=== PATIENT | female | born 1960 | race Caucasian/White ===

== ENCOUNTER 2022-09-28 22:53 | Emergency (ER) | payer BC, SELFPAY ==
[2022-09-28 23:10] VITALS: BP 104/63; PULSE 108; RESP 18; TEMP 36.8; O2SAT 96; BMI 52.7
--- NOTE | 2022-09-28 23:31 | ED.GENADULT ---
HPI - General Adult General Chief complaint: Nausea/Vomiting Stated complaint: Throwing up, Diarrea, heart palpitations Time Seen by Provider: 09/28/22 23:30 History of Present Illness HPI narrative: Patient arrives ambulatory to ED with concerns for nausea, vomiting, and diarrhea x 1.5 week. She states she she has also developed HANSEN, palpations, shakiness and weakness. Today had sharp pain in the LLQ x3 that lasts only for a few seconds and resolved. Started Ozempic 5 weeks ago. Hx. of cholecystectomy 62-year-old woman presenting to the emergency department with concern of diarrhea; since cholecystectomy but this much worse. No preceding antibiotics. Five episodes of diarrhea in the last 10 hours and 2 episodes of vomiting today. Did have a steroid shot in her hip about a week and a half ago. The GI symptoms preceded that. Persistent nausea. I make note of heart rate and she says that is generally just tachycardic. Is in the midst of workup for this. Has also had elevating white count and to see hematology. Quite concerned about this. Sounds like she is worried she might have cancer. Related Data Home Medications Medication Instructions Recorded Confirmed amlodipine 5 mg tablet 5 mg PO DAILY 09/28/22 09/28/22 chlorthalidone 50 mg tablet 50 mg PO DAILY 09/28/22 09/28/22 gabapentin 300 mg capsule 300 - 900 mg PO Q12H PRN 09/28/22 09/28/22 losartan 50 mg tablet 50 mg PO BID 09/28/22 09/28/22 metformin 1,000 mg tablet 1,000 mg PO BID 09/28/22 09/28/22 potassium chloride 20 mEq 20 meq PO BID 09/28/22 09/28/22 tablet,extended release semaglutide 0.25 mg or 0.5 mg (2 mg subcut 09/28/22 mg/3 mL) subcutaneous pen injector (Ozempic) simvastatin 40 mg tablet 40 mg PO QPM 09/28/22 09/28/22 spironolactone 25 mg tablet 25 mg PO DAILY 09/28/22 09/28/22 spironolactone 50 mg tablet 50 mg PO DAILY 09/28/22 09/28/22 Allergies Allergy/AdvReac Type Severity Reaction Status Date / Time Iodinated Contrast Media Allergy Intermediate rash Verified 09/28/22 23:03 amlodipine AdvReac Uncoded 09/28/22 23:03 Review of Systems Status of ROS: Reports: 6 or more systems reviewed and unremarkable except as noted in History and below PFSH PFSH Social History Smoking Status: Former smoker Do you use any of these nicotine containing products: None Second hand tobacco smoke exposure: No How often do you have a drink containing alcohol: never How often do you have six or more drinks on one occasion: Never AUDIT-C Alcohol total score: 0 Non-prescribed substance use: denies use service: No Exam Narrative: Exam Narrative: Pleasant. Laughs easily. Tired. Appears generally uncomfortable. Head is atraumatic. Sticky mouth. Dry teeth. Slightly tremulous. Lungs are clear. Heart in elevated rate but in regular rhythm. Cranial nerves 2-12 are intact. Abdomen is soft a little tender in a epigastrium but minimally so. Normoactive bowel sounds. Well-perfused peripherally. Knees with postoperative scars. No lower extremity edema. Tattoos on feet. Const: Vital Signs, click to edit/add: Vital Signs - 24 hr 09/28/22 23:10 09/28/22 23:58 09/28/22 23:59 Temperature 98.3 F Pulse Rate 110 H 115 H Pulse Rate [Pulse Oximeter] 108 H Respiratory Rate 18 Blood Pressure 129/72 Blood Pressure [Le ft Upper Arm] 104/63 Pulse Oximetry 96 97 96 Oxygen Delivery Me thod Room Air 09/29/22 00:00 09/29/22 00:02 09/29/22 00:02 Temperature Pulse Rate 112 H 114 H 114 H Pulse Rate [Pulse Oximeter] Respiratory Rate Blood Pressure 115/61 115/61 Blood Pressure [Le ft Upper Arm] Pulse Oximetry 96 97 97 Oxygen Delivery Me thod 09/29/22 00:03 09/29/22 00:15 09/29/22 00:30 Temperature Pulse Rate 112 H 110 H 107 H Pulse Rate [Pulse Oximeter] Respiratory Rate Blood Pressure Blood Pressure [Le ft Upper Arm] Pulse Oximetry 97 97 99 Oxygen Delivery Me thod 09/29/22 00:32 09/29/22 00:45 09/29/22 01:00 Temperature Pulse Rate 110 H 108 H 108 H Pulse Rate [Pulse Oximeter] Respiratory Rate Blood Pressure 138/72 Blood Pressure [Le ft Upper Arm] Pulse Oximetry 98 97 96 Oxygen Delivery Me thod 09/29/22 01:02 09/29/22 01:15 09/29/22 01:30 Temperature Pulse Rate 108 H 96 99 Pulse Rate [Pulse Oximeter] Respiratory Rate Blood Pressure 141/73 H Blood Pressure [Le ft Upper Arm] Pulse Oximetry 95 97 98 Oxygen Delivery Me thod 09/29/22 01:32 09/29/22 01:33 09/29/22 01:45 Temperature Pulse Rate 97 93 97 Pulse Rate [Pulse Oximeter] Respiratory Rate Blood Pressure 148/71 H Blood Pressure [Le ft Upper Arm] Pulse Oximetry 96 97 97 Oxygen Delivery Me thod 09/29/22 02:00 09/29/22 02:02 Temperature Pulse Rate 101 H 100 Pulse Rate [Pulse Oximeter] Respiratory Rate Blood Pressure 153/72 H Blood Pressure [Le ft Upper Arm] Pulse Oximetry 97 96 Oxygen Delivery Me thod Documenting provider has reviewed patient's vital signs: yes Course Vital Signs Vital signs: Initial Vital Signs Temperature 98.3 F 09/28/22 23:10 Temperature Source Temporal Artery Scan 09/28/22 23:10 Pulse Rate 108 H 09/28/22 23:10 Respiratory Rate 18 09/28/22 23:10 Blood Pressure 104/63 09/28/22 23:10 Blood Pressure Mean 76 09/28/22 23:10 Pulse Oximetry 96 09/28/22 23:10 Oxygen Delivery Method Room Air 09/28/22 23:10 Vital Signs Temperature 98.3 F 09/28/22 23:10 Pulse Rate 108 H 09/28/22 23:10 Respiratory Rate 18 09/28/22 23:10 Blood Pressure 104/63 09/28/22 23:10 Pulse Oximetry 96 09/28/22 23:10 Oxygen Delivery Method Room Air 09/28/22 23:10 Temperature 98.3 F 09/28/22 23:10 Pulse Rate 100 09/29/22 02:02 Respiratory Rate 18 09/28/22 23:10 Blood Pressure 153/72 H 09/29/22 02:02 Pulse Oximetry 96 09/29/22 02:02 Oxygen Delivery Method Room Air 09/28/22 23:10 Medical Decision Making MDM Narrative Medical decision making narrative: Initiated with IV fluids. Clearly she is dehydrated. I think carrying a lot of stress and feeling anxious as well. There could be an infectious etiology to these symptoms though I think more likely is medication reaction compounding already underlying chronic diarrheal symptoms. This does not appear to be colitis symptoms per se. With duration of symptoms would be a good idea to check labs. Mildly elevated white count and CRP of unclear etiology. I do not see particular evidence of hematological cancer as has been discussed with her. With fluids and antiemetic is overall quite improved. Seems more calm, relaxed. See patient discharge plan. Lab Data Lab results reviewed: Yes I reviewed the patient's lab results Labs: Lab Results 09/28/22 09/29/22 Range/Units 23:55 00:00 WBC 13.61 H (4.50-11.00) K/uL RBC 4.47 (4.00-5.20) m/uL Hgb 13.6 (12.0-16.0) gm/dL Hct 41.4 (33.0-51.0) % MCV 93 (80-100) fL MCH 30 (26-34) pg MCHC 33 (32-36) gm/dL RDW Coeff of Karlo 13.9 (11.5-15.5) % Plt Count 471 H (140-440) K/uL Neut % (Auto) 66.9 (42.0-72.0) % Lymph % (Auto) 26.5 (20-44) % [place] % (Auto) 5.8 (0.0-11.0) % Eos % (Auto) 0.2 (0.0-7.0) % Baso % (Auto) 0.2 (0.0-3.0) % Neut # (Auto) 9.10 H (1.7-7.0) K/uL Lymph # (Auto) 3.60 H (0.90-2.90) K/uL [place] # (Auto) 0.80 (0.00-0.90) K/UL Eos # (Auto) 0.00 (0.00-0.50) K/uL Baso # (Auto) 0.00 (0.00-0.30) K/uL Sodium 137 (135-149) mmol/L Potassium 3.9 (3.6-5.1) mmol/L Chloride 98 (96-114) mmol/L Carbon Dioxide 24 (20-32) mmol/L BUN 30 (7-30) mg/dL Creatinine 0.8 (0.5-1.5) mg/dL Estimated Creat Clear 42.89 Estimated GFR 82 ml/min Glucose 151 H (60-115) mg/dL Calcium 9.9 (8.4-10.6) mg/dL Total Bilirubin 0.7 (0.1-1.5) mg/dL Direct Bilirubin 0.3 (0.0-0.5) mg/dL AST 20 (12-35) U/L ALT 20 (4-35) U/L Alkaline Phosphatase 77 (40-150) U/L C-Reactive Protein 1.3 H (0.5-1.0) mg/dL Total Protein 7.7 (6.0-8.3) g/dL Albumin 4.6 (3.3-5.0) g/dL Lab Acknowledgement Test Added ECG Data Attestation: I personally reviewed and interpreted this ECG as follows: (Sinus tachycardia at 118 without ischemic changes) Discharge Plan Discharge Clinical Impression: Diarrhea, Vomiting, Dehydration Patient Disposition: Home w/ Parent or Adult Condition: Improved Instructions: Dehydration (ED), Acute Nausea and Vomiting (ED) Additional Instructions: Certainly sounds as though your diarrhea could be multifactorial. Perhaps reviewing again potential treatments for your diarrhea since your cholecystectomy with Gastroenterology or General surgery would be a good idea. Might need a holiday from Ozempic plus or minus a restart to see how much this is playing a role in your symptoms. I would follow up in primary care. At least at this moment I am overall reassured by your complete blood count after what you had described. I would still keep your scheduled followups. Good to see you. Happy you're feeling better. Vladimir from [employer]. Prescriptions: No Action amlodipine 5 mg tablet 5 mg PO DAILY chlorthalidone 50 mg tablet 50 mg PO DAILY gabapentin 300 mg capsule 300 - 900 mg PO Q12H PRN losartan 50 mg tablet 50 mg PO BID spironolactone 25 mg tablet 25 mg PO DAILY simvastatin 40 mg tablet 40 mg PO QPM metformin 1,000 mg tablet 1,000 mg PO BID spironolactone 50 mg tablet 50 mg PO DAILY potassium chloride 20 mEq tablet extended release 20 meq PO BID Ozempic 0.25 mg or 0.5 mg (2 mg/3 mL) pen injector subcut Follow Up/Referrals: Kelly Sommer PA [Primary Care Provider] - Stand Alone Forms: [email or web address] Info Instructions
[2022-09-28 23:58] VITALS: PULSE 110; O2SAT 97
[2022-09-28] MEDS: 0.9 % SODIUM CHLORIDE 1000 ml 1,000 ML IV (23:58)
[2022-09-28] MEDS: ONDANSETRON 2 MG/ML inj 4 MG IVP (23:58)
[2022-09-28 23:59] VITALS: BP 129/72; PULSE 115; O2SAT 96
[2022-09-29] VITALS (16 sets, daily range): BP systolic 115–153; BP diastolic 61–73; PULSE 93–114; O2SAT 95–99
[2022-09-29 00:17] LABS: Albumin* 4.6 g/dL (3.3-5.0); Chloride* 98 mmol/L (96-114); Sodium* 137 mmol/L (135-149)
[2022-09-29 00:18] LABS: Potassium* 3.9 mmol/L (3.6-5.1)
[2022-09-29 00:20] LABS: Alkaline Phosphatase* 77 U/L (40-150); Aspartate Amino Transferase* 20 U/L (12-35); Bilirubin Direct* 0.3 mg/dL (0.0-0.5); Bilirubin Total* 0.7 mg/dL (0.1-1.5); Blood Urea Nitrogen* 30 mg/dL (7-30); Carbon Dioxide* 24 mmol/L (20-32); Creatinine* 0.8 mg/dL (0.5-1.5); Est. Creatinine Clearance* 42.89; Estimated Glomerular Filt Rate 82 ml/min; Glucose* 151 mg/dL (60-115); Total Protein* 7.7 g/dL (6.0-8.3)
[2022-09-29 00:21] LABS: Alanine Aminotransferase* 20 U/L (4-35); Calcium* 9.9 mg/dL (8.4-10.6)
[2022-09-29 00:23] LABS: C Reactive Protein* 1.3 mg/dL (0.5-1.0)
[2022-09-29 00:36] LABS: Basophils Percent Auto 0.2 % (0.0-3.0); Eosinophils Percent Auto 0.2 % (0.0-7.0); Hematocrit 41.4 % (33.0-51.0); Hemoglobin* 13.6 gm/dL (12.0-16.0); Immature Granulocytes Pct Auto 0.4 %; Lymphocytes Percent Auto 26.5 % (20-44); Mean Corpuscular HGB Conc 33 gm/dL (32-36); Mean Corpuscular Hemoglobin 30 pg (26-34); Mean Corpuscular Volume 93 fL (80-100); Monocytes Percent Auto 5.8 % (0.0-11.0); Neutrophils Percent Auto 66.9 % (42.0-72.0); Platelet Count* 471 K/uL (140-440); RDW Coefficient of Variation % 13.9 % (11.5-15.5); Red Blood Count 4.47 m/uL (4.00-5.20); Slide Review Reflex No; White Blood Count* 13.61 K/uL (4.50-11.00)
[2022-09-29] MEDS: 0.9 % SODIUM CHLORIDE 1000 ml 1,000 ML IV (01:07)
== END 2022-09-29 02:28 | disposition home or self-care (01) ==
PROVIDERS: Emergency Provider Family Medicine; PCP Physician Assistant
DX: E86.0 Dehydration (principal); R19.7 Diarrhea, unspecified; R11.10 Vomiting, unspecified; R00.2 Palpitations
CPT/HCPCS: 36415; 80053; 80076; 85025; 86140; 93005; 99283; 99284; J2405; J7030

== ENCOUNTER 2022-11-04 12:55 | Outpatient (CLI) | payer BC, SELFPAY ==
--- NOTE | 2022-11-04 11:20 | W.ANESCHARGE ---
Anesthesia Charges Start Date/Time Anesthesia Start Date: 11/04/22 Anesthesia Start Time: 13:31 Stop Date/Time Anesthesia Stop Date: 11/04/22 Anesthesia Stop Time: 14:01
--- NOTE | 2022-11-04 14:00 | W.ANESCHARGE ---
Anesthesia Charges Start Date/Time Anesthesia Start Date: 11/04/22 Anesthesia Start Time: 13:31 Stop Date/Time Anesthesia Stop Date: 11/04/22 Anesthesia Stop Time: 14:01
== END 2022-11-04 12:56 | disposition home or self-care (01) ==
LOC: OP CLINIC 12:57
PROVIDERS: PCP Family Medicine; Visit Provider Internal Medicine Gastroenterology
DX: Z12.11 Encounter for screening for malignant neoplasm of colon (principal); K63.5 Polyp of colon
CPT/HCPCS: 00811; 00812; 45380; 45385; 88305; J2704

== ENCOUNTER 2023-01-14 10:28 | Emergency (ER) | payer BC, SELFPAY ==
[2023-01-14 10:39] VITALS: BP 128/84; PULSE 99; RESP 18; TEMP 35.7; O2SAT 99; BMI 48.2
--- NOTE | 2023-01-14 11:33 | ED.NAVMDI ---
HPI - Nausea/Vomiting/Diarrhea General Time Seen by Provider: 11:34 Date Seen: 01/14/23 Chief complaint: Nausea/Vomiting Stated complaint: Vomiting Time Seen by Provider: 01/14/23 11:32 Source: patient, RN notes reviewed and old records reviewed Mode of arrival: ambulatory Limitations: no limitations History of Present Illness HPI Narrative: This 62-year-old female is coming in with concern of dehydration for intermittent/episodic nausea vomiting diarrhea that is been present for about 3 months now. She remembers coming into the ER earlier this year with symptoms. At that time it was more diarrhea which has gotten better overall. She has times where she will be symptom free. Right now she is having significant nausea, she states she does not really vomit much because she is not eating much. She is attempting to lose weight so that she can get down to a BMI where they will do a hip replacement. She is not having abdominal pain except when she dry heaves then she will get some sharp pain in the lower abdomen, that is the only time. There is no fevers but sometimes at night she will feel sweaty like she is having a hot flash and has not had hot flashes for years. She states they are in the process of considering leukemia due to an elevated white count. She has not had extensive weight loss. Her gallbladder is out, she has had surgery 3 years ago for endometrial cancer which was done through the [facility] system. She cannot get into her primary care provider until February 11. She remembers getting Zofran but does not have any more at home, ran out of it. This current nausea vomiting, rather dry heaving, has been for a few days now. She notes she had diarrhea much worse in the beginning of these symptoms, will be intermittent, is not having that right now. She did go on BuSpar for underlying anxiety and does feel that that has helped her diarrhea symptoms. She had a couple days of diarrhea last week but her brother also and she attributed to stress. She has had a colonoscopy. She actually is reporting more dry heaves or gagging and not true vomiting. In review of her records, she was here on 09/28/2022 with nausea vomiting and diarrhea. Ozempic had been started 5 weeks prior to that. MD elicited complaint: nausea, vomiting and diarrhea (Not current today.) Related Data Home Medications Medication Instructions Recorded Confirmed amlodipine 5 mg tablet 5 mg PO DAILY 09/28/22 01/14/23 chlorthalidone 50 mg tablet 50 mg PO DAILY 09/28/22 01/14/23 gabapentin 300 mg capsule 300 - 900 mg PO Q12H PRN 09/28/22 01/14/23 losartan 50 mg tablet 50 mg PO BID 09/28/22 01/14/23 metformin 1,000 mg tablet 1,000 mg PO BID 09/28/22 01/14/23 potassium chloride 20 mEq 20 meq PO BID 09/28/22 01/14/23 tablet,extended release semaglutide 0.25 mg or 0.5 mg (2 mg subcut 09/28/22 mg/3 mL) subcutaneous pen injector (Ozempic) simvastatin 40 mg tablet 40 mg PO QPM 09/28/22 01/14/23 spironolactone 25 mg tablet 25 mg PO DAILY 09/28/22 01/14/23 spironolactone 50 mg tablet 50 mg PO DAILY 09/28/22 01/14/23 buspirone 10 mg tablet 20 mg PO BID 01/14/23 01/14/23 venlafaxine 150 mg 150 mg PO QAM 01/14/23 01/14/23 capsule,extended release 24 hr venlafaxine 75 mg capsule,extended 75 mg PO QAM 01/14/23 01/14/23 release 24 hr Previous Rx's Medication Instructions Recorded ondansetron 4 mg disintegrating 4 mg PO Q6H PRN nausea and 01/14/23 tablet vomiting #30 tabs Allergies Allergy/AdvReac Type Severity Reaction Status Date / Time Iodinated Contrast Media Allergy Intermediate rash Verified 09/28/22 23:03 amlodipine AdvReac Uncoded 09/28/22 23:03 Review of Systems Status of ROS: Reports: 6 or more systems reviewed and unremarkable except as noted in History and below [facility] Social History Smoking Status: Former smoker Do you use any of these nicotine containing products: None Second hand tobacco smoke exposure: No How often do you have a drink containing alcohol: never How often do you have six or more drinks on one occasion: Never AUDIT-C Alcohol total score: 0 Non-prescribed substance use: denies use service: No Exam Const: Vital Signs, click to edit/add: Vital Signs - 24 hr 01/14/23 10:39 01/14/23 13:47 Temperature 96.2 F L Pulse Rate [Pulse Oximeter] 99 90 Respiratory Rate 18 16 Blood Pressure [Ri ght Upper Arm] 128/84 121/59 L Pulse Oximetry 99 98 Oxygen Delivery Me thod Room Air Room Air Yue is a 62-year-old female that is alert interactive no apparent distress. She has baseline obese body habitus. She is very pleasant, able to speak in complete sentences. Pupils are equal, sclera clear. Face atraumatic. Oropharynx mildly dry but no exudates or abnormality noted outside of being dry. Neck is supple without masses ir thyromegaly. Lungs are clear with good air entry. CV slightly fast but regular, no murmur, normal S1 and S2, no S3-S4. Abdomen is obese but nontender, nondistended, no palpable masses or organomegaly but body habitus does preclude this examination. Moving all extremities. Documenting provider has reviewed patient's vital signs: yes Course Course Hospital Course: Patient with reported intermittent nausea vomiting/gagging with some intermittent diarrhea on Ozempic. I do wonder if her Ozempic may be problematic and causative in some of her symptoms. We will establish an IV if she does look dry, have her receive some IV fluids and Zofran. We will check baseline chemistries. If this is truly been going on for 3 months and we have normal labs, abdominal exam is nontender, do think that she can probably proceed with further outpatient workup. I do wonder she maybe should be taken off the Ozempic and see if she improves. Reevaluation(s) Time of Reevaluation #1: 14:22 Reevaluation #1: Have reviewed with patient that she certainly seems dehydrated as evidenced by elevated lactate. We will give her a 2 L of fluids. Her nausea is better. We did review her Ozempic use, I highly suspect this as a causative etiology of her symptoms. It may take her in order of weeks to have this out of her system, would not recommend using this further and stay off of it for at least 2-4 weeks and see if her symptoms go away. I do not think she requires a CT, her abdominal exam is completely benign, symptoms have been present since September. We did review that her white blood count is elevated with a predominance of lymphocytes, further outpatient workup for such things like chronic lymphocytic leukemia can be undertaken with her primary. Plan will be to discharge to home after 2 L of fluids with the home prescription of Zofran. Vital Signs Vital signs: Initial Vital Signs Temperature 96.2 F L 01/14/23 10:39 Temperature Source Temporal Artery Scan 01/14/23 10:39 Pulse Rate 99 01/14/23 10:39 Pulse Rhythm Regular 01/14/23 10:39 Respiratory Rate 18 01/14/23 10:39 Blood Pressure 128/84 01/14/23 10:39 Blood Pressure Mean 98 01/14/23 10:39 Blood Pressure Position Sitting 01/14/23 10:39 Pulse Oximetry 99 01/14/23 10:39 Oxygen Delivery Method Room Air 01/14/23 10:39 Vital Signs Temperature 96.2 F L 01/14/23 10:39 Pulse Rate 99 01/14/23 10:39 Respiratory Rate 18 01/14/23 10:39 Blood Pressure 128/84 01/14/23 10:39 Pulse Oximetry 99 01/14/23 10:39 Oxygen Delivery Method Room Air 01/14/23 10:39 Temperature 96.2 F L 01/14/23 10:39 Pulse Rate 90 01/14/23 13:47 Respiratory Rate 16 01/14/23 13:47 Blood Pressure 121/59 L 01/14/23 13:47 Pulse Oximetry 98 01/14/23 13:47 Oxygen Delivery Method Room Air 01/14/23 13:47 MDM - Nausea/Vomiting/Diarrhea Lab Data Labs: Lab Results 01/14/23 01/14/23 Range/Units 12:39 12:39 WBC 15.65 H (4.50-11.00) K/uL RBC 4.59 (4.00-5.20) m/uL Hgb 14.0 (12.0-16.0) gm/dL Hct 43.4 (33.0-51.0) % MCV 95 (80-100) fL MCH 31 (26-34) pg MCHC 32 (32-36) gm/dL RDW Coeff of Karlo 13.6 (11.5-15.5) % Plt Count 523 H (140-440) K/uL Neut % (Auto) 55.7 (42.0-72.0) % Lymph % (Auto) 37.8 (20-44) % [place] % (Auto) 5.4 (0.0-11.0) % Eos % (Auto) 0.4 (0.0-7.0) % Baso % (Auto) 0.4 (0.0-3.0) % Neut # (Auto) 8.70 H (1.7-7.0) K/uL Lymph # (Auto) 5.90 H (0.90-2.90) K/uL [place] # (Auto) 0.80 (0.00-0.90) K/UL Eos # (Auto) 0.10 (0.00-0.50) K/uL Baso # (Auto) 0.10 (0.00-0.30) K/uL Abs Immat Gran (auto) 0.00 (0.00-0.30) K/uL Imm/Tot Granulo (auto) 0.3 % Diff Slide Review Acceptable Review (Acceptable) Sodium 137 (135-149) mmol/L Potassium 4.7 (3.6-5.1) mmol/L Chloride 97 (96-114) mmol/L Carbon Dioxide 26 (20-32) mmol/L Anion Gap 14 (7-15) mEq/L BUN 31 H (7-30) mg/dL Creatinine 0.9 (0.5-1.5) mg/dL Estimated Creat Clear 42.89 Estimated GFR 71 ml/min Glucose 122 H (60-115) mg/dL Lactate 4.3 H* (0.5-1.9) mmol/L Calcium 9.7 (8.4-10.6) mg/dL Total Bilirubin 0.9 (0.1-1.5) mg/dL AST 33 (12-35) U/L ALT 20 (4-35) U/L Alkaline Phosphatase 72 (40-150) U/L C-Reactive Protein Cancelled 1.0 Total Protein 8.6 H (6.0-8.3) g/dL Albumin 4.9 (3.3-5.0) g/dL Lipase 89 (23-300) U/L TSH 2.090 (0.270-4.200) uIU/mL Discharge Plan Discharge Clinical Impression: Drug-induced nausea and vomiting Patient Disposition: Home, Self-Care Condition: Stable Instructions: Acute Nausea and Vomiting (ED) Additional Instructions: Use Zofran per prescription for any recurrent nausea vomiting. Recommend frequent small sips of fluids, advanced her diet back to normal once you are feeling better. I would recommend a trial being off the Ozempic for 2-4 weeks and see if symptoms improve. Ultimately, defer to your primary care provider and do request that you get scheduled for a follow-up within the next week to review your symptoms. If you are worsening in the interim, unable to keep down fluids, do develop fever and abdominal pain with vomiting or diarrhea, please seek re-evaluation. Activity Level: Activity as Tolerated Prescriptions: New ondansetron 4 mg tablet,disintegrating 4 mg PO Q6H PRN (Reason: nausea and vomiting) Qty: 30 0RF No Action buspirone 10 mg tablet 20 mg PO BID venlafaxine 75 mg capsule,extended release 24hr 75 mg PO QAM venlafaxine 150 mg capsule,extended release 24hr 150 mg PO QAM amlodipine 5 mg tablet 5 mg PO DAILY chlorthalidone 50 mg tablet 50 mg PO DAILY gabapentin 300 mg capsule 300 - 900 mg PO Q12H PRN losartan 50 mg tablet 50 mg PO BID spironolactone 25 mg tablet 25 mg PO DAILY simvastatin 40 mg tablet 40 mg PO QPM metformin 1,000 mg tablet 1,000 mg PO BID spironolactone 50 mg tablet 50 mg PO DAILY potassium chloride 20 mEq tablet extended release 20 meq PO BID Ozempic 0.25 mg or 0.5 mg (2 mg/3 mL) pen injector subcut Hold Instructions: Pt stopped 1wk ago, believes it might contribute to symptoms Follow Up/Referrals: Asha Arthur DO [Primary Care Provider] - Stand Alone [facility]: [facility] Info Instructions
[2023-01-14] MEDS: 0.9 % SODIUM CHLORIDE 1000 ml 1,000 ML 500 ML IV (12:40)
[2023-01-14] MEDS: ONDANSETRON 2 MG/ML inj 4 MG IVP (12:40)
[2023-01-14 12:51] LABS: Lactate* 4.3 mmol/L (0.5-1.9)
[2023-01-14 12:53] LABS: Basophils Percent Auto 0.4 % (0.0-3.0); Eosinophils Percent Auto 0.4 % (0.0-7.0); Hematocrit 43.4 % (33.0-51.0); Immature Granulocytes Pct Auto 0.3 %; Lymphocytes Percent Auto 37.8 % (20-44); Mean Corpuscular HGB Conc 32 gm/dL (32-36); Mean Corpuscular Hemoglobin 31 pg (26-34); Mean Corpuscular Volume 95 fL (80-100); Monocytes Percent Auto 5.4 % (0.0-11.0); Neutrophils Percent Auto 55.7 % (42.0-72.0); Platelet Count* 523 K/uL (140-440); RDW Coefficient of Variation % 13.6 % (11.5-15.5); Red Blood Count 4.59 m/uL (4.00-5.20); White Blood Count* 15.65 K/uL (4.50-11.00)
[2023-01-14 12:59] LABS: Slide Review Reflex Yes
[2023-01-14 13:06] LABS: Albumin* 4.9 g/dL (3.3-5.0); Chloride* 97 mmol/L (96-114); Potassium* 4.7 mmol/L (3.6-5.1); Sodium* 137 mmol/L (135-149)
[2023-01-14 13:08] LABS: Bilirubin Total* 0.9 mg/dL (0.1-1.5); Creatinine* 0.9 mg/dL (0.5-1.5); Est. Creatinine Clearance* 42.89; Estimated Glomerular Filt Rate 71 ml/min
[2023-01-14 13:09] LABS: Alanine Aminotransferase* 20 U/L (4-35); Alkaline Phosphatase* 72 U/L (40-150); Anion Gap 14 mEq/L (7-15); Aspartate Amino Transferase* 33 U/L (12-35); Blood Urea Nitrogen* 31 mg/dL (7-30); Carbon Dioxide* 26 mmol/L (20-32); Glucose* 122 mg/dL (60-115); Lipase* 89 U/L (23-300); Total Protein* 8.6 g/dL (6.0-8.3)
[2023-01-14 13:10] LABS: Calcium* 9.7 mg/dL (8.4-10.6)
[2023-01-14 13:18] LABS: Slide Review Acceptable Review (Acceptable)
[2023-01-14 13:47] VITALS: BP 121/59; PULSE 90; RESP 16; O2SAT 98
--- NOTE | 2023-01-14 14:09 | PC.NURSE ---
pt states she is feeling a bit better, no further vomiting. Has had one episode of diarrhea since being in ED.
[2023-01-14] MEDS: 0.9 % SODIUM CHLORIDE 1000 ml 1,000 ML IV (14:21)
== END 2023-01-14 15:15 | disposition home or self-care (01) ==
PROVIDERS: Emergency Provider Family Medicine; PCP Family Medicine
DX: R11.2 Nausea with vomiting, unspecified (principal); T50.905A Adverse effect of unspecified drugs, medicaments and biological substances, initial encounter
CPT/HCPCS: 36415; 80053; 83605; 83690; 84443; 85025; 86140; 96374; 99284; J2405; J7030

== ENCOUNTER 2023-06-23 14:43 | Emergency (ER) | payer MEDICARE, BC, SELFPAY ==
[2023-06-23] VITALS (13 sets, daily range): BP systolic 109–120; BP diastolic 54–67; PULSE 96–116; RESP 24; TEMP 36.6; O2SAT 89–97; BMI 43.9
--- NOTE | 2023-06-23 15:27 | ED.GENADULT ---
HPI - General Adult General Date Seen: 06/23/23 Chief complaint: Shortness of Breath/Dyspnea Stated complaint: Shortness of breath Time Seen by Provider: 06/23/23 15:18 History of Present Illness HPI narrative: 63-year-old female with a complex past history including type 2 diabetes, hypertension, hyperlipidemia, obesity, osteoarthritis, recent left hip replacement (2 weeks ago) done by an orthopedist through [facility]. She had her operations at [facility]. In terms of her hip surgery, I note in her record that She had seen Dr. Gutiérrez for her left hip pain in January. Because of her obesity he recommend referral to a different orthopedist for a specialized hip replacement surgery using a posterior approach. Since her surgery she has been having a fair amount of left hip pain is been taking oxycodone for that. She has been able to ambulate at home with her walker. She has not really noticed any bruising on her hip her leg. No swelling in her legs. No fevers. She has been on a 2 week course of prophylactic antibiotics to prevent any postoperative hip infection. She was in her bedroom yesterday when she was trying to turn in transfer. She got the front wheel of her walker caught between her bed and the bedside table. She was frustrated by that and was vigorously trying to move it. However she lost her balance and she fell. She hit her left side against the bed and then hit her right lateral and posterolateral ribcage against the bedside table. She was able to get off the floor on her own. She had some pain in her left hip but did not think it was broken. She was able to bear weight after the fall. Shortly after the fall she began to notice right lateral chest pain. It got steadily worse throughout the day yesterday and is worse overnight. The chest pain is not controlled by her oxycodone. Sometimes he gets into intense spasms of pain in her right chest. She seems to notice that it gets worse when she twists her head and neck to the wrong direction and when she tries to breathe too deeply. She is not coughing. No fever. No midline back pain. No numbness or tingling down her legs. She is not on any blood thinners. She has no history of DVT or PE. She had a previously scheduled postop appointment with her orthopedist at [facility] today. She and her went to that appointment and were hoping to get an x-ray to look for broken ribs. However her orthopedist said that she should go to the ER to be evaluated for possible blood clot. Therefore they drove from [facility] here to the ER in [place]. She does have a history of an allergy to CT contrast-she broke out in hives. I does not sound like her allergy was anaphylaxis. That reaction occurred years ago. She has had a subsequent CT scans with contrast, as recently as about 2 months ago. She says she does well when she gets premedicated with Benadryl. She recalls 1 time she was also premedicated with some other medication (possibly steroids? ). Related Data Home Medications Medication Instructions Recorded Confirmed amlodipine 5 mg tablet 5 mg PO DAILY 09/28/22 06/23/23 chlorthalidone 50 mg tablet 50 mg PO DAILY 09/28/22 06/23/23 gabapentin 300 mg capsule 300 - 900 mg PO Q12H PRN 09/28/22 06/23/23 losartan 50 mg tablet 50 mg PO BID 09/28/22 06/23/23 metformin 1,000 mg tablet 1,000 mg PO BID 09/28/22 06/23/23 potassium chloride 20 mEq 20 meq PO BID 09/28/22 06/23/23 tablet,extended release simvastatin 40 mg tablet 40 mg PO QPM 09/28/22 06/23/23 spironolactone 25 mg tablet 25 mg PO DAILY 09/28/22 06/23/23 spironolactone 50 mg tablet 50 mg PO DAILY 09/28/22 06/23/23 buspirone 10 mg tablet 20 mg PO BID 01/14/23 06/23/23 venlafaxine 150 mg 150 mg PO QAM 01/14/23 06/23/23 capsule,extended release 24 hr venlafaxine 75 mg capsule,extended 75 mg PO QAM 01/14/23 06/23/23 release 24 hr Previous Rx's Medication Instructions Recorded ondansetron 4 mg disintegrating 4 mg PO Q6H PRN nausea and 01/14/23 tablet vomiting #30 tabs amoxicillin 500 mg capsule 2,000 mg (4 x 500 mg) PO ONCE #4 04/22/23 caps Allergies Allergy/AdvReac Type Severity Reaction Status Date / Time Iodinated Contrast Media Allergy Intermediate rash Verified 01/21/23 11:08 nitrofurantoin Allergy Intermediate swelling Verified 01/21/23 11:08 amlodipine Allergy Mild feet Verified 01/21/23 11:08 swelling gadodiamide Allergy Mild high for Verified 01/21/23 11:08 3 days PFSH [facility] Medical History (Updated 06/23/23 @ 17:11 by Edgar Russo MD) Traumatic hematuria ?R31.9 - Hematuria, unspecified (ICD-10) Postural vertigo Obstructive sleep apnea treated with continuous positive airway pressure (CPAP) ?G47.33 - Obstructive sleep apnea (adult) (pediatric) (ICD-10) Cervical radiculopathy ?M54.12 - Radiculopathy, cervical region (ICD-10) Cataract ?H26.9 - Unspecified cataract (ICD-10) Drug-induced nausea and vomiting ?R11.2 - Nausea with vomiting, unspecified (ICD-10) ?T50.905A - Adverse effect of unspecified drugs, medicaments and biological substances, initial encounter (ICD-10) Surgical History History of tonsillectomy ?Z90.89 - Acquired absence of other organs (ICD-10) History of lumbar discectomy ?Z98.890 - Other specified postprocedural states (ICD-10) S/P right knee arthroscopy (08/20/04) ?Z98.890 - Other specified postprocedural states (ICD-10) S/P right knee arthroscopy (02/05/12) ?Z98.890 - Other specified postprocedural states (ICD-10) S/P left knee arthroscopy (07/23/06) ?Z98.890 - Other specified postprocedural states (ICD-10) History of arthroscopy of left shoulder (03/13/17) ?Z98.890 - Other specified postprocedural states (ICD-10) H/O laminectomy ?Z98.890 - Other specified postprocedural states (ICD-10) Hx of cholecystectomy ?Z90.49 - Acquired absence of other specified parts of digestive tract (ICD-10) 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) ?Z96.651 - Presence of right artificial knee joint (ICD-10) Status post total left knee replacement (05/19/13) ?Z96.652 - Presence of left artificial knee joint (ICD-10) Social History Smoking Status: Former smoker Do you use any of these nicotine containing products: None Second hand tobacco smoke exposure: No How often do you have a drink containing alcohol: never How often do you have six or more drinks on one occasion: Never AUDIT-C Alcohol total score: 0 Non-prescribed substance use: denies use service: No Exam Narrative: Exam Narrative: Constitutional: As I enter the room she is grimacing and groaning due to pain and her right lateral chest/rib cage. After pain medication she is still uncomfortable at but calmer. She is heavy set. She is alert and polite and generally conversant, allowing for pain. HENT: Head: Atraumatic. No depressed skull fracture, Raccoon Eyes, Collins's sign, or hemotympanum. Face normal. TMs normal Nose: Nose normal. Mouth/Throat: Oral mucosa is clear and moist. no trismus. Pharynx normal. Tonsils symmetric. No tonsillar enlargement, erythema, or exudate. Eyes: Conjunctivae normal. EOM normal. Pupils equal, round, and reactive to light. No scleral icterus. Neck: Normal range of motion. Neck supple. No tracheal deviation present. Cardiovascular: Tachycardic, regular rhythm. No gallop. No friction rub. No murmur heard. Symmetric radial and PT and DP artery pulses Pulmonary/Chest: When she breathes deeply she grimaces in pain and guards her right side with her hand. No stridor. No respiratory distress. No wheezes. No rales. No rhonchi . She has symmetric lung sounds and bilateral aeration No tenderness. Abdominal: Soft. Bowel sounds normal. No distension. No mass. Right upper quadrant tenderness just below the rib edge. No rebound. No guarding. Musculoskeletal: RUE: Normal range of motion. No tenderness. No deformity LUE: Normal range of motion. No tenderness. No deformity RLE: Normal range of motion. No peripheral edema, bruising, swelling. No tenderness. No deformity LLE: Range of motion in her left hip is limited by her recent surgery. However there is no evidence for any peripheral edema, bruising, or swelling of the left leg. Normal range of motion. No edema. No tenderness. No deformity She has a dressing in place over her left hip incision that was apparently changed today at the ortho office. I did not remove the dressing for exam but says the orthopedist indicate the wound looked great. Neurological: Alert and oriented to person, place, and time. Normal strength. CN II-VII intact. No sensory deficit. GCS eye subscore is 4. GCS verbal subscore is 5. GCS motor subscore is 6. Normal coordination Skin: Skin is warm and dry. No rash noted. No pallor. Normal capillary refill. Psychiatric: Normal mood. Normal affect. Const: Vital Signs, click to edit/add: Vital Signs - 24 hr 06/23/23 15:14 06/23/23 16:25 06/23/23 16:30 Temperature 97.8 F Pulse Rate 101 H 102 H Pulse Rate [Pulse Oximeter] 116 H Respiratory Rate 24 Blood Pressure Blood Pressure [Ri ght Forearm] 115/67 Pulse Oximetry 97 89 95 Oxygen Delivery Me thod Room Air Oxygen Flow Rate 06/23/23 16:31 06/23/23 16:45 06/23/23 17:00 Temperature Pulse Rate 101 H 100 96 Pulse Rate [Pulse Oximeter] Respiratory Rate Blood Pressure 120/61 Blood Pressure [Ri ght Forearm] Pulse Oximetry 89 92 97 Oxygen Delivery Me thod Nasal Cannula Oxygen Flow Rate 2 06/23/23 17:01 06/23/23 17:02 06/23/23 17:15 Temperature Pulse Rate 99 102 H 100 Pulse Rate [Pulse Oximeter] Respiratory Rate Blood Pressure 109/54 L Blood Pressure [Ri ght Forearm] Pulse Oximetry 96 97 96 Oxygen Delivery Me thod Nasal Cannula Nasal Cannula Nasal Cannula Oxygen Flow Rate 2 2 2 06/23/23 17:30 06/23/23 17:32 06/23/23 17:33 Temperature Pulse Rate 102 H 99 99 Pulse Rate [Pulse Oximeter] Respiratory Rate Blood Pressure 111/62 Blood Pressure [Ri ght Forearm] Pulse Oximetry 97 97 97 Oxygen Delivery Me thod Nasal Cannula Nasal Cannula Nasal Cannula Oxygen Flow Rate 2 2 2 06/23/23 17:45 Temperature Pulse Rate 102 H Pulse Rate [Pulse Oximeter] Respiratory Rate Blood Pressure Blood Pressure [Ri ght Forearm] Pulse Oximetry 97 Oxygen Delivery Me thod Nasal Cannula Oxygen Flow Rate 2 Course Vital Signs Vital signs: Initial Vital Signs Temperature 97.8 F 06/23/23 15:14 Temperature Source Temporal Artery Scan 06/23/23 15:14 Pulse Rate 116 H 06/23/23 15:14 Pulse Rhythm Regular 06/23/23 15:14 Pulse Strength 3+ Normal 06/23/23 15:14 Respiratory Rate 24 06/23/23 15:14 Blood Pressure 115/67 06/23/23 15:14 Blood Pressure Mean 83 06/23/23 15:14 Blood Pressure Position Sitting 06/23/23 15:14 Pulse Oximetry 97 06/23/23 15:14 Oxygen Delivery Method Room Air 06/23/23 15:14 Vital Signs Temperature 97.8 F 06/23/23 15:14 Pulse Rate 116 H 06/23/23 15:14 Respiratory Rate 24 06/23/23 15:14 Blood Pressure 115/67 06/23/23 15:14 Pulse Oximetry 97 06/23/23 15:14 Oxygen Delivery Method Room Air 06/23/23 15:14 Temperature 97.8 F 06/23/23 15:14 Pulse Rate 102 H 06/23/23 17:45 Respiratory Rate 24 06/23/23 15:14 Blood Pressure 111/62 06/23/23 17:32 Pulse Oximetry 97 06/23/23 17:45 Oxygen Delivery Method Nasal Cannula 06/23/23 17:45 Oxygen Flow Rate 2 06/23/23 17:45 Medications Administered Medications: Generic Name Dose Route Start Last Admin Trade Name Freq PRN Reason Stop Dose Admin Hydromorphone HCl 0.5 mg 06/23/23 15:35 06/23/23 17:44 Hydromorphone 0.5 Mg/0.5 Ml Inj IVP 0.5 mg Q1H PRN Administration Pain Discontinued Medications Generic Name Dose Route Start Last Admin Trade Name Freq PRN Reason Stop Dose Admin Diphenhydramine HCl 50 mg 06/23/23 15:52 06/23/23 16:35 Diphenhydramine 50 Mg/Ml Inj IVP 06/23/23 15:53 50 mg ONCE ONE Administration Hydrocortisone Sodium Succinate 200 mg 06/23/23 15:52 06/23/23 16:59 Hydrocortisone Sod Succinate 50 Mg/Ml Inj IVP 06/23/23 15:53 200 mg ONCE ONE Administration Sodium Chloride 1,000 mls @ 1,000 mls/hr 06/23/23 16:30 06/23/23 17:39 0.9 % Sodium Chloride 1000 Ml IV 06/23/23 17:29 Infused .Q1H MARK Infusion Ketorolac Tromethamine 15 mg 06/23/23 15:35 06/23/23 16:09 Ketorolac 15 Mg/Ml Inj IVP 06/23/23 15:36 15 mg ONCE ONE Administration Ondansetron HCl 4 mg 06/23/23 15:35 06/23/23 16:09 Ondansetron 2 Mg/Ml Inj IVP 06/23/23 15:36 4 mg ONCE ONE Administration Medical Decision Making MDM Narrative Medical decision making narrative: Very pleasant 63-year-old female who is 13 days status post left hip replacement done at [facility] by [facility]. She is referred to the ER today by [facility] to evaluate for chest pain. She did have a mechanical trip and fall and hit her right lateral ribcage against a bedside table yesterday. Differential for her chest pain would include rib fractures as well as hemothorax/pneumothorax. On my exam she has symmetric lung sounds. Portable chest x-ray is negative by my read. A it has not been interpreted by Radiology yet, because radiology is currently down and nonfunctional. And with a perspective of trauma, Differential would still include occult rib fractures, occult pneumothorax, small hemothorax as well as possible injury to her liver . I think that CT imaging is indicated to further assess. Additionally with her recent left hip surgery, concern is for possible PE. I feel like that is less likely given the history of trauma yesterday. She has no sign of DVT in her left or right lower extremity. At this point I do not think D-dimer testing would be beneficial since she is highly likely to have an abnormal D-dimer in the setting of recent surgery. CT imaging would also be indicated to rule out PE. She does have a history of hives to CT contrast. I have premedicated her with Benadryl 50 mg and hydrocortisone 200 mg intravenously as per our premedication protocol. She did develop borderline hypoxia after Dilaudid and Benadryl. Heart rate was improved from about 112 down to about 102. Suspect that this likely reflects sedation from meds rather than be compensating illness. Placed on nasal cannula. Unfortunately, due to Internet out age today we have no Radiology capability. We are not able get a radiologist interpretation any imaging studies, including CT, ultrasound, or plain films. I do not think the patient is safe to discharge home without proper workup and CT. Therefore transfer to a facility that has radiology and radiologist capability is indicated. I discussed this patient with Dr. Fay from the emergency department at [facility] (where she had her hip surgery 2 weeks ago) and he has accepted the patient as an ED to ED transfer. She will be transferred to [facility] by EMS. She will get imaging and complete her emergency department workup at [facility]. I discussed the radiology out edge with the patient and her . They understand the incredibly unusual and very unfortunate reality. They agree with the plan to transfer so she can get proper workup today.. [place] [address], unclear etiology. Patient denies any recent cough or fever. A blood pressure stable. Heart rate improved from 115-99 after 1 L of IV fluid. Afebrile. Hemoglobin is 10.2 which is down from a previous baseline of 14. Unclear if this reflects bleeding from potential injuries from her fall yesterday or if it reflects possible postop bleeding after her hip surgery. No evidence for any significant hematoma affecting the left leg or hip. Platelet count 732. She is not anticoagulated. She does have a slightly elevated BUN. Creatinine 1.2 is up from baseline of 0.9. Suspect prerenal. IV saline bolus administered. Lactic acid elevated at 3.4. I ordered a repeat lactic acid after heart rate normal his. Unfortunately this was not completed with patient was transferred by EMS to [facility]. With right upper quadrant pain, consider possible intra-abdominal sources of pain. She is status post cholecystectomy. Lipase normal. LFTs are normal. EKG shows sinus tachycardia without any definitive ischemia. Initial troponin is undetectable. Clinical presentation not suggestive of ACS. Lab Data Labs: Lab Results 06/23/23 Range/Units 15:38 WBC 20.57 H (4.50-11.00) K/uL RBC 3.33 L (4.00-5.20) m/uL Hgb 10.2 L (12.0-16.0) gm/dL Hct 31.5 L (33.0-51.0) % MCV 95 (80-100) fL MCH 31 (26-34) pg MCHC 32 (32-36) gm/dL RDW Coeff of Karlo 14.0 (11.5-15.5) % Plt Count 732 H (140-440) K/uL Neut % (Auto) 73.1 H (42.0-72.0) % Lymph % (Auto) 21.1 (20-44) % Harnett % (Auto) 4.7 (0.0-11.0) % Eos % (Auto) 0.6 (0.0-7.0) % Baso % (Auto) 0.2 (0.0-3.0) % Neut # (Auto) 15.00 H (1.7-7.0) K/uL Lymph # (Auto) 4.30 H (0.90-2.90) K/uL Harnett # (Auto) 1.00 H (0.00-0.90) K/UL Eos # (Auto) 0.10 (0.00-0.50) K/uL Baso # (Auto) 0.00 (0.00-0.30) K/uL Abs Immat Gran (auto) 0.10 (0.00-0.30) K/uL Imm/Tot Granulo (auto) 0.3 % Sodium 133 L (135-149) mmol/L Potassium 4.6 (3.6-5.1) mmol/L Chloride 98 (96-114) mmol/L Carbon Dioxide 22 (20-32) mmol/L Anion Gap 13 (7-15) mEq/L BUN 39 H (7-30) mg/dL Creatinine 1.2 (0.5-1.5) mg/dL Estimated Creat Clear 36.97 Estimated GFR 50 ml/min Glucose 135 H (60-115) mg/dL Lactate 3.4 H (0.5-1.9) mmol/L Calcium 10.7 H (8.4-10.6) mg/dL Total Bilirubin 0.4 (0.1-1.5) mg/dL AST 21 (12-35) U/L ALT 16 (4-35) U/L Alkaline Phosphatase 141 (40-150) U/L Troponin I < 0.01 L (0.01-0.04) ng/mL Total Protein 7.0 (6.0-8.3) g/dL Albumin 4.0 (3.3-5.0) g/dL Lipase 85 (23-300) U/L Imaging Data Chest x-ray: Attestation: I have reviewed the pertinent imaging results. My impression: No visible rib fracture. No visible pneumothorax. No hemothorax. No obvious infiltrate. Normal cardiac silhouette. No CHF. Per my read. ECG Data Attestation: I personally reviewed and interpreted this ECG as follows: Discharge Plan Discharge Clinical Impression: Anemia, Leukocytosis, Chest pain Prescriptions: No Action buspirone 10 mg tablet 20 mg PO BID venlafaxine 75 mg capsule,extended release 24hr 75 mg PO QAM venlafaxine 150 mg capsule,extended release 24hr 150 mg PO QAM ondansetron 4 mg tablet,disintegrating 4 mg PO Q6H PRN (Reason: nausea and vomiting) Qty: 30 0RF amlodipine 5 mg tablet 5 mg PO DAILY chlorthalidone 50 mg tablet 50 mg PO DAILY gabapentin 300 mg capsule 300 - 900 mg PO Q12H PRN losartan 50 mg tablet 50 mg PO BID spironolactone 25 mg tablet 25 mg PO DAILY simvastatin 40 mg tablet 40 mg PO QPM metformin 1,000 mg tablet 1,000 mg PO BID spironolactone 50 mg tablet 50 mg PO DAILY potassium chloride 20 mEq tablet extended release 20 meq PO BID amoxicillin 500 mg capsule 2,000 mg PO ONCE Qty: 4 3RF Rx Instructions: Take all 4 capsules, 1 hour prior to dental appointment Follow Up/Referrals: Asha Arthur DO [Primary Care Provider] -
[2023-06-23 16:08] LABS: Lactate* 3.4 mmol/L (0.5-1.9)
[2023-06-23] MEDS: KETOROLAC 15 MG/ML inj IVP (16:09)
[2023-06-23] MEDS: ONDANSETRON 2 MG/ML inj 4 MG IVP (16:09)
[2023-06-23 16:14] LABS: Basophils Percent Auto 0.2 % (0.0-3.0); Eosinophils Percent Auto 0.6 % (0.0-7.0); Hematocrit 31.5 % (33.0-51.0); Hemoglobin* 10.2 gm/dL (12.0-16.0); Immature Granulocytes Pct Auto 0.3 %; Lymphocytes Percent Auto 21.1 % (20-44); Mean Corpuscular HGB Conc 32 gm/dL (32-36); Mean Corpuscular Hemoglobin 31 pg (26-34); Mean Corpuscular Volume 95 fL (80-100); Monocytes Percent Auto 4.7 % (0.0-11.0); Neutrophils Percent Auto 73.1 % (42.0-72.0); Platelet Count* 732 K/uL (140-440); Red Blood Count 3.33 m/uL (4.00-5.20); White Blood Count* 20.57 K/uL (4.50-11.00)
[2023-06-23 16:20] LABS: Slide Review Reflex No
[2023-06-23 16:28] LABS: Chloride* 98 mmol/L (96-114)
[2023-06-23 16:29] LABS: Potassium* 4.6 mmol/L (3.6-5.1); Sodium* 133 mmol/L (135-149)
[2023-06-23] MEDS: 0.9 % SODIUM CHLORIDE 1000 ml 1,000 ML IV (16:30)
[2023-06-23 16:32] LABS: Alanine Aminotransferase* 16 U/L (4-35); Alkaline Phosphatase* 141 U/L (40-150); Anion Gap 13 mEq/L (7-15); Aspartate Amino Transferase* 21 U/L (12-35); Bilirubin Total* 0.4 mg/dL (0.1-1.5); Blood Urea Nitrogen* 39 mg/dL (7-30); Carbon Dioxide* 22 mmol/L (20-32); Creatinine* 1.2 mg/dL (0.5-1.5); Est. Creatinine Clearance* 36.97; Estimated Glomerular Filt Rate 50 ml/min; Glucose* 135 mg/dL (60-115); Lipase* 85 U/L (23-300)
[2023-06-23 16:33] LABS: Calcium* 10.7 mg/dL (8.4-10.6)
[2023-06-23] MEDS: diphenhydrAMINE 50 MG/ML inj IVP (16:35)
[2023-06-23] MEDS: HYDROmorphone 0.5 mg/0.5 ml inj IVP ×2 (16:35→17:44)
[2023-06-23 16:44] LABS: Troponin I* < 0.01 ng/mL (0.01-0.04)
[2023-06-23] MEDS: HYDROCORTISONE SOD SUCCINATE 50 MG/ML inj 200 MG IVP (16:59)
--- NOTE | 2023-06-23 17:03 | XR_ITS ---
INDICATION: FALL, RIGHT RIB PAIN. TECHNIQUE: ONE VIEW CHEST. COMPARISON: NONE. FINDINGS: CHRONIC CHANGES TO BOTH SHOULDERS. LUNGS ARE CLEAR. INTACT VISUALIZED RIBCAGE. NORMAL MEDIASTINUM. IMPRESSION: NO ACUTE FINDINGS.
--- NOTE | 2023-06-23 18:00 | ED.NURSE ---
report and transfer packet given to EMS
--- NOTE | 2023-06-23 18:11 | ED.NURSE ---
nurses to nurses report given [facility] at [facility] ER
== END 2023-06-23 18:15 | disposition other institution (70) ==
PROVIDERS: Emergency Provider Emergency Medicine; PCP Family Medicine
DX: R07.9 Chest pain, unspecified (principal); D72.829 Elevated white blood cell count, unspecified; D64.9 Anemia, unspecified
CPT/HCPCS: 36415; 71045; 80053; 83605; 83690; 84484; 85025; 93005; 96361; 96374; 96375; 99284; 99285; J1170; J1200; J1720; J1885; J2405; J7030

== ENCOUNTER 2023-06-23 17:55 | Outpatient (CLI) | payer MEDICARE, BC, SELFPAY ==
--- OUTSIDE RECORDS SUMMARY | 2023-06-25 10:12 | XMS_ITS | Clinical Summary ---
Author Name Unknown Organization [facility] Address [address] [place] [address] Care Team Providers Care Professor Of Industrial Technology Name Role Phone Kelly Sommer Primary Care Provider [phone] Helen Mancini MD Unavailable My [place] APRN CAN INSPECTOR Unavailable + Allergies Active Allergy Reactions Criticality Noted Date Comments Amlodipine Other (See Comments) 06/08/2009 Edema on doses above 5mg Edema on doses above 5mg Contrast Dye Hives 01/25/2020 Nitrofurantoin Dizziness,Muscle Giorgio n (Myalgia),Nausea and Vomiting,Other (See Comments) Medium 07/13/2011 myalgias Medications Medication Sig Dispensed Refills Start Date End Date Status amLODIPine (NORVASC) 5 MG tablet Take 5 mg by mouth daily 0 05/26/2018 Active chlorthalidone (HYGROTON) 50 MG tablet Take 50 mg by mouth daily 0 05/26/2018 Active cholecalciferol 25 MCG (1000 UT) TABS Take 1,000 Units by mouth daily 0 10/27/2014 Active losartan (COZAAR) 50 MG tablet Take 50 mg by mouth 2 times daily 0 05/26/2018 Active meclizine (ANTIVERT) 25 MG tablet Take 25 mg by mouth 3 times daily as needed 0 05/26/2018 Active metFORMIN (GLUCOPHAGE) 1000 MG tablet Take 1,000 mg by mouth 2 times daily (with meals) 0 05/26/2018 Active spironolactone (ALDACTONE) 50 MG tablet Take 50 mg by mouth every evening 0 05/26/2018 Active simvastatin (ZOCOR) 40 MG tablet Take 40 mg by mouth every morning 0 05/26/2018 Active potassium chloride ER (K-TAB) 20 MEQ CR tablet Take 20 mEq by mouth 2 times daily 0 05/26/2018 Active venlafaxine (EFFEXOR-XR) 75 MG 24 hr capsule Take 225 mg by mouth daily 0 05/26/2018 Active busPIRone (BUSPAR) 5 MG tablet Take 10 mg by mouth 2 times daily 0 01/14/2023 Active OZEMPIC, 0.25 OR 0.5 MG/DOSE, 2 MG/3ML pen Inject 0.25 mg Subcutaneous every 7 days 0 Active aspirin 81 MG EC tabletIndication s:Status post total replacement of left hip Take 1 tablet (81 mg) by mouth 2 times daily 60 tablet 0 06/10/2023 Active senna-docusate (SENOKOT-S/PERIC OLACE) 8.6-50 MG tabletIndication s:Status post total replacement of left hip Take 1-2 tablets by mouth 2 times daily as needed for constipation Take while on oral narcotics to prevent or treat constipation. 30 tablet 0 06/10/2023 Active acetaminophen (TYLENOL) 325 MG tabletIndication s:Status post total replacement of left hip Take 2 tablets (650 mg) by mouth every 4 hours as needed for other (mild pain) 100 tablet 0 06/10/2023 Active gabapentin (NEURONTIN) 300 MG capsuleIndicatio ns:Status post total replacement of left hip Take one capsules by mouth at bedtime 30 capsule 0 06/10/2023 Active oxyCODONE (ROXICODONE) 5 MG tabletIndication s:Status post total replacement of left hip Take 1 tablet (5 mg) by mouth every 4 hours as needed for moderate to severe pain (MDD 4 tabs) 26 tablet 0 06/10/2023 Active hydrOXYzine HCl (ATARAX) 10 MG tabletIndication s:Status post total replacement of left hip Take 1 tablet (10 mg) by mouth every 6 hours as needed for itching or anxiety (with pain, moderate pain; sleep aid) 30 tablet 0 06/10/2023 Active celecoxib (CELEBREX) 100 MG capsuleIndicatio ns:Status post total replacement of left hip Take 1 capsule (100 mg) by mouth daily for 7 days Do not take within 6 hours of ibuprofen (MOTRIN, ADVIL) or ketorolac (TORADOL) if prescribed. 7 capsule 0 06/10/2023 Active Multiple Vitamin (MULTI-VITAMINS) TABS Take 1 tablet by mouth 0 05/14/2010 4 Discontinued (Med Rec(No AVS / No eCancel)) psyllium (METAMUCIL/KONSY L) 0.52 g capsule Take 2 capsules by mouth 0 04/08/2014 4 Discontinued (Med Rec(No AVS / No eCancel)) venlafaxine (EFFEXOR-XR) 150 MG 24 hr capsule Take 150 mg by mouth daily 0 05/26/2018 4 Discontinued (Med Rec(No AVS / No eCancel)) traMADol (ULTRAM) 50 MG tablet Take 50 mg by mouth every 6 hours as needed 0 03/21/2021 4 Discontinued (Stop at Discharge) gabapentin (NEURONTIN) 300 MG capsule Take 300 mg by mouth daily as needed 0 09/28/2022 4 Discontinued (Stop at Discharge) doxycycline hyclate (VIBRAMYCIN) 100 MG capsuleIndicatio ns:Status post total replacement of left hip Take 1 capsule (100 mg) by mouth 2 times daily for 14 days 28 capsule 0 06/10/2023 4 Active Problems Problem Noted Date Diagnosed Date S/P total hip arthroplasty 06/10/2023 Endometrial cancer 12/22/2019 Cancer Staging:Clinical stage from 01/19/2020:FIGO Stage IA(T1a(m), N0, M0) - Signed by Helen Mancini MD on 01/19/2020 Overview: Added automatically from request for surgery [id number] Hypertension Diabetes mellitus Encounters Date Type Department Care Team Description 06/23/2023 7:04 PM FAN INSTALLER - 06/23/2023 8:41 PM [facility] Emergency Room [address] [place] [phone] Uday Fay, DO Chest wall pain Discharge Disposition: Home or Self Care 06/23/2023 Travel 06/10/2023 9:12 AM FAN INSTALLER Anesthesia Event [facility] [address] [place] [phone] Cipriano Jeronimo MD Kent, Jay E, MD 06/10/2023 8:40 AM FAN INSTALLER - 06/10/2023 11:20 AM FAN INSTALLER Surgery [facility] [address] [place] [phone] Jenaro Cosby MD LEFT POSTERIOR TOTAL HIP ARTHROPLASTY 06/10/2023 6:36 AM FAN INSTALLER - 06/11/2023 12:43 PM FAN INSTALLER Hospital Encounter [address] [phone] Jenaro Cosby MD Status post total replacement of left hip (Primary Dx) Discharge Disposition: Home or Self Care 06/10/2023 Travel from Last 3 Months Immunizations Name Administration Dates Next Due Flu, Unspecified 01/24/2019, 8,05/06/2016,2012,01/29/2012 TDAP (Adacel,Boostrix) 08/07/2010 Td,adult,historic,unspecified 07/16/2006 Zoster recombinant adjuvante d (SHINGRIX) 12/18/2018,10/08/2018 Family History Medical History Relation Comments Pancreatic Cancer Maternal Half-Brother Ovarian Cancer Mother Breast Cancer Paternal Aunt Breast Cancer Paternal Grandmother Relation Status Comments Maternal Half-Brother Mother Paternal Aunt Paternal Grandmother Social History Tobacco Use Types Packs/Day Years Used Date Smoking Tobacco: Never Smokeless Tobacco: Never Tobacco Cessation:Counseling Given: Not Answered Alcohol Use Standard Drinks/Week Comments Not Currently 0 (1 standard drink = 0.6 oz pur e alcohol) Humiliation, Afraid, Rape, and Kick questionnair e Answer Date Recorded Within the last year, have y ou been afraid of your partner or ex-partner? No 02/07/2022 Within the last year, have y ou been humiliated or emotionally abused in other ways by your partner or ex-partner? No Within the last year, have y ou been kicked, hit, slapped, or otherwise physically hurt by your partner or ex-partner? No 02/07/2022 Within the last year, have y ou been raped or forced to have any kind of sexual activity by your partner or ex-partner? No 02/07/2022 Adolescent Education Answer Date Record ed Getting School Help Needed Not on file 02/23 Sex and Gender Information Value Date Recorded Sex Assigned at Female 12/21/2019 11:36 AM CDT Gender Identity Female 12/21/2019 11:36 AM CDT Sexual Orientation Straight 12/21/2019 11 :36 AM CDT Last Filed Vital Signs Vital Sign Reading Time Taken Comments Blood Pressure 112/53 06/23/2023 7:10 PM FAN INSTALLER Pulse 101 06/23/2023 8:15 PM FAN INSTALLER Temperature 37.2 ??C (98.9 ??F) 06/23/2023 7:10 PM CS T Respiratory Rate 20 06/23/2023 7:10 PM FAN INSTALLER Oxygen Saturation 94% 06/23/2023 8:15 PM FAN INSTALLER Inhaled Oxygen Concentration - - Weight 115.7 kg (255 lb) 06/23/2023 7:10 PM FAN INSTALLER Height 157.5 cm (5' 2) 06/10/2023 6:58 AM FAN INSTALLER Body Mass Index 46.64 06/10/2023 6:58 AM FAN INSTALLER Plan of Treatment Health Maintenance Due Date Last Done Comments ADVANCE CARE PLANNING 1958 ANNUAL REVIEW OF HM ORDERS 1958 CT COLONOGRAPHY 1958 DEXA 1958 DIABETIC FOOT EXAM 1958 FIT 1958 FLEX SIG 1958 LIPID 1958 MICROALBUMIN 1958 sDNA (Cologuard) 1958 COLONOSCOPY 1968 COLORECTAL CANCER SCREENING 1968 HIV SCREENING 1973 HEPATITIS C SCREENING 1976 RSV VACCINE ( & 60+) (1 - 1-dose 60+ series) 2018 A1C 09/13/2019 06/15/2019 FALL RISK ASSESSMENT 2023 PHQ-2 (once per calendar year) 2023 MEDICARE ANNUAL WELLNESS VISIT 08/09/2023 08/08/2022, 07/26/2021, 06/23/2020, Additional history exists EYE EXAM 03/07/2024 03/07/2023 BMP 06/11/2024 06/11/2023, 09/0 12/2019, 01/04/2020, Additional history exists MAMMO SCREENING 08/08/2024 08/08/2022, 07/10, 07/26/2021, Additional history exists DTAP/TDAP/TD IMMUNIZATION (3 - Td or Tdap) 06/23/2030 06/23/2020, 08/07/2010, 07/17/2006, Additional history exists PAP Discontinued 07/23/2018, 07/10, 06/24/2018, Additional history exists ZOSTER IMMUNIZATION Completed 12/18/2018, 9 Pneumococcal Vaccine: 65+ Years Completed 08/08/2022 INFLUENZA VACCINE Completed 01/28/2023, , 03/21/2020, Additional history exists COVID-19 Vaccine Completed 04/22/2023, , 05/15/2021, Additional history exists HPV IMMUNIZATION Aged Out No longer e ligible based on patient's age to complete this topic IPV IMMUNIZATION Aged Out No longer e ligible based on patient's age to complete this topic MENINGITIS IMMUNIZATION Aged Out No l onger eligible based on patient's age to complete this topic RSV MONOCLONAL ANTIBODY Aged Out No l onger eligible based on patient's age to complete this topic Goals Goal Patient Goal Type Associated Problems Recent Progress Patient-Stated? Author MYC ECC SURG ENROLL Care Plan MyC ECC SURG ENROLL No Venus [place] Care pathway for general surgery Care Plan Care pathway for general surgery No Neda Markham MYC ECC SURG DAY 10 MED Care Plan Care pathway for general surgery No Neda Markham Medical Devices Implanted Type Area Animal Shelter Clerk Device Identifier Shelf Expiration Date Model / Serial / Lot Allograft Duragen Plus 1 X 1 [id number] Implanted:Qt y: 1 on 06/14/2019 Bone/Tissue Synthetic N/A: Spine Lumbar [employer] 01/09/2022 [id number] / / [id number] Imp Head Femoral Depuy Ceramic 36mm +1.5mm [id number] - [id number] Implanted:Qt y: 1 on 06/10/2023 by Jenaro Cosby MD at [facility] Total Joint Component/In sert Left: Hip [facility]- [id number] 02/09/2028 [id number] / / [id number] Procedures Procedure Name Priority Date/Time Associated Diagnosis Comments CT CHEST PULMONARY EMBOLISM W CONTRAST STAT 06/23/2023 7:57 PM FAN INSTALLER HEMOGLOBIN Routine 06/11/2023 10:17 AM FAN INSTALLER GLUCOSE BY METER Routine 06/11/2023 6:32 AM FAN INSTALLER CBC WITH PLATELETS Routine 06/11/2023 6: 09 AM FAN INSTALLER BASIC METABOLIC PANEL Routine 06/11/2023 6:09 AM FAN INSTALLER XR PELVIS AND HIP PORTABLE LEFT 1 VIEW STAT 06/10/2023 11:49 AM FAN INSTALLER GLUCOSE BY METER Routine 06/10/2023 11:4 5 AM FAN INSTALLER XR HIP PORT LEFT 1 VIEW Routine 06/10/2023 10:32 AM FAN INSTALLER ANE AIRWAY ETT PERFORMABLE Routine 06/10/2023 9:21 AM FAN INSTALLER ARTHROPLASTY, HIP, TOTAL 06/10/2023 9:12 AM FAN INSTALLER Osteoarthritis of hip Hip pain, left Case Notes WW DEPUY HIP SET 2 + KINCISE ISAAK.Cordell S. [phone] Navid W. [phone] ABO/RH TYPE AND SCREEN STAT 06/10/2023 7:27 AM FAN INSTALLER TYPE AND SCREEN, ADULT STAT 06/10/2023 7:27 AM FAN INSTALLER GLUCOSE BY METER Routine 06/10/2023 7:22 AM FAN INSTALLER from Last 3 Months Results * CT Chest Pulmonary Embolism w Contrast (06/23/2023 7:57 PM FAN INSTALLER) Anatomical Region Laterality Modality Chest, SUBRAD CT BODY, UMP CT CHEST Computed Tomography 06/23/2023 7:57 PM FAN INSTALLER Impressions 06/23/2023 8:11 PM FAN INSTALLER IMPRESSION: 1. ??No acute pulmonary embolism. 2. ??Hepatic steatosis. Narrative 06/23/2023 8:11 PM FAN INSTALLER EXAM: CT CHEST PULMONARY EMBOLISM W CONTRAST LOCATION: [facility] DATE: 06/23/2023 INDICATION: chest pain COMPARISON: None. TECHNIQUE: CT chest pulmonary angiogram during arterial phase injection of IV contrast. Multiplanar reformats and MIP reconstructions were performed. Dose reduction techniques were used. CONTRAST: 75ml Isovue 370 FINDINGS: ANGIOGRAM CHEST: Pulmonary arteries are normal caliber and negative for pulmonary emboli. Normal caliber thoracic aorta without evidence of dissection. Mild calcified atherosclerotic plaque. No CT evidence of right heart strain. LUNGS AND PLEURA: Patent central airways. Scattered areas of atelectasis and/or scarring. No focal consolidation or pleural effusion. Mosaic attenuation. Tiny fat-containing left Bochdalek hernia. A 0.7 cm left upper lobe nodule (series 7, image 140) is stable compared to CT abdomen/pelvis 12/08/2014 compatible with benign etiology. MEDIASTINUM/AXILLAE: Heart size is normal. No thoracic lymphadenopathy. CORONARY ARTERY CALCIFICATION: Mild. UPPER ABDOMEN: Hepatic steatosis. Prior cholecystectomy. MUSCULOSKELETAL: Thoracic spondylosis. No destructive osseous lesion. Procedure Note Adam Broussard MD - 06/23/2023 EXAM: CT CHEST PULMONARY EMBOLISM W CONTRAST LOCATION: [facility] DATE: 06/23/2023 INDICATION: chest pain COMPARISON: None. TECHNIQUE: CT chest pulmonary angiogram during arterial phase injection ofIV contrast. Multiplanar reformats and MIP reconstructions were performed.Dose reduction techniques were used. CONTRAST: 75ml Isovue 370 FINDINGS: ANGIOGRAM CHEST: Pulmonary arteries are normal caliber and negative forpulmonary emboli. Normal caliber thoracic aorta without evidence ofdissection. Mild calcified atherosclerotic plaque. No CT evidence of rightheart strain. LUNGS AND PLEURA: Patent central airways. Scattered areas of atelectasisand/or scarring. No focal consolidation or pleural effusion. Mosaicattenuation. Tiny fat-containing left Bochdalek hernia. A 0.7 cm leftupper lobe nodule (series 7, image 140) is stable compared to CT abdomen/pelvis 12/08/2014 compatible with benignetiology. MEDIASTINUM/AXILLAE: Heart size is normal. No thoracic lymphadenopathy. CORONARY ARTERY CALCIFICATION: Mild. UPPER ABDOMEN: Hepatic steatosis. Prior cholecystectomy. MUSCULOSKELETAL: Thoracic spondylosis. No destructive osseous lesion. IMPRESSION: 1. No acute pulmonary embolism. 2. Hepatic steatosis. Uday Fay DO IMG CT ORDERABLE S * (ABNORMAL) Hemoglobin (06/11/2023 10:17 AM FAN INSTALLER) Hemoglobin 9.9(L) 11.7 - 15.7 g/dL 06/11/2023 10:25 AM FAN INSTALLER [facility] Blood STRUCTURE OF RIGHT UPPER LIMB / Unknown Venipuncture / Unknown 06/11/2023 10:17 AM FAN INSTALLER 06/11/2023 10:19 AM FAN INSTALLER Carolyn Gardner PA-C LAB - BLOOD OR DERABLES Performing Organization Address [facility]/ZIP Co de Phone Number [facility] [address] [place], [place] [address] [phone] * (ABNORMAL) Glucose by meter (06/11/2023 6:32 AM FAN INSTALLER) Only the most recent of3 resultswithin the time period is included. GLUCOSE BY METER POCT 100(H) 70 - 99 mg/dL 06/11/2023 6:38 AM FAN INSTALLER [facility] POCT RESULTS Blood, Capillary BLOOD SPECIMEN / Unknown 06/11/2023 6:32 AM FAN INSTALLER 06/11/2023 6:38 AM FAN INSTALLER Jenaro Cosby MD LAB - BEAKER POCT Performing Organization Address [facility]/ZIP Co de Phone Number [facility] POCT RESULTS [address] [place] [address] * (ABNORMAL) Basic metabolic panel (06/11/2023 6:09 AM [facility]) Sodium 136 135 - 145 mmol/L 06/11/2023 7:08 AM [facility] Comment:Reference intervals for this test were updated on 02/04/2023 to more accurately reflect our healthy population. There may be differences in the flagging of prior results with similar values performed with this method. Interpretation of those prior results can be made in the context of the updated reference intervals. Potassium 4.7 3.4 - 5.3 mmol/L 06/11/2023 7:08 AM [facility] Chloride 101 98 - 107 mmol/L 06/11/2023 7:08 AM [facility] Carbon Dioxide (CO2) 29 22 - 29 mmol/L 06/11/2023 7:08 AM [facility] Anion Gap 6(L) 7 - 15 mmol/L 06/11/2023 7:08 AM [facility] Urea Nitrogen 24.8(H) 8.0 - 23.0 mg/dL 06/11/2023 7:08 AM [facility] Creatinine 0.81 0.51 - 0.95 mg/dL 06/11/2023 7:08 AM [facility] GFR Estimate 80 >60 mL/min/1. 73m2 06/11/2023 7:08 AM [facility] Calcium 9.1 8.8 - 10.2 mg/dL 06/11/2023 7:08 AM [facility] Glucose 110(H) 70 - 99 mg/dL 06/11/2023 7:08 AM [facility] Blood STRUCTURE OF RIGHT UPPER LIMB / Unknown Venipuncture / Unknown 06/11/2023 6:09 AM FAN INSTALLER 06/11/2023 6:40 AM [facility] Radha Quintana MD LAB - BLOOD ORDERABL ES [facility] [address] [place] [address], [place] [phone] * (ABNORMAL) CBC with platelets (06/11/2023 6:09 AM [facility]) WBC Count 13.2(H) 4.0 - 11.0 10e3/uL 06/11/2023 6:48 AM [facility] RBC Count 3.10(L) 3.80 - 5.20 10e6/uL 06/11/2023 6:48 AM [facility] Hemoglobin 9.4(L) 11.7 - 15.7 g/dL 06/11/2023 6:48 AM [facility] Hematocrit 29.1(L) 35.0 - 47.0 % 06/11/2023 6:48 AM [facility] MCV 94 78 - 100 fL 06/11/2023 6:48 AM [facility] MCH 30.3 26.5 - 33.0 pg 06/11/2023 6:48 AM [facility] MCHC 32.3 31.5 - 36.5 g/dL 06/11/2023 6:48 AM [facility] RDW 14.0 10.0 - 15.0 % 06/11/2023 6:48 AM [facility] Platelet Count 368 150 - 450 10e3/uL 06/11/2023 6:48 AM [facility] Blood STRUCTURE OF RIGHT UPPER LIMB / Unknown Venipuncture / Unknown 06/11/2023 6:09 AM FAN INSTALLER 06/11/2023 6:40 AM FAN INSTALLER Radha Quintana MD LAB - BLOOD ORDERABL ES [facility] [address] [place] [address], [place] [phone] * XR Pelvis w Hip Port Left 1 View (06/10/2023 11:49 AM FAN INSTALLER) Anatomical Region Laterality Modality Abdomen/Pelvis Left Computed Radiogr aphy 06/10/2023 11:4 9 AM FAN INSTALLER Impressions 06/10/2023 12:07 PM FAN INSTALLER IMPRESSION: Postoperative changes related to recent placement of a left total hip arthroplasty. The components are in expected position without acute displaced periprosthetic fracture. Expected recent postop soft tissue and intra-articular gas about the left hip with soft tissue swelling. No displaced pelvic fracture. Degenerative change lower lumbar spine. Narrative 06/10/2023 12:07 PM FAN INSTALLER EXAM: XR PELVIS AND HIP PORTABLE LEFT 1 VIEW LOCATION: [facility] DATE: 06/10/2023 INDICATION: Status post hip surgery. COMPARISON: None. Procedure Note Marlo Villela MD - 06/10/2023 EXAM: XR PELVIS AND HIP PORTABLE LEFT 1 VIEW LOCATION: [facility] DATE: 06/10/2023 INDICATION: Status post hip surgery. COMPARISON: None. IMPRESSION: Postoperative changes related to recent placement of a lefttotal hip arthroplasty. The components are in expected position withoutacute displaced periprosthetic fracture. Expected recent postop softtissue and intra-articular gas about the left hip with soft tissue swelling. No displaced pelvic fracture.Degenerative change lower lumbar spine. Rosario Whaley PA-C IMG DIAGNOSTIC IMAGI NG ORDERABLES * XR Hip Port Left 1 View (06/10/2023 10:32 AM FAN INSTALLER) Anatomical Region Laterality Modality Hip, Left Hip Left Computed Radiogr aphy 06/10/2023 10:3 2 AM FAN INSTALLER Impressions 06/10/2023 1:27 PM FAN INSTALLER IMPRESSION: The intraprocedural spot film demonstrates placement of a left total hip arthroplasty. Please reference the surgical report for further details. Narrative 06/10/2023 1:27 PM FAN INSTALLER EXAM: XR HIP PORT LEFT 1 VIEW LOCATION: [facility] DATE: 06/10/2023 INDICATION: left total hip arthroplasty COMPARISON: None Procedure Note Jameel Cardoso MD - 06/10/2023 EXAM: XR HIP PORT LEFT 1 VIEW LOCATION: [facility] DATE: 06/10/2023 INDICATION: left total hip arthroplasty COMPARISON: None IMPRESSION: The intraprocedural spot film demonstrates placement of a lefttotal hip arthroplasty. Please reference the surgical report for furtherdetails. Jenaro Cosby MD IMG DIAGNOSTIC IMAGI NG ORDERABLES * ANE AIRWAY ETT PERFORMABLE (06/10/2023 9:21 AM FAN INSTALLER) Narrative Madison Nesbitt APRN METAL BONDING WORKER - 06/10/2023 9:21 AM FAN INSTALLER Madison Nesbitt APRN METAL BONDING WORKER ? 06/10/2023 ??9:47 AM Airway ? Patient location during procedure: OR ? Procedure Start/Stop Times: 06/10/2023 9:21 AM Staff - ? METAL BONDING WORKER: Madison Nesbitt APRN METAL BONDING WORKER ? Performed By: METAL BONDING WORKER Consent for Airway ? Urgency: elective Indications and Patient Condition ? Indications for airway management: farzaneh-procedural ? Induction type:intravenous ? Mask difficulty assessment: 1 - vent by mask Final Airway Details ? Final airway type: endotracheal airway ? Successful airway: ETT - single and Oral Endotracheal Airway Details ? ETT size (mm): 7.0 ? Cuffed: yes ? Successful intubation technique: direct laryngoscopy ? DL Blade Type: La 2 ? Grade View of Cords: 1 ? Adjucts: stylet ? Position: Right ? Measured from: gums/teeth ? Secured at (cm): 20 ? Bite block used: None Post intubation assessment ? Placement verified by: capnometry, equal breath sounds and chest rise ? Number of attempts at approach: 1 ? Number of other approaches attempted: 0 ? Secured with: silk tape ? Ease of procedure: easy ? Dentition: Intact and Unchanged Medication(s) Administered Medication Administration Time: 06/10/2023 9:21 AM Cipriano Jeronimo MD [place] ANESTHESIA * Adult Type and Screen (06/10/2023 7:27 AM [facility]) ABO/RH(D) O POS 06/10/2023 6:40 AM [facility] Antibody Screen Negative Negative 06/10/2023 6:40 AM [facility] SPECIMEN EXPIRATION DATE [id number] 06/10/2023 6:40 AM [facility] Blood BLOOD SPECIMEN / Unknown Venipuncture / Unknown 06/10/2023 7:27 AM FAN INSTALLER 06/10/2023 7:37 AM FAN INSTALLER Rosario Whaley PA-C LAB - BLOOD BANK ROBERT T ORDER [facility] [address] [place] [address], [place] from Last 3 Months Additional Health Concerns Problem Noted Date Diagnosed Date MyC ECC SURG ENROLL 05/23/2023 Care pathway for general surgery 05/28/2023 Advance Directives For more information, please contact: [phone] Latest Code Status on File Code Status Date Activated Date Inactivated Comments Full Code 06/10/2023 1:05 PM 06/11/2023 2:44 PM All b asic and advanced life-sustaining interventions are performed as appropriate Question Answer Comments Code status determined by: Unable to discuss and no AD/POLST on file; continue PREVIOUSLY ORDERED code status Care Teams Professor Of Industrial Technology Relationship Specialty Start Date End Date Kelly Sommer PCP - General Physician Childcare Provider 08/17/18 Helen Mancini MD [address] [facility] [address] [place] [address] Gynecologic Oncology 08/21/18 My [place] APRN CAN INSPECTOR [id number] [address] Assigned Cancer Care Provider 06/24/21
--- OUTSIDE RECORDS SUMMARY | 2023-06-25 10:12 | XMS_ITS | Clinical Summary ---
Author Name Unknown Organization [facility] Address [place], [place] [address] Care Team Providers Care Under Sheriff Name Role Phone JersonSirkt Rob DO Primary Care Provider [phone] Kellie Benavides MD Unavailable [phone] [facility] Allergies Active Allergy Reactions Criticality Noted Date Comments Amlodipine Other - Describe In Comment Field 06/08/2009 Edema on doses above 5mg Iodinated Contrast Media Hives 07/16/2006 CT DONE [facility] PREMEDICATED AND GIVEN VISIPAQUE FOR 2014 CT Nitrofurantoin Dizziness,Vomiting Medium 07/13/2011 myalgias Medications Medication Sig Dispensed Refills Start Date End Date Status cholecalciferol (VITAMIN D) 1,000 unit tablet Take 1 tablet by mouth once daily. 0 10/27/2014 Active blood-glucose meterIndications:Ty pe 2 diabetes mellitus without complication (HC) Dispense meter, test strips, lancets covered by pt ins. E11.9 NIDDM type II - Test 1 time/day 1 Device 0 02/07/2016 Active meclizine (ANTIVERT) 25 mg tabletIndications:T innitus of both ears Take 1 tablet by mouth 3 times daily. 40 tablet 2 06/23/2020 Active venlafaxine (EFFEXOR XR) 75 mg cp24 Extended-Release capsuleIndications: Adjustment disorder with mixed anxiety and depressed mood TAKE ONE CAPSULE BY MOUTH IN THE MORNING ALONG WITH 150 MG CAPSULE FOR A TOTAL DOSE OF 225 MG 90 Capsule 3 08/08/2022 Active venlafaxine (EFFEXOR XR) 150 mg Extended-Release capsuleIndications: Adjustment disorder with mixed anxiety and depressed mood TAKE ONE CAPSULE BY MOUTH IN THE MORNING ALONG WITH 75 MG CAPSULE FOR A TOTAL DOSE OF 225 MG 90 Capsule 3 08/08/2022 Active simvastatin (ZOCOR) 40 mg tabletIndications:M ixed hyperlipidemia Take 1 Tablet (40 mg) by mouth at bedtime. 90 Tablet 3 08/08/2022 Active potassium chloride (K-DUR) 20 mEq Extended-Release tabletIndications:H TN (hypertension), benign Take 1 Tablet (20 mEq) by mouth two times daily with meals. 180 Tablet 3 08/08/2022 Active losartan (COZAAR) 50 mg tabletIndications:H TN (hypertension), benign Take 1 Tablet (50 mg) by mouth two times daily. 180 Tablet 3 08/08/2022 Active amLODIPine (NORVASC) 5 mg tabletIndications:H TN (hypertension), benign Take 1 Tablet (5 mg) by mouth once daily. 90 Tablet 3 08/08/2022 Active chlorthalidone (HYGROTON) 50 mg tabletIndications:H TN (hypertension), benign Take 1 Tablet (50 mg) by mouth once daily. 90 Tablet 3 08/08/2022 Active gabapentin (NEURONTIN) 300 mg capsuleIndications: Right leg pain Take 1 Capsule (300 mg) by mouth at bedtime. 90 Capsule 0 08/08/2022 Active spironolactone (ALDACTONE) 50 mg tabletIndications:H TN (hypertension), benign Take 1 Tablet (50 mg) by mouth once daily. Dose increase 08/08/22 90 Tablet 3 08/08/2022 Active blood sugar diagnostic (Accu-Chek Sharonda Plus test strp) stripIndications:Ty pe 2 diabetes mellitus without complication, without long-term current use of insulin (HC) Dispense item covered by pt ins. E11.9 NIDDM type II - Test 1 time/day 100 Each 3 09/12/2022 Active busPIRone (BUSPAR) 10 mg tabletIndications:G eneralized anxiety disorder Take 1 Tablet (10 mg) by mouth three times daily. 180 Tablet 1 12/06/2022 Active Additional Information Patient taking differently:10 mg OralBID, Takes 2 daily, 1 in the am and 1 in the pm, Reported on 05/02/2023 CPAPIndications:DAISY (obstructive sleep apnea) CPAP machine for home use at pressure 13 cmw; nasal mask x1/3month with nasal pillows x 2/mo Heat humidifier x 1/5 year, Humidifier chamber x 1/6mo, Heated tubing x 1/3mo, Headgear x 1/6mo, Chin strap x 1/6 months, Filters: Disposable x 2pk/1mo & Reusable x 1pk/6mo Length of need#99 Use- daily 1 Each 11 12/23/2022 Active metFORMIN (GLUCOPHAGE) 1,000 mg tabletIndications:T ype 2 diabetes mellitus without complication, without long-term current use of insulin (HC) TAKE ONE TABLET BY MOUTH TWICE A DAY WITH MEALS 180 Tablet 0 04/01/2023 Active acetaminophen (TYLENOL ARTHRITIS PAIN ORAL) Take 2 Tablets by mouth every 6 hours if needed. 0 Active predniSONE (DELTASONE) 50 mg tab tabletIndications:L eukocytosis, unspecified type Take 50 mg tablet at 13, 7, and 1 hour prior to contrast administration 3 Tablet 0 04/23/2023 Active ondansetron (ZOFRAN ODT) 4 mg disintegrating tablet DISSOLVE ONE TABLET IN MOUTH EVERY SIX HOURS NEEDED FOR NAUSEA AND VOMITING* 0 01/14/2023 Active triamcinolone (ARISTOCORT; KENALOG) 0.1 % creamIndications:Co ntact dermatitis, unspecified contact dermatitis type, unspecified trigger Apply topically to affected area(s) two times daily. 80 g 0 05/21/2023 Active Active Problems Problem Noted Date Diagnosed Date Obesity, morbid 03/07/2023 Colon polyp 11/05/2022 Overview: Colonoscopy 10/2022 2-TA, repeat in 5 years Depression, recurrent 10/15/2022 Osteoporosis screening 08/03/2020 Overview: Bone density July 2020 normal. Repeat 3-5 years. Endometrial cancer 06/23/2020 Overview: Stage 1A, Grade 1 Laparoscopic hysterectomy, cervix removed, [facility] Dr. Helen Key, gynecologic oncology [place] DAISY 09/17/2006 AHI-32 12/04/2018 Sensorineural hearing loss, bilateral 06/10/2016 Tinnitus 06/10/2016 Vitamin D deficiency 04/26/2015 HTN (hypertension), benign 04/26/2015 Recurrent UTI (urinary tract infection) 04/26/20 15 Leukocytosis 04/26/2015 Type 2 diabetes mellitus without complication Mixed hyperlipidemia 04/26/2015 S/P TKR (total knee replacement) 05/24/2013 Allergic rhinitis, cause unspecified 07/16/2006 Adjustment disorder with mixed anxiety and depre ssed mood 07/16/2006 Obesity, unspecified 07/16/2006 Osteoarthrosis, unspecified whether generalized or localized, lower leg 07/16/2006 Dysthymia Resolved Problems Problem Noted Date Diagnosed Date Resolved Date Anticoagulation monitoring, special range 05/27/2013 12/17/2018 [facility] current use of anticoagulant 05/24/2013 12/17/2018 [facility] (current) use of anticoagulants 07/20/2012 01/22/2013 Screen for colon cancer 04/29/201203/12 Overview: Colonoscopy 04/2012 normal repeat in 10 years Nonspecific abnormal results of other specified function study 09/24/2006 12/17/2018 Depressive disorder, not elsewhere classified 07/17/19 07 10/21/2008 Impaired glucose tolerance 0 12/29/2008 Encounters Date Type Department Care Team Description 06/06/2023 11:30 AM POLISHING MACHINE OPERATOR Orders Only [facility] [address] [place] [place] [id number] [place], [place] Lab 06/05/2023 Travel 05/29/2023 Orders Only [facility] [address] [facility] [address] Sir Arthuri Liane, DO 1 scan: (1-Ord) NFLD-EKG-05/21/23 05/21/2023 3:50 PM POLISHING MACHINE OPERATOR Preop Visit [facility] [address] [facility] [address] Dimitriosqra Asha Liane, DO Preoperative Exam (L total hip replacement - [facility], [facility] - Dr. Cosby - fax# [phone]) 05/21/2023 Travel 05/02/2023 4:10 PM POLISHING MACHINE OPERATOR Phone Office Visit [facility] [address] [place] [address] Sylvester Arthur DO Covid-19 Positive Result (Today, symptoms started last night-sore throat, cough); Medication List Update (Not on ozempic-has not used for over a month/Prednisone-has not taken since Friday.) 05/02/2023 Travel 05/02/2023 Telephone [facility] [address] [facility] [address] Asha Arthur, DO Covid-19 Positive Result 05/01/2023 3:15 PM POLISHING MACHINE OPERATOR Phone Office Visit [facility] [address] [facility] [place] [phone] Kellie Benavides MD 04/30/2023 1:19 PM POLISHING MACHINE OPERATOR - 04/30/2023 11:59 PM POLISHING MACHINE OPERATOR Hospital Encounter [facility] [address] [place] [address] Kellie Benavides MD Leukocytosis, unspecified type 04/30/2023 Travel 04/23/2023 1:58 PM POLISHING MACHINE OPERATOR - 04/23/2023 11:59 PM POLISHING MACHINE OPERATOR Hospital Encounter [facility] [address] [place] [address] Kellie Benavides MD Leukocytosis, unspecified type 04/23/[address] [facility] [address] [facility] [place] [address] Kellie Benavides MD Procedure 04/23/2023 Travel 04/21/[address] [facility] [address] [facility] [place] [address] Minerva Anderson, AKASH Appointment 04/17/2023 3:15 PM POLISHING MACHINE OPERATOR Office Visit [facility] [address] [facility] [place] [phone] Kellie Benavides MD Follow Up (Leukocytosis, unspecified type) 04/17/2023 Travel 04/15/[address] [facility] [address] [place] [phone] Kellie Benavides MD <No scans attached> 04/10/[address] [facility] [address] [place] [address] Minerva Anderson, AKASH Appointment 04/08/2023 10:06 AM POLISHING MACHINE OPERATOR Anesthesia Event [facility] [address] [place] [address] Jamal Vela CRNA Davis, Leigh Ann, CRNA 04/08/2023 9:40 AM POLISHING MACHINE OPERATOR - 04/08/2023 10:20 AM POLISHING MACHINE OPERATOR Surgery [facility] [address] [place] [address] Zaida Lozada MD BIOPSY BONE MARROW 04/08/2023 8:51 AM POLISHING MACHINE OPERATOR - 04/08/2023 11:35 AM POLISHING MACHINE OPERATOR Hospital Encounter [facility] [address] [facility] [place] [address] Zaida Lozada MD Leukocytosis, unspecified type [D72.829] Discharge Disposition: Home Self Care 04/08/[address] [facility] [address] [facility] [place] [address] Minerva Anderson NP Appointment 04/08/2023 Travel 04/07/[address] [facility] [address] [place] [address] Kellie Benavides MD Appointment 03/31/2023 Refill [facility] [address] [place] [address] Sir Arthuri Liane, DO Refill Request (Metformin) 03/31/2023 Telephone [facility] [address] [place] [address] Asha Arthur Liane, DO Appointment Request (Requesting a different time for pre op exam) 03/28/[address] [phone] Minerva Anderson NP Appointment 03/26/2023 2:45 PM POLISHING MACHINE OPERATOR Phone Office Visit [facility] [address] [place] [address] Kellie Benavides MD Follow Up (Leukocytosis, unspecified type) 03/26/2023 Travel from Last 3 Months Immunizations Name Administration Dates Next Due COVID-19 vaccine ([employer]-J&J) PF, MDV Influenza RIV4 (Age 18+ Year s) PRESERV FREE 01/28/2023,01/31/2022 Influenza Virus, Unspecified 01/24/2019, 05/23/2017,05/06/2016,03/24,01/29/2012 Influenza, IIV3 (Age >=3 years) 03/24/2013,01/28,04/10/2006 Influenza, IIV4 01/22/2018,05/23/2017,05/06/2016 Influenza, IIV4 (=>6mos) MDV 03/02/2020,02/03/20 19,01/21/2018 Influenza, IIV4 (Age 6-35 Mos) 01/10/2019 Influenza,CCIIV4 PRESERV FREE 01/24/2019 Pneumococcal Conj 20-valent (Prevnar 20) 08/08/2022 RSV, Recombinant ADJ Reconst ituted (Arexvy 120MCG/0.5mL) 01/28/2023 TD, UNSPECIFIED 07/16/2006 Td (Age >=7 Years) 07/16/2006,11/11/1996 Td, Preservative Free (age >= 7 Years) 7 Tdap 06/23/2020,08/07/2010 Zoster (Shingrix-RZV, recombinant) 12/18/2018, Family History Medical History Relation Name Comments Allergies Brother 1 Heart Disease Brother 1 mi age 47 Cancer-pancreatic Brother 2 Stomach cancer Brother 2 Hypertension Father Cancer Mother ovarion 35 yrs Cancer-breast Paternal Aunt 1 65 Cancer-breast Paternal Aunt 2 67 at dx Cancer-breast Paternal Grandmother 70 yrs Allergies Sister Asthma Sister Anesthesia Problem No Family History Blood Disease No Family History Relation Name Status Comments Brother 1 Brother 2 Father Mother Paternal Aunt 1 Paternal Aunt 2 Paternal Grandmother Sister Social History Tobacco Use Types Packs/Day Years Used Date Smoking Tobacco: Former Cigarettes Smokeless Tobacco: Never Tobacco Cessation:Counseling Given: Yes Alcohol Use Standard Drinks/Week Comments Not Currently 0 (1 standard drink = 0.6 oz pur e alcohol) rarely PHQ-2 Answer Date Recorded PHQ-2 TOTAL SCORE 1 12/05/2022 Social Connections Answer Date Recorded Frequency of Communication with Friends and Fami ly 0 08/05/2022 Financial Resource Strain Answer Date R ecorded Difficulty of Paying Living Expenses 3 08/05/2022 Difficulty of Paying Living Expenses Not on file 08/05/2022 Food Insecurity Answer Date Recorded Worried About Running Out of Food in the Last Ye ar 1 08/05/2022 Transportation Needs Answer Date Record ed Lack of Transportation (Medical) 1 08/05/2022 Housing Stability Answer Date Recorded Unable to Pay for Housing in the Last Year 1 08/05/2022 Sex and Gender Information Value Date Recorded Sex Assigned at Not on file Gender Identity Not on file Sexual Orientation Not on file Obstetrics History Last Filed Vital Signs Vital Sign Reading Time Taken Comments Blood Pressure 127/68 05/21/2023 3:34 PM POLISHING MACHINE OPERATOR Pulse 99 05/21/2023 3:34 PM POLISHING MACHINE OPERATOR Temperature 36.6 ??C (97.8 ??F) 04/17/2023 3:06 PM CS T Respiratory Rate 16 04/17/2023 3:06 PM POLISHING MACHINE OPERATOR Oxygen Saturation 95% 05/21/2023 3:34 PM POLISHING MACHINE OPERATOR Inhaled Oxygen Concentration - - Weight 110.4 kg (243 lb 4.8 oz) 05/21/2023 3:34 PM POLISHING MACHINE OPERATOR Height 156.2 cm (5' 1.5) 05/21/2023 3:34 PM POLISHING MACHINE OPERATOR Body Mass Index 45.23 05/21/2023 3:34 PM POLISHING MACHINE OPERATOR Plan of Treatment Upcoming Encounters Date Type Department Care Team (Late st Contact Info) Description 07/10/2023 3:30 PM POLISHING MACHINE OPERATOR Telemedicine [facility] [address] [place] [address] Donald Keith MD [address] [facility] [address] 08/13/2023 11:40 AM CDT Ancillary Procedure [facility] [address] [place] [address] 08/13/2023 12:55 PM CDT Office Visit [facility] [address] [facility] [address] Asha Arthur Liane, DO [address] [facility] [address] 08/13/2023 1:45 PM CDT Office Visit [facility] [address] [facility] [address] Asha Arthur Liane, DO [address] [place] [address] 10/17/2023 11:00 AM CDT Orders Only [facility] [address] [place] [address] [place] 10/31/2023 11:15 AM CDT Office Visit [facility] [address] [place] [address] Minerva Anderson, FISHER EEL SPEAR [address] [place] [address] Health Maintenance Due Date Last Done Comments DEXA/DXA scan for age 65+ 2023 07/31/2020 Medicare Wellness for age 65+ 2023 COVID-19 vaccine series (2022- season) 2023 04/22/2023, 01/31/2022, 05/15/2021, Additional history exists Mammogram for age 45-75 08/09/2023 08/09/19 23, 07/26/2021, 06/23/2020, Additional history exists Depression screening for age 12+ 12/06/2023 12/05/2022, 10/15/2022, 10/15/2022, Additional history exists BMI (ht and wt on same day) for age 18+ 05/21/2024 05/21/2023, 03/07/2023, 12/23/2022, Additional history exists Lipids for age 45-75 08/09/2027 08/08/2022, 07/26/2021, 06/23/2020, Additional history exists Tetanus booster 06/23/2030 06/23/2020, 07/11, 07/17/2006, Additional history exists Colonoscopy through age 75 11/04/203211/04, 11/04/2022, 11/04/2022, Additional history exists Hepatitis C screening for ag e 18-79 Completed 05/06/2016 Zoster (shingles) series for age 50+ Completed 12/18/2018, 10/08/2018 Tdap Completed 06/23/2020, 08/07/2010 HIV for age 15-65 Completed 08/08/2022 Pneumococcal series for age 65+ Completed 3 Influenza for age 65+ Completed 01/28/2023 , 01/31/2022, 03/02/2020, Additional history exists Procedures Procedure Name Priority Date/Time Associated Diagnosis Comments HEMOGLOBIN A1C Routine 06/06/2023 11:38 AM POLISHING MACHINE OPERATOR Type 2 diabetes mellitus without complication, without long-term current use of insulin (HC) CALCIUM IONIZED OUTPT DRAW ONLY Routine 06/06/2023 11:38 AM POLISHING MACHINE OPERATOR Hypercalcemia BASIC METABOLIC PANEL Routine 06/06/2023 11:38 AM POLISHING MACHINE OPERATOR Hypercalcemia EKG 12 LEAD Routine 05/29/2023 1:31 PM POLISHING MACHINE OPERATOR Pre-op evaluation WA READING EKG - NO CHARGE, COMP ONLY Routine 05/29/2023 1:30 PM POLISHING MACHINE OPERATOR Pre-op evaluation CWS PATH REVIEW HEMATOLOGY Routine 05/21/2023 4:21 PM POLISHING MACHINE OPERATOR Pre-op evaluation RED CELL MORPHOLOGY Routine 05/21/2023 4 :21 PM POLISHING MACHINE OPERATOR Pre-op evaluation PLATELET ESTIMATE Routine 05/21/2023 4:2 1 PM POLISHING MACHINE OPERATOR Pre-op evaluation MANUAL DIFFERENTIAL Routine 05/21/2023 4 :21 PM POLISHING MACHINE OPERATOR Pre-op evaluation CBC WITH AUTO DIFFERENTIAL Routine 05/21/2023 4:21 PM POLISHING MACHINE OPERATOR Pre-op evaluation CBC WITH AUTO DIFFERENTIAL Routine 05/21/2023 4:21 PM POLISHING MACHINE OPERATOR Pre-op evaluation BASIC METABOLIC PANEL Routine 05/21/2023 4:21 PM POLISHING MACHINE OPERATOR Pre-op evaluation CREATININE,ISTAT Routine 04/30/2023 1:44 PM POLISHING MACHINE OPERATOR CT CHEST ABDOMEN PELVIS W Routine 04/30/2023 1:31 PM POLISHING MACHINE OPERATOR Leukocytosis, unspecified type CHROM TECH 2 Timed 04/08/2023 10:25 AM POLISHING MACHINE OPERATOR Leukocytosis, unspecified type [D72.829] CHROM TECH 1 Timed 04/08/2023 10:25 AM POLISHING MACHINE OPERATOR Leukocytosis, unspecified type [D72.829] PHA Timed 04/08/2023 10:25 AM POLISHING MACHINE OPERATOR Leukocytosis, unspecified type [D72.829] OB Timed 04/08/2023 10:25 AM POLISHING MACHINE OPERATOR Leukocytosis, unspecified type [D72.829] BM WETLAB Timed 04/08/2023 10:25 AM POLISHING MACHINE OPERATOR Leukocytosis, unspecified type [D72.829] BM/LB CHROM Timed 04/08/2023 10:25 AM POLISHING MACHINE OPERATOR Leukocytosis, unspecified type [D72.829] CYTOGENETICS BONE MARROW Timed 04/08/2023 10:25 AM POLISHING MACHINE OPERATOR Leukocytosis, unspecified type [D72.829] BIOPSY BONE MARROW 04/08/2023 10 :01 AM POLISHING MACHINE OPERATOR Leukocytosis, unspecified type Case Notes Lab/pathology confirmed 03/28 BONE MARROW DIFFERENTIAL Timed 04/08/2023 9:30 AM POLISHING MACHINE OPERATOR Leukocytosis, unspecified type [D72.829] BONE MARROW STUDY Today 04/08/2023 9:2 4 AM POLISHING MACHINE OPERATOR Leukocytosis, unspecified type [D72.829] CWS PATH REVIEW HEMATOLOGY Timed 04/08/2023 9:24 AM POLISHING MACHINE OPERATOR Leukocytosis, unspecified type [D72.829] RED CELL MORPHOLOGY Timed 04/08/2023 9 :24 AM POLISHING MACHINE OPERATOR Leukocytosis, unspecified type [D72.829] PLATELET ESTIMATE Timed 04/08/2023 9:2 4 AM POLISHING MACHINE OPERATOR Leukocytosis, unspecified type [D72.829] MANUAL DIFFERENTIAL Timed 04/08/2023 9 :24 AM POLISHING MACHINE OPERATOR Leukocytosis, unspecified type [D72.829] CBC WITH AUTO DIFFERENTIAL Today 04/08/2023 9:24 AM POLISHING MACHINE OPERATOR Leukocytosis, unspecified type [D72.829] CBC WITH AUTO DIFFERENTIAL Today 04/08/2023 9:24 AM POLISHING MACHINE OPERATOR Leukocytosis, unspecified type [D72.829] RETICULOCYTES Today 04/08/2023 9:24 AM POLISHING MACHINE OPERATOR Leukocytosis, unspecified type [D72.829] from Last 3 Months Results * CALCIUM IONIZED OUTPT DRAW ONLY (06/06/2023 11:38 AM POLISHING MACHINE OPERATOR) [facility] CALCIUM, IONIZED 1.31 1.14 - 1.36 mmol/L 06/06/2023 10:07 PM POLISHING MACHINE OPERATOR [facility] Blood BLOOD SPECIMEN / Unknown Venipuncture / Unknown 06/06/2023 11:38 AM POLISHING MACHINE OPERATOR 06/06/2023 11:42 AM POLISHING MACHINE OPERATOR Asha Arthur DO CHEMISTRY [facility] [address] [place] [address], * HEMOGLOBIN A1C MONITORING (POCT) (06/06/2023 11:38 AM POLISHING MACHINE OPERATOR) [facility] HEMOGLOBIN A1C MONITORING (POCT) 5.7 <=6.4 % 06/06/2023 11:51 AM [facility] Blood BLOOD SPECIMEN / Unknown Venipuncture / Unknown 06/06/2023 11:38 AM POLISHING MACHINE OPERATOR 06/06/2023 11:42 AM POLISHING MACHINE OPERATOR Narrative [facility] - 06/06/2023 11:51 AM POLISHING MACHINE OPERATOR ? (<=6.9%) ? Indicates good control ? (7.0% to 7.9%) ? Indicates fair control ? (>=8.0%) ? Indicates poor control ?? NOTE: ??These thresholds are guidelines and ?individual targets may vary. Falsely low levels may be seen with: Recent Transfusion, Recent Significant Blood Loss, Hemolytic Diseases, or Falsely elevated levels may be seen with: Untreated Anemias, Splenectomy ? Asha Arthur DO CHEMISTRY [facility] [address] [place] [address], [place] [phone] * (ABNORMAL) BASIC METABOLIC PANEL (06/06/2023 11:38 AM POLISHING MACHINE OPERATOR) Only the most recent of2 resultswithin the time period is included. [facility] SODIUM 139 136 - 145 mmol/L 06/06/2023 10:08 PM [facility] POTASSIUM 4.4 3.5 - 5.1 mmol/L 06/06/2023 10:08 PM [facility] CHLORIDE 100 98 - 107 mmol/L 06/06/2023 10:08 PM [facility] CO2,TOTAL 19(L) 22 - 29 mmol/L 06/06/2023 10:08 PM [facility] ANION GAP 20(H) 5 - 18 06/06/2023 10:08 PM [facility] GLUCOSE 130(H) 70 - 99 mg/dL 06/06/2023 10:08 PM [facility] CALCIUM 10.5(H) 8.8 - 10.2 mg/dL 06/06/2023 10:08 PM [facility] BUN 31(H) 8 - 23 mg/dL 06/06/2023 10:08 PM [facility] CREATININE 0.96(H) 0.50 - 0.90 mg/dL 06/06/2023 10:08 PM [facility] BUN/CREAT RATIO 32(H) 10 - 20 10:08 PM [facility] eGFR 66(L) >90 mL/min/1.7 3m2 06/06/2023 10:08 PM [facility] Comment:As of 2021, eG FR is calculated by the CKD-EPI creatinine equation without race adjustment. ??eGFR can be influenced by muscle mass, exercise, and diet. ??The reported eGFR is an estimation only and is only applicable if the renal function is stable. Blood BLOOD SPECIMEN / Unknown Venipuncture / Unknown 06/06/2023 11:38 AM POLISHING MACHINE OPERATOR 06/06/2023 11:42 AM POLISHING MACHINE OPERATOR Asha Liane Shaqra DO CHEMISTRY [facility] [address] [place] [address], * EKG 12 LEAD (05/29/2023 1:31 PM POLISHING MACHINE OPERATOR) Asha Liane Shaqra DO EKG ORD * WA READING EKG - NO CHARGE, COMP ONLY (05/29/2023 1:30 PM POLISHING MACHINE OPERATOR) Asha Liane Shaqra DO PB - PROVIDER READIN GS * CWS PATH REVIEW HEMATOLOGY (05/21/2023 4:21 PM POLISHING MACHINE OPERATOR) Only the most recent of2 resultswithin the time period is included. PATH COMMENT Reviewed 05/23/2023 9:17 AM POLISHING MACHINE OPERATOR [facility] Comment:Reviewed by STEFFANIE on Blood BLOOD SPECIMEN / Unknown Venipuncture / Unknown 05/21/2023 4:21 PM POLISHING MACHINE OPERATOR 05/21/2023 4:22 PM POLISHING MACHINE OPERATOR Asha Plunkettjosera [facility] [address] [place] [id number], * (ABNORMAL) CBC WITH AUTO DIFFERENTIAL (05/21/2023 4:21 PM POLISHING MACHINE OPERATOR) Only the most recent of2 resultswithin the time period is included. WHITE BLOOD COUNT 13.0(H) 4.5 - 11.0 thou/cu mm 05/21/2023 4:45 PM [facility] RED BLOOD COUNT 4.14 4.00 - 5.20 mil/cu mm 05/21/2023 4:45 PM [facility] HEMOGLOBIN 12.8 12.0 - 16.0 g/dL 05/21/2023 4:45 PM POLISHING MACHINE OPERATOR [facility] HEMATOCRIT 38.9 33.0 - 51.0 % 05/21/2023 4:45 PM [facility] MCV 94 80 - 100 fL 05/21/2023 4:45 PM [facility] MCH 30.9 26.0 - 34.0 pg 05/21/2023 4:45 PM [facility] MCHC 32.9 32.0 - 36.0 g/dL 05/21/2023 4:45 PM [facility] RDW 14.3 11.5 - 15.5 % 05/21/2023 4:45 PM [facility] PLATELET COUNT 504(H) 140 - 440 thou/cu mm 05/21/2023 4:45 PM [facility] MPV 9.3 6.5 - 11.0 fL 05/21/2023 4:45 PM [facility] Blood BLOOD SPECIMEN / Unknown Venipuncture / Unknown 05/21/2023 4:21 PM POLISHING MACHINE OPERATOR 05/21/2023 4:22 PM POLISHING MACHINE OPERATOR Asha Liane Arthur HEMATOLOGY Performing Organization Address City/[facility] Co de Phone Number [facility] [address] [place] [address], [place] [phone] * RED CELL MORPHOLOGY (05/21/2023 4:21 PM POLISHING MACHINE OPERATOR) Only the most recent of2 resultswithin the time period is included. Pathologist [facility] RBC COMMENT RBC morphology appears normal RBC morphology appears normal, RBC morphology within normal limits for newborns. 05/21/2023 4:45 PM POLISHING MACHINE OPERATOR [facility] Blood BLOOD SPECIMEN / Unknown Venipuncture / Unknown 05/21/2023 4:21 PM POLISHING MACHINE OPERATOR 05/21/2023 4:22 PM POLISHING MACHINE OPERATOR [facility] Performing Organization Address [facility] de Phone Number [facility] [address] [place] [address], [place] [phone] * (ABNORMAL) PLATELET ESTIMATE (05/21/2023 4:21 PM POLISHING MACHINE OPERATOR) Only the most recent of2 resultswithin the time period is included. Pathologist [facility] PLATELET ESTIMATE Increased (A) Adequate, No estimate 05/21/2023 4:45 PM POLISHING MACHINE OPERATOR [facility] Blood BLOOD SPECIMEN / Unknown Venipuncture / Unknown 05/21/2023 4:21 PM POLISHING MACHINE OPERATOR 05/21/2023 4:22 PM POLISHING MACHINE OPERATOR [facility] HEMATOLOGY Performing Organization Address City/[facility] Co de Phone Number [facility] [address] [place] [address], [place] [phone] * (ABNORMAL) MANUAL DIFFERENTIAL (05/21/2023 4:21 PM POLISHING MACHINE OPERATOR) Only the most recent of2 resultswithin the time period is included. [facility] % NEUTROPHILS 48.0 % 05/21/2023 4:45 PM POLISHING MACHINE OPERATOR [facility] % LYMPHOCYTES 46.0 % 05/21/2023 4:45 PM POLISHING MACHINE OPERATOR [facility] % MONOCYTES 4.0 % 05/21/2023 4:45 PM POLISHING MACHINE OPERATOR [facility] % EOSINOPHILS 2.0 % 05/21/2023 4:45 PM POLISHING MACHINE OPERATOR [facility] % BASOPHILS 0.0 % 05/21/2023 4:45 PM POLISHING MACHINE OPERATOR [facility] NEUTROPHILS ABSOLUTE 6.2 1.7 - 7.0 thou/cu mm 05/21/2023 4:45 PM POLISHING MACHINE OPERATOR [facility] LYMPHOCYTES ABSOLUTE 6.0(H) 0.9 - 2.9 thou/cu mm 05/21/2023 4:45 PM POLISHING MACHINE OPERATOR [facility] MONOCYTES ABSOLUTE 0.5 <0.9 thou/cu mm 05/21/2023 4:45 PM POLISHING MACHINE OPERATOR [facility] EOSINOPHILS ABSOLUTE 0.3 <0.5 thou/cu mm 05/21/2023 4:45 PM POLISHING MACHINE OPERATOR [facility] BASOPHILS ABSOLUTE 0.0 <0.3 thou/cu mm 05/21/2023 4:45 PM [facility] Blood BLOOD SPECIMEN / Unknown Venipuncture / Unknown 05/21/2023 4:21 PM POLISHING MACHINE OPERATOR 05/21/2023 4:22 PM POLISHING MACHINE OPERATOR Asha Arthur DO HEMATOLOGY [facility] [address] [place] [address], * (ABNORMAL) CREATININE,ISTAT (04/30/2023 1:44 PM POLISHING MACHINE OPERATOR) CREATININE, POCT 0.90 0.57 - 1.11 mg/dL 04/30/2023 1:46 PM [facility] Comment:Caution: Patients ta farrukh Hydroxyurea have falsely increased iStat Creatinine results. Verify creatinine results ordering a Creatinine (63835.2) eGFR 71(L) >90 mL/min/1.7 3m2 04/30/2023 1:46 PM POLISHING MACHINE OPERATOR [facility] Comment:As of 2021, eG FR is calculated by the CKD-EPI creatinine equation without race adjustment. eGFR can be influenced by muscle mass, exercise, and diet. The reported eGFR is an estimation only and is only applicable if the renal function is stable. Blood BLOOD SPECIMEN / Unknown 04/30/2023 1:44 PM POLISHING MACHINE OPERATOR 04/30/2023 1:46 PM POLISHING MACHINE OPERATOR Kellie Benavides MD CHEMISTRY [facility] [address] [place] [address] * CT CHEST ABDOMEN PELVIS W (04/30/2023 1:31 PM POLISHING MACHINE OPERATOR) Anatomical Region Laterality Modality Abdomen, Pelvis, AORTA, LIVER, SPLEEN, CHEST Computed Tomography 05/01/2023 7:27 AM POLISHING MACHINE OPERATOR Impressions 05/01/2023 7:27 AM POLISHING MACHINE OPERATOR 1. Small benign pulmonary nodule in the lingula unchanged. No significant chest pathology. 2. Cholecystectomy. Total hysterectomy. 3. Multiple right kidney cysts. 4. 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 5. Metallic density in the fundus of the stomach of indeterminate significance. No other abnormality of the GI tract. Please note that all CT scans at this facility use dose modulation, iterative reconstruction, and/or weight-based dosing when appropriate to reduce radiation dose to as low as reasonably achievable. Dictated by Janessa Hernandez MD @ 05/01/2023 7:27:54 AM (Electronically Signed) Narrative 05/01/2023 7:27 AM POLISHING MACHINE OPERATOR For Patients: ??As a result of the 21st Century Cures Act, medical imaging exams and procedure reports are released immediately into your electronic medical record. ??You may view this report before your referring provider. ??If you have questions, please contact your health care provider. INDICATION: Leukocytosis TECHNIQUE: CT chest, abdomen and pelvis acquired with IV contrast. COMPARISON: CT abdomen pelvis 12/08/2014 FINDINGS: Chest: Cardiovascular structures: Heart size is normal. Thoracic aorta and main pulmonary artery are normal in caliber. ?? Mediastinum and ann: No mass or adenopathy. Thyroid normal. Lungs: Benign 7 mm nodule in the lingula unchanged from the previous abdominal CT. Minor scarring at the lung bases. The lung rai are otherwise clear. Pleura and pericardium: No effusions. Chest wall and axilla: Unremarkable. Bones: Old healed anterior left 7th through 10th rib fractures. Degenerative spine. No lytic or osteoblastic lesions. Abdomen and Pelvis: Liver: Normal size. No lesions. Spleen: Normal size. No lesions. Pancreas: No pancreatic mass or pancreatitis. Gallbladder and bile ducts: Cholecystectomy. No dilation of the bile ducts. Kidneys: Several cysts right kidney. Left kidney normal. No stones or hydronephrosis. Adrenal glands: Unremarkable. GI tract: Metallic density present in the gastric fundus. Colon, small bowel and appendix are normal. No wall thickening, adjacent inflammation or obstructive pattern. Vascular structures: Unremarkable. Lymph nodes: No lymphadenopathy. Miscellaneous: Unremarkable. No free air or significant free fluid. No abdominal wall hernia. Pelvic Organs: Bladder normal. Total hysterectomy. Bones: Degenerative spine. Bilateral hip osteoarthritis severe on the left. Procedure Note Luis Hernandez MD - 05/01/2023 For Patients: As a result of the Cures Act, medical imagingexams and procedure reports are released immediately into your electronicmedical record. You may view this report before your referring provider.If you have questions, please contact your health care provider. INDICATION: Leukocytosis TECHNIQUE: CT chest, abdomen and pelvis acquired with IV contrast. COMPARISON: CT abdomen pelvis 12/08/2014 FINDINGS: Chest: Cardiovascular structures: Heart size is normal. Thoracic aorta and mainpulmonary artery are normal in caliber. Mediastinum and ann: No mass or adenopathy. Thyroid normal. Lungs: Benign 7 mm nodule in the lingula unchanged from the previousabdominal CT. Minor scarring at the lung bases. The lung rai areotherwise clear. Pleura and pericardium: No effusions. Chest wall and axilla: Unremarkable. Bones: Old healed anterior left 7th through 10th rib fractures.Degenerative spine. No lytic or osteoblastic lesions. Abdomen and Pelvis: Liver: Normal size. No lesions. Spleen: Normal size. No lesions. Pancreas: No pancreatic mass or pancreatitis. Gallbladder and bile ducts: Cholecystectomy. No dilation of the bileducts. Kidneys: Several cysts right kidney. Left kidney normal. No stones orhydronephrosis. Adrenal glands: Unremarkable. GI tract: Metallic density present in the gastric fundus. Colon, smallbowel and appendix are normal. No wall thickening, adjacent inflammationor obstructive pattern. Vascular structures: Unremarkable. Lymph nodes: No lymphadenopathy. Miscellaneous: Unremarkable. No free air or significant free fluid. Noabdominal wall hernia. Pelvic Organs: Bladder normal. Total hysterectomy. Bones: Degenerative spine. Bilateral hip osteoarthritis severe on theleft. IMPRESSION: 1. Small benign pulmonary nodule in the lingula unchanged. No significantchest pathology. 2. Cholecystectomy. Total hysterectomy. 3. Multiple right kidney cysts. 4. Degenerative lumbar spine and bilateral hip osteoarthritis severe onthe left. 5. Metallic density in the fundus of the stomach of indeterminatesignificance. No other abnormality of the GI tract. Please note that all CT scans at this facility use dose modulation,iterative reconstruction, and/or weight-based dosing when appropriate toreduce radiation dose to as low as reasonably achievable. Dictated by Janessa Hernadnez MD @ 05/01/2023 7:27:54 AM (Electronically Signed) Kellie Benavides MD CT * BM/LB CHROM (04/08/2023 10:25 AM POLISHING MACHINE OPERATOR) Bone Marrow BONE MARROW SPECIMEN / Unknown Non-Blood / Unknown 04/08/2023 10:25 AM POLISHING MACHINE OPERATOR 04/09/2023 12:10 PM POLISHING MACHINE OPERATOR Kellie Benavides MD LABORATORY Performing Organization Address City/[facility] Co de Phone Number [facility] [address] [place] [address], [place] * BM WETLAB (04/08/2023 10:25 AM POLISHING MACHINE OPERATOR) Bone Marrow BONE MARROW SPECIMEN / Unknown Non-Blood / Unknown 04/08/2023 10:25 AM POLISHING MACHINE OPERATOR 04/09/2023 12:10 PM POLISHING MACHINE OPERATOR Kellie Benavides MD LABORATORY [facility] [address] [place] [address], [place] * PHA (04/08/2023 10:25 AM POLISHING MACHINE OPERATOR) Bone Marrow BONE MARROW SPECIMEN / Unknown Non-Blood / Unknown 04/08/2023 10:25 AM POLISHING MACHINE OPERATOR 04/09/2023 12:10 PM POLISHING MACHINE OPERATOR Kellie Benavides MD LABORATORY Performing Organization Address City/[facility]/ZIP Co de Phone Number [facility] [address] [place] [phone], [place] * OB (04/08/2023 10:25 AM POLISHING MACHINE OPERATOR) Bone Marrow BONE MARROW SPECIMEN / Unknown Non-Blood / Unknown 04/08/2023 10:25 AM POLISHING MACHINE OPERATOR 04/09/2023 12:10 PM POLISHING MACHINE OPERATOR Kellie Benavides MD LABORATORY Performing Organization Address City/[facility] Co de Phone Number [facility] [address] [place] [id number], [place] * CHROM TECH 2 (04/08/2023 10:25 AM POLISHING MACHINE OPERATOR) Bone Marrow BONE MARROW SPECIMEN / Unknown Non-Blood / Unknown 04/08/2023 10:25 AM POLISHING MACHINE OPERATOR 04/09/2023 12:10 PM POLISHING MACHINE OPERATOR Kellie Benavides MD LABORATORY Performing Organization Address City/[facility] Co de Phone Number [facility] [address] [place] [id number], [place] * CHROM TECH 1 (04/08/2023 10:25 AM POLISHING MACHINE OPERATOR) Bone Marrow BONE MARROW SPECIMEN / Unknown Non-Blood / Unknown 04/08/2023 10:25 AM POLISHING MACHINE OPERATOR 04/09/2023 12:10 PM POLISHING MACHINE OPERATOR Kellie Benavides MD LABORATORY Performing Organization Address City/[facility] Co de Phone Number [facility] [address] [place] [id number], [place] * CYTOGENETIC BONE MARROW STUDIES (04/08/2023 10:25 AM POLISHING MACHINE OPERATOR) RFR Leukocytosis, Thrombocytosis 04/24/2023 5:31 PM POLISHING MACHINE OPERATOR [facility] TEST & RESULT SUMMARY Chromosome Analysis: Negative for a clonal chromosome abnormality. 04/24/2023 5:31 PM POLISHING MACHINE OPERATOR [facility] _ 04/24/2023 5:31 PM [facility] ISCN [id number],XX[20] 04/24/2023 5:31 PM [facility] INTERPRETATION Chromosome analysis revealed a normal female karyotype with no abnormal clonal population of metaphases detected. Clinicopathologic correlation of these results is recommended. 04/24/2023 5:31 PM [facility] LAB TEST DETAILS Fully Analyzed Metaphases: ??20 Partially Analyzed Metaphases: ??0 Full Karyotypes: ??2 04/24/2023 5:31 PM [facility] SOURCE Bone Marrow ([facility]) [id number] 04/24/2023 5:31 PM [facility] METHODS Cultures used in the chromosome analysis included a non-stimulated culture and a culture stimulated with T-lymphocyte mitogen phytohemagglutinin (PHA). Chromosome analysis is performed on consecutive analyzable G-banded metaphases. 04/24/2023 5:31 PM [facility] DISCLAIMER This test was developed and its performance characteristics determined by the [facility]. It has not been cleared or approved by the U.S. Food and Drug Administration. The FDA does not require these tests to go through premarket FDA review. These tests are used for clinical purposes. They should not be regarded as investigational or for research. This laboratory is certified under the Clinical Laboratory Improvement Amendments (CLIA) as qualified to perform high complexity clinical laboratory testing. 04/24/2023 5:31 PM POLISHING MACHINE OPERATOR [facility] Bone Marrow BONE MARROW SPECIMEN / Unknown Non-Blood / Unknown 04/08/2023 10:25 AM POLISHING MACHINE OPERATOR 04/09/2023 12:10 PM POLISHING MACHINE OPERATOR Kellie Benavides MD [facility]ORY [facility] [address] [place] [address], * BONE MARROW DIFFERENTIAL (04/08/2023 9:30 AM POLISHING MACHINE OPERATOR) Bone Marrow BONE MARROW SPECIMEN / Unknown Non-Blood / Unknown 04/08/2023 9:30 AM POLISHING MACHINE OPERATOR 04/08/2023 8:56 AM POLISHING MACHINE OPERATOR Kellie Benavides MD LABORATORY [facility] [address] [place] [address], * BONE MARROW STUDY (04/08/2023 9:24 AM POLISHING MACHINE OPERATOR) Case Report Bone Marrow Patholog y Report ?Case: [id number] ? Authorizing Provider: ??Kellie Benavides MD ?Collected: ? 04/08/2023 1025 ? Ordering Location: ? [facility] ? Received: ?04/08/2023 1131 ? [place] ? Pathologist: ? Uday Merrill, ? MD ? Specimens: ?? A) - Bone Marrow, left ? B) - Bone Marrow Aspirate (Heparinized), left ? C) - Bone Marrow Core Biopsy, left ? D) - Peripheral Blood ? 3 10:28 [facility] Final Diagnosis BONE MARROW AND PERIPHERAL BLOOD: 1. ??No morphologic features of involvement by myeloproliferative neoplasm 2. ??Small CD3+/CD4+/CD7- monotypic helper T-cell clone identified in bone marrow and peripheral blood; See comment 3. ??Normocellular bone marrow for age (40-50% cellular) with trilineage hematopoiesis 4. ??Peripheral blood: ?- Mild absolute monocytosis ?- Mild lymphocytosis with: ?i. Approximate absolute monotypic T lymphocytes = 500/cumm ?- Mild thrombocytosis 5. ??Ancillary studies: ?a. ??Cytogenetics: ?- Chromosome studies are pending; appended results to follow ?b. ??Molecular: ?- Previous molecular studies negative for JAK2 V617F, CALR, and MPL mutations 10:28 AM [facility] Comment There are no morphologic features of involvement by a myeloproliferative neoplasm. The bone marrow is normocellular for age (40-50%) with normal hematopoiesis including normal-appearing scattered megakaryocytes. Clinical correlation is recommended in this regard. Similar to that previously identified in the peripheral blood, both the bone marrow and peripheral blood demonstrate a small CD3+/CD4+/CD7- monotypic helper T-cell clone. Currently, the peripheral blood approximate absolute monotypic T lymphocytes are 500/cumm (previously 1300/cumm). There is no definitive evidence of a T-cell lymphoproliferative disorder. However, correlation with clinical and radiographic findings to exclude lymphadenopathy or splenomegaly is recommended. If no evidence of extramedullary disease can be demonstrated, the flow cytometry findings are likely to represent a rare CD4+ T-cell clone of uncertain significance (TCUS). Continued interval monitoring of the blood for assessment of clone size should be considered, if clinically warranted. If the patient develops cytopenias, a repeat bone marrow should be considered. Results are discussed with Dr. Kellie Benavides on 04/15/[address] Merrill. 10:28 AM [facility] Clinical Information The patient is a 62-year-old female with longstanding leukocytosis and thrombocytosis. Her most recent peripheral blood morphology showed involvement by a helper-type (CD4+) T-cell clone (approximate absolute monotypic T lymphocytes = 1300/cumm) ([id number], 03/05/2023). Previous molecular testing for JAK2 V617F and CALR ([id number], 10/15/2022) and MPL ([id number], 01/21/2023) were negative. Prior negative flow cytometry for monotypic B-cell population ([id number], 10/15/2022). A bone marrow biopsy performed for further evaluation of leukocytosis, T-cell clone, and thrombocytosis. 3 10:28 AM [facility] PROCEDURE A LEFT lateral bone marrow biopsy and unilateral aspiration procedure is performed at [facility] on 04/08/23. Zaida Lozada MD performed the procedure using an 8 gauge manual needle. The ordering physician is Dr. Kellie Benavides. The specimen is inked green. EKW 04/09/2023 ? 3 10:28 AM [facility]- [facility]TRAL LABORATORY CBC and Differential HEMATOLOGY PARAMETERS Tested at: ??[facility] Peripheral Blood: ? RESULTS ??EXPECTED VALUES WBC: ? 12.7 ? 4.5-75s6494/cumm ?ELEVATED RBC: ? 4.0 ?4.00-5.20 mil/cumm ??DECREASED HGB: ? 12.2 ? 12-16 gm/dl ? HCT: ? 37.5 ? 33-51% ? MCV: ? 94.0 ? 80-100 fl ? NORMOCYTIC MCH: ? 30.5 ? 26-34 pg ? MCHC: ?32.5 ? 32-36 gm/dl ? NORMOCHROMIC RDW: ? 14.2 ? 11.5-15.5% ? PLT: ? 476 ?140-686e9414/uL ? ELEVATED MPV: ? 9.9 ?6.5-11 fl ? Retic: ?? 1.7 ?0.5-1.5% ?ELEVATED Differential ?Tested at: ??[facility] ?Absolute (%) ?Expected (%) ?(x10*9/L) ? (x10*9/L) Neutrophils: ?6.1 (48) ?1.7-7.0 (42-72%) ? Lymphocytes: ?5.2 (40.9) ?0.9-2.9 (20-44%) ??ELEVATED Monocytes: ?1.3 (10.2) ? <0.9 (0-11%) ? ELEVATED Eosinophils: ?0.1 (.8) ? <0.5 (0-2%) ? Basophils: ?0.0 (0) ?<0.3 (<3.0%) ? Imm Grans: ?0.0 (0) ?<0.3 (0-3%) ? (Metas, Myelos,Pros) 3 10:28 AM [facility] Bone Marrow Differential Blasts: ?0.4 ? 0.2-1.5% ? Neutrophils & precursors: ??64.6 ?58.0-65.0% ? Eosinophils & precursors: ??1.4 ? 0.2-5.3% ? Basophils & precursors: ?0.0 ? 0.0-1.0% ? Erythroid precursors: ?10.8 ?18.0-24.0% ?DECREASED Lymphocytes: ? 19.6 ? 3.0-24.0% ? Monocytes: ? 3.0 ? 0.7-2.8% ?ELEVATED Plasma cells: ?0.2 ? 0.1-1.5% ? M:E Ratio: ? 65 : 11 3 10:28 AM [facility] Microscopic Description SPECIMENS EXAMINED: Peripheral blood Aspirate direct and concentrate smears: ??Adequate Particle crush smears Touch imprints Clot section Bone core trephine sample (decalcified): ??Adequate, but fragmented biopsy, 0.5 cm Bone core and clot section color: ??Green PERIPHERAL BLOOD: The peripheral smear features support the diagnosis. BONE MARROW ASPIRATE: Hematopoiesis: Morphologically normal trilineage hematopoiesis. No overt dysplasia. No increase in blasts. Some hemodilution present. Lymphocytes: ?? Normal, not increased Plasma cells: ??Normal BONE MARROW CORE AND CLOT SECTION: Hematopoiesis: Normocellular marrow with normal trilineage hematopoiesis Lymphocytes: ?? Normal Plasma cells: ??Normal IRON STAINS (performed on clot sections, particle crush smears, concentrate smears, and F-PV slides): Storage iron: Increased Sideroblastic iron: Adequate Ringed sideroblasts: Absent Support for the interpretation of this case may have included the use of immunohistochemistry and/or in situ hybridization tests that were performed by [facility] and whose performance characteristics were evaluated by pathologists from [facility]. These tests have not been cleared or approved by the U.S. Food and Drug Administration. The FDA has determined that such clearance or approval is not necessary. These tests are used for clinical purposes and should not be regarded as investigational or for research. This laboratory is certified under the Clinical Laboratory Improvement Amendments of 1988 (CLIA) as qualified to perform high complexity clinical laboratory testing. 3 10:28 AM [facility] Flow Cytometry Summary T Cell Leukemia/Lymphoma & B Cell Screen panels on Bone Marrow Aspirate and T Cell Leukemia/Lymphoma panel on Peripheral Blood: Interpretation: Bone marrow: 1. Minute CD3+/CD4+/CD7- monotypic helper T-cell population identified (~2%). 2. No monotypic B cells identified. Peripheral blood: 1. Small CD3+/CD4+/CD7-monotypi c helper T-cell population identified (~4.8%) ?? a. Approximate absolute monotypic T lymphocytes = 500/cumm Clinical indication for flow cytometry: To evaluate for light chain restriction among B cells, and abnormal immunophenotype among T cells (bone marrow) and assess for abnormal immunophenotype among T cells in peripheral blood. T Cell Leukemia/Lymphoma panel on Bone Marrow Aspirate A monotypic T cell cohort is detected that comprises approximately 2.0% of total viable nucleated events as defined by light scatter criteria. Summary of T cell phenotype Brightly positive markers: CD45/CD3/CD2/CD4/CD5/T CR ALPHA BETA Moderately positive markers: CD57* Dimly positive markers: CD56 Trace positive markers: HLA-DR Negative markers: CD19/TCR [place]/TRBC1/CD8/CD7/CD 57*/CD16/CD10 *bimodal Quality Assessment Viability (7-AAD): 83% Monotypic T cell events: 235 Nucleated cells analyzed: [id number] Limit of detection (LOD): 0.4% B Cell Screen panel on Bone Marrow Aspirate Percent of Lymphs B cells: 7.2% T cells: 82.6% CD19+/[place]: 4.2% CD19+/Lambda: 2.9% [place]:Lambda ratio: 1.4 B lymphocytes in this analysis demonstrate normal qualitative expression of the following antigens: CD3, CD5, CD10, CD19, CD20, CD45, and [place] and Lambda surface light chains. Quality Assessment Polytypic B cell events: 168 Nucleated cells analyzed: [id number] Limit of detection (LOD): 0.2% T Cell Leukemia/Lymphoma panel on Peripheral Blood A monotypic T cell cohort is detected that comprises approximately 4.8% of total viable nucleated events as defined by light scatter criteria. Summary of T cell phenotype Brightly positive markers: CD45/CD3/CD2/CD4/CD5/T CR ALPHA BETA/CD57* Moderately positive markers: Dimly positive markers: HLA-DR/CD56 Trace positive markers: Negative markers: CD19/TCR [place]AM[place]/TRBC1/CD8/CD7/CD 57*/CD16/CD10 *bimodal Approximate absolute monotypic T lymphocytes = 500/cumm Quality Assessment Monotypic T cell events: 462 Nucleated cells analyzed: 9714 Limit of detection (LOD): 0.5% These results and cytograms have been verified by Dr. Merrill. This test was developed and its performance characteristics [facility] by [facility]. It has not been cleared or approved by the [place] Food and Drug Administration. This test is used for clinical purposes and should not be regarded as investigational or for research. Immunostains may have been used on this case in conjunction with flow cytometry in order to address ambiguous or inconclusive findings and/or to provide prognostic information. In the event immunostains were performed, results of both modalities were coordinated with H&E findings during diagnostic evaluation. Analytic Flow Tech: Char Macias, 04/09/2023 2:57 PM Verifying Flow Tech: Minesh Rasheed, 04/09/2023 3:25 PM 10:28 AM [facility] Cytogenetics Summary Cytogenetic testing has been ordered and will be reported separately. 10:28 AM [facility] Other Testing Immunostains were performed on the bone core biopsy. ?? CD34 (blast marker) (manual morphometry): ??Not increased, <5% CD61 (megakaryocyte marker): ??Highlights scattered megakaryocytes with normal morphology CD3 (T cell marker): ??Appropriate in number; highlights rare small mixed B and T cell lymphoid aggregates CD20 (B cell marker) (by manual morphometry): ??Not increased, <5%; highlights rare small mixed B and T cell lymphoid aggregates CD4: ??Highlights majority of T cells CD7: ??Highlights subset of T cells CD8: ??Highlights minority of T cells 3 10:28 AM [facility] Additional Information Interpreted at [facility], Central Laboratory - [address], [place] [address] 3 10:28 AM [facility] Bone Marrow BONE MARROW SPECIMEN / Unknown Non-Blood / Unknown 04/08/2023 10:25 AM POLISHING MACHINE OPERATOR 04/08/2023 11:31 AM POLISHING MACHINE OPERATOR Comment:This procedure was o riginally ordered at [facility]. Bone marrow specimen (specimen) (Bone Marrow Aspirate (Heparinized)) Non-Blood / Unknown 04/08/2023 10:25 AM POLISHING MACHINE OPERATOR 04/08/2023 8:43 PM POLISHING MACHINE OPERATOR Bone marrow specimen (specimen) (Bone Marrow Core Biopsy) 04/08/2023 10:25 AM POLISHING MACHINE OPERATOR 04/08/2023 8:43 PM POLISHING MACHINE OPERATOR Bone marrow specimen (specimen) (Peripheral Blood) 04/08/2023 9:24 AM POLISHING MACHINE OPERATOR 04/08/2023 8:43 PM POLISHING MACHINE OPERATOR Kellie Benavides MD LABORATORY [facility] SENDOUT INTERNAL ZIP [id number] [place] [address] LAB[address] [address], * (ABNORMAL) RETICULOCYTES (04/08/2023 9:24 AM POLISHING MACHINE OPERATOR) RETIC% 1.7(H) 0.5 - 1.5 % 04/08/2023 9:43 PM POLISHING MACHINE OPERATOR [facility] RETIC (ABSOLUTE) 0.07 0.03 - 0.08 mil/cu mm 04/08/2023 9:43 PM POLISHING MACHINE OPERATOR [facility] Blood BLOOD SPECIMEN / Unknown Venipuncture / Unknown 04/08/2023 9:24 AM POLISHING MACHINE OPERATOR 04/08/2023 9:31 AM POLISHING MACHINE OPERATOR Narrative [facility] - 04/08/2023 9:43 PM POLISHING MACHINE OPERATOR This procedure was originally ordered at [facility]. Kellie Benavides MD HEMATOLOGY [facility] [address] [address], from Last 3 Months Advance Directives Latest Code Status on File Code Status Date Activated Date Inactivated Comments Full Code 04/08/2023 8:59 AM 04/08/2023 2:24 PM Question Answer Comments Code Status Discussion: Unable to Assess Preferences, Provider to review later Code Status History Code Status Date Activated Date Inactivated Comments Full Code 06/03/2014 6:07 AM 06/03/2014 10:30 AM Care Teams Under Sheriff Relationship Specialty Start Date End Date Asha Arthur DO [address] [place] [address] PCP - General Family Practice 10/15/22 Kellie Benavides MD [address] [facility] [address] [place] [address] Medical Oncologist Hematology and Oncology 11/06/22 Thalia Ross, DOMENICO [address] [facility] [place] [address] Nurse Navigator - Oncology Registered Nurse 04/16/23
--- OUTSIDE RECORDS SUMMARY | 2023-06-25 10:13 | XMS_ITS ---
Author Name Unknown Organization [place] Address [address] [place] [id number] Care Team Providers Care Reel Repairer Name Role Phone Kelly Sommer Primary Care Provider [phone] Helen Mancini MD Unavailable My [place] APRN LADLE PULLER Unavailable + Active Problems Problem Noted Date Diagnosed Date S/P total hip arthroplasty 06/10/2023 Endometrial cancer 12/22/2019 Cancer Staging:Clinical stage from 01/19/2020:FIGO Stage IA(T1a(m), N0, M0) - Signed by Helen Mancini MD on 01/19/2020 Overview: Added automatically from request for surgery [id number] Hypertension Diabetes mellitus Current Oncology Plans No current plan information found. Past Plans No past plan information found. Radiation Treatments * No radiation treatments are documented for this patient in [facility]. Treatments may have been administered in another system. Treatment Summaries Endometrial cancer (H)* Cancer Treatment Plan and Summary - Gynecology [facility] General Information Patient Name Yue Cardoso Patient 1960 Patient phone [phone] (home) [phone] (work) Email [email or web address] Care [email or web address] Primary Care Provider Kelly Sommer Gynecologic Oncologist Helen Key MD Cancer Diagnosis Information Diagnosis Endometrial cancer (H) Diagnosis Date 12/21/2019 Staging Information Cancer Staging Endometrial cancer (H) Staging form: Corpus Uteri - Carcinoma, AJCC 7th Edition - Clinical stage from 01/19/2020: FIGO Stage IA (T1a(m), N0, M0) - Signed by Helen Mancini MD on 01/19/2020 Familial Cancer Risk Assessment Genetic Counseling MMR was intact/normal Treatment Summary Surgery Bilateral salpingo oophorectomy and Laparoscopic hysterectomy: robotic assisted Surgery Date: 01/19/2020 Robotic total laparoscopic hysterectomy, bilateral salpingo-oophorectomy, lysis of adhesions, bilateral pelvic sentinel lymph node dissection, cystoscopy Microscopic foci of grade 1 endometrial carcinoma Pathology Adenocarcinoma Radiation No Systemic No Treatment Ongoing No *The above summary reflects your cancer treatment as documented in our chart at the time you received this summary. If you had additional treatment at another care center we would advise you to obtain this information from that care center. Follow-up Care Plan Persistent symptoms or side effects at completion of treatment These symptoms may include, but not limited to: fatigue, numbness/tingling, psychosocial, menopause symptoms, pain, memory/concentrationissues. Additional provider notes, if applicable Your follow up care plan is designed to inform you and your primary care provider the recommended and suggested follow up, cancer screening and routine health maintenance that is needed to maintain optimal health. Possible late and/or termite control representative effects that someone with this type of cancer and treatment may experience: bone effects heart effects memory and concentration pain nervous system changes If you would like to discuss specific late and/or termite control representative effects related to your treatment, please use the following website to make an appointment in the Cancer Survivor Program: [email or web address] OR call These symptoms should be brought to the attention of your provider: 1. Anything that represents a brand new symptom; 2. Anything that represents a persistent symptom; 3. Anything that you are worried about that might be related to your cancer coming back. 4. Abdominal/back pain or bloating 5. Vaginal bleeding 6. Unexplained weight gain or loss 7. Changes in bowel or bladder habits Coordinating Provider When/How Often Primary Care Provider Please continue to see your primary care provider for all general health carerecommended for a patient your age, including cancer screening tests. Any symptoms should be brought to the attention of your provider. Gynecologic Oncologist: Every 36months for 2 years, then annually. Or as directed. Other See eye doctor and dentist routinely Cancer Surveillance or Other Recommended Related Tests Test What/When/How Often Pelvic and rectal exam With provider visit Cancer survivors may experience issues with the areas listed below. If you have any concerns in these or other areas, please speak with your providers or nurses to find out how you can get help with them. Anxiety or depression Emotional and mental health Fatigue Financial advice or assistance Insurance Memory or concentration loss Parenting Physical functioning School or work Sexual functioning Stopping smoking Weight changes Other A number of lifestyle/behaviors can affect your ongoing health, including the risk for the cancer coming back or developing another cancer. Discuss these recommendations with your provider or nurse: Alcohol use Diet Physical activity Sun screen use Tobacco use/cessation Weight management (loss/gain) Resources you may be interested in: [employer] www.cancer.org [employer] www.asco.org/practice-guidelines/resources-patients National Cancer [place] www.cancer.gov [employer] www.livestrong.org [facility] www.mhealth.org/care/overarching-care/umrbxu-hbmz-tndyl/support-services www.cancer.net [employer] [place] [employer] Research www.aicr.org This Survivorship Care Plan is a cancer treatment summary and follow up plan and is provided to youto keep with your health care records and to share with your primary care provider or any of your other providers.
--- OUTSIDE RECORDS SUMMARY | 2023-06-25 10:13 | XMS_ITS | Encounter Summary ---
Author Name Unknown Organization [place] Address [address] [place] [address]. [place] [address] Care Team Providers Care Entry Level Accountant Name Role Phone Kelly Sommer Primary Care Provider [phone] Helen Mancini MD Unavailable [phone] My [place] APRN PROCESS IMPROVEMENT ENGINEER Unavailable + Reason for Visit * Auth/Cert (Routine) Specialty Diagnoses / Procedures Referred By Renzo martines Referred To Contact Surgery Diagnoses Osteoarthritis of hip Hip pain, left Osteoarthritis of hip [M16.9] Hip pain, left [M25.552] Procedures OR TOTAL HIP ARTHROPLASTY LEFT POSTERIOR TOTAL HIP ARTHROPLASTY [facility] Services [address] [place] [address] Referral ID Status Reason Start Date Expiration Date Visits Re quested Visits Authorized [id number] 1 1 Encounter Details Date Type Department Care Team (Late st Contact Info) Description 06/10/2023 8:40 AM ASPHALT SMOOTHER - 06/10/2023 11:20 AM ASPHALT SMOOTHER Surgery [facility] [address] [place] [address] Jenaro Cosby MD [facility] [address] [facility] [address] [facility] [address] [place] [address] LEFT POSTERIOR TOTAL HIP ARTHROPLASTY Surgery Details Date/Time Status Location OR Service Patient Class Case Class Case Type Trauma Case? 06/10/23 8:40 AM Posted [employer] [facility] OR [facility] OR Orthopedics Same Day Surgery Elective Panel 1 Procedure LRB Anes Op Region Wound Class Comments LEFT POSTERIOR TOTAL HIP ARTHROPLASTY Left General Hi p I-Clean Surgeon Surgeon Role Service Panel Jenaro Cosby MD Primary Orthopedics 1 Rosario Whaley PA-C Assisting 1 Case Notes WW DEPUY HIP SET 2 + KINCISE LOANER.Cordell Bush [phone] Navid Patel [phone] documented in this encounter Social History Tobacco Use Types Packs/Day Years [...] Orientation Straight 12/21/2019 11 :36 AM CDT documented as of this encounter Last Filed Vital Signs Vital Sign Reading Time Taken Comments Blood Pressure 137/63 06/10/2023 11:20 AM ASPHALT SMOOTHER Pulse 108 06/10/2023 11:20 AM ASPHALT SMOOTHER Temperature 36.6 ??C (97.8 ??F) 06/10/2023 11:[address] Respiratory Rate 12 06/10/2023 11:20 AM ASPHALT SMOOTHER Oxygen Saturation 98% 06/10/2023 11:20 AM ASPHALT SMOOTHER Inhaled Oxygen Concentration - - Weight 110.2 kg (243 lb) 06/10/2023 6:58 AM ASPHALT SMOOTHER Height 157.5 cm (5' 2) 06/10/2023 6:58 AM ASPHALT SMOOTHER Body Mass Index 44.45 06/10/2023 6:58 AM ASPHALT SMOOTHER documented in this encounter Discharge Summaries * Carolyn Gardner PA-C - 06/11/2023 10:33 AM CST ORTHOPEDIC DISCHARGE SUMMARY Yue Cardoso, 1960, Admission Date: 06/10/2023 Admission Diagnoses: Osteoarthritis of hip [M16.9] Hip pain, left [M25.552] S/P total hip arthroplasty [Z96.649] Discharge Date: 06/11/23 Post-operative Day: 1 Day Post-Op Reason for Admission: The patient was admitted for the following: Procedure(s): LEFT POSTERIOR TOTAL HIP ARTHROPLASTY BRIEF HOSPITAL COURSE Yue Cardoso is a pleasant 63 year old female who underwent the aforementioned procedure withDr. Cosby on 06/10. There were no intraoperative complications and the patient was transferred tothe recovery room and later the orthopedic unit in stable condition. Once the patient reached the orthopedic floor our orthopedic pain protocol was implemented along with the following: Anticoagulation Medications: ASA Therapy: PT and OT Activity: WBAT Bracing: None Consultations during Admission: Hospitalist service for medical management COMPLICATIONS/SIGNIFICANT FINDINGS NONE DISCHARGE INFORMATION Condition at discharge: Good Discharge destination: Home Patient was seen by myself on the date of discharge. FOLLOW UP CARE Follow up with orthopedics in 2 weeks or sooner should the need arise. Ortho will continue to manage pain control, post op anticoagulation and incision care. Follow up with your PCP for management of chronic medical problems and to evaluate for post op medical complications including constipation, nausea/vomiting, DVT/PE, anemia, changes in blood pressure, fevers/chills, urinary retention and atelectasis/pneumonia. Subjective Patient is doing well on POD #1. Pain is well controlled with oral medications. Ambulating. Tolerating oral intake. Physical Exam BP 116/69 (BP Location: Right arm, Patient Position: Semi-Schmidt's, Cuff Size: Adult Regular) Pulse 97 Temp 97.8 ??F (36.6 ??C) (Oral) Resp 17 Ht 1.575 m (5' 2) Wt 110.2 kg (243 lb) [id number]% BMI 44.45 kg/m?? The patient is A&Ox3. Appears comfortable, sitting up at bedside. Calves are soft and non-tender bilaterally Brisk capillary refill in the toes. Palpable left dorsalis pedis pulse. Foot warm & well-perfused. Sensation is intact to light touch & equal bilaterally in the femoral, DP, SP & tibial nerve distributions. ROM: Flexes at left hip. Appropriately flexes & extends all toes bilaterally. Motor: +5/5 dorsiflexion, plantar flexion & EHL bilaterally. Fires quad. Leg lengths equal. left hip dressing C/D/I without strikethrough, no surrounding erythema. 5/5 TA/GSC/EHL. Pertinent Results at Discharge Hemoglobin Date/Time Value Ref Range Status 06/11/2023 10:17 AM 9.9 (L) 11.7 - 15.7 g/dL Final 06/11/2023 06:09 AM 9.4 (L) 11.7 - 15.7 g/dL Final 01/18/2020 06:19 PM 13.3 11.7 - 15.7 g/dL Final 01/04/2020 08:50 AM 13.4 11.7 - 15.7 g/dL Final Platelet Count Date/Time Value Ref Range Status 06/11/2023 06:09 AM 368 150 - 450 10e3/uL Final 01/18/2020 06:19 PM 542 (H) 150 - 450 10e9/L Final 01/04/2020 08:50 AM 458 (H) 150 - 450 10e9/L Final Problem List Principal Problem: S/P total hip arthroplasty Carolyn Gardner PA-C/Dr. Cosby [facility] [phone] Date: 06/11/2023 Time: 10:33 AM ALT SMOOTHER documented in this encounter Medications at Time of Discharge Medication Sig Dispensed Refills Start Date End Date acetaminophen (TYLENOL) 325 MG tabletIndications:Sta tus post total replacement of left hip Take 2 tablets (650 mg) by mouth every 4 hours as needed for other (mild pain) 100 tablet 0 06/10/2023 amLODIPine (NORVASC) 5 MG tablet Take 5 mg by mouth daily 0 05/26/2018 aspirin 81 MG EC tabletIndications:Sta tus post total replacement of left hip Take 1 tablet (81 mg) by mouth 2 times daily 60 tablet 0 06/10/2023 busPIRone (BUSPAR) 5 MG tablet Take 10 mg by mouth 2 times daily 0 01/14/2023 celecoxib (CELEBREX) 100 MG capsuleIndications:St atus post total replacement of left hip Take 1 capsule (100 mg) by mouth daily for 7 days Do not take within 6 hours of ibuprofen (MOTRIN, ADVIL) or ketorolac (TORADOL) if prescribed. 7 capsule 0 06/10/2023 chlorthalidone (HYGROTON) 50 MG tablet Take 50 mg by mouth daily 0 05/26/2018 cholecalciferol 25 MCG (1000 UT) TABS Take 1,000 Units by mouth daily 0 10/27/2014 gabapentin (NEURONTIN) 300 MG capsuleIndications:St atus post total replacement of left hip Take one capsules by mouth at bedtime 30 capsule 0 06/10/2023 hydrOXYzine HCl (ATARAX) 10 MG tabletIndications:Sta tus post total replacement of left hip Take 1 tablet (10 mg) by mouth every 6 hours as needed for itching or anxiety (with pain, moderate pain; sleep aid) 30 tablet 0 06/10/2023 losartan (COZAAR) 50 MG tablet Take 50 mg by mouth 2 times daily 0 05/26/2018 meclizine (ANTIVERT) 25 MG tablet Take 25 mg by mouth 3 times daily as needed 0 05/26/2018 metFORMIN (GLUCOPHAGE) 1000 MG tablet Take 1,000 mg by mouth 2 times daily (with meals) 0 05/26/2018 oxyCODONE (ROXICODONE) 5 MG tabletIndications:Sta tus post total replacement of left hip Take 1 tablet (5 mg) by mouth every 4 hours as needed for moderate to severe pain (MDD 4 tabs) 26 tablet 0 06/10/2023 OZEMPIC, 0.25 OR 0.5 MG/DOSE, 2 MG/3ML pen Inject 0.25 mg Subcutaneous every 7 days 0 potassium chloride ER (K-TAB) 20 MEQ CR tablet Take 20 mEq by mouth 2 times daily 0 05/26/2018 senna-docusate (SENOKOT-S/PERICOLACE ) 8.6-50 MG tabletIndications:Sta tus post total replacement of left hip Take 1-2 tablets by mouth 2 times daily as needed for constipation Take while on oral narcotics to prevent or treat constipation. 30 tablet 0 06/10/2023 simvastatin (ZOCOR) 40 MG tablet Take 40 mg by mouth every morning 0 05/26/2018 spironolactone (ALDACTONE) 50 MG tablet Take 50 mg by mouth every evening 0 05/26/2018 venlafaxine (EFFEXOR-XR) 75 MG 24 hr capsule Take 225 mg by mouth daily 0 05/26/2018 doxycycline hyclate (VIBRAMYCIN) 100 MG capsuleIndications:St atus post total replacement of left hip Take 1 capsule (100 mg) by mouth 2 times daily for 14 days 28 capsule 0 06/10/2023 06/24/2023 documented as of this encounter Progress Notes * Radha West MD - 06/11/2023 12:43 PM CST [facility] MEDICINE PROGRESS NOTE Securely message me with Irina (more info) Code Status: Full Code Procedure(s): LEFT POSTERIOR TOTAL HIP ARTHROPLASTY 1 Day Post-Op Identification/Summary: Yue Cardoso is a 63 year old female with past medical history of hypertension, obesity, type2 diabetes mellitus, [id number]-[id number], endometrial cancer s/p hysterectomy, adjustment disorder, depression, dysthymia, depression, obstructive sleep apnea. Underwent Left Total Hip Arthroplasty on 06/10/2023. 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 as calculated from the following: Height as of this encounter: 1.575 m (5' 2). Weight as of this encounter: 110.2 kg (243 lb). Interval History/Subjective: She feels great. Feels ready to leave. Last 24H PRN: oxyCODONE (ROXICODONE) tablet 5 mg, 5 mg at 06/11/23 1150 OR oxyCODONE (ROXICODONE) tablet 10 mg, 10 mg at 06/10/23 1408 Physical Exam/Objective: Temp: [97.6 ??F (36.4 ??C)-98 ??F (36.7 ??C)] 97.8 ??F (36.6 ??C) Pulse: [91-105] 97 Resp: [15-18] 17 BP: (101-140)/(56-69) 116/69 SpO2: [93 %-97 %] 94 % Wt Readings from Last 4 Encounters: 06/10/23 110.2 kg (243 lb) 02/07/22 135.2 kg (298 lb) 08/09/21 128.7 kg (283 lb 11.2 oz) 01/25/21 139.2 kg (306 lb 12.8 oz) Body mass index is 44.45 kg/m??. General Appearance: Alert and wake, not in distress Neurology: oriented x 3 Psych: cooperative and calm, normal affect Medications: Personally Reviewed. Medications lactated ringers 100 mL/hr at 06/11/23 0215 acetaminophen 975 mg Oral Q8H amLODIPine 5 mg Oral Daily aspirin 81 mg Oral BID busPIRone 10 mg Oral BID celecoxib 100 mg Oral BID chlorthalidone 50 mg Oral Daily gabapentin 300 mg Oral At Bedtime losartan 50 mg Oral BID metFORMIN 1,000 mg Oral BID w/meals polyethylene glycol 17 g Oral Daily senna-docusate 1 tablet Oral BID simvastatin 40 mg Oral QAM sodium chloride (PF) 3 mL Intracatheter Q8H spironolactone 50 mg Oral QPM venlafaxine 225 mg Oral Daily Data reviewed today: I personally reviewed all new medications, labs, imaging/diagnostics reports over the past 24 hours. Pertinent findings include: Imaging: No results found for this or any previous visit (from the past 24 hour(s)). Labs: XR Pelvis w Hip Port Left 1 View Final Result IMPRESSION: Postoperative changes related to recent placement of a left total hip arthroplasty. Thecomponents are in expected position without acute displaced periprosthetic fracture. Expected recent postop soft tissue and intra-articular gas about the left hip with soft tissue swelling. No displaced pelvic fracture. Degenerative change lower lumbar spine. XR Hip Port Left 1 View Final Result IMPRESSION: The intraprocedural spot film demonstrates placement of a left total hip arthroplasty. Please reference the surgical report for further details. Recent Results (from the past 24 hour(s)) Basic metabolic panel Collection Time: 06/11/23 6:09 AM Result Value Ref Range Sodium 136 135 - 145 mmol/L Potassium 4.7 3.4 - 5.3 mmol/L Chloride 101 98 - 107 mmol/L Carbon Dioxide (CO2) 29 22 - 29 mmol/L Anion Gap 6 (L) 7 - 15 mmol/L Urea Nitrogen 24.8 (H) 8.0 - 23.0 mg/dL Creatinine 0.81 0.51 - 0.95 mg/dL GFR Estimate 80 >60 mL/min/1.73m2 Calcium 9.1 8.8 - 10.2 mg/dL Glucose 110 (H) 70 - 99 mg/dL CBC with platelets Collection Time: 06/11/23 6:09 AM Result Value Ref Range WBC Count 13.2 (H) 4.0 - 11.0 10e3/uL RBC Count 3.10 (L) 3.80 - 5.20 10e6/uL Hemoglobin 9.4 (L) 11.7 - 15.7 g/dL Hematocrit 29.1 (L) 35.0 - 47.0 % MCV 94 78 - 100 fL MCH 30.3 26.5 - 33.0 pg MCHC 32.3 31.5 - 36.5 g/dL RDW 14.0 10.0 - 15.0 % Platelet Count 368 150 - 450 10e3/uL Glucose by meter Collection Time: 06/11/23 6:32 AM Result Value Ref Range GLUCOSE BY METER POCT 100 (H) 70 - 99 mg/dL Hemoglobin Collection Time: 06/11/23 10:17 AM Result Value Ref Range Hemoglobin 9.9 (L) 11.7 - 15.7 g/dL Pending Labs: Unresulted Labs Ordered in the Past 30 Days of this Admission No orders found for last 31 day(s). RADHA WEST MD [facility] Phone: #[phone] Securely message me with [employer] (more info) ALT SMOOTHER * Carolyn Gardner PA-C - 06/11/2023 8:42 AM CST Orthopedic Progress Note Assessment: 1 Day Post-Op S/P Procedure(s): LEFT POSTERIOR TOTAL HIP ARTHROPLASTY @ Plan: - Continue PT/OT. - Weightbearing status: WBAT - Anticoagulation: ASA in addition to SCDs, bo stockings and early ambulation. - Discharge planning: Discharge to home today pending therapy and HGB recheck Subjective: Pain: Well controlled on oral meds Nausea, Vomiting: No Chest pain: No Lightheadedness, Dizziness: No Neuro: Patient denies new onset numbness or paresthesias Patient doing well on POD #1. Ambulating, tolerating oral intake, voiding & pain is controlled with oral medications. Hgb 9.4 (12.8 pre-op). Objective: BP 116/69 (BP Location: Right arm, Patient Position: Semi-Schmidt's, Cuff Size: Adult Regular) Pulse 97 Temp 97.8 ??F (36.6 ??C) (Oral) Resp 17 Ht 1.575 m (5' 2) Wt 110.2 kg (243 lb) [id number]% BMI 44.45 kg/m?? The patient is A&Ox3. Appears comfortable, sitting up at bedside. Calves are soft and non-tender bilaterally Brisk capillary refill in the toes. Palpable left dorsalis pedis pulse. Foot warm & well-perfused. Sensation is intact to light touch & equal bilaterally in the femoral, DP, SP & tibial nerve distributions. ROM: Flexes at left hip. Appropriately flexes & extends all toes bilaterally. Motor: +5/5 dorsiflexion, plantar flexion & EHL bilaterally. Fires quad. Leg lengths equal. left hip dressing C/D/I without strikethrough, no surrounding erythema. 09/13 TA/GSC/EHL. Pertinent Labs Lab Results: personally reviewed. No results found for: INR, PROTIME Lab Results Component Value Date WBC 13.2 (H) 06/11/2023 HGB 9.4 (L) 06/11/2023 HCT 29.1 (L) 06/11/2023 MCV 94 06/11/2023 PLT 368 06/11/2023 Lab Results Component Value Date NA 136 06/11/2023 CO2 29 06/11/2023 Report completed by: Carolyn Gardner PA-C/Dr. Harjeet [facility] Date: 06/11/2023 Time: 8:43 AM ALT SMOOTHER * Belle Hebert OT - 06/11/2023 8:25 AM CST Occupational Therapy Discharge Summary Reason for therapy discharge: Discharged to home. Progress towards therapy goal(s). See goals on Care Plan in [facility] electronic health record for goal details. Goals met Therapy recommendation(s): No further therapy is recommended. Belle Marlow OT - 06/11/2023 8:24 AM CST 06/11/23 0743 Appointment Info Signing Clinician's Name / Credentials (OT) PHILLY Self/Blayne, CLT Rehab Comments (OT) OT eval Quick Adds Quick Adds Certification Living Environment People in Home spouse Current Living Arrangements ([facility]) Self-Care Usual Activity Tolerance good Current Activity Tolerance moderate Equipment Currently Used at Home raised toilet seat;grab bar, tub/shower;shower chair (sink near toilet;walk-in shower with rails) Fall history within last six months yes Activity/Exercise/Self-Care Comment Pt IND w/ ADLs and IADLs at baseline General Information Onset of Illness/Injury or Date of Surgery 06/10/23 Patient/Family Therapy Goal Statement (OT) To go home Additional Occupational Profile Info/Pertinent History of Current Problem s/p EMERY Existing Precautions/Restrictions no hip IR;no hip ADD past midline;90 degree hip flexion;weight bearing;no active hip ABD Left Lower Extremity (Weight-bearing Status) weight-bearing as tolerated (WBAT) Cognitive Status Examination Orientation Status orientation to person, place and time Affect/Mental Status (Cognitive) WFL Visual Perception Visual Impairment/Limitations WFL Sensory Sensory Quick Adds sensation intact Pain Assessment Patient Currently in Pain No Posture Posture not impaired Range of Motion Comprehensive General Range of Motion no range of motion deficits identified Strength Comprehensive (MMT) General Manual Muscle Testing (MMT) Assessment no strength deficits identified Muscle Tone Assessment Muscle Tone Quick Adds No deficits were identified Coordination Upper Extremity Coordination No deficits were identified Bed Mobility Bed Mobility supine-sit;sit-supine Comment (Bed Mobility) SBA-CGA Transfers Transfers bed-chair transfer;sit-stand transfer;toilet transfer;shower transfer Transfer Comments SBA-CGA Transfer Skill: Bed to Chair/Chair to Bed Transfer Comments CGA Sit-Stand Transfer Sit/Stand Transfer Comments CGA Shower Transfer Shower Transfer Comments CGA per clinical judgement Toilet Transfer Toilet Transfer Comments CGA Balance Balance Comments decreased Activities of Daily Living BADL Assessment/Intervention lower body dressing;toileting;bathing Bathing Assessment/Intervention [place] Level (Bathing) lower body;minimum assist (75% patient effort) Lower Body Dressing Assessment/Training [place] Level (Lower Body Dressing) lower body dressing skills;maximum assist (25% patient effort) Toileting [place] Level (Toileting) adjust/manage clothing;supervision Clinical Impression Criteria for Skilled Therapeutic Interventions Met (OT) Yes, treatment indicated OT Diagnosis decreased ADLs Influenced by the following impairments EMERY OT Problem List-Impairments impacting ADL activity tolerance impaired;mobility;pain;post-surgical precautions;flexibility;balance Assessment of Occupational Performance 3-5 Performance Deficits Identified Performance Deficits LE dressing/bathing, bed mobility, all transfers, toileting Planned Therapy Interventions (OT) ADL retraining;bed mobility training;transfer training Clinical Decision Making Complexity (OT) detailed assessment/moderate complexity Risk & Benefits of therapy have been explained evaluation/treatment results reviewed;patient Clinical Impression Comments some anxiety OT Total Evaluation Time OT Eval, Moderate Complexity Minutes (62451) 10 Therapy Certification Medical Diagnosis EMERY Start of Care Date 06/11/23 Certification date from 06/11/23 Certification date to 07/11/23 OT Goals Therapy Frequency (OT) One time eval and treatment OT Predicted Duration/Target Date for Goal Attainment 06/11/23 OT Goals Lower Body Dressing;Bed Mobility;Toilet Transfer/Toileting OT: Lower Body Dressing Modified independent;within precautions;Goal Met;Completed OT: Bed Mobility Modified independent;supine to/from sitting;rolling;Goal Met;Completed;within precautions OT: Toilet Transfer/Toileting Modified independent;toilet transfer;cleaning and garment management;Goal Met;within precautions;using adaptive equipment;Completed Interventions Interventions Quick Adds Self-Care/Home Management Self-Care/Home Management Self-Care/Home Mgmt/ADL, Compensatory, Meal Prep Minutes (63508) 25 Symptoms Noted During/After Treatment (Meal Preparation/Planning Training) none Treatment Detail/Skilled Intervention Pt edu on hip px - demonstrated ability to complete ADLs w/inpx. Pt edu on compensatory strategies for LE dressing using fnp and sock aid - completed Mod I w/ AE. STS w/ SBA and FWW. Pt amb. 15 ft to BR w/ FWW Mod I. Edu on toilet/walkin shower transfer w/grab bars - completed each Mod I. Pt instructed on bed mobility techniques - completed Mod I. Pt edu on sleeping position and car transfers - pt verbalized understanding. OT Discharge Planning OT Plan OT d/c OT Discharge Recommendation (DC Rec) other (see comments) (defer to ortho) OT Rationale for DC Rec spouse can assist PRN and pt has good activity tolerance OT Brief overview of current status mod I for BADL OT Equipment Needed at Discharge lift device (leg automation qa analyst) Total Session Time Timed Code Treatment Minutes 25 Total Session Time (sum of timed and untimed services) 35 [facility] OUTPATIENT OCCUPATIONAL THERAPY EVALUATION PLAN OF TREATMENT FOR OUTPATIENT REHABILITATION (COMPLETE FOR INITIAL CLAIMS ONLY) Patient's Last Name, First Name, M.I. Date of : 1960 Yue Cardoso Provider's Name [facility] Onset Date: 06/10/23 Start of Care Date: 06/11/23 Type: ___PT _X_OT ___SLP Medical Diagnosis: EMERY OT Diagnosis: decreased ADLs Visits from SOC: 1 See note for plan of treatment, functional goals and certification details I CERTIFY THE NEED FOR THESE SERVICES FURNISHED UNDER THIS PLAN OF TREATMENT AND WHILE UNDER MY CARE (Physician co-signature of this document indicates review and certification of the therapy plan). ALT SMOOTHER Associated attestation - Jenaro Cosby MD - 06/17/2023 7:45 AM ASPHALT SMOOTHER Physician Attestation I agree with the information in this note. Jenaro Cosby MD * Amara Hinds RN - 06/10/2023 10:14 PM CST Patient vital signs are at baseline: Yes Patient able to ambulate as they were prior to admission or with assist devices provided by therapies during their stay: Yes Patient MUST void prior to discharge: Yes voided Patient able to tolerate oral intake: Yes Pain has adequate pain control using Oral analgesics: Yes Does patient have an identified tennis coach: Yes Has goal D/C date and time been discussed with patient: Yes Early therapies, potential early discharge ALT SMOOTHER * Shanita Banda PT - 06/10/2023 5:26 PM CST 06/10/23 4760 Appointment Info Signing Clinician's Name / Credentials (PT) Shanita Banda PT, DPT Quick Adds Quick Adds Certification Living Environment People in Home spouse Current Living Arrangements other (see comments) ([facility]) Home Accessibility stairs to enter home;stairs within home Number of Stairs, Main Entrance 2 Stair Railings, Main Entrance railing on left side (ascending) Number of Stairs, Within Home, Primary none Self-Care Equipment Currently Used at Home cane, straight (hurrycane) Fall history within last six months yes Number of times patient has fallen within last six months 2 Activity/Exercise/Self-Care Comment pt reports using hurrycane all the time for mobility. pt reports independent with functional mobility General Information Onset of Illness/Injury or Date of Surgery 06/10/23 Referring Physician Rosario Whaley, PAFabienneC Patient/Family Therapy Goals Statement (PT) Return to Home Pertinent History of Current Problem (include personal factors and/or comorbidities that impact thePOC) s/p EMERY Existing Precautions/Restrictions no hip ADD past midline;no active hip ABD;no hip IR;fall;weight bearing;90 degree hip flexion Weight-Bearing Status - LLE weight-bearing as tolerated Range of Motion (ROM) ROM Comment limited d/t EMERY Strength (Manual Muscle Testing) Strength Comments limited d/t EMERY Bed Mobility Bed Mobility supine-sit Supine-Sit [place] (Bed Mobility) supervision;verbal cues;minimum assist (75% patient effort) Transfers Transfers sit-stand transfer Maintains Weight-bearing Status (Transfers) able to maintain Sit-Stand Transfer Sit-Stand [place] (Transfers) supervision;verbal cues;minimum assist (75% patient effort) Assistive Device (Sit-Stand Transfers) walker, front-wheeled Gait/Stairs (Locomotion) [place] Level (Gait) supervision;verbal cues;contact guard Assistive Device (Gait) walker, front-wheeled Distance in Feet (Gait) 5 Pattern (Gait) step-through;swing-through Deviations/Abnormal Patterns (Gait) gait speed decreased;audie decreased Maintains Weight-bearing Status (Gait) able to maintain Clinical Impression Criteria for Skilled Therapeutic Intervention Yes, treatment indicated PT Diagnosis (PT) Impaired Functional Mobility Influenced by the following impairments weakness, decreased ROM, impaired balance, pain Functional limitations due to impairments gait, transfers, stairs Clinical Presentation (PT Evaluation Complexity) stable Clinical Presentation Rationale pt presents as medically diagnosed Clinical Decision Making (Complexity) low complexity Planned Therapy Interventions (PT) gait training;home exercise program;transfer training;balance training;bed mobility training;ROM (range of motion);stair training;strengthening Risk & Benefits of therapy have been explained evaluation/treatment results reviewed;patient PT Total Evaluation Time PT Eval, Low Complexity Minutes (94489) 10 Therapy Certification Start of care date 06/10/23 Certification date from 06/10/23 Certification date to 07/10/23 Medical Diagnosis s/p EMERY Physical Therapy Goals PT Frequency Daily PT Predicted Duration/Target Date for Goal Attainment 06/13/23 PT Goals Transfers;Gait;Stairs;PT Goal 1 PT: Transfers Supervision/stand-by assist;Sit to/from stand;Assistive device PT: Gait Supervision/stand-by assist;Assistive device;150 feet;Within precautions PT: Stairs Supervision/stand-by assist;2 stairs;Rail on left PT: Goal 1 pt will be mod I with HEP Interventions Interventions Quick Adds Gait Training;Therapeutic Procedure;Therapeutic Activity Therapeutic Procedure/Exercise Ther. Procedure: strength, endurance, ROM, flexibillity Minutes (27793) 12 Symptoms Noted During/After Treatment fatigue;increased pain Treatment Detail/Skilled Intervention Started HEP, limited d/t pain & faitgue: 8-10 reps, cueing for safety/technique/specific muscle activation, SBA Therapeutic Activity Therapeutic Activities: dynamic activities to improve functional performance Minutes (08828) 5 Treatment Detail/Skilled Intervention sit to/from stand: cueing for safety/hand placement on stablesurface, CGA; Education given about precautions/WB status Gait Training Gait Training Minutes (35187) 13 Symptoms Noted During/After Treatment (Gait Training) fatigue Treatment Detail/Skilled Intervention cueing for safety/FWW management/posture; one standing rest break - intermittent Min A toward end with increased fatigue Distance in Feet 110 [place] Level (Gait Training) (CGA to Dawna) Physical Assistance Level (Gait Training) supervision;verbal cues Weight Bearing (Gait Training) weight-bearing as tolerated Assistive Device (Gait Training) rolling walker Pattern Analysis (Gait Training) swing-through gait Gait Analysis Deviations decreased audie;decreased step length Impairments (Gait Analysis/Training) balance impaired;strength decreased;ROM decreased;pain PT Discharge Planning PT Plan gait as deepti, stairs, HEP PT Discharge Recommendation (DC Rec) other (see comments) (defer to ortho) PT Brief overview of current status CGA to Min A gait 110' with FWW & CGA sit to/from stand PT Equipment Needed at Discharge walker, rolling Total Session Time Timed Code Treatment Minutes 30 Total Session Time (sum of timed and untimed services) 40 M [facility] OUTPATIENT PHYSICAL THERAPY EVALUATION PLAN OF TREATMENT FOR OUTPATIENT REHABILITATION (COMPLETE FOR INITIAL CLAIMS ONLY) Patient's Last Name, First Name, M.I. Date of : 1960 Yue Cardoso Provider's Name [facility] Onset Date: 06/10/23 Start of Care Date: 06/10/23 Type: _X_PT ___OT ___SLP Medical Diagnosis: s/p EMERY PT Diagnosis: Impaired Functional Mobility Visits from SOC: 1 See note for plan of treatment, functional goals and certification details I CERTIFY THE NEED FOR THESE SERVICES FURNISHED UNDER THIS PLAN OF TREATMENT AND WHILE UNDER MY CARE (Physician co-signature of this document indicates review and certification of the therapy plan). ALT SMOOTHER Associated attestation - Rosario Whaley PA-C - 06/23/2023 10:33 PM ASPHALT SMOOTHER Physician Attestation I have reviewed and discussed with the advanced practice provider their history, physical and plan for Yue Cardoso. I did not participate in a shared visit; this is an advanced practice provider only visit. Rosario Whaley PA-C Date of Service (when I saw the patient): I did not personally see this patient today. * Lexi Bello RT - 06/10/2023 2:24 PM CST Setup pt home cpap with humidity for noc and prn use. RT George ALT SMOOTHER documented in this encounter H&P Notes * Jenaro Cosby MD - 06/10/2023 9:05 AM CST I have reviewed the surgical (or preoperative) H&P that is linked to this encounter, and examined the patient. There are no significant changes Clinical Conditions Present on Arrival: Clinically Significant Risk Factors Present on Admission # Severe Obesity: Estimated body mass index is 44.45 kg/m?? as calculated from the following: Height as of this encounter: 1.575 m (5' 2). Weight as of this encounter: 110.2 kg (243 lb). ALT SMOOTHER Source Note - Asha Arthur DO - 05/21/2023 3:50 PM ASPHALT SMOOTHER Images from the original note were not included. [facility] Preoperative Consultation Yue Cardoso : 1960 Gender: female Date of Encounter: 05/21/2023 Nursing Notes: Elie Iyer 05/21/2023 3:37 PM Sign at exiting of workspace Chief Complaint Patient presents with ??? Preoperative Exam L total hip replacement - [facility] - Dr. Cosby - fax# [phone] BP 127/68 (Cuff Site: Left Arm, Position: Sitting, Cuff Size: Adult Large) Pulse 99 Ht 1.562 m (5' 1.5) Wt 110.4 kg (243 lb 4.8 oz) LMP 05/02/2019 SpO2 95% BMI 45.23 kg/m?? Yue Cardoso is a 63 y.o. female (1960) who presents for preop evaluation undergoing L hip replacement for treatment of . Date of Surgery: unknown Surgical Specialty: Orthopedic/Spine Jenaro Cosby MD - [facility] F[facility] number: [phone] Surgery type: inpatient Primary Physician: Asha Arthur LPN ......... 05/21/2023 3:37 PM History of Present Illness Yue is a 63-year-old female who is here today for preoperative evaluation at the request of Dr. Cosby. Yue has a past medical history of hypertension, obesity, type 2 diabetes mellitus, vzf-xihaxkr-fzedfudug, endometrial cancer s/p hysterectomy, adjustment disorder, depression, dysthymia, depression, obstructive sleep apnea. She has had a 1-1/2-year history of progressively worsening left hip pain, secondary to osteoarthritis. Now scheduled for left hip replacement. 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 She is continuing to have ongoing management with CT scan and follow-up in 6 months. She states her account assistant provided a letter of support for her to proceed with her surgery. Patient states she did not have COVID-19 infection last month, but rather that her had COVID and she was helping to coordinate getting Paxlovid in case she tested positive for COVID. She states she tested 3 times and never had COVID-19 infection. Took her Ozempic yesterday. Notes that she has an itchy rash to the back of her neck Review of Systems General: Denies general constitutional problems Eyes: Denies problems Ears/Nose/Throat: Denies problems Cardiovascular: Denies problems Respiratory: Denies problems Gastrointestinal: Denies problems Musculoskeletal: see HPI Skin: Denies problems Neurologic: Denies problems Psychiatric: Denies problems Endocrine: Denies problems Heme/Lymphatic: Denies problems Allergic/Immunologic: Denies problems Patient Active Problem List Diagnosis Code ??? Allergic rhinitis, cause unspecified J30.9 ??? Adjustment disorder with mixed anxiety and depressed mood F43.23 ??? Obesity, unspecified E66.9 ??? Osteoarthrosis, unspecified whether generalized or localized, lower leg [id number] ??? Dysthymia F34.1 ??? S/P TKR (total knee replacement) Z96.659 ??? Vitamin D deficiency E55.9 ??? HTN (hypertension), benign I10 ??? Recurrent UTI (urinary tract infection) N39.0 ??? Leukocytosis D72.829 ??? Type 2 diabetes mellitus without complication (HC) E11.9 ??? Mixed hyperlipidemia E78.2 ??? Sensorineural hearing loss, bilateral H90.3 ??? Tinnitus H93.19 ??? DAISY 09/17/2006 AHI-32 G47.33 ??? Endometrial cancer (HC) C54.1 ??? Osteoporosis screening Z13.820 ??? Depression, recurrent (HC) F33.9 ??? Colon polyp K63.5 ??? Obesity, morbid (HC) E66.01 Current Outpatient Medications Medication Sig ??? acetaminophen (TYLENOL ARTHRITIS PAIN ORAL) Take 2 Tablets by mouth every 6 hours if needed. ??? amLODIPine (NORVASC) 5 mg tablet Take 1 Tablet (5 mg) by mouth once daily. ??? blood sugar diagnostic (Accu-Chek Sharonda Plus test strp) strip Dispense item covered by pt ins. E11.9 NIDDM type II - Test 1 time/day ??? blood-glucose meter Dispense meter, test strips, lancets covered by pt ins. E11.9 NIDDM type II- Test 1 time/day ??? busPIRone (BUSPAR) 10 mg tablet Take 1 Tablet (10 mg) by mouth three times daily. (Patient taking differently: Take 10 mg by mouth two times daily. Takes 2 daily, 1 in the am and 1 in the pm) ??? chlorthalidone (HYGROTON) 50 mg tablet Take 1 Tablet (50 mg) by mouth once daily. ??? cholecalciferol (VITAMIN D) 1,000 unit tablet Take 1 tablet by mouth once daily. ??? CPAP CPAP machine for home use at pressure 13 cmw; nasal mask x1/3month with nasal pillows x 2/mo Heat humidifier x 1/5 year, Humidifier chamber x 1/6mo, Heated tubing x 1/3mo, Headgear x 1/6mo, Chin strap x 1/6 months, Filters: Disposable x 2pk/1mo & Reusable x 1pk/6mo Length of need#99 Use- daily ??? gabapentin (NEURONTIN) 300 mg capsule Take 1 Capsule (300 mg) by mouth at bedtime. ??? losartan (COZAAR) 50 mg tablet Take 1 Tablet (50 mg) by mouth two times daily. ??? meclizine (ANTIVERT) 25 mg tablet Take 1 tablet by mouth 3 times daily. ??? metFORMIN (GLUCOPHAGE) 1,000 mg tablet TAKE ONE TABLET BY MOUTH TWICE A DAY WITH MEALS ??? ondansetron (ZOFRAN ODT) 4 mg disintegrating tablet DISSOLVE ONE TABLET IN MOUTH EVERY SIX HOURS NEEDED FOR NAUSEA AND VOMITING* ??? potassium chloride (K-DUR) 20 mEq Extended-Release tablet Take 1 Tablet (20 mEq) by mouth two times daily with meals. ??? predniSONE (DELTASONE) 50 mg tab tablet Take 50 mg tablet at 13, 7, and 1 hour prior to contrast administration ??? semaglutide (Ozempic) 2 mg/3 mL pen Inject 0.75 mL (0.5 mg) subcutaneous once weekly. ??? simvastatin (ZOCOR) 40 mg tablet Take 1 Tablet (40 mg) by mouth at bedtime. ??? spironolactone (ALDACTONE) 50 mg tablet Take 1 Tablet (50 mg) by mouth once daily. Dose increase 08/08/22 ??? venlafaxine (EFFEXOR XR) 150 mg Extended-Release capsule TAKE ONE CAPSULE BY MOUTH IN THE MORNING ALONG WITH 75 MG CAPSULE FOR A TOTAL DOSE OF 225 MG ??? venlafaxine (EFFEXOR XR) 75 mg cp24 Extended-Release capsule TAKE ONE CAPSULE BY MOUTH IN THE MORNING ALONG WITH 150 MG CAPSULE FOR A TOTAL DOSE OF 225 MG No current facility-administered medications for this visit. Allergies Allergen Reactions ??? Nitrofurantoin Dizziness and Vomiting myalgias ??? Amlodipine Other - Describe In Comment Field Edema on doses above 5mg ??? Iv Contrast Dye [Iodinated Contrast Media] Hives CT DONE HOSP PT PREMEDICATED AND GIVEN VISIPAQUE FOR 2014 CT Past Surgical History: . Laterality Date ??? BILATERAL SALPINGOOPHORECTOMY 01/12/2020 Dr. Key ??? BIOPSY BONE MARROW N/A 04/08/2023 ??? CATARACT REMOVAL Bilateral 03/2016 Dr. Damon ??? COLONOSCOPY SCREENING 04/29/2012 Colonoscopy 04/2012 normal repeat in 10 years ??? COLONOSCOPY SCREENING 10/2022 Colonoscopy 10/2022 2-TA, repeat in 5 years ??? DILATION AND CURETTAGE 03/21, 08/20 D & C nonobstetrical ??? KNEE ARTHROSCOPY ??? KNEE REPLACEMENT Right 07/2012 ??? KNEE REPLACEMENT Left 05/2013 ??? LAP CHOLECYSTECTOMY 07/22/2013 ??? LAPAROSCOPIC TOTAL HYSTERECTOMY 01/12/2020 endometrial cancer, Dr. Key ??? lasix eye ??? LUMBAR LAMINECTOMY x2 ??? medial meniscal tear bilateral ??? ROTATOR CUFF REPAIR Left ??? TONSILLECTOMY ??? VITRECTOMY Right 06/03/2014 Dr. Steen Social History Tobacco Use ??? Smoking status: Former Types: Cigarettes ??? Smokeless tobacco: Never Vaping Use ??? Vaping Use: Never used Substance Use Topics ??? Alcohol use: Not Currently Comment: rarely ??? Drug use: No Family History Problem Relation Age of Onset ??? Cancer Mother ovarion 35 yrs ??? Cancer-breast Paternal Grandmother 70 yrs ??? Asthma Sister ??? Allergies Sister ??? Allergies Brother ??? Heart Disease Brother mi age 47 ??? Hypertension Father ??? Cancer-breast Paternal Aunt 65 ??? Cancer-breast Paternal Aunt 67 at dx ??? Stomach cancer Brother 52 ??? Cancer-pancreatic Brother 52 ??? Anesthesia Problem No Family History ??? Blood Disease No Family History PAST DIFFICULTY WITH ANESTHESIA: None Physical Exam BP 127/68 (Cuff Site: Left Arm, Position: Sitting, Cuff Size: Adult Large) Pulse 99 Ht 1.562 m (5' 1.5) Wt 110.4 kg (243 lb 4.8 oz) LMP 05/02/2019 SpO2 95% BMI 45.23 kg/m?? Body mass index is 45.23 kg/m??. General Appearance: Pleasant, alert, appropriate appearance for age. No acute distress Head Exam: Normal. Normocephalic, atraumatic. Eye Exam: Normal external eye, conjunctiva, lids, cornea. UBALDO. Ear Exam: Normal TM's bilaterally. Normal auditory canals and external ears. Non-tender. Nose Exam: Normal external nose, mucous membranes, and septum. OroPharynx Exam: Dental hygiene adequate. Normal buccal mucosa. Normal pharynx. Mallampati 1 Neck Exam: 0.5 cm mobile, non-tender cervical lymphadenopathy on the left posterior chain, scaling rash with excoriation to back of neck Chest/Respiratory Exam: Normal chest wall and respirations. Clear to auscultation. Cardiovascular Exam: Regular rate and rhythm. S1, S2, no murmur, click, gallop, or rubs. Gastrointestinal Exam: Soft, nontender, no abnormal masses or organomegaly. Musculoskeletal Exam: Limited ROM of left hip Skin: excoriated scaling rash to left occipital region Neurologic Exam: Normal. Psychiatric Exam: Alert and oriented, appropriate affect. Assessment / Plan The Pre-Op Tool Recommendations Intermediate Risk Procedure Risk of CV Complication (RCRI) 0.5% Current Cardiac Status Poor exertional capacity ( < 4 mets ) Cardiac History No history of coronary artery disease Labs HGB within last 30 days Potassium within last 30 days EKG Baseline EKG within the last 12 months CXR Not indicated Stress Testing Not indicated * Testing recommendations are intended to assist, but not direct, clinical decisions. Type & Screen should be obtained by Anesthesia only if the risk of transfusion is > 5% for the procedure Do not take once weekly non-insulin injectable diabetes/weight loss medication for 7 days prior to the procedure. Hold Losartan (Cozaar) the evening before and/or morning of the procedure. Hold Chlorthalidone, Spironolactone (Aldactone) on the morning of procedure. Take your potassium pill as usual the morning of the procedure Take your other medications as usual prior to the procedure Hold vitamins and/or supplements for 1 week prior to the procedure Hold fish oil for 2 weeks prior to the procedure Okay to take Acetaminophen (Tylenol) up until the procedure Hold / avoid NSAIDs (e.g. ibuprofen, naproxen) prior to procedure: 2 days for ibuprofen (Advil) and4 days for naproxen (Aleve). * Medication recommendations are not intended to be exhaustive; they are limited to common medications that are potentially dangerous if incorrectly managed Labs * Data supports elimination of ???routine??? laboratory testing in favor of focused, ???indicated??? testing based on medical co-morbidities. A 2009 study randomized 1061 patients undergoing ambulatory, non-cataract surgery to routine or to indicated testing. Perioperative adverse events were similar (Anesthesia & Analgesia 2009;108:467-75; Anesthesiol. Clin. 2016 Mar;34(1):43-58). Stress Testing RAAS Antagonist * Hypotension during anesthesia is associated with continuing renin-angiotensin system (RAAS) antagonist. While it is unclear if holding RAAS antagonists reduces postoperative complications, in most circumstances our experts recommend holding RAAS antagonist 24 hours prior to surgery. (Postgrad MedJ 2011;87:472- 81; Anest 2017;126:16-27; BMC Anesthesiol 2018;18:26.) Session ID: [id number] Endnotes and bibliography available upon request: [email or web address] Labs: pending ECG: yes ICD-10-CM 1. Pre-op evaluation Z01.818 OR READING EKG - NO CHARGE, COMP ONLY EKG 12 LEAD OR ECG ROUTINE ECG W/LEAST 12 LDS W/I&R BASIC METABOLIC PANEL CBC AND DIFFERENTIAL 2. Chronic left hip pain M25.552 G89.29 3. Contact dermatitis, unspecified contact dermatitis type, unspecified trigger L25.9 triamcinolone(ARISTOCORT; KENALOG) 0.1 % cream 4. Depression, recurrent (HC) F33.9 5. Endometrial cancer (HC) C54.1 6. Obesity, morbid (HC) E66.01 7. Type 2 diabetes mellitus without complication, without long-term current use of insulin (HC) E11.9 Patient is cleared, pending tests ordered today, for planned procedure. Recommend hold of Ozempic for 7 days before surgery Most recent hemoglobin A1c was 5.6% indicating very good control of diabetes CBC and BMP today. Patient has evidence of contact dermatitis to the back of her neck and Kenalog cream twice daily for 14 days for treatment. She has an enlarged lymph node just inferior to the rash, likely reactive from this. However, given her known workup for T cell abnormalities of unknown etiology I will let her account assistant know about this as well. She will be seen in July for physical and we will continue to monitor this or sooner if needed. Electronically Signed by: Asha Arthur DO .................... 05/21/2023 4:26 PM 05/21/2023 ALT SMOOTHER documented in this encounter Consult Notes * Thalia Cartagena RN - 06/11/2023 10:46 AM CSTAssociated Order(s): CARE MANAGEMENT / SOCIAL WORK IP CONSULT Care Management Discharge Note Discharge Date: 06/11/2023 Discharge Disposition: Home Discharge Services: Discharge DME: Discharge Transportation: Private pay costs discussed: Not applicable Does the patient's insurance plan have a 3 day qualifying hospital stay waiver? Yes Which insurance plan 3 day waiver is available? Alternative insurance waiver Will the waiver be used for post-acute placement? No PAS Confirmation Code: Patient/family educated on Medicare website which has current facility and service quality ratings: Education Provided on the Discharge Plan: Persons Notified of Discharge Plans: patient Patient/Family in Agreement with the Plan: Handoff Referral Completed: Yes Additional Information: Chart reviewed. Home today with family support Thalia Cartagena RN ALT SMOOTHER * Radha West MD - 06/10/2023 1:11 PM CSTAssociated Order(s): HOSPITALIST IP CONSULT [facility] MEDICINE CONSULT NOTE Physician requesting consult: Jenaro Cosby MD Reason for consult: Postoperative medical management of medical co-morbidities as below Identification/Summary: Yue Cardoso is a 63 year old female with past medical history of hypertension, obesity, type2 diabetes mellitus, egt-emzvwbg-vqvnayfjy, endometrial cancer s/p hysterectomy, adjustment disorder, depression, dysthymia, depression, obstructive sleep apnea. Underwent Left Total Hip Arthroplasty on 06/10/2023. Assessment and Plan: L hip osteoarthritis -Left Total Hip Arthroplasty on 06/10/2023 200cc blood loss -CBC in the am Hypertension - continue amlodipine, losartan and chlorthalidone tomorrow Obesity type 2 diabetes mellitus, kua-rtmccfv-dpsrtaphg - correction dose prn Depression -continue venlafaxine, buspirone obstructive sleep apnea -home CPAP CKD stage 2-3a BMP in the am endometrial cancer s/p hysterectomy Anticoagulation. Deferred to surgery Code status:Full Code [facility] service was asked to evaluate patient for postoperative medical management as follows below. Please resume the home medications as reconciled and further noted with ordered hold parameters. Thankjuliau for this consult; we will continue to follow this patient until discharge. Procedure(s): LEFT POSTERIOR TOTAL HIP ARTHROPLASTY Day of Surgery Estimated Blood Loss: 200 mL Hospital Problem List No problem-specific Assessment & Plan notes found for this encounter. Principal Problem: S/P total hip arthroplasty -Reviewed the patient's preoperative H and P and updated missing elements. -Home medication reconciliation has been reviewed. Medications have been ordered as noted from the home list and changes are documented above Clinically Significant Risk Factors Present on Admission # Hypertension: Noted on problem list # Severe Obesity: Estimated body mass index is 44.45 kg/m?? as calculated from the following: Height as of this encounter: 1.575 m (5' 2). Weight as of this encounter: 110.2 kg (243 lb). HISTORY Yue Cardoso is a 63 year old female with past medical history of hypertension, obesity, type2 diabetes mellitus, uav-kzilmoh-bxvbeidvi, endometrial cancer s/p hysterectomy, adjustment disorder, depression, dysthymia, depression, obstructive sleep apnea. Underwent Left Total Hip Arthroplasty on 06/10/2023. She has some mild discomfort after surgery and pain. Denies cough, fever or chills, nausea. She haschronic frequent stool at home. Past Medical History Past Medical History: No date: Anxiety No date: Arthritis No date: Depression No date: Diabetes mellitus (H) No date: Diabetes mellitus (H) No date: Hearing loss No date: History of anesthesia complications No date: Hyperlipidemia No date: Hyperlipidemia No date: Hypertension No date: Hypertension No date: Obesity No date: Obesity, morbid, BMI 50 or higher (H) No date: Obstructive sleep apnea No date: Osteoarthritis No date: PONV (postoperative nausea and vomiting) No date: PONV (postoperative nausea and vomiting) No date: Rhinitis No date: Sleep apnea Comment: CPAP No date: Vertigo Patient Active Problem List Diagnosis Date Noted S/P total hip arthroplasty 06/10/2023 Priority: Medium Hypertension Priority: Medium Diabetes mellitus (H) Priority: Medium Endometrial cancer (H) 12/22/2019 Priority: Medium Added automatically from request for surgery [id number] Surgical History Past Surgical History: Procedure Laterality Date ARTHROSCOPY KNEE ARTHROSCOPY KNEE WITH MENISCAL REPAIR Bilateral BACK SURGERY 1997 [place] CATARACT EXTRACTION Right 2016 CHOLECYSTECTOMY CYSTOSCOPY N/A 01/12/2020 Procedure: CYSTOSCOPY; Surgeon: Helen Mancini MD; Location: OR [facility] HYSTERECTOMY TOTAL, BILATERAL SALPINGO-OOPHORECTOMY, NODE DISSECTION, COMBINED N/A 01/12/2020 Procedure: Robotic removal of uterus, cervix, both ovaries and fallopian tubes, sentinel lymph nodedissection, lysis of adhesions; Surgeon: Helen Mancini MD; Location: OR DILATION AND CURETTAGE DILATION AND CURETTAGE 2009, 2010 JOINT REPLACEMENT Right 2013 JOINT REPLACEMENT Left 2013 KNEE SURGERY Bilateral LAMINECT/DISCECTOMY, LUMBAR LAPAROSCOPIC CHOLECYSTECTOMY LASIK LASIK SHOULDER ARTHROSCOPY W/ ROTATOR CUFF REPAIR Left 2016 TONSILLECTOMY TONSILLECTOMY VITRECTOMY ANTERIOR Right 2014 [facility] W/O FACETEC FORAMOT/[facility] 05/13 VRT SEG, LUMBAR Bilateral 06/14/2019 Procedure: BILATERAL LUMBAR 3-4 LAMINECTOMY; Surgeon: Higinio Smith MD; Location: [facility] OR; Service: Spine Family History Family History Problem Relation Age of Onset Ovarian Cancer Mother Breast Cancer Paternal Grandmother Pancreatic Cancer Maternal Half-Brother 52 Breast Cancer Paternal Aunt Social History Social History Tobacco Use Smoking status: Never Smokeless tobacco: Never Substance Use Topics Alcohol use: Not Currently Drug use: Never Allergies Allergies Allergen Reactions Nitrofurantoin Dizziness, Muscle Pain (Myalgia), Nausea and Vomiting and Other (See Comments) myalgias Amlodipine Other (See Comments) Edema on doses above 5mg Edema on doses above 5mg Contrast Dye Hives Prior to Admission Medications Prior to Admission Medications Prescriptions Last Dose Informant Patient Reported? Taking? OZEMPIC, 0.25 OR 0.5 MG/DOSE, 2 MG/3ML pen 05/25/2023 Yes Yes Sig: Inject 0.25 mg Subcutaneous every 7 days amLODIPine (NORVASC) 5 MG tablet 06/10/2023 at AM Yes Yes Sig: Take 5 mg by mouth daily busPIRone (BUSPAR) 5 MG tablet 06/10/2023 at AM Yes Yes Sig: Take 10 mg by mouth 2 times daily chlorthalidone (HYGROTON) 50 MG tablet 06/09/2023 at AM Yes Yes Sig: Take 50 mg by mouth daily cholecalciferol 25 MCG (1000 UT) TABS 06/03/2023 Yes Yes Sig: Take 1,000 Units by mouth daily gabapentin (NEURONTIN) 300 MG capsule 06/07/2023 Yes No Sig: Take 300 mg by mouth daily as needed losartan (COZAAR) 50 MG tablet 06/09/2023 at AM Yes Yes Sig: Take 50 mg by mouth 2 times daily meclizine (ANTIVERT) 25 MG tablet Unknown Yes Yes Sig: Take 25 mg by mouth 3 times daily as needed metFORMIN (GLUCOPHAGE) 1000 MG tablet 06/10/2023 at AM Yes Yes Sig: Take 1,000 mg by mouth 2 times daily (with meals) potassium chloride ER (K-TAB) 20 MEQ CR tablet 06/10/2023 at AM Yes Yes Sig: Take 20 mEq by mouth 2 times daily simvastatin (ZOCOR) 40 MG tablet 06/10/2023 at AM Yes Yes Sig: Take 40 mg by mouth every morning spironolactone (ALDACTONE) 50 MG tablet 06/09/2023 at PM Yes Yes Sig: Take 50 mg by mouth every evening traMADol (ULTRAM) 50 MG tablet not recent Yes No Sig: Take 50 mg by mouth every 6 hours as needed venlafaxine (EFFEXOR-XR) 75 MG 24 hr capsule 06/10/2023 at AM Yes Yes Sig: Take 225 mg by mouth daily Facility-Administered Medications: None Review of Systems A 12 point comprehensive review of systems was negative except as noted above in HPI. OBJECTIVE Physical Exam Temp: [97.5 ??F (36.4 ??C)-98.1 ??F (36.7 ??C)] 97.5 ??F (36.4 ??C) Pulse: [104-119] 105 Resp: [9-22] 16 BP: (93-156)/(52-77) 110/56 SpO2: [91 %-100 %] 91 % Body mass index is 44.45 kg/m??. General Appearance: Alert and wake, not in distress Respiratory: clear lungs, no crackles or wheezing Cardiovascular: rhythmic, normal S1 and S2, no murmur GI: soft, non-tender, normal bowel sound Neurology: oriented x 3 Psych: cooperative and calm, normal affect Patient's preoperative evaluation and labs on 05/21/2023 reviewed. Thank you for this consultation. Appreciate the opportunity to participate in the care of Yue Cardoso, please feel free to contact us for any questions or concerns. RADHA WEST MD [facility] Phone: #[phone] ALT SMOOTHER documented in this encounter Miscellaneous Notes * Plan of Care - Chung Piedra, DOMENICO - 06/11/2023 12:42 PM CST Discharge AVS reviewed with patient and . Questions answered and teachings acknowledged. Belongings and ice packs sent with via transport. Orthopedic Stoplight Tool acknowledged (Yes) ALT SMOOTHER * Plan of Care - Lety Russo RN - 06/11/2023 4:28 AM CST Problem: Adult Inpatient Plan of Care Goal: Plan of Care Review Description: The Plan of Care Review/Shift note should be completed every shift. The Outcome Evaluation is a brief statement about your assessment that the patient is improving, declining, or no change. This information will be displayed automatically on your shift note. Outcome: Progressing Problem: Adult Inpatient Plan of Care Goal: Optimal Comfort and Wellbeing Outcome: Progressing Intervention: Monitor Pain and Promote Comfort Recent Flowsheet Documentation Taken 06/11/2023 0259 by Lety Russo RN Pain Management Interventions: cold applied care clustered emotional support pain management plan reviewed with patient/caregiver pillow support provided repositioned rest Taken 06/11/2023 0130 by Lety Russo RN Pain Management Interventions: medication (see MAR) cold applied care clustered emotional support pain management plan reviewed with patient/caregiver pillow support provided repositioned rest Problem: Adult Inpatient Plan of Care Goal: Readiness for Transition of Care Outcome: Progressing Problem: Hip Arthroplasty Goal: Effective Urinary Elimination Outcome: Progressing Goal Outcome Evaluation: A&OX4 and VSS on RA. CMS intact w/ q4hr neuro checks in place. Pt has walked, voided, and passed gas. Pt has L PIV SL. Pt is an assist of 1 w/ walker and GB and is WBAT on Left leg. Pt has the dressing and GARRISON wrap in place and is CDI. Pt has OT at 0730 and PT at 0845. Possible early discharge pending therapies. ALT SMOOTHER * Plan of Care - Jackelyn Tirado RN - 06/10/2023 8:01 PM CST Problem: Hip Arthroplasty Goal: Effective Bowel Elimination Outcome: Not Progressing Goal Outcome Evaluation: Pt pain controlled by po pain meds, ice, rest, ambulation. 7/10 to 2/10 pain. Pt ambulated >75 feet, tolerating food, sat in the chair, voided. First q4 hour 2100. was at bedside today. Pt has cpap and it was set to home settings for patient. IV running LR at 100ml/hr. ALT SMOOTHER * Provider Notification - Melanie Lombardo RN - 06/10/2023 12:10 PM ASPHALT SMOOTHER Notified Dr. Jeronimo of tachycardia. MDA at bedside assessing, okay to move out of phase 1. ALT SMOOTHER * Op Note - Jenaro Cosby MD - 06/10/2023 9:45 AM CST DATE OF SERVICE: 06/10/2023 PREOPERATIVE DIAGNOSIS: 1. Left Hip Osteoarthritis 2. Morbid Obesity BMI 45 POSTOPERATIVE DIAGNOSIS: 1. Left Hip Osteoarthritis 2. Morbid Obesity BMI 45 PROCEDURE: Left Total Hip Arthroplasty 22 modifier will be applied to this case based on increased patient set up time (50% longer), increased surgical case operative time (50% longer), increased surgical case complexity, and the need forincreased postoperative cares based on morbid obesity BMI 45. More specifically given the size/weight of the patient it took more OR personnel and more time to set patient up, pad all extremities, and secure the patient. Given the size of the operative limb it took longer to expose the surgical area, it took more complex releases and mobilization of the tissue layers and retractor placement to perform the surgery. This in turn led to increased operative time both from the exposure part of the procedure, the procedure itself, as well as the increased time and complexity to close the tissue layers and skin. SURGEON: Jenaro Cosby MD TAVERN CAR ATTENDANT: Kristal Whaley PA-C; SINDI assist was essential and required for all portions of the case, including patient positioning, soft tissue retraction, patient safety, assistance with closure of thewound, and postoperative care ANESTHESIA: General EBL: 200cc COMPLICATIONS: None IMPLANTS: see below INDICATION FOR PROCEDURE: Yue Cardoso is a pleasant 63 year old female with long standing Hip degenerative joint disease. It failed to respond to conservative management. The above procedure was recommended. For full details please see my clinic notes. The risks including, but not limited to, bleeding, infection, nerve injury, dvt, implant failure, implant wear, fracture, limb length inequality, anesthetic complications, heart attack, stroke, and even were discussed. Pt verbalized understanding. Informed consent was obtained DESCRIPTION OF PROCEDURE: The patient was seen and evaluated in the preop area. Discussion of the surgery and any further questions were answered with the patient and family using easily understandable non-medical terms. The correct site was identified with the patient, and I placed my initials at the surgical site. Pre-procedure verification was completed. Relevant information / documentation available, they were reviewed and properly matched to the patient. I verified the consent was accurateand complete. I verified that the proper surgical equipment and supplies were available. The patient was taken to the operating room and placed in position according to the procedure in considerationwith all extremities well padded. The patient was given successful general anesthesia. The patient was then placed in the lateral decubitus position with the operative hip up on a standard operating room table with all extremities well padded. All bony prominences were well padded and an axillary roll placed. Pelvis was secured with [employer] [place] Hip Positioner. The operative Hip was then prepped and draped in sterile fashion. The leg was covered with an Ioban type drape. The patient received preoperative prophylactic antibiotics based on the patient???s procedure, BMI, and allergy profile. A Time Out was conducted just prior to starting procedure to verify the eight required elements: 1-patient identity, 2-consent accurate and complete, 3- position, 4-correct side/site marked (if applicable), 5-procedure, 6-relevant images / results properly labeled and displayed (if applicable), 7-antibiotics / irrigation fluids (if applicable), 8-safety precautions. A standard mini posterior approach incision was made about the proximal femur. Skin and subcutaneous tissues were incised with a scalpel. Hemostasis was achieved with electrocautery. The tensor fascia was split longitudinally with electrocautery. Any bursa tissue was excised. The gluteus flo muscle was split bluntly for approximately 3 cm. A deep east/west retractor was placed. The hip was internally rotated. The Piriformis was identified and taken down and tagged, protecting the sciatic nerve. The short external rotators and posterior hip capsule were taken down off the posterior femur. They were tagged with #1 ethibond suture for later repair. The hip was then dislocated without diffic ulty. The femoral neck was transected along a line determined on preoperative templating and the acetabulum was exposed circumferentially. Careful anterior, posterior and superior retractors were placed about the acetabulum. Thr Acetabulum was sequentially reamed until excellent circumferential contact was achieved at 53 mm of reaming. A 53 mm trial provided excellent rigid fit. Any cysts were curetted free of soft tissue and were filled with bone graft harvested from the resected femoral head or last reamings. Graft compacted with reamer run in reverse. A 54 mm shell was impacted into position and excellent fit achieved. It was placed at approximately 45 deg of abduction and 20 deg of anteversion. Provisional screws were placed if deemed necessary. A trial poly was placed into the acetabular shell. Attention was then turned to the proximal femur. A canal finding broach was placed into the femur. We then began our broaching. We broached up to a size 3 broach. This broach had excellent proximal femur stability. The appropriate neck was chosen based on our pre operative templating and soft tissue tensioning. Trial reductions were performed with different head/neck lengths. With the +1.5mm head, clinically the leg lengths were equal, I was able to flex the hip to 90 deg and internally rotate to 45 deg without and instability. The hip could be externally rotated and extended and abducted without impingement, subluxation or dislocation. An intraoperative xray was obtained to confirm excellent placement of the components. The trial components were removed. A hole eliminator was placed in the acetabulum, permanent liner locked into position after irrigating and drying the acetabular shell. The stem was impacted on the femur with firm and rigid fit achieved. The head was then impacted onthe cleansed and dried [place] taper and hip re-reduced and range of motion confirmed. Excellent stability was achieved. The hip was thoroughly irrigated with antibiotic saline, and inspection showed excellent hemostasis had been established. The posterior capsule was repaired to the posterior aspectof the greater trochanter through drill holes through bone with #1 Ethibond suture into the gluteusminimus proximally. The tensor fascia and gluteus flo were reapproximated using #1 Vicryl and 0Stratafix suture. The subcutaneous layer was closed with 2-0 Vicryl suture. The skin was closed with 3-0 monocryl suture and dermabond. A sterile dressing and abductor pillow was placed onto the leg.The patient was brought to the post op recovery area in stable condition. The sponge and needle counts were correct at the end of the case. POST OP PLAN: Pain Control: IV Narcotics, transition to oral narcotics as bowel function returns Infection Prophylaxis: IV Antibiotics as per allergy profile and BMI x 24 hrs, then discharge on Doxycycline 100mg PO BID x 2 weeks DVT Prophylaxis: ECASA 81mg PO BID x 1 month, mechanical devices PT/OT: Eval and treat. WBAT with Walker. POSTERIOR APPROACH PREACUTIONS Medical Management: Consult Primary Medical Service Incision/Dressing Care: Keep on, clean. Reniforce prn. OK to shower. Disposition: Manager Process Consult Implant Name Type Inv. Item Serial No. Laborer Shaft Sinking Lot No. LRB No. Used Action IMP SHELL ACET DEPUY PINNACLE GRIPTION 54MM [id number] - [id number] Total Joint Component/Insert IMPSHELL ACET DEPUY PINNACLE GRIPTION 54MM [id number] [employer] [facility]- [id number] Left 1 Implanted IMP STEM FEM DEPUY ACTIS COLLAR HI-OFFSET SZ 3MM - [id number] Total Joint Component/Insert IMP STEM FEM DEPUY ACTIS COLLAR HI-OFFSET SZ 3MM &[employer] [facility]- [id number] Left 1 Implanted IMP LINER HIP DEPUY PINNACLE ALTRX [id number] [id number] - [id number] Total Joint Component/Insert IMP LINER HIP DEPUY PINNACLE ALTRX [id number] [id number] [employer] [facility]- [id number] Left 1 Implanted IMP HEAD FEMORAL DEPUY CERAMIC 36MM +5MM [id number] - [id number] Total Joint Component/Insert IMP HEAD FEMORAL DEPUY CERAMIC 36MM +5MM [id number] [employer] [facility]- [id number] Left 1 Wasted IMP HEAD FEMORAL DEPUY CERAMIC 36MM +1.5MM [id number] - [id number] Total Joint Component/Insert IMP HEAD FEMORAL DEPUY CERAMIC 36MM +1.5MM [id number] [employer] [facility]- [id number] Left 1 Implanted @C(1)@ Jenaro Cosby MD @C(2)@ Kelly Sommer ALT SMOOTHER * Pharmacy-Admission Medication History - Marlen Ascencio [facility] - 06/10/2023 8:22 AM CST Pharmacist Admission Medication History Admission medication history is complete. The information provided in this note is only as accurateas the sources available at the time of the update. Information Source(s): Patient and CareEverywhere/SureScripts via in-person Pertinent Information: Allergies reviewed with patient and updates made in EHR: no Medication History Completed By: Marlen Ascencio RPH 06/10/2023 8:22 AM MANAGER CARD Med List Medication Sig Last Dose amLODIPine (NORVASC) 5 MG tablet Take 5 mg by mouth daily 06/10/2023 at AM busPIRone (BUSPAR) 5 MG tablet Take 10 mg by mouth 2 times daily 06/10/2023 at AM chlorthalidone (HYGROTON) 50 MG tablet Take 50 mg by mouth daily 06/09/2023 at AM cholecalciferol 25 MCG (1000 UT) TABS Take 1,000 Units by mouth daily 06/03/2023 gabapentin (NEURONTIN) 300 MG capsule Take 300 mg by mouth daily as needed 06/07/2023 losartan (COZAAR) 50 MG tablet Take 50 mg by mouth 2 times daily 06/09/2023 at AM meclizine (ANTIVERT) 25 MG tablet Take 25 mg by mouth 3 times daily as needed Unknown metFORMIN (GLUCOPHAGE) 1000 MG tablet Take 1,000 mg by mouth 2 times daily (with meals) 06/10/2023 at AM OZEMPIC, 0.25 OR 0.5 MG/DOSE, 2 MG/3ML pen Inject 0.25 mg Subcutaneous every 7 days 05/25/2023 potassium chloride ER (K-TAB) 20 MEQ CR tablet Take 20 mEq by mouth 2 times daily 06/10/2023 at AM simvastatin (ZOCOR) 40 MG tablet Take 40 mg by mouth every morning 06/10/2023 at AM spironolactone (ALDACTONE) 50 MG tablet Take 50 mg by mouth every evening 06/09/2023 at PM traMADol (ULTRAM) 50 MG tablet Take 50 mg by mouth every 6 hours as needed not recent venlafaxine (EFFEXOR-XR) 75 MG 24 hr capsule Take 225 mg by mouth daily 06/10/2023 at AM ALT SMOOTHER * Treatment Plan - Brennen Ascencio APRN PROCESS IMPROVEMENT ENGINEER - 06/05/2023 4:55 PM ASPHALT SMOOTHER Orthopedic Surgery Pre-Op Plan: Yue Cardoso pre-op review. This is NOT an H&P Surgeon: Dr. Cosby Hospital: [facility] Name of Surgery: Left Posterior Total Hip Arthroplasty Date of Surgery: 06/10/23 H&P: Completed on 05/21/[address] Asha Bolden at [facility]. History of ASA, NSAIDS, vitamin and/or herbal supplements, GLP-1 Agonist medication taken within 10days?: Yes- semaglutide (Ozempic)-last dose taken on 05/25/2023, then held. Multivitamin-patient instructed to hold this for 7 days before surgery. History of blood thinners?: No Plan: 1) Discharge Plan: Home morning of POD 1 with assist of Spouse. Please see Discharge Planning section near bottom of this note for further details. 2) PONV: Reports history of nausea/vomiting with anesthesia in the past. I recommend patient discusses this with preop nursing and anesthesia on day of surgery. Would likely benefit from antiemetics or other measures to prevent or minimize nausea/vomiting. 3) Contact Dermatitis: Per PCP, has area of contact dermatitis on the back of her neck. Cleared forsurgery but was prescribed topical Kenalog cream to apply to the area for the next 14 days. 4) Chronic Leukocytosis and Thrombocytosis: WBC 13.0 and platelet count 504,000 on 05/21/2023. Reviewed recent Hematology visit note with Dr. Benavides, [facility], from 05/01/23: Patient has history of chronically elevated WBC (leukocytosis) and elevated platelet counts. Patient underwent extensive workup with Hematology over the past few months including peripheral blood smear analysis, bone marrow biopsy and CT of chest/abdomen/pelvis. 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 No need for further workup or intervention. She will remain on surveillance. Plan for repeat CBC and peripheral morphology in 6 months. She is cleared to proceed withher hip surgery from a Hematology perspective. Dr. Cosby was notified of information above and is also ok proceeding. 5) Hyperlipidemia: On simvastatin. 6) Hypertension: Appears well-controlled on amlodipine, chlorthalidone, losartan, and spironolactone. Patient instructed to hold chlorthalidone, losartan, and spironolactone on the morning of surgerybut to continue taking amlodipine. 7) Obstructive Sleep Apnea: on CPAP. Reminded to bring CPAP machine to the hospital and use it whenever sleeping or napping. 8) Morbid Obesity: BMI 45.25, Wt: 243 lbs at preop exam on 05/21/2023. Goal BMI is <45 for elective total joint surgeries. Dr. Cosby notified of high BMI and is okay proceeding. 9) Type 2 Diabetes Mellitus: Very good control. Most recent hemoglobin A1c 5.6 on 03/07/2023. Bloodglucose 105 on 05/21/2023. On metformin and semaglutide (Ozempic). Patient was instructed to hold Ozempic for at least 7 days before surgery (last dose taken on 05/25/2023, then held). I recommend blood glucose checks at least three times a day and at bedtime during hospital stay. Goal BG < 180 todecrease risk for infection and wound healing complications. Nursing to please notify Hospitalist if BG > 180. 10) Depression and Anxiety: On buspirone and venlafaxine. Patient appears medically optimized for upcoming surgery. I would recommend Hospitalist Consult to assist with medical management. Please call me below with any questions on this patient. Review of Systems Notable for: PONV, contact dermatitis, chronic leukocytosis and thrombocytosis-cleared by hematology for surgery after workup 04/2023, hyperlipidemia, hypertension, obstructive sleep apnea-on CPAP, morbid obesity, type 2 diabetes mellitus-very good recent control, depression, anxiety. Past Medical History: Past Medical History: Diagnosis Date Anxiety Arthritis Depression Diabetes mellitus (H) Diabetes mellitus (H) Hearing loss History of anesthesia complications Hyperlipidemia Hyperlipidemia Hypertension Hypertension Obesity Obesity, morbid, BMI 50 or higher (H) Obstructive sleep apnea Osteoarthritis PONV (postoperative nausea and vomiting) PONV (postoperative nausea and vomiting) Rhinitis Sleep apnea CPAP Vertigo Past Surgical History: Procedure Laterality Date ARTHROSCOPY KNEE ARTHROSCOPY KNEE WITH MENISCAL REPAIR Bilateral BACK SURGERY 1997 [place] CATARACT EXTRACTION Right 2015 CHOLECYSTECTOMY CYSTOSCOPY N/A 01/12/2020 Procedure: CYSTOSCOPY; Surgeon: Helen Mancini MD; Location: [facility] HYSTERECTOMY TOTAL, BILATERAL SALPINGO-OOPHORECTOMY, NODE DISSECTION, COMBINED N/A 01/12/2020 Procedure: Robotic removal of uterus, cervix, both ovaries and fallopian tubes, sentinel lymph nodedissection, lysis of adhesions; Surgeon: Helen Mancini MD; Location: [facility] DILATION AND CURETTAGE DILATION AND CURETTAGE 2009, 2010 JOINT REPLACEMENT Right 2013 JOINT REPLACEMENT Left 2014 KNEE SURGERY Bilateral LAMINECT/DISCECTOMY, LUMBAR LAPAROSCOPIC CHOLECYSTECTOMY LASIK LASIK SHOULDER ARTHROSCOPY W/ ROTATOR CUFF REPAIR Left 2017 TONSILLECTOMY TONSILLECTOMY VITRECTOMY ANTERIOR Right 2015 [facility]UE[facility] W/O FACETEC FORAMOT/[facility] 05/13 VRT SEG, LUMBAR Bilateral 06/14/2019 Procedure: BILATERAL LUMBAR 3-4 LAMINECTOMY; Surgeon: Higinio Smith MD; Location: [facility]; Service: Spine Current Medications: Patient's Medications New Prescriptions No medications on file Previous Medications AMLODIPINE (NORVASC) 5 MG TABLET Take 5 mg by mouth daily BUSPIRONE (BUSPAR) 5 MG TABLET Take 10 mg by mouth 2 times daily CHLORTHALIDONE (HYGROTON) 50 MG TABLET Take 50 mg by mouth daily CHOLECALCIFEROL 25 MCG (1000 UT) TABS Take 1,000 Units by mouth GABAPENTIN (NEURONTIN) 300 MG CAPSULE Take 300 mg by mouth as needed LOSARTAN (COZAAR) 50 MG TABLET Take 50 mg by mouth 2 times daily MECLIZINE (ANTIVERT) 25 MG TABLET Take 25 mg by mouth daily as needed METFORMIN (GLUCOPHAGE) 1000 MG TABLET Take 1,000 mg by mouth 2 times daily (with meals) MULTIPLE VITAMIN (MULTI-VITAMINS) TABS Take 1 tablet by mouth OZEMPIC, 0.25 OR 0.5 MG/DOSE, 2 MG/3ML PEN Inject 0.25 mg Subcutaneous every 7 days POTASSIUM CHLORIDE ER (K-TAB) 20 MEQ CR TABLET Take 20 mEq by mouth 2 times daily PSYLLIUM (METAMUCIL/KONSYL) 0.52 G CAPSULE Take 2 capsules by mouth SIMVASTATIN (ZOCOR) 40 MG TABLET Take 40 mg by mouth at bedtime SPIRONOLACTONE (ALDACTONE) 25 MG TABLET Take 25 mg by mouth daily TRAMADOL (ULTRAM) 50 MG TABLET Take 50 mg by mouth every 6 hours as needed VENLAFAXINE (EFFEXOR-XR) 150 MG 24 HR CAPSULE Take 150 mg by mouth daily VENLAFAXINE (EFFEXOR-XR) 75 MG 24 HR CAPSULE Take 75 mg by mouth daily Modified Medications No medications on file Discontinued Medications No medications on file ALLERGIES: Allergies Allergen Reactions Nitrofurantoin Dizziness, Muscle Pain (Myalgia), Nausea and Vomiting and Other (See Comments) myalgias Amlodipine Other (See Comments) Edema on doses above 5mg Edema on doses above 5mg Contrast Dye Hives Social History Social History Tobacco Use Smoking status: Never Smokeless tobacco: Never Substance Use Topics Alcohol use: Not Currently Drug use: Never Any Abnormal Recent Diagnostics? Yes WBC 13.0, platelet count 504,000 on 05/21/2023: Patient has chronic leukocytosis and thrombocytosis.Had extensive recent workup with hematology and given okay by them to proceed with surgery. Hemoglobin A1c 5.6 on 03/07/2023: Shows very good recent control of type 2 diabetes on metformin and semaglutide (Ozempic). Blood glucose 105 on 05/21/2023: Will monitor BG's closely during hospital stay. Goal BG <180. Discharge Planning: Patient expects to be discharged to: Home morning of POD 1 with assist of Spouse Barriers to discharge: None stated Assistance Needed?: TBD Discharge arrangements made: Yes Discharge Plan: Home morning of POD 1 with assist of Spouse Living Arrangements: with Spouse Type of residence: Private Residence Once in the house are you able to live on one level? Yes What does your bathroom have? Grab bars, shower chair. Has quad cane and rolling walker at home Home Care Services? No Support Systems: Family Pt/Rep Engagement Interventions: Discussed discharge plans Caregiver at Home: Yes, confirmed that will help out at home after surgery Patient confirmed they have help/assistance in place at home upon discharge? Yes Brennen Ascencio APRN, [facility] Practice Nurse Navigator- Orthopedics [facility] ALT SMOOTHER * Provider Notification - Brennen Ascencio APRN PROCESS IMPROVEMENT ENGINEER - 06/05/2023 10:21 AM CST I am evaluating this patient for upcoming Left Posterior Total Hip Arthroplasty with Dr. Cosby at [facility] on 06/10/23: - Reviewed preop H&P, labs and recent Hematology visit notes. Patient was cleared for surgery by both PCP and Hematology. Had high BMI of 45.23, Wt: 243 lbs and elevated WBC of 13.0 at preop examon 05/21/23. Goal BMI is < 45 for elective total joint arthroplasty surgery. Patient has history of chronically elevated WBC (leukocytosis) and elevated platelet counts. Patient underwent extensiveworkup with Hematology over the past few months including peripheral blood smear analysis, bone marrow biopsy and CT of chest/abdomen/pelvis. Per most recent Hematology visit note with Dr. 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 No need for further workup or intervention. She will remain on surveillance. Planfor repeat CBC and peripheral morphology in 6 months. She is cleared to proceed with her hip surgery from a Hematology perspective. Dr. Cosby notified of information above and is ok proceeding. Full Treatment Plan note to follow. Call me below if any questions. Brennen Ascencio APRN, GURJIT Advanced Practice Nurse Navigator- [facility] Office Direct ALT SMOOTHER documented in this encounter Plan of Treatment Not on file documented as of this encounter Goals Goal Patient Goal Type Associated Problems Recent Progress Patient-Stated? Author MYC ECC SURG ENROLL Care Plan MyC ECC SURG ENROLL No Venus Neville documented as of this encounter Procedures Procedure Name Priority Date/Time Associated Diagnosis Comments HEMOGLOBIN Routine 06/11/2023 10:17 AM ASPHALT SMOOTHER GLUCOSE BY METER Routine 06/11/2023 6:32 AM ASPHALT SMOOTHER BASIC METABOLIC PANEL Routine 06/11/2023 6:09 AM ASPHALT SMOOTHER CBC WITH PLATELETS Routine 06/11/2023 6: 09 AM ASPHALT SMOOTHER XR PELVIS AND HIP PORTABLE LEFT 1 VIEW STAT 06/10/2023 11:49 AM ASPHALT SMOOTHER GLUCOSE BY METER Routine 06/10/2023 11:4 5 AM ASPHALT SMOOTHER XR HIP PORT LEFT 1 VIEW Routine 06/10/2023 10:32 AM ASPHALT SMOOTHER ARTHROPLASTY, HIP, TOTAL 06/10/2023 9:12 AM ASPHALT SMOOTHER Osteoarthritis of hip Hip pain, left Case Notes WW DEPUY HIP SET 2 + LIAN MULLIGAN.Cordell Leon. [phone] Navid Patel [phone] TYPE AND SCREEN, ADULT STAT 06/10/2023 7:27 AM ASPHALT SMOOTHER ABO/RH TYPE AND SCREEN STAT 06/10/2023 7:27 AM ASPHALT SMOOTHER GLUCOSE BY METER Routine 06/10/2023 7:22 AM ASPHALT SMOOTHER documented in this encounter Results * (ABNORMAL) Hemoglobin (06/11/2023 10:17 AM ASPHALT SMOOTHER) [facility] Hemoglobin 9.9(L) 11.7 - 15.7 g/dL 06/11/2023 10:25 AM ASPHALT SMOOTHER [facility] Blood STRUCTURE OF RIGHT UPPER LIMB / Unknown Venipuncture / Unknown 06/11/2023 10:17 AM ASPHALT SMOOTHER 06/11/2023 10:19 AM ASPHALT SMOOTHER Carolyn Gardner PA-C LAB - BLOOD OR DERABLES Performing Organization Address City/[facility]/ZIP Co de Phone Number [facility] [address] [facility] [place], [place] [id number] [place] [address] * (ABNORMAL) Glucose by meter (06/11/2023 6:32 AM ASPHALT SMOOTHER) [facility] GLUCOSE BY METER POCT 100(H) 70 - 99 mg/dL 06/11/2023 6:[address] [facility] POCT RESULTS Blood, Capillary BLOOD SPECIMEN / Unknown 06/11/2023 6:32 AM ASPHALT SMOOTHER 06/11/2023 6:38 AM ASPHALT SMOOTHER Jenaro Cosby MD LAB - BEAKER POCT [facility] POCT RESULTS [address] [facility] [place] [address] * (ABNORMAL) CBC with platelets (06/11/2023 6:09 AM ASPHALT SMOOTHER) WBC Count 13.2(H) 4.0 - 11.0 10e3/uL 06/11/2023 6:48 AM [facility] RBC Count 3.10(L) 3.80 - 5.20 10e6/uL 06/11/2023 6:48 AM [facility] Hemoglobin 9.4(L) 11.7 - 15.7 g/dL 06/11/2023 6:48 AM [facility] Hematocrit 29.1(L) 35.0 - 47.0 % 06/11/2023 6:48 AM [facility] MCV 94 78 - 100 fL 06/11/2023 6:48 AM [facility] MCH 30.3 26.5 - 33.0 pg 06/11/2023 6:48 AM [facility] MCHC 32.3 31.5 - 36.5 g/dL 06/11/2023 6:48 AM [facility] RDW 14.0 10.0 - 15.0 % 06/11/2023 6:48 AM [facility] Platelet Count 368 150 - 450 10e3/uL 06/11/2023 6:48 AM [facility] Blood STRUCTURE OF RIGHT UPPER LIMB / Unknown Venipuncture / Unknown 06/11/2023 6:09 AM ASPHALT SMOOTHER 06/11/2023 6:40 AM [facility] Radha West MD LAB - BLOOD ORDERABL ES [facility] [address] [facility] [place], [place] [id number] [place] [address] * (ABNORMAL) Basic metabolic panel (06/11/2023 6:09 AM ASPHALT SMOOTHER) Pathologist [facility] Sodium 136 135 - 145 mmol/L 06/11/2023 7:08 AM [facility] Comment:Reference intervals for this test were updated on 02/04/2023 to more accurately reflect our healthy population. There may be differences in the flagging of prior results with similar values performed with this method. Interpretation of those prior results can be made in the context of the updated reference intervals. Potassium 4.7 3.4 - 5.3 mmol/L 06/11/2023 7:08 AM [facility] Chloride 101 98 - 107 mmol/L 06/11/2023 7:08 AM [facility] Carbon Dioxide (CO2) 29 22 - 29 mmol/L 06/11/2023 7:08 AM [facility] Anion Gap 6(L) 7 - 15 mmol/L 06/11/2023 7:08 AM [facility] Urea Nitrogen 24.8(H) 8.0 - 23.0 mg/dL 06/11/2023 7:08 AM [facility] Creatinine 0.81 0.51 - 0.95 mg/dL 06/11/2023 7:08 AM [facility] GFR Estimate 80 >60 mL/min/1. 73m2 06/11/2023 7:08 AM [facility] Calcium 9.1 8.8 - 10.2 mg/dL 06/11/2023 7:08 AM [facility] Glucose 110(H) 70 - 99 mg/dL 06/11/2023 7:08 AM [facility] Blood STRUCTURE OF RIGHT UPPER LIMB / Unknown Venipuncture / Unknown 06/11/2023 6:09 AM ASPHALT SMOOTHER 06/11/2023 6:40 AM ASPHALT SMOOTHER Radha West MD LAB - BLOOD ORDERABL ES [facility] [address] [facility] [id number] [phone] * XR Pelvis w Hip Port Left 1 View (06/10/2023 11:49 AM ASPHALT SMOOTHER) Anatomical Region Laterality Modality Abdomen/Pelvis Left Computed Radiogr aphy 06/10/2023 11:4 9 AM ASPHALT SMOOTHER Impressions 06/10/2023 12:07 PM ASPHALT SMOOTHER IMPRESSION: Postoperative changes related to recent placement of a left total hip arthroplasty. The components are in expected position without acute displaced periprosthetic fracture. Expected recent postop soft tissue and intra-articular gas about the left hip with soft tissue swelling. No displaced pelvic fracture. Degenerative change lower lumbar spine. Narrative 06/10/2023 12:07 PM ASPHALT SMOOTHER EXAM: XR PELVIS AND HIP PORTABLE LEFT 1 VIEW LOCATION: [facility] DATE: 06/10/2023 INDICATION: Status post hip surgery. COMPARISON: None. Procedure Note Marlo Villela MD - 06/10/2023 EXAM: XR PELVIS AND HIP PORTABLE LEFT 1 VIEW LOCATION: [facility] DATE: 06/10/2023 INDICATION: Status post hip surgery. COMPARISON: None. IMPRESSION: Postoperative changes related to recent placement of a lefttotal hip arthroplasty. The components are in expected position withoutacute displaced periprosthetic fracture. Expected recent postop softtissue and intra-articular gas about the left hip with soft tissue swelling. No displaced pelvic fracture.Degenerative change lower lumbar spine. Rosario Whaley PA-C IMG DIAGNOSTIC IMAGI NG ORDERABLES * (ABNORMAL) Glucose by meter (06/10/2023 11:45 AM ASPHALT SMOOTHER) [facility] GLUCOSE BY METER POCT 152(H) 70 - 99 mg/dL 06/10/2023 11:[address] [facility] POCT RESULTS Blood, Capillary BLOOD SPECIMEN / Unknown 06/10/2023 11:45 AM ASPHALT SMOOTHER 06/10/2023 11:53 AM ASPHALT SMOOTHER Jenaro Cosby MD [facility] POCT [facility] POCT RESULTS [address] [employer] [address] * XR Hip Port Left 1 View (06/10/2023 10:32 AM ASPHALT SMOOTHER) Anatomical Region Laterality Modality Hip, Left Hip Left Computed Radiogr aphy 06/10/2023 10:3 2 AM ASPHALT SMOOTHER Impressions 06/10/2023 1:27 PM ASPHALT SMOOTHER IMPRESSION: The intraprocedural spot film demonstrates placement of a left total hip arthroplasty. Please reference the surgical report for further details. Narrative 06/10/2023 1:27 PM ASPHALT SMOOTHER EXAM: XR HIP PORT LEFT 1 VIEW LOCATION: [facility] DATE: 06/10/2023 INDICATION: left total hip arthroplasty COMPARISON: None Procedure Note Jameel Cardoso MD - 06/10/2023 EXAM: XR HIP PORT LEFT 1 VIEW LOCATION: [facility] DATE: 06/10/2023 INDICATION: left total hip arthroplasty COMPARISON: None IMPRESSION: The intraprocedural spot film demonstrates placement of a lefttotal hip arthroplasty. Please reference the surgical report for furtherdetails. Jenaro Cosby MD IMG DIAGNOSTIC IMAGI NG ORDERABLES * Adult Type and Screen (06/10/2023 7:27 AM ASPHALT SMOOTHER) ABO/RH(D) O POS 06/10/2023 6:40 AM [facility] Antibody Screen Negative Negative 06/10/2023 6:40 AM ASPHALT SMOOTHER [facility] SPECIMEN EXPIRATION DATE [id number] 06/10/2023 6:40 AM ASPHALT SMOOTHER [facility] Blood BLOOD SPECIMEN / Unknown Venipuncture / Unknown 06/10/2023 7:27 AM ASPHALT SMOOTHER 06/10/2023 7:37 AM ASPHALT SMOOTHER Rosario Whaley PA-C LAB - BLOOD BANK ROBERT T ORDER Performing Organization Address [facility]/ZIP Co de Phone Number [facility] [address] [place] [address], [facility] * Glucose by meter (06/10/2023 7:22 AM ASPHALT SMOOTHER) GLUCOSE BY METER POCT 97 70 - 99 mg/dL 06/10/2023 7:[address] [facility] POCT RESULTS Blood, venous BLOOD SPECIMEN / Unknown 06/10/2023 7:22 AM ASPHALT SMOOTHER 06/10/2023 7:31 AM ASPHALT SMOOTHER Jenaro Cosby MD LAB - BEAKER POCT Performing Organization Address City/[facility]/ZIP Co de Phone Number [facility] POCT RESULTS [address] [place] [address] documented in this encounter Visit Diagnoses Diagnosis Status post total replacement of left hip Osteoarthritis of hip Osteoarthrosis, unspecified whether generalized or localized, pelvic region and thigh Hip pain, left Pain in joint, pelvic region and thigh documented in this encounter Admitting Diagnoses Diagnosis S/P total hip arthroplasty Hip joint replacement by other means documented in this encounter Administered Medications Inactive Administered Medications - up to 3 most recent administrations Medication Order MAR Action Action Date Dose Rate Site acetaminophen (TYLENOL) tablet 975 mg 975 mg, Oral, EVERY 8 HOURS, First dose on Fri06/10/23 at 1400, For 3 days, Administer for multimodal surgical pain management. Maximum acetaminophen dose from all sources = 75 mg/kg/day not to exceed 4 grams/day. $Given 06/11/2023 5:04 AM ASPHALT SMOOTHER 975 mg $Given 06/10/2023 9:17 PM ASPHALT SMOOTHER 975 mg $Given 06/10/2023 2:08 PM ASPHALT SMOOTHER 975 mg aspirin EC tablet 81 mg 81 mg, Oral, 2 TIMES DAILY, First dose on Fri06/10/23 at 2100, Indications: VTE Prophylaxis, DO NOT CRUSH. $Given 06/11/2023 8:33 AM ASPHALT SMOOTHER 81 mg $Given 06/10/2023 9:17 PM ASPHALT SMOOTHER 81 mg busPIRone (BUSPAR) tablet 10 mg 10 mg, Oral, 2 TIMES DAILY, First dose on Fri06/10/23 at 2100 $Given 06/11/2023 8:29 AM ASPHALT SMOOTHER 10 mg $Given 06/10/2023 9:17 PM ASPHALT SMOOTHER 10 mg ceFAZolin (ANCEF) 1g in 1000 mL NS irrigation bottle PRN, Starting on Fri06/10/23 at 1042, Intra-procedure $Given 06/10/2023 10:42 AM ASPHALT SMOOTHER 1 g Operative Site/Surgical Site ceFAZolin (ANCEF) 2 g in 100 mL D5W intermittent infusion Routine, 2 g, Intravenous, EVERY 8 HOURS, First dose on Fri06/10/23 at 1800, For 2 doses, First post-op dose due 8 hours after intra-op dose, see eMAR. , Indications: Perioperative Pharmacoprophylaxis $New Bag 06/11/2023 2:15 AM ASPHALT SMOOTHER 2 g 200 mL/hr $New Bag 06/10/2023 6:14 PM ASPHALT SMOOTHER 2 g 200 mL/hr celecoxib (celeBREX) capsule 100 mg 100 mg, Oral, 2 TIMES DAILY, First dose on Fri06/10/23 at 2100, For 4 doses, IF celecoxib (CELEBREX) was given pre-operatively, start celecoxib (CELEBREX) 12 hours after given $Given 06/11/2023 8:38 AM ASPHALT SMOOTHER 100 mg $Given 06/10/2023 9:17 PM ASPHALT SMOOTHER 100 mg celecoxib (celeBREX) capsule 200 mg 200 mg, Oral, ONCE, On Fri06/10/23 at 0700, For 1 dose, Pre-procedure $Given 06/10/2023 7:07 AM ASPHALT SMOOTHER 200 mg fentaNYL (PF) (SUBLIMAZE) injection 25 mcg 25 mcg, Intravenous, EVERY 5 MIN PRN, moderate pain, Give fentaNYL (SUBLIMAZE) first if HYDROmorphone (DILAUDID) also ordered., Starting on Fri06/10/23 at 1129, Administer fentaNYL (SUBLIMAZE) for acute pain control. Move to HYDROmorphone (DILAUDID): -IF patient has received up to 200 mcg of fentaNYL (SUBLIMAZE) OR - IF patient has received 2 doses of fentaNYL (SUBLIMAZE) AND continues to have pain score greater than or equal to six (6) or is unable to participate in post op recovery due to pain. Wait 5 minutes AFTER last fentaNYL (SUBLIMAZE) dose before administering HYDROmorphone (DILADUDID). Postop Anesthesia Phase I only. Notify Provider to assess for uncontrolled pain or analgesic side effects. DO NOT revert back to fentanyl (SUBLIMAZE) after moving to HYDROmorphone (DILAUDID)., PACU $Given 06/10/2023 12:16 PM ASPHALT SMOOTHER 25 mcg $Given 06/10/2023 11:56 AM ASPHALT SMOOTHER 25 mcg $Given 06/10/2023 11:44 AM ASPHALT SMOOTHER 25 mcg gabapentin (NEURONTIN) capsule 300 mg 300 mg, Oral, AT BEDTIME, First dose on Fri06/10/23 at 2100, For post-operative pain $Given 06/10/2023 9:17 PM ASPHALT SMOOTHER 300 mg HYDROmorphone (DILAUDID) injection 0.2 mg 0.2 mg, Intravenous, EVERY 2 HOURS PRN, moderate pain, Starting on Fri06/10/23 at 1305, IF patient unable to take oral pain medication or pain not controlled with oral analgesics. Hold IV PRN opioid dose for analgesic side effects. Notify provider to assess for uncontrolled pain or analgesic side effects. HYDROmorphone (DILAUDID) injection 0.4 mg 0.4 mg, Intravenous, EVERY 2 HOURS PRN, severe pain, Starting on Fri06/10/23 at 1305, IF patient unable to take oral pain medication or pain not controlled with oral analgesics. Hold IV PRN opioid dose for analgesic side effects. Notify provider to assess for uncontrolled pain or analgesic side effects. hydrOXYzine HCl (ATARAX) tablet 10 mg 10 mg, Oral, EVERY 6 HOURS PRN, other, anxiety, itching, adjuvant pain; sleep aid, Starting on Fri06/10/23 at 1305 $Given 06/11/2023 2:14 AM ASPHALT SMOOTHER 10 mg lactated ringers infusion at 100 mL/hr, Intravenous, CONTINUOUS, Pre-procedure, Starting on Fri06/10/23 at 0700, Until Fri06/10/23 at 1119 $New Bag 06/10/2023 10:14 AM ASPHALT SMOOTHER Restarted 06/10/2023 9:12 AM ASPHALT SMOOTHER $New Bag 06/10/2023 7:23 AM ASPHALT SMOOTHER 100 mL/hr lactated ringers infusion at 100 mL/hr, Intravenous, CONTINUOUS, Continue until IV catheter is weaned, PACU, Starting on Fri06/10/23 at 1130, Until Fri06/10/23 at 1256 Rate/Dose Verify 06/10/2023 11:20 AM ASPHALT SMOOTHER 100 mL/hr lactated ringers infusion at 100 mL/hr, Intravenous, CONTINUOUS, IF overnight stay, continue IV fluids until 0400 POD #1, then may saline lock if tolerating oral fluids. IF Day of Surgery Discharge, continue IV Fluids until one hour before discharge., Starting on Fri06/10/23 at 1330, Until Fri06/11/23 at 1444 $New Bag 06/11/2023 2:15 AM ASPHALT SMOOTHER 100 mL/hr Rate/Dose Verify 06/10/2023 4:41 PM ASPHALT SMOOTHER 100 mL/ hr $New Bag 06/10/2023 2:15 PM ASPHALT SMOOTHER 100 mL/hr metFORMIN (GLUCOPHAGE) tablet 1,000 mg 1,000 mg, Oral, 2 TIMES DAILY WITH MEALS, First dose on Fri06/11/23 at 0800, If the patient receives intravenous, iodinated contrast and patient GFR is greater than 60 mL/min/1.7m2, continue metformin. Contact provider for 'hold' or 'no hold' instructions if no GFR or if GFR is less than 60 mL/min/1.7m2. $Given 06/11/2023 8:32 AM ASPHALT SMOOTHER 1,000 mg naloxone (NARCAN) injection 0.2 mg 0.2 mg, Intravenous, EVERY 2 MIN PRN, opioid reversal, Starting on Fri06/10/23 at 1308, Administer intravenous route when available and notify provider when administered. For unintended sedation or respiratory depression if all of the below criteria are met: ~ respiratory rate LESS than or EQUAL to 8. ~SaO2 less than 92% and or/end-tidal CO2 is greater than 50. ~ the patient is receiving an opioid, has unintended sedations assessed as RASS (-3), and is currently not on mechanical ventilation. RASS scale moderate (-3) is movement or eye opening to voice but no eye contact. Patient Monitoring Once the patient has demonstrated a response to the naloxone, continue to monitor respiratory rate, depth, oxygen saturation and end-tidal CO2 (if available) every 15 minutes x 2, then every 30 minutes x 2, then every 1 hour x 1 after each naloxone dose. Consider transfer to ICU if patient respiratory parameters have not improved after 4 naloxone doses. naloxone (NARCAN) injection 0.2 mg 0.2 mg, Intramuscular, EVERY 2 MIN PRN, opioid reversal, Starting on Fri06/10/23 at 1308, Administer intramuscular if an intravenous route is not available and notify provider when administered. For unintended sedation or respiratory depression if all of the below criteria are met: ~ respiratory rate LESS than or EQUAL to 8. ~SaO2 less than 92% and or/end-tidal CO2 is greater than 50. ~ the patient is receiving an opioid, has unintended sedations assessed as RASS (-3), and is currently not on mechanical ventilation. RASS scale moderate (-3) is movement or eye opening to voice but no eye contact. Patient Monitoring Once the patient has demonstrated a response to the naloxone, continue to monitor respiratory rate, depth, oxygen saturation and end-tidal CO2 (if available) every 15 minutes x 2, then every 30 minutes x 2, then every 1 hour x 1 after each naloxone dose. Consider transfer to ICU if patient respiratory parameters have not improved after 4 naloxone doses. naloxone (NARCAN) injection 0.4 mg 0.4 mg, Intravenous, EVERY 2 MIN PRN, opioid reversal, Starting on Fri06/10/23 at 1308, Administer intravenous route when available and notify provider when administered. For unintended sedation or respiratory depression if all of the below criteria are met: ~ respiratory rate LESS than or EQUAL to 8. ~ SaO2 less than 92% and or/end-tidal CO2 is greater than 50. ~ the patient is receiving an opioid, has unintended sedation assessed as RASS (-4) or (-5) and patient is currently not on mechanical ventilation. RASS scale (-4) is deep sedation with no response to voice but movement or eye opening to physical stimulation. RASS scale (-5) is unarousable. Patient Monitoring Once the patient has demonstrated a response to the naloxone, continue to monitor respiratory rate, depth, oxygen saturation and end-tidal CO2 (if available) every 15 minutes x 2, then every 30 minutes x 2, then every 1 hour x 1 after each naloxone dose. Consider transfer to ICU if patient respiratory parameters have not improved after 4 naloxone doses. naloxone (NARCAN) injection 0.4 mg 0.4 mg, Intramuscular, EVERY 2 MIN PRN, opioid reversal, Starting on Fri06/10/23 at 1308, Administer intramuscular if an intravenous route is not available and notify provider when administered. For unintended sedation or respiratory depression if all of the below criteria are met: ~ respiratory rate LESS than or EQUAL to 8. ~ SaO2 less than 92% and or/end-tidal CO2 is greater than 50. ~ the patient is receiving an opioid, has unintended sedation assessed as RASS (-4) or (-5) and patient is currently not on mechanical ventilation. RASS scale (-4) is deep sedation with no response to voice but movement or eye opening to physical stimulation. RASS scale (-5) is unarousable. Patient Monitoring Once the patient has demonstrated a response to the naloxone, continue to monitor respiratory rate, depth, oxygen saturation and end-tidal CO2 (if available) every 15 minutes x 2, then every 30 minutes x 2, then every 1 hour x 1 after each naloxone dose. Consider transfer to ICU if patient respiratory parameters have not improved after 4 naloxone doses. ondansetron (ZOFRAN ODT) ODT tab 4 mg 4 mg, Oral, EVERY 6 HOURS PRN, nausea, vomiting, Starting on Fri06/10/23 at 1305, This is Step 1 of nausea and vomiting management. If nausea not resolved in 15 minutes, go to Step 2 prochlorperazine (COMPAZINE). Do not push through foil backing. Peel back foil and gently remove. Place on tongue immediately. Administration with liquid unnecessary With dry hands, peel back foil backing and gently remove tablet. Do not push oral disintegrating tablet through foil backing. Administer immediately on tongue and oral disintegrating tablet dissolves in seconds, then swallow with saliva. Liquid not required. ondansetron (ZOFRAN) injection 4 mg 4 mg, Intravenous, EVERY 6 HOURS PRN, nausea, vomiting, Administer over 2-5 Minutes, Starting on Fri06/10/23 at 1305, This is Step 1 of nausea and vomiting management. If nausea not resolved in 15 minutes, go to Step 2 prochlorperazine (COMPAZINE). Irritant. oxyCODONE (ROXICODONE) tablet 10 mg 10 mg, Oral, EVERY 4 HOURS PRN, severe pain, Starting on Fri06/10/23 at 1305, Hold oral PRN dose for analgesic side effects. Notify provider to assess for uncontrolled pain or analgesic side effects. Hold while on IV EDITOR IN CHIEF or with regular IV opioid dosing. $Given 06/10/2023 2:08 PM ASPHALT SMOOTHER 10 mg oxyCODONE (ROXICODONE) tablet 5 mg 5 mg, Oral, EVERY 4 HOURS PRN, moderate pain, Starting on Fri06/10/23 at 1305, Hold oral PRN dose for analgesic side effects. Notify provider to assess for uncontrolled pain or analgesic side effects. Hold while on IV EDITOR IN CHIEF or with regular IV opioid dosing. $Given 06/11/2023 11:50 AM ASPHALT SMOOTHER 5 mg $Given 06/11/2023 6:50 AM ASPHALT SMOOTHER 5 mg $Given 06/11/2023 2:14 AM ASPHALT SMOOTHER 5 mg prochlorperazine (COMPAZINE) injection 5 mg 5 mg, Intravenous, EVERY 6 HOURS PRN, nausea, vomiting, Administer over 1-2 Minutes, Starting on Fri06/10/23 at 1305, This is Step 2 of nausea and vomiting management. If nausea not resolved in 15-30 minutes, Notify provider. prochlorperazine (COMPAZINE) tablet 5 mg 5 mg, Oral, EVERY 6 HOURS PRN, nausea, vomiting, Starting on Fri06/10/23 at 1305, This is Step 2 of nausea and vomiting management. If nausea not resolved in 15-30 minutes, Notify provider. ROPivacaine (NAROPIN) 5 MG/ML 300 mg, ketorolac (TORADOL) 15 mg, EPINEPHrine (ADRENALIN) 0.6 mg in sodium chloride 0.9 % 100 mL (ORTHO SONA CUSTOM DOSE) INTRA-ARTICULAR, CITY COMPTROLLER TO O.R., Starting on Fri06/10/23 at 0700, For 1 dose, NOT FOR IV INJECTION. Used by provider at the end of surgery. Reason for custom entry: renal labs, Pre-procedure $Given 06/10/2023 10:42 AM ASPHALT SMOOTHER Operative Site/Surgi marely Site simvastatin (ZOCOR) tablet 40 mg 40 mg, Oral, EVERY MORNING, First dose on Fri06/11/23 at 0730 $Given 06/11/2023 6:32 AM ASPHALT SMOOTHER 40 mg sodium chloride (PF) 0.9% PF flush 3 mL 3 mL, Intracatheter, EVERY 8 HOURS, First dose on Fri06/10/23 at 1330, to lock peripheral IV dormant line $Given 06/11/2023 5:03 AM [facility] 3 mLs sodium chloride 0.9% irrigation (bag) PRN, Starting on Fri06/10/23 at 1042, Intra-procedure $Given 06/10/2023 10:42 AM [facility] 1,000 mLs Operative Site/Surgi marely Site tranexamic acid (LYSTEDA) tablet 1,950 mg 1,950 mg, Oral, ONCE, On Fri06/10/23 at 0700, For 1 dose, Administer with a sip of water in PRE OP area 90 minutes PRIOR to leaving Pre-op area., Pre-procedure $Given 06/10/2023 7:07 AM [facility] 1,950 mg venlafaxine (EFFEXOR XR) 24 hr capsule 225 mg 225 mg, Oral, DAILY, First dose on Fri06/11/23 at 0900, DO NOT CRUSH. $Given 06/11/2023 8:37 AM [facility] 225 mg documented in this encounter Active and Recently Administered Medications Times are shown in [facility]. Scheduled Medication Order 06/09/2023 06/10/2023 06/11/2023 acetaminophen (TYLENOL) tablet 975 mg 975 mg, Oral, EVERY 8 HOURS, First dose on Fri06/10/23 at 1400, For 3 days, Administer for multimodal surgical pain management. Maximum acetaminophen dose from all sources = 75 mg/kg/day not to exceed 4 grams/day. 1408 ($Given - Provider: Jackelyn Tirado RN)2117 ($Given - Provider: Pancho Ordoñez RN) 0504 ($Given - Provider: Lety Russo, DOMENICO)1400 (Canceled Entry - Provider: Orders Generic Provider - Comment: Automatically canceled at discontinue of medication order) amLODIPine (NORVASC) tablet 5 mg 5 mg, Oral, DAILY, First dose on Fri06/11/23 at 0900 1148 (Not Given - Provider: Minerva Lewis RN - Reason: Contraindicated) aspirin EC tablet 81 mg 81 mg, Oral, 2 TIMES DAILY, First dose on Fri06/10/23 at 2100, Indications: VTE Prophylaxis, DO NOT CRUSH. 2117 ($Given - Provider: Pancho Ordoñez RN) 0833 ($Given - Provider: Minerva Lewis RN) busPIRone (BUSPAR) tablet 10 mg 10 mg, Oral, 2 TIMES DAILY, First dose on Fri06/10/23 at 2100 2117 ($Given - Provider: Pancho Ordoñez RN) 0829 ($Given - Provider: Minerva Lewis RN) ceFAZolin (ANCEF) 2 g in 100 mL D5W intermittent infusion (COMPLETED) Routine, 2 g, Intravenous, EVERY 8 HOURS, First dose on Fri06/10/23 at 1800, For 2 doses, First post-op dose due 8 hours after intra-op dose, see eMAR. , Indications: Perioperative Pharmacoprophylaxis 1814 ($New Bag - Provider: Jackelyn Tirado RN) 0215 ($New Bag - Provider: Lety Russo RN) ceFAZolin Sodium (ANCEF) injection 2 g (COMPLETED) Routine, 2 g, Intravenous, PRE-OP/PRE-PROCEDURE, Starting on Fri06/10/23 at 0639, For 1 dose, Give first dose within 1 hour PRIOR to incision. If patient weight is greater than or equal to 120 kg increase dose to 3 g., Indications: Perioperative Pharmacoprophylaxis, Pre-procedure 922 ($Given - Provider: Madison Nesbitt APRN CLINICAL PROGRAMMER) celecoxib (celeBREX) capsule 100 mg 100 mg, Oral, 2 TIMES DAILY, First dose on Fri06/10/23 at 2100, For 4 doses, IF celecoxib (CELEBREX) was given pre-operatively, start celecoxib (CELEBREX) 12 hours after given 2116 ($Given - Provider: Pancho Ordoñez RN) 0838 ($Given - Provider: Minerva Lewis RN) celecoxib (celeBREX) capsule 200 mg (COMPLETED) 200 mg, Oral, ONCE, On Fri06/10/23 at 0700, For 1 dose, Pre-procedure 706 ($Given - Provider: Lilliam Barbour RN) chlorthalidone (HYGROTON) tablet 50 mg 50 mg, Oral, DAILY, First dose on Fri06/11/23 at 0900 1148 (Not Given - Provider: Minerva Lewis RN - Reason: Contraindicated) gabapentin (NEURONTIN) capsule 300 mg 300 mg, Oral, AT BEDTIME, First dose on Fri06/10/23 at 2100, For post-operative pain 2116 ($Given - Provider: Pancho Ordoñez RN) losartan (COZAAR) tablet 50 mg 50 mg, Oral, 2 TIMES DAILY, First dose on Fri06/11/23 at 0900 1149 (Not Given - Provider: Minerva Lewis RN - Reason: Contraindicated) metFORMIN (GLUCOPHAGE) tablet 1,000 mg 1,000 mg, Oral, 2 TIMES DAILY WITH MEALS, First dose on Fri06/11/23 at 0800, If the patient receives intravenous, iodinated contrast and patient GFR is greater than 60 mL/min/1.7m2, continue metformin. Contact provider for 'hold' or 'no hold' instructions if no GFR or if GFR is less than 60 mL/min/1.7m2. 0832 ($Given - Provider: Minerva Lewis RN) polyethylene glycol (MIRALAX) Packet 17 g 17 g, Oral, DAILY, First dose on Fri06/11/23 at 0900, To prevent constipation. Mixed prescribed dose in 8 ounces of water, juice or soda. Administer daily starting at 0900 on POD 1. Hold for loose stools. 1 Packet = 17 grams. Mix each gram with at least 1/2 ounce (15 mL) of water - 8 ounces for 17 g dose, 4 ounces for 8.5 g dose, 2 ounces for 4 g dose. Follow with the same volume of water. Hold for loose stools unless being administered as part of a bowel prep regimen or bowel clean out. 828 (Not Given - Provider: Minerva Lewis RN - Reason: Patient/family refused - Comment: loose stools) ROPivacaine (NAROPIN) 5 MG/ML 300 mg, ketorolac (TORADOL) 15 mg, EPINEPHrine (ADRENALIN) 0.6 mg in sodium chloride 0.9 % 100 mL (ORTHO SONA CUSTOM DOSE) (COMPLETED) INTRA-ARTICULAR, CITY COMPTROLLER TO O.R., Starting on Fri06/10/23 at 0700, For 1 dose, NOT FOR IV INJECTION. Used by provider at the end of surgery. Reason for custom entry: renal labs, Pre-procedure 0700 (Due)1042 ($Given - Provider: Jenaro Cosby MD) senna-docusate (SENOKOT-S/PERICOLACE) 8.6-50 MG per tablet 1 tablet 1 tablet, Oral, 2 TIMES DAILY, First dose on Fri06/10/23 at 2100, To prevent constipation. Hold for loose stools Hold for loose stools. 2116 (Not Given - Provider: Pancho Ordoñez RN - Reason: Patient/family refused) 828 (Not Given - Provider: Minerva Lewis RN - Reason: Patient/family refused - Comment: loose stools) simvastatin (ZOCOR) tablet 40 mg 40 mg, Oral, EVERY MORNING, First dose on Fri06/11/23 at 0730 0632 ($Given - Provider: Lety Russo RN) sodium chloride (PF) 0.9% PF flush 3 mL 3 mL, Intracatheter, EVERY 8 HOURS, First dose on Fri06/10/23 at 1330, to lock peripheral IV dormant line 1414 (Not Given - Provider: Jackelyn Tirado RN - Reason: IV Infusing)2118 (Not Given - Provider: Pancho Ordoñez RN - Reason: IV Infusing) 0503 ($Given - Provider: Lety Russo RN)1330 (Canceled Entry - Provider: Ciera Generic Provider - Comment: Automatically canceled at discontinue of medication order) spironolactone (ALDACTONE) tablet 50 mg 50 mg, Oral, EVERY EVENING, First dose on Fri06/11/23 at 1800 tranexamic acid (LYSTEDA) tablet 1,950 mg (COMPLETED) 1,950 mg, Oral, ONCE, On Fri06/10/23 at 0700, For 1 dose, Administer with a sip of water in PRE OP area 90 minutes PRIOR to leaving Pre-op area., Pre-procedure 0707 ($Given - Provider: Lilliam Barbour RN) venlafaxine (EFFEXOR XR) 24 hr capsule 225 mg 225 mg, Oral, DAILY, First dose on Fri06/11/23 at 0900, DO NOT CRUSH. 0837 ($Given - Provider: Minerva Lewis RN) Continuous Medication Order 06/09/2023 06/10/2023 06/11/2023 lactated ringers infusion (CANCELED) at 100 mL/hr, Intravenous, CONTINUOUS, Pre-procedure, Starting on Fri06/10/23 at 0700, Until Fri06/10/23 at 1119 0723 ($New Bag - Provider: Lilliam Barbour RN)0911 (Paused - Provider: Madison Nesbitt APRN CLINICAL PROGRAMMER - Comment: Switch to gravity)0912 (Restarted - Provider: Madison Nesbitt APRN CRNA)1014 ($New Bag - Provider: Madison Nesbitt APRN CRNA) lactated ringers infusion (CANCELED) at 100 mL/hr, Intravenous, CONTINUOUS, Continue until IV catheter is weaned, PACU, Starting on Fri06/10/23 at 1130, Until Fri06/10/23 at 1256 1120 (Rate/Dose Verify - Provider: Melanie Lombardo RN) lactated ringers infusion at 100 mL/hr, Intravenous, CONTINUOUS, IF overnight stay, continue IV fluids until 0400 POD #1, then may saline lock if tolerating oral fluids. IF Day of Surgery Discharge, continue IV Fluids until one hour before discharge., Starting on Fri06/10/23 at 1330, Until Fri06/11/23 at 1444 1415 ($New Bag - Provider: Jackelyn Tirado, RN)1641 (Rate/Dose Verify - Provider: Jackelyn Tirado RN) 0215 ($New Bag - Provider: Lety Russo RN) PRN Medication Order 06/09/2023 06/10/2023 06/11/2023 acetaminophen (TYLENOL) tablet 650 mg 650 mg, Oral, EVERY 4 HOURS PRN, other, For optimal non-opioid multimodal pain management to improve pain control., Starting on Fri06/13/23 at 0000, May give first dose 4 hours after last scheduled dose of acetaminophen (TYLENOL). Maximum acetaminophen dose from all sources = 75 mg/kg/day not to exceed 4 grams/day. benzocaine-menthol (CEPACOL) 15-3.6 MG lozenge 1 lozenge 1 lozenge, Buccal, EVERY 1 HOUR PRN, sore throat, sore throat without fever, Starting on Fri06/10/23 at 1305 bisacodyl (DULCOLAX) suppository 10 mg 10 mg, Rectal, DAILY PRN, constipation, Use if Magnesium hydroxide (MILK of MAGNESIA) not effective after 24 hours. May discontinue if patient having bowel movement., Starting on Fri06/10/23 at 1305, Hold for loose stools. calcium carbonate (TUMS) chewable tablet 500 mg 500 mg, Oral, 4 TIMES DAILY PRN, heartburn, Starting on Fri06/10/23 at 1305 ceFAZolin (ANCEF) 1g in 1000 mL NS irrigation bottle (CANCELED) PRN, Starting on Fri06/10/23 at 1042, Intra-procedure 1042 ($Given - Provider: Jenaro Cosby MD - Comment: 1 gram topical - not irrigation) fentaNYL (PF) (SUBLIMAZE) injection 25 mcg (CANCELED) 25 mcg, Intravenous, EVERY 5 MIN PRN, moderate pain, Give fentaNYL (SUBLIMAZE) first if HYDROmorphone (DILAUDID) also ordered., Starting on Fri06/10/23 at 1129, Administer fentaNYL (SUBLIMAZE) for acute pain control. Move to HYDROmorphone (DILAUDID): -IF patient has received up to 200 mcg of fentaNYL (SUBLIMAZE) OR - IF patient has received 2 doses of fentaNYL (SUBLIMAZE) AND continues to have pain score greater than or equal to six (6) or is unable to participate in post op recovery due to pain. Wait 5 minutes AFTER last fentaNYL (SUBLIMAZE) dose before administering HYDROmorphone (DILADUDID). Postop Anesthesia Phase I only. Notify Provider to assess for uncontrolled pain or analgesic side effects. DO NOT revert back to fentanyl (SUBLIMAZE) after moving to HYDROmorphone (DILAUDID)., PACU 1131 ($Given - Provider: Melanie Lombardo RN)1136 ($Given - Provider: Melanie Lombardo RN)1144 ($Given - Provider: Melanie Lombardo RN)1156 ($Given - Provider: Melanie Lombardo RN)1216 ($Given - Provider: Melanie Lombardo RN) HYDROmorphone (DILAUDID) injection 0.2 mg(Linked Group 1) 0.2 mg, Intravenous, EVERY 2 HOURS PRN, moderate pain, Starting on Fri06/10/23 at 1305, IF patient unable to take oral pain medication or pain not controlled with oral analgesics. Hold IV PRN opioid dose for analgesic side effects. Notify provider to assess for uncontrolled pain or analgesic side effects. HYDROmorphone (DILAUDID) injection 0.4 mg(Linked Group 1) 0.4 mg, Intravenous, EVERY 2 HOURS PRN, severe pain, Starting on Fri06/10/23 at 1305, IF patient unable to take oral pain medication or pain not controlled with oral analgesics. Hold IV PRN opioid dose for analgesic side effects. Notify provider to assess for uncontrolled pain or analgesic side effects. hydrOXYzine HCl (ATARAX) tablet 10 mg (CANCELED) 10 mg, Oral, EVERY 6 HOURS PRN, other, anxiety, itching, adjuvant pain; sleep aid, Starting on Fri06/10/23 at 1305 0214 ($Given - Provider: Lety Russo RN) lidocaine (LMX4) cream Topical, EVERY 1 HOUR PRN, pain, with VAD insertion, Starting on Fri06/10/23 at 1305, Apply at least 30 minutes prior to VAD insertion in divided doses as needed for size of site for insertion. MAX Dose: 2.5 g (?? of 5 g tube) Do NOT give if patient has a history of allergy to any local anesthetic or any vinod product. Do NOT use both lidocaine intradermal/subcutaneous injection and the lidocaine cream on the same site. lidocaine 1 % 0.1-1 mL 0.1-1 mL, Other, EVERY 1 HOUR PRN, mild pain with VAD insertion, Starting on Fri06/10/23 at 1305, MAX dose 1 mL subcutaneous OR intradermal along the side of the vein in divided doses as needed for VAD insertion. Do NOT give if patient has a history of allergy to any local anesthetic or any vinod product. Do NOT use both lidocaine intradermal/subcutaneous injection and the lidocaine cream on the same site. magnesium hydroxide (MILK OF MAGNESIA) suspension 30 mL 30 mL, Oral, DAILY PRN, constipation, Use if preventive measures (senna-docusate, docusate, and polyethylene glycol) are not effective., Starting on Fri06/10/23 at 1305, Shake well. Hold for loose stools. naloxone (NARCAN) injection 0.2 mg(Linked Group 2) 0.2 mg, Intravenous, EVERY 2 MIN PRN, opioid reversal, Starting on Fri06/10/23 at 1308, Administer intravenous route when available and notify provider when administered. For unintended sedation or respiratory depression if all of the below criteria are met: ~ respiratory rate LESS than or EQUAL to 8. ~SaO2 less than 92% and or/end-tidal CO2 is greater than 50. ~ the patient is receiving an opioid, has unintended sedations assessed as RASS (-3), and is currently not on mechanical ventilation. RASS scale moderate (-3) is movement or eye opening to voice but no eye contact. Patient Monitoring Once the patient has demonstrated a response to the naloxone, continue to monitor respiratory rate, depth, oxygen saturation and end-tidal CO2 (if available) every 15 minutes x 2, then every 30 minutes x 2, then every 1 hour x 1 after each naloxone dose. Consider transfer to ICU if patient respiratory parameters have not improved after 4 naloxone doses. naloxone (NARCAN) injection 0.2 mg(Linked Group 2) 0.2 mg, Intramuscular, EVERY 2 MIN PRN, opioid reversal, Starting on Fri06/10/23 at 1308, Administer intramuscular if an intravenous route is not available and notify provider when administered. For unintended sedation or respiratory depression if all of the below criteria are met: ~ respiratory rate LESS than or EQUAL to 8. ~SaO2 less than 92% and or/end-tidal CO2 is greater than 50. ~ the patient is receiving an opioid, has unintended sedations assessed as RASS (-3), and is currently not on mechanical ventilation. RASS scale moderate (-3) is movement or eye opening to voice but no eye contact. Patient Monitoring Once the patient has demonstrated a response to the naloxone, continue to monitor respiratory rate, depth, oxygen saturation and end-tidal CO2 (if available) every 15 minutes x 2, then every 30 minutes x 2, then every 1 hour x 1 after each naloxone dose. Consider transfer to ICU if patient respiratory parameters have not improved after 4 naloxone doses. naloxone (NARCAN) injection 0.4 mg(Linked Group 2) 0.4 mg, Intravenous, EVERY 2 MIN PRN, opioid reversal, Starting on Fri06/10/23 at 1308, Administer intravenous route when available and notify provider when administered. For unintended sedation or respiratory depression if all of the below criteria are met: ~ respiratory rate LESS than or EQUAL to 8. ~ SaO2 less than 92% and or/end-tidal CO2 is greater than 50. ~ the patient is receiving an opioid, has unintended sedation assessed as RASS (-4) or (-5) and patient is currently not on mechanical ventilation. RASS scale (-4) is deep sedation with no response to voice but movement or eye opening to physical stimulation. RASS scale (-5) is unarousable. Patient Monitoring Once the patient has demonstrated a response to the naloxone, continue to monitor respiratory rate, depth, oxygen saturation and end-tidal CO2 (if available) every 15 minutes x 2, then every 30 minutes x 2, then every 1 hour x 1 after each naloxone dose. Consider transfer to ICU if patient respiratory parameters have not improved after 4 naloxone doses. naloxone (NARCAN) injection 0.4 mg(Linked Group 2) 0.4 mg, Intramuscular, EVERY 2 MIN PRN, opioid reversal, Starting on Fri06/10/23 at 1308, Administer intramuscular if an intravenous route is not available and notify provider when administered. For unintended sedation or respiratory depression if all of the below criteria are met: ~ respiratory rate LESS than or EQUAL to 8. ~ SaO2 less than 92% and or/end-tidal CO2 is greater than 50. ~ the patient is receiving an opioid, has unintended sedation assessed as RASS (-4) or (-5) and patient is currently not on mechanical ventilation. RASS scale (-4) is deep sedation with no response to voice but movement or eye opening to physical stimulation. RASS scale (-5) is unarousable. Patient Monitoring Once the patient has demonstrated a response to the naloxone, continue to monitor respiratory rate, depth, oxygen saturation and end-tidal CO2 (if available) every 15 minutes x 2, then every 30 minutes x 2, then every 1 hour x 1 after each naloxone dose. Consider transfer to ICU if patient respiratory parameters have not improved after 4 naloxone doses. ondansetron (ZOFRAN ODT) ODT tab 4 mg(Linked Group 3) 4 mg, Oral, EVERY 6 HOURS PRN, nausea, vomiting, Starting on Fri06/10/23 at 1305, This is Step 1 of nausea and vomiting management. If nausea not resolved in 15 minutes, go to Step 2 prochlorperazine (COMPAZINE). Do not push through foil backing. Peel back foil and gently remove. Place on tongue immediately. Administration with liquid unnecessary With dry hands, peel back foil backing and gently remove tablet. Do not push oral disintegrating tablet through foil backing. Administer immediately on tongue and oral disintegrating tablet dissolves in seconds, then swallow with saliva. Liquid not required. ondansetron (ZOFRAN) injection 4 mg(Linked Group 3) 4 mg, Intravenous, EVERY 6 HOURS PRN, nausea, vomiting, Administer over 2-5 Minutes, Starting on Fri06/10/23 at 1305, This is Step 1 of nausea and vomiting management. If nausea not resolved in 15 minutes, go to Step 2 prochlorperazine (COMPAZINE). Irritant. oxyCODONE (ROXICODONE) tablet 10 mg(Linked Group 4) 10 mg, Oral, EVERY 4 HOURS PRN, severe pain, Starting on Fri06/10/23 at 1305, Hold oral PRN dose for analgesic side effects. Notify provider to assess for uncontrolled pain or analgesic side effects. Hold while on IV EDITOR IN CHIEF or with regular IV opioid dosing. 1408 ($Given - Provider: Jackelyn Tirado RN)1841 (See Alternative - Provider: Jackelyn Tirado RN) 0214 (See Alternative - Provider: Lety Russo RN)0650 (See Alternative - Provider: Lety Russo, DOMENICO)1150 (See Alternative - Provider: Minerva Lewis RN) oxyCODONE (ROXICODONE) tablet 5 mg(Linked Group 4) 5 mg, Oral, EVERY 4 HOURS PRN, moderate pain, Starting on Fri06/10/23 at 1305, Hold oral PRN dose for analgesic side effects. Notify provider to assess for uncontrolled pain or analgesic side effects. Hold while on IV EDITOR IN CHIEF or with regular IV opioid dosing. 1408 (See Alternative - Provider: Jackelyn Tirado RN)1841 ($Given - Provider: Jackelyn Tirado RN) 0214 ($Given - Provider: Lety Russo RN)0650 ($Given - Provider: Lety Russo RN)1150 ($Given - Provider: Minerva Lewis RN) prochlorperazine (COMPAZINE) injection 5 mg(Linked Group 5) 5 mg, Intravenous, EVERY 6 HOURS PRN, nausea, vomiting, Administer over 1-2 Minutes, Starting on Fri06/10/23 at 1305, This is Step 2 of nausea and vomiting management. If nausea not resolved in 15-30 minutes, Notify provider. prochlorperazine (COMPAZINE) tablet 5 mg(Linked Group 5) 5 mg, Oral, EVERY 6 HOURS PRN, nausea, vomiting, Starting on Fri06/10/23 at 1305, This is Step 2 of nausea and vomiting management. If nausea not resolved in 15-30 minutes, Notify provider. sodium chloride (PF) 0.9% PF flush 3 mL 3 mL, Intracatheter, EVERY 1 MIN PRN, line flush, other, to ensure patency or to lock dormant line, Starting on Fri06/10/23 at 1305 sodium chloride 0.9% irrigation (bag) (CANCELED) PRN, Starting on Fri06/10/23 at 1042, Intra-procedure 1042 ($Given - Provider: Jenaro Cosby MD) Linked Groups Order Group 1: HYDROmorphone (DILAUDID) injection 0.2 mgJump to med 0.2 mg, Intravenous, EVERY 2 HOURS PRN, moderate pain, Starting on Fri06/10/23 at 1305, IF patient unable to take oral pain medication or pain not controlled with oral analgesics. Hold IV PRN opioid dose for analgesic side effects. Notify provider to assess for uncontrolled pain or analgesic side effects. Or HYDROmorphone (DILAUDID) injection 0.4 mgJump to med 0.4 mg, Intravenous, EVERY 2 HOURS PRN, severe pain, Starting on Fri06/10/23 at 1305, IF patient unable to take oral pain medication or pain not controlled with oral analgesics. Hold IV PRN opioid dose for analgesic side effects. Notify provider to assess for uncontrolled pain or analgesic side effects. Group 2: naloxone (NARCAN) injection 0.2 mgJump to med 0.2 mg, Intravenous, EVERY 2 MIN PRN, opioid reversal, Starting on Fri06/10/23 at 1308, Administer intravenous route when available and notify provider when administered. For unintended sedation or respiratory depression if all of the below criteria are met: ~ respiratory rate LESS than or EQUAL to 8. ~SaO2 less than 92% and or/end-tidal CO2 is greater than 50. ~ the patient is receiving an opioid, has unintended sedations assessed as RASS (-3), and is currently not on mechanical ventilation. RASS scale moderate (-3) is movement or eye opening to voice but no eye contact. Patient Monitoring Once the patient has demonstrated a response to the naloxone, continue to monitor respiratory rate, depth, oxygen saturation and end-tidal CO2 (if available) every 15 minutes x 2, then every 30 minutes x 2, then every 1 hour x 1 after each naloxone dose. Consider transfer to ICU if patient respiratory parameters have not improved after 4 naloxone doses. Or naloxone (NARCAN) injection 0.4 mgJump to med 0.4 mg, Intravenous, EVERY 2 MIN PRN, opioid reversal, Starting on Fri06/10/23 at 1308, Administer intravenous route when available and notify provider when administered. For unintended sedation or respiratory depression if all of the below criteria are met: ~ respiratory rate LESS than or EQUAL to 8. ~ SaO2 less than 92% and or/end-tidal CO2 is greater than 50. ~ the patient is receiving an opioid, has unintended sedation assessed as RASS (-4) or (-5) and patient is currently not on mechanical ventilation. RASS scale (-4) is deep sedation with no response to voice but movement or eye opening to physical stimulation. RASS scale (-5) is unarousable. Patient Monitoring Once the patient has demonstrated a response to the naloxone, continue to monitor respiratory rate, depth, oxygen saturation and end-tidal CO2 (if available) every 15 minutes x 2, then every 30 minutes x 2, then every 1 hour x 1 after each naloxone dose. Consider transfer to ICU if patient respiratory parameters have not improved after 4 naloxone doses. Or naloxone (NARCAN) injection 0.2 mgJump to med 0.2 mg, Intramuscular, EVERY 2 MIN PRN, opioid reversal, Starting on Fri06/10/23 at 1308, Administer intramuscular if an intravenous route is not available and notify provider when administered. For unintended sedation or respiratory depression if all of the below criteria are met: ~ respiratory rate LESS than or EQUAL to 8. ~SaO2 less than 92% and or/end-tidal CO2 is greater than 50. ~ the patient is receiving an opioid, has unintended sedations assessed as RASS (-3), and is currently not on mechanical ventilation. RASS scale moderate (-3) is movement or eye opening to voice but no eye contact. Patient Monitoring Once the patient has demonstrated a response to the naloxone, continue to monitor respiratory rate, depth, oxygen saturation and end-tidal CO2 (if available) every 15 minutes x 2, then every 30 minutes x 2, then every 1 hour x 1 after each naloxone dose. Consider transfer to ICU if patient respiratory parameters have not improved after 4 naloxone doses. Or naloxone (NARCAN) injection 0.4 mgJump to med 0.4 mg, Intramuscular, EVERY 2 MIN PRN, opioid reversal, Starting on Fri06/10/23 at 1308, Administer intramuscular if an intravenous route is not available and notify provider when administered. For unintended sedation or respiratory depression if all of the below criteria are met: ~ respiratory rate LESS than or EQUAL to 8. ~ SaO2 less than 92% and or/end-tidal CO2 is greater than 50. ~ the patient is receiving an opioid, has unintended sedation assessed as RASS (-4) or (-5) and patient is currently not on mechanical ventilation. RASS scale (-4) is deep sedation with no response to voice but movement or eye opening to physical stimulation. RASS scale (-5) is unarousable. Patient Monitoring Once the patient has demonstrated a response to the naloxone, continue to monitor respiratory rate, depth, oxygen saturation and end-tidal CO2 (if available) every 15 minutes x 2, then every 30 minutes x 2, then every 1 hour x 1 after each naloxone dose. Consider transfer to ICU if patient respiratory parameters have not improved after 4 naloxone doses. Group 3: ondansetron (ZOFRAN ODT) ODT tab 4 mgJump to med 4 mg, Oral, EVERY 6 HOURS PRN, nausea, vomiting, Starting on Fri06/10/23 at 1305, This is Step 1 of nausea and vomiting management. If nausea not resolved in 15 minutes, go to Step 2 prochlorperazine (COMPAZINE). Do not push through foil backing. Peel back foil and gently remove. Place on tongue immediately. Administration with liquid unnecessary With dry hands, peel back foil backing and gently remove tablet. Do not push oral disintegrating tablet through foil backing. Administer immediately on tongue and oral disintegrating tablet dissolves in seconds, then swallow with saliva. Liquid not required. Or ondansetron (ZOFRAN) injection 4 mgJump to med 4 mg, Intravenous, EVERY 6 HOURS PRN, nausea, vomiting, Administer over 2-5 Minutes, Starting on Fri06/10/23 at 1305, This is Step 1 of nausea and vomiting management. If nausea not resolved in 15 minutes, go to Step 2 prochlorperazine (COMPAZINE). Irritant. Group 4: oxyCODONE (ROXICODONE) tablet 5 mgJump to med 5 mg, Oral, EVERY 4 HOURS PRN, moderate pain, Starting on Fri06/10/23 at 1305, Hold oral PRN dose for analgesic side effects. Notify provider to assess for uncontrolled pain or analgesic side effects. Hold while on IV EDITOR IN CHIEF or with regular IV opioid dosing. Or oxyCODONE (ROXICODONE) tablet 10 mgJump to med 10 mg, Oral, EVERY 4 HOURS PRN, severe pain, Starting on Fri06/10/23 at 1305, Hold oral PRN dose for analgesic side effects. Notify provider to assess for uncontrolled pain or analgesic side effects. Hold while on IV EDITOR IN CHIEF or with regular IV opioid dosing. Group 5: prochlorperazine (COMPAZINE) injection 5 mgJump to med 5 mg, Intravenous, EVERY 6 HOURS PRN, nausea, vomiting, Administer over 1-2 Minutes, Starting on 06/10/23 at 1305, This is Step 2 of nausea and vomiting management. If nausea not resolved in 15-30 minutes, Notify provider. Or prochlorperazine (COMPAZINE) tablet 5 mgJump to med 5 mg, Oral, EVERY 6 HOURS PRN, nausea, vomiting, Starting on 06/10/23 at 1305, This is Step 2 of nausea and vomiting management. If nausea not resolved in 15- 30 minutes, Notify provider. documented in this encounter Additional Health Concerns Problem Noted Date Diagnosed Date MyC ECC SURG ENROLL 05/23/2023 documented as of this encounter Care Teams Entry Level Accountant Relationship Specialty Start Date End Date Kelly Sommer PCP - General Physician Commercial Service Technician 08/17/18 Helen Mancini MD [address] [place] [address] [address] [place] [address] Gynecologic Oncology 08/21/18 My Carlisle APRN CNP [address] [facility] [address] [place] [address] Assigned Cancer Care Provider 06/24/21 documented as of this encounter
--- OUTSIDE RECORDS SUMMARY | 2023-06-25 10:13 | XMS_ITS | Referral Summary ---
Author Name Unknown Organization [place] Address [address] [place] [address] Care Team Providers Care Manager Resource Name Role Phone SommerKelly juárez Karmen Primary Care Provider [phone] Helen Mancini MD Unavailable My Carlisle APRN FIRE CODE INSPECTOR Unavailable + Encounters Date Type Department Care Team Description 06/23/2023 Travel 06/23/2023 7:04 PM QUALITY AUDIT REPRESENTATIVE - 06/23/2023 8:41 PM QUALITY AUDIT REPRESENTATIVE Emergency [facility] Emergency Room [address] [place] [phone] Uday Fay DO Chest wall pain Discharge Disposition: Home or Self Care 06/10/2023 6:36 AM QUALITY AUDIT REPRESENTATIVE - 06/11/2023 12:43 PM QUALITY AUDIT REPRESENTATIVE Hospital Encounter [facility] [address] [place] [address] Jenaro Cosby MD Status post total replacement of left hip (Primary Dx) Discharge Disposition: Home or Self Care 06/10/2023 Travel 06/10/2023 8:40 AM QUALITY AUDIT REPRESENTATIVE - 06/10/2023 11:20 AM QUALITY AUDIT REPRESENTATIVE Surgery [facility] [address] [place] [phone] Jenaro Cosby MD LEFT POSTERIOR TOTAL HIP ARTHROPLASTY 06/10/2023 9:12 AM QUALITY AUDIT REPRESENTATIVE Anesthesia Event [facility] [address] [place] [address] Cipriano Jeronimo MD Kent, Jay E, MD from Last 3 Months Allergies Active Allergy Reactions Criticality Noted Date [...] Overview: Added automatically from request for surgery [id number] Hypertension Diabetes mellitus Immunizations Name Administration Dates Next Due Flu, Unspecified 01/24/2019, 8,05/06/2016,2012,01/29/2012 TDAP (Adacel,Boostrix) 08/07/2010 Td,adult,historic,unspecified 07/16/2006 Zoster recombinant adjuvante d (SHINGRIX) 12/18/2018,10/08/2018 Social History Tobacco Use Types Packs/Day Years [...] Comments Blood Pressure 112/53 06/23/2023 7:10 PM QUALITY AUDIT REPRESENTATIVE Pulse 101 06/23/2023 8:15 PM QUALITY AUDIT REPRESENTATIVE Temperature 37.2 ??C (98.9 ??F) 06/23/2023 7:10 PM CS T Respiratory Rate 20 06/23/2023 7:10 PM QUALITY AUDIT REPRESENTATIVE Oxygen Saturation 94% 06/23/2023 8:15 PM QUALITY AUDIT REPRESENTATIVE Inhaled Oxygen Concentration - - Weight 115.7 kg (255 lb) 06/23/2023 7:10 PM QUALITY AUDIT REPRESENTATIVE Height 157.5 cm (5' 2) 06/10/2023 6:58 AM QUALITY AUDIT REPRESENTATIVE Body Mass Index 46.64 06/10/2023 6:58 AM QUALITY AUDIT REPRESENTATIVE Plan of Treatment Not on file Goals Goal Patient Goal Type Associated Problems Recent Progress Patient-Stated? Author MYC ECC SURG ENROLL Care Plan MyC ECC SURG ENROLL No Venus [place] Care pathway for general surgery Care Plan Care pathway for general surgery No Neda Markham MYC ECC SURG DAY 10 MED Care Plan Care pathway for general surgery No Neda Markham Medical Devices Implanted Type Area Entry Level Buyer Device Identifier Shelf Expiration Date Model / Serial / Lot Allograft Duragen Plus 1 X 1 [id number] Implanted:Qt y: 1 on 06/14/2019 Bone/Tissue Synthetic N/A: Spine Lumbar [employer] 01/09/2022 [id number] / / [id number] Imp Head Femoral Depuy Ceramic 36mm +1.5mm [id number] - [id number] Implanted:Qt y: 1 on 06/10/2023 by Jenaro Cosby MD at [facility] Total Joint Component/In sert Left: Hip [employer]- [id number] 02/09/2028 [id number] / / [id number] Procedures Procedure Name Priority Date/Time Associated Diagnosis Comments CT CHEST PULMONARY EMBOLISM W CONTRAST STAT 06/23/2023 7:57 PM QUALITY AUDIT REPRESENTATIVE HEMOGLOBIN Routine 06/11/2023 10:17 AM QUALITY AUDIT REPRESENTATIVE GLUCOSE BY METER Routine 06/11/2023 6:32 AM QUALITY AUDIT REPRESENTATIVE CBC WITH PLATELETS Routine 06/11/2023 6: 09 AM QUALITY AUDIT REPRESENTATIVE BASIC METABOLIC PANEL Routine 06/11/2023 6:09 AM QUALITY AUDIT REPRESENTATIVE XR PELVIS AND HIP PORTABLE LEFT 1 VIEW STAT 06/10/2023 11:49 AM QUALITY AUDIT REPRESENTATIVE GLUCOSE BY METER Routine 06/10/2023 11:4 5 AM QUALITY AUDIT REPRESENTATIVE XR HIP PORT LEFT 1 VIEW Routine 06/10/2023 10:32 AM QUALITY AUDIT REPRESENTATIVE ANE AIRWAY ETT PERFORMABLE Routine 06/10/2023 9:21 AM QUALITY AUDIT REPRESENTATIVE ARTHROPLASTY, HIP, TOTAL 06/10/2023 9:12 AM QUALITY AUDIT REPRESENTATIVE Osteoarthritis of hip Hip pain, left Case Notes WW DEPUY HIP SET 2 + KINCISE LOCORDELIA.Cordell S. [phone] Navid Patel [phone] ABO/RH TYPE AND SCREEN STAT 06/10/2023 7:27 AM QUALITY AUDIT REPRESENTATIVE TYPE AND SCREEN, ADULT STAT 06/10/2023 7:27 AM QUALITY AUDIT REPRESENTATIVE GLUCOSE BY METER Routine 06/10/2023 7:22 AM QUALITY AUDIT REPRESENTATIVE from Last 3 Months Results * CT Chest Pulmonary Embolism w Contrast (06/23/2023 7:57 PM QUALITY AUDIT REPRESENTATIVE) Anatomical Region Laterality Modality Chest, SUBRAD CT BODY, UMP CT CHEST Computed Tomography 06/23/2023 7:57 PM QUALITY AUDIT REPRESENTATIVE Impressions 06/23/2023 8:11 PM QUALITY AUDIT REPRESENTATIVE IMPRESSION: 1. ??No acute pulmonary embolism. 2. ??Hepatic steatosis. Narrative 06/23/2023 8:11 PM QUALITY AUDIT REPRESENTATIVE EXAM: CT CHEST PULMONARY EMBOLISM W CONTRAST LOCATION: [facility] DATE: 06/23/2023 INDICATION: chest pain COMPARISON: None. [...] CT CHEST PULMONARY EMBOLISM W CONTRAST LOCATION: [facility] DATE: 06/23/2023 INDICATION: chest pain COMPARISON: None. [...] S * (ABNORMAL) Hemoglobin (06/11/2023 10:17 AM QUALITY AUDIT REPRESENTATIVE) Hemoglobin 9.9(L) 11.7 - 15.7 g/dL 06/11/2023 10:25 AM [facility] Blood STRUCTURE OF RIGHT UPPER LIMB / Unknown Venipuncture / Unknown 06/11/2023 10:17 AM QUALITY AUDIT REPRESENTATIVE 06/11/2023 10:19 AM QUALITY AUDIT REPRESENTATIVE Carolyn Gardner PA-C LAB - BLOOD OR DERABLES Performing Organization Address City/[facility]/ZIP Co de Phone Number [facility] [address] [facility] [place], [place] [id number] [place] [address] * (ABNORMAL) Glucose by meter (06/11/2023 6:32 AM [facility]) Only the most recent of3 resultswithin the time period is included. [facility] GLUCOSE BY METER POCT 100(H) 70 - 99 mg/dL 06/11/2023 6:38 AM [facility] POCT RESULTS Blood, Capillary BLOOD SPECIMEN / Unknown 06/11/2023 6:32 AM QUALITY AUDIT REPRESENTATIVE 06/11/2023 6:38 AM [facility] Jenaro Cosby MD LAB - BEAKER POCT Performing Organization Address City/[facility]/ZIP Co de Phone Number [facility] POCT RESULTS [address] [place] [address] * (ABNORMAL) Basic metabolic panel (06/11/2023 6:09 AM QUALITY AUDIT REPRESENTATIVE) Sodium 136 135 - 145 mmol/L 06/11/2023 7:08 AM [facility] Comment:Reference intervals for this test were updated on 02/04/2023 to more accurately reflect our healthy population. There may be differences in the flagging of prior results with similar values performed with this method. Interpretation of those prior results can be made in the context of the updated reference intervals. Potassium 4.7 3.4 - 5.3 mmol/L 06/11/2023 7:08 AM [facility] Chloride 101 98 - 107 mmol/L 06/11/2023 7:08 AM [facility] Carbon Dioxide (CO2) 29 22 - 29 mmol/L 06/11/2023 7:08 AM [facility] Anion Gap 6(L) 7 - 15 mmol/L 06/11/2023 7:08 AM [facility] Urea Nitrogen 24.8(H) 8.0 - 23.0 mg/dL 06/11/2023 7:08 AM [facility] Creatinine 0.81 0.51 - 0.95 mg/dL 06/11/2023 7:08 AM [facility] GFR Estimate 80 >60 mL/min/1. 73m2 06/11/2023 7:08 AM [facility] Calcium 9.1 8.8 - 10.2 mg/dL 06/11/2023 7:08 AM [facility] Glucose 110(H) 70 - 99 mg/dL 06/11/2023 7:08 AM [facility] Blood STRUCTURE OF RIGHT UPPER LIMB / Unknown Venipuncture / Unknown 06/11/2023 6:09 AM QUALITY AUDIT REPRESENTATIVE 06/11/2023 6:40 AM [facility] Radha Quintana MD LAB - BLOOD ORDERABL ES [facility] [address] [facility] [place], [place] [address] [phone] * (ABNORMAL) CBC with platelets (06/11/2023 6:09 AM [facility]) WBC Count 13.2(H) 4.0 - 11.0 10e3/uL 06/11/2023 6:48 AM [facility] RBC Count 3.10(L) 3.80 - 5.20 10e6/uL 06/11/2023 6:48 AM [facility] Hemoglobin 9.4(L) 11.7 - 15.7 g/dL 06/11/2023 6:48 AM [facility] Hematocrit 29.1(L) 35.0 - 47.0 % 06/11/2023 6:48 AM [facility] MCV 94 78 - 100 fL 06/11/2023 6:48 AM [facility] MCH 30.3 26.5 - 33.0 pg 06/11/2023 6:48 AM [facility] MCHC 32.3 31.5 - 36.5 g/dL 06/11/2023 6:48 AM [facility] RDW 14.0 10.0 - 15.0 % 06/11/2023 6:48 AM [facility] Platelet Count 368 150 - 450 10e3/uL 06/11/2023 6:48 AM [facility] Blood STRUCTURE OF RIGHT UPPER LIMB / Unknown Venipuncture / Unknown 06/11/2023 6:09 AM QUALITY AUDIT REPRESENTATIVE 06/11/2023 6:40 AM QUALITY AUDIT REPRESENTATIVE Radha Quintana MD LAB - BLOOD ORDERABL ES [facility] [address] [facility] [address] [phone] * XR Pelvis w Hip Port Left 1 View (06/10/2023 11:49 AM QUALITY AUDIT REPRESENTATIVE) Anatomical Region Laterality Modality Abdomen/Pelvis Left Computed Radiogr aphy 06/10/2023 11:4 9 AM QUALITY AUDIT REPRESENTATIVE Impressions 06/10/2023 12:07 PM QUALITY AUDIT REPRESENTATIVE IMPRESSION: Postoperative changes related to recent placement of a left total hip arthroplasty. The components are in expected position without acute displaced periprosthetic fracture. Expected recent postop soft tissue and intra-articular gas about the left hip with soft tissue swelling. No displaced pelvic fracture. Degenerative change lower lumbar spine. Narrative 06/10/2023 12:07 PM QUALITY AUDIT REPRESENTATIVE EXAM: XR PELVIS AND HIP PORTABLE LEFT 1 VIEW LOCATION: [facility] DATE: 06/10/2023 INDICATION: Status post hip surgery. COMPARISON: None. Procedure Note Marlo Villela MD - 06/10/2023 EXAM: XR PELVIS AND HIP PORTABLE LEFT 1 VIEW LOCATION: [facility] DATE: 06/10/2023 INDICATION: Status post hip [...] Port Left 1 View (06/10/2023 10:32 AM QUALITY AUDIT REPRESENTATIVE) Anatomical Region Laterality Modality Hip, Left Hip Left Computed Radiogr aphy 06/10/2023 10:3 2 AM QUALITY AUDIT REPRESENTATIVE Impressions 06/10/2023 1:27 PM QUALITY AUDIT REPRESENTATIVE IMPRESSION: The intraprocedural spot film demonstrates placement of a left total hip arthroplasty. Please reference the surgical report for further details. Narrative 06/10/2023 1:27 PM QUALITY AUDIT REPRESENTATIVE EXAM: XR HIP PORT LEFT 1 VIEW LOCATION: [facility] DATE: 06/10/2023 INDICATION: left total hip arthroplasty COMPARISON: None Procedure Note Jameel Cardoso MD - 06/10/2023 EXAM: XR HIP PORT LEFT 1 VIEW LOCATION: [facility] DATE: 06/10/2023 INDICATION: left total hip arthroplasty COMPARISON: None IMPRESSION: The intraprocedural spot film demonstrates placement of a lefttotal hip arthroplasty. Please reference the surgical report for furtherdetails. Jenaro Cosby MD IMG DIAGNOSTIC IMAGI NG ORDERABLES * ANE AIRWAY ETT PERFORMABLE (06/10/2023 9:21 AM QUALITY AUDIT REPRESENTATIVE) Narrative Madison Nesbitt APRN CRNA - 06/10/2023 9:21 AM QUALITY AUDIT REPRESENTATIVE Madison Nesbitt APRN WHITING MACHINE OPERATOR ? 06/10/2023 ??9:47 AM Airway ? Patient location during procedure: OR ? Procedure Start/Stop Times: 06/10/2023 9:21 AM Staff - ? WHITING MACHINE OPERATOR: Madison Nesbitt APRN WHITING MACHINE OPERATOR ? Performed By: WHITING MACHINE OPERATOR Consent for Airway ? Urgency: elective Indications [...] Time: 06/10/2023 9:21 AM Cipriano Jeronimo MD [place] ANESTHESIA * Adult Type and Screen (06/10/2023 7:27 AM QUALITY AUDIT REPRESENTATIVE) ABO/RH(D) O POS 06/10/2023 6:40 AM [facility] Antibody Screen Negative Negative 06/10/2023 6:40 AM [facility] SPECIMEN EXPIRATION DATE [id number] 06/10/2023 6:40 AM [facility] Blood BLOOD SPECIMEN / Unknown Venipuncture / Unknown 06/10/2023 7:27 AM QUALITY AUDIT REPRESENTATIVE 06/10/2023 7:37 AM [facility] Rosario Whaley PA-C LAB - BLOOD BANK ROBERT T ORDER [facility] [address] [place] [address], [facility] from Last 3 Months Additional Health Concerns Problem Noted Date Diagnosed Date MyC ECC SURG ENROLL 05/23/2023 Care pathway for general surgery 05/28/2023 Advance Directives For more information, please contact: [phone] Latest Code Status on File Code Status Date Activated Date Inactivated Comments Full Code 06/10/2023 1:05 PM 06/11/2023 2:44 PM All b asic and advanced life-sustaining interventions are performed as appropriate Question Answer Comments Code status determined by: Unable to discuss and no AD/POLST on file; continue PREVIOUSLY ORDERED code status Care Teams Manager Resource Relationship Specialty Start Date End Date Kelly Sommer PCP - General Physician Sea Foam Kiss Maker 08/17/18 Helen Mancini MD [address] [facility] [address] [place] [address] Gynecologic Oncology 08/21/18 My Carlisle APRN FIRE CODE INSPECTOR [address] [facility] [address] [place] [address] Assigned Cancer Care Provider 06/24/21
--- OUTSIDE RECORDS SUMMARY | 2023-06-25 10:13 | XMS_ITS | Encounter Summary ---
Author Name Unknown Organization [place] Address [address] [place] [address] Care Team Providers Care Flanger Name Role Phone Kelly Sommer Primary Care Provider [phone] Helen Mancini MD Unavailable [phone] My Carlisle APRN RECONCILING CLERK Unavailable + Encounter Details Date Type Department Care Team (Latest Contact Info) Description 06/10/2023 Travel Social History Tobacco Use Types Packs/Day Years Used Date Smoking Tobacco: Never Smokeless Tobacco: Never Alcohol Use Standard Drinks/Week Comments Not Currently [...] AM CDT documented as of this encounter Plan of Treatment Not on [...] pathway for general surgery No Neda Markham documented as of this encounter Visit Diagnoses Not on filedocumented in this encounter Additional Health Concerns Problem Noted Date Diagnosed Date MyC ECC SURG ENROLL 05/23/2023 Care pathway for general surgery 05/28/2023 documented as of this encounter Care Teams Flanger Relationship Specialty Start Date End Date Kelly Sommer PCP - General Physician Ground Transportation Operator 08/17/18 Helen Mancini MD [address] [facility] [address] [place] [address] Gynecologic Oncology 08/21/18 My Carlisle APRN RECONCILING CLERK [address] [facility] [address] [place] [address] Assigned Cancer Care Provider 06/24/21 documented as of this encounter
--- OUTSIDE RECORDS SUMMARY | 2023-06-25 10:13 | XMS_ITS | Encounter Summary ---
Author Name Unknown Organization [place] Address [facility] [address] Care Team Providers Care Epic Trainer Name Role Phone Kelly Sommer Primary Care Provider [phone] Helen Mancini MD Unavailable [phone] My [place] APRN BRICK BURNER Unavailable + Reason for Visit * Auth/Cert (Routine) Specialty Diagnoses / Procedures Referred By Renzo martines Referred To Contact Surgery Diagnoses Osteoarthritis of hip Hip pain, left Osteoarthritis of hip [M16.9] Hip pain, left [M25.552] Procedures [place] TOTAL HIP ARTHROPLASTY LEFT POSTERIOR TOTAL HIP ARTHROPLASTY [facility] Periop Services [address] [place] [address] Referral ID Status Reason Start Date Expiration Date Visits Re quested Visits Authorized [id number] 1 1 Encounter Details Date Type Department Care Team (Late st Contact Info) Description 06/10/2023 9:12 AM NURSE WOUND CARE Anesthesia Event [facility] Services [address] [place] [address] Cipriano Jeronimo MD [facility] [address] [place], [place] [address] Kong Granados MD Anesthesia Record Procedure Summary Procedure Name Responsible Anesthesiologist Anesthesia Start Time Anesthesia Stop Time LEFT POSTERIOR TOTAL HIP ARTHROPLASTY (Left: Hip) Cipriano Jeronimo MD 06/10/23 0912 06/10/23 1124 Events Date Time Event Comment 06/10/2023 0738 0750 TUBE BUILDER Ready for Procedure 0912 An Start 0913 An Start Data 0913 AN REASSESS I attest that I have identified and re-evaluated the patient immediately before the induction of anesthesia and I am satisfied that the anesthetic plan is suitable for the patient's condition and procedure. The first vital signs recorded are pre- induction. Madison Nesbitt APRN TUBE BUILDER 0917 An Induction 0921 An Intubation 0921 Anesthesia Ready for Procedu re 0921 Present 0929 Present 1034 Present Remotely checke d in with supervisor sandblaster via telephone to decrease or traffic to decrease infection risk. 1116 AN Extubation All extubation criteria met prior to removal. 1118 an stop data 1124 An Stop Electronically signed by Joselin Nash APRN CRNA on June 10, 2023 11:24 AM Meds Name Total midazolam 1 mg/mL 2 mg fentaNYL 50 mcg/mL 100 mcg HYDROmorphone 1 mg/ml 2 mg lidocaine 1% 5 mL propofol 10 mg/mL 150 mg propofol drip mcg/kg/min 490.39 mg ketamine injection 10 mg/mL 50 mg rocuronium 10 mg/mL 100 mg dexamethasone (DECADRON) 4 mg/mL 4 mg ondansetron 2 mg/mL 4 mg sugammadex (BRIDION) 200mg/2mL 200 mg ceFAZolin Sodium (ANCEF) injection 2 g 2 g dexmedeTOMIDine (PRECEDEX) 4 mcg/mL bolu s 20 mcg lactated ringers infusion 1,000 mL * Agents Name NO HELIOX O2 N2O Air Exp Sevoflurane Exp Isoflurane Exp Desflurane Exp N2O O2 Delivery Device Ins Sevoflurane Ins Isoflurane Ins Desflurane O2 Auxiliary * Blood No blood administrations on file. Lines, Drains, and Airways Type Details Placement Removal Incision/Surgical Site 06/10/23; 1050; L eft; Hip; clean dry intact - dermabond, mepilex, abduction pillow 06/10/23 1050 by Janie Pineda, RN Peripheral IV 06/10/23; 0723; 20 G ; B Chew; Left, Posterior; Hand; Alcohol; 1 06/10/23 0723 by Lilliam Barbour RN 06/11/23 1156 by Minerva Lewis RN ETT Placement Date: 06/10/23; Placement Time: 920 (created via procedure documentation); Mask Ventilation: 1; Induction Type: Intravenous; Ease of Intubation: Easy; Technique: Direct laryngoscopy; Tube Size: 7 mm; DL Blade Size: La 2; Grade View: 1; Adjucts: Stylet; Placement Person: TUBE BUILDER; Attempts: 1 06/10/23 0921 by Cipriano Jeronimo MD 06/10/23 1116 by Madison Nesbitt APRN CRNA documented in this encounter Social History Tobacco [...] AM CDT documented as of this encounter OR Notes * Anesthesia Postprocedure Evaluation - Cipriano Jeronimo MD - 06/10/2023 1:15 PM CST Patient: Yue Cardoso Procedure: Procedure(s): LEFT POSTERIOR TOTAL HIP ARTHROPLASTY Anesthesia Type: General Note: Disposition: Outpatient Postop Pain Control: Uneventful Sign Out: Well controlled pain PONV: No Neuro/Psych: Uneventful Sign Out: Acceptable/Baseline neuro status Airway/Respiratory: Uneventful Sign Out: Acceptable/Baseline resp. status CV/Hemodynamics: Uneventful Sign Out: Acceptable CV status; No obvious hypovolemia; No obvious fluid overload Other NRE: NONE DID A NON-ROUTINE EVENT OCCUR? No Last vitals: Vitals Value Taken Time BP 105/55 06/10/23 1240 Temp 36.4 ??C (97.5 ??F) 06/10/23 1230 Pulse 110 06/10/23 1243 Resp 18 06/10/23 1242 SpO2 99 % 06/10/23 1243 Vitals shown include unfiled device data. Electronically Signed By: Cipriano Jeronimo MD June 10, 2023 1:15 PM E WOUND CARE * Anesthesia Procedure Notes - Madison Nesbitt APRN CRNA - 06/10/2023 9:47 AM NURSE WOUND CARE Associated Order(s): Airway Airway Patient location during procedure: OR Procedure Start/Stop Times: 06/10/2023 9:21 AM Staff - TUBE BUILDER: Madison Nesbitt APRN CRNA Performed By: TUBE BUILDER Consent for Airway Urgency: elective Indications and Patient Condition Indications for airway management: farzaneh-procedural Induction type:intravenous Mask difficulty assessment: 1 - vent by mask Final Airway Details Final airway type: endotracheal airway Successful airway: ETT - single and Oral Endotracheal Airway Details ETT size (mm): 7.0 Cuffed: yes Successful intubation technique: direct laryngoscopy DL Blade Type: La 2 Grade View of Cords: 1 Adjucts: stylet Position: Right Measured from: gums/teeth Secured at (cm): 20 Bite block used: None Post intubation assessment Placement verified by: capnometry, equal breath sounds and chest rise Number of attempts at approach: 1 Number of other approaches attempted: 0 Secured with: silk tape Ease of procedure: easy Dentition: Intact and Unchanged Medication(s) Administered Medication Administration Time: 06/10/2023 9:21 AM E WOUND CARE * Anesthesia Preprocedure Evaluation - Cipriano Jeronimo MD - 06/10/2023 6:58 AM CST Anesthesia Pre-Procedure Evaluation Patient: Yue Cardoso : 1960 Procedure : Procedure(s): LEFT POSTERIOR TOTAL HIP ARTHROPLASTY Past Medical History: Diagnosis Date Anxiety Arthritis [...] lymph nodedissection, lysis of adhesions; Surgeon: Helen Mancnii MD; Location: [facility] [...] 3-4 LAMINECTOMY; Surgeon: Higinio Smith MD; Location: [facility] OR; Service: Spine Allergies Allergen Reactions Nitrofurantoin Dizziness, Muscle Pain (Myalgia), Nausea and Vomiting and Other (See Comments) myalgias Amlodipine Other (See Comments) Edema on doses above 5mg Edema on doses above 5mg Contrast Dye Hives Social History Tobacco Use Smoking status: Never Smokeless tobacco: Never Substance Use Topics Alcohol use: Not Currently Wt Readings from Last 1 Encounters: 06/05/23 110.4 kg (243 lb 6.2 oz) Anesthesia Evaluation ROS/MED HX ENT/Pulmonary: - neg pulmonary ROS (+) sleep apnea, Neurologic: Comment: Hx of multiple back surgeries, spnial stenosis, residual weakness in R leg. - neg neurologic ROS Cardiovascular: - neg cardiovascular ROS (+) hypertension- - - - - METS/Exercise Tolerance: >4 METS Hematologic: - neg hematologic ROS Musculoskeletal: - neg musculoskeletal ROS GI/Hepatic: - neg GI/hepatic ROS Renal/Genitourinary: - neg Renal ROS Endo: - neg endo ROS (+) type II DM (ozempic held since 05/25/23), Obesity, Psychiatric/Substance Use: - neg psychiatric ROS Infectious Disease: - neg infectious disease ROS Malignancy: - neg malignancy ROS Other: - neg other ROS Physical Exam Airway airway exam normal Mallampati: I TM distance: > 3 FB Neck ROM: full Mouth opening: > 3 cm Respiratory Devices and Support Dental (+) Minor Abnormalities - some fillings, tiny chips Cardiovascular cardiovascular exam normal Pulmonary pulmonary exam normal OUTSIDE LABS: CBC: Lab Results Component Value Date WBC 15.1 (H) 01/18/2020 WBC 14.7 (H) 01/04/2020 HGB 13.3 01/18/2020 HGB 13.4 01/04/2020 HCT 41.1 01/18/2020 HCT 43.2 01/04/2020 PLT 542 (H) 01/18/2020 PLT 458 (H) 01/04/2020 BMP: Lab Results Component Value Date NA 137 01/18/2020 NA 135 01/04/2020 POTASSIUM 3.7 01/18/2020 POTASSIUM 3.2 (L) 01/12/2020 CHLORIDE 100 01/18/2020 CHLORIDE 99 01/04/2020 CO2 32 01/18/2020 CO2 30 01/04/2020 BUN 15 01/18/2020 BUN 19 01/04/2020 CR 0.69 01/18/2020 CR 0.72 01/04/2020 GLC 115 (H) 01/18/2020 GLC 128 (H) 01/04/2020 COAGS: No results found for: PTT, INR, FIBR POC: Lab Results Component Value Date BGM 142 (H) 01/12/2020 HEPATIC: Lab Results Component Value Date ALBUMIN 3.4 01/18/2020 PROTTOTAL 8.1 01/18/2020 ALT 30 01/18/2020 AST 17 01/18/2020 ALKPHOS 144 01/18/2020 BILITOTAL 0.4 01/18/2020 OTHER: Lab Results Component Value Date A1C 6.8 (H) 06/15/2019 MARLI 9.7 01/18/2020 Anesthesia Plan ASA Status: 3 NPO Status: NPO Appropriate Anesthesia Type: General. - Airway: ETT Consents Anesthesia Plan(s) and associated risks, benefits, and realistic alternatives discussed. Questions answered and patient/customer care representative(s) expressed understanding. - Discussed: - Discussed with: Patient Postoperative Care Pain management: IV analgesics. PONV prophylaxis: Ondansetron (or other 5HT-3), Dexamethasone or Solumedrol, Background Propofol Infusion Comments: Other Comments: Patient history and physical exam reviewed. NPO status appropriate. Focused physical and history performed, pre-op evaluation updated. RBA discussed re: anesthesia and patients questions answered. Cipriano Jeronimo MD I have reviewed the pertinent notes and labs in the chart from the past 30 days and (re)examined the patient. Any updates or changes from those notes are reflected in this note. # Severe Obesity: Estimated body mass index is 45.25 kg/m?? as calculated from the following: Height as of this encounter: 1.562 m (5' 1.5). Weight as of this encounter: 110.4 kg (243 lb 6.2 oz). E WOUND CARE documented in this encounter Miscellaneous Notes * Anesthesia Care Transfer Note - Joseiln Nash APRN TUBE BUILDER - 06/10/2023 11:23 AM CST [facility] Procedure: Procedure(s): LEFT POSTERIOR TOTAL HIP ARTHROPLASTY Diagnosis: Osteoarthritis of hip [M16.9] Hip pain, left [M25.552] Diagnosis Additional Information: No value filed. Anesthesia Type: General Note: Oropharynx: oropharynx clear of all foreign objects and spontaneously breathing Level of Consciousness: awake Oxygen Supplementation: blow-by O2 Level of Supplemental Oxygen (L/min / FiO2): 8 Independent Airway: airway patency satisfactory and stable Dentition: dentition unchanged Vital Signs Stable: post-procedure vital signs reviewed and stable Report to RN Given: handoff report given Patient transferred to: PACU Handoff Report: Identifed the Patient, Identified the Reponsible Provider, Reviewed the pertinent medical history, Discussed the surgical course, Reviewed Intra-OP anesthesia mangement and issues during anesthesia, Set expectations for post-procedure period and Allowed opportunity for questions andacknowledgement of understanding Vitals: Vitals Value Taken Time BP 137/63 06/10/23 1121 Temp 36.6 ??C (97.8 ??F) 06/10/23 1120 Pulse 107 06/10/23 1122 Resp 7 06/10/23 1122 SpO2 98 % 06/10/23 1122 Vitals shown include unfiled device data. Electronically Signed By: Joselin Nash APRN CRNA June 10, 2023 11:23 AM E WOUND CARE documented in this encounter Plan of Treatment [...] Neda Markham documented as of this encounter Procedures Procedure Name Priority Date/Time Associated Diagnosis Comments ANE AIRWAY ETT PERFORMABLE Routine 06/10/2023 9:21 AM NURSE WOUND CARE documented in this encounter Results * ANE AIRWAY ETT PERFORMABLE (06/10/2023 9:21 AM NURSE WOUND CARE) Narrative Madison Nesbitt APRN CRNA - 06/10/2023 9:21 AM NURSE WOUND CARE Madison Nesbitt APRN CRNA ? 06/10/2023 ??9:47 AM Airway ? Patient location during procedure: OR ? Procedure Start/Stop Times: 06/10/2023 9:21 AM Staff - ? TUBE BUILDER: Madison Nesbitt APRN CRNA ? Performed By: TUBE BUILDER Consent for Airway ? Urgency: elective Indications [...] Time: 06/10/2023 9:21 AM Cipriano Jeronimo MD [place] [facility]EST[facility] documented in this encounter Visit Diagnoses Not on filedocumented in this encounter Administered Medications Inactive Administered Medications - up to 3 most recent administrations Medication Order MAR Action Action Date Dose Rate Site ceFAZolin Sodium (ANCEF) injection 2 g Routine, 2 g, Intravenous, PRE-OP/PRE-PROCEDURE, Starting on Fri06/10/23 at 0639, For 1 dose, Give first dose within 1 hour PRIOR to incision. If patient weight is greater than or equal to 120 kg increase dose to 3 g., Indications: Perioperative Pharmacoprophylaxis, Pre-procedure $Given 06/10/2023 9:23 AM NURSE WOUND CARE 2 g dexAMETHasone (DECADRON) injection Intravenous, PRN, Administer over 1 Minutes, Starting on Fri06/10/23 at 0934, Anesthesia Intra-op $Given 06/10/2023 9:34 AM NURSE WOUND CARE 4 mg dexmedeTOMIDine (PRECEDEX) 4 mcg/mL bolus Intravenous, CONTINUOUS PRN, Starting on Fri06/10/23 at 0938, Anesthesia Intra-op $Bolus 06/10/2023 9:58 AM NURSE WOUND CARE 12 mcg $New Bag 06/10/2023 9:38 AM NURSE WOUND CARE 8 mcg fentaNYL (PF) (SUBLIMAZE) injection Intravenous, PRN, Administer over 3-5 Minutes, Starting on Fri06/10/23 at 0919, Anesthesia Intra-op $Given 06/10/2023 9:19 AM NURSE WOUND CARE 100 mcg HYDROmorphone (DILAUDID) injection Intravenous, PRN, Starting on Fri06/10/23 at 0943, Anesthesia Intra-op $Given 06/10/2023 10:52 AM NURSE WOUND CARE 0.5 mg $Given 06/10/2023 10:47 AM NURSE WOUND CARE 0.5 mg $Given 06/10/2023 10:14 AM NURSE WOUND CARE 0.5 mg ketamine (KETALAR) injection Intravenous, PRN, Administer over 2-5 Minutes, Starting on Fri06/10/23 at 0938, Anesthesia Intra-op $Given 06/10/2023 9:38 AM NURSE WOUND CARE 50 mg lactated ringers infusion at 100 mL/hr, Intravenous, CONTINUOUS, Pre-procedure, Starting on Fri06/10/23 at 0700, Until Fri06/10/23 at 1119 $New Bag 06/10/2023 10:14 AM NURSE WOUND CARE Restarted 06/10/2023 9:12 AM NURSE WOUND CARE $New Bag 06/10/2023 7:23 AM NURSE WOUND CARE 100 mL/hr lidocaine 1 % injection Intravenous, PRN, Starting on Fri06/10/23 at 0919, Anesthesia Intra-op $Given 06/10/2023 9:19 AM NURSE WOUND CARE 5 mLs midazolam (VERSED) injection Intravenous, Administer over 2 Minutes, PRN, Starting on Fri06/10/23 at 0910, Anesthesia Intra-op $Given 06/10/2023 9:10 AM NURSE WOUND CARE 2 mg ondansetron (ZOFRAN) injection Intravenous, PRN, Administer over 2-5 Minutes, Starting on Fri06/10/23 at 1041, Anesthesia Intra-op $Given 06/10/2023 10:41 AM NURSE WOUND CARE 4 mg propofol (DIPRIVAN) infusion Intravenous, CONTINUOUS PRN, Starting on Fri06/10/23 at 0923, Anesthesia Intra-op $New Bag 06/10/2023 9:23 AM NURSE WOUND CARE 50 mcg/kg/min 33.06 mL/hr propofol (DIPRIVAN) injection 10 mg/mL vial Intravenous, PRN, Starting on Fri06/10/23 at 0919, Anesthesia Intra-op $Given 06/10/2023 9:19 AM NURSE WOUND CARE 150 mg rocuronium injection Intravenous, PRN, Starting on 1/30/24 at 0919, Anesthesia Intra-op $Given 06/10/2023 10:14 AM NURSE WOUND CARE 30 mg $Given 06/10/2023 9:19 AM NURSE WOUND CARE 70 mg sugammadex (BRIDION) injection Intravenous, PRN, Starting on Fri06/10/23 at 1045, Anesthesia Intra-op $Given 06/10/2023 10:45 AM NURSE WOUND CARE 200 mg documented in this encounter Additional Health Concerns Problem Noted Date Diagnosed Date MyC ECC SURG ENROLL 05/23/2023 Care pathway for general surgery 05/28/2023 documented as of this encounter Care Teams Epic Trainer Relationship Specialty Start Date End Date Kelly Sommer PCP - General Physician Petrologist 08/17/18 Helen Mancini MD [address] [facility] [address] [place] [address] Gynecologic Oncology 08/21/18 My [place] APRN BRICK BURNER [address] [facility] [address] [place] [address] Assigned Cancer Care Provider 06/24/21 documented as of this encounter
--- OUTSIDE RECORDS SUMMARY | 2023-06-25 10:13 | XMS_ITS | Encounter Summary ---
Author Name Unknown Organization [place] Address [address] [place] [address] Care Team Providers Care Rehabilitation Therapy Technician Name Role Phone Kelly Sommer Primary Care Provider [phone] Helen Mancini MD Unavailable My [place] APRN MEDICAL INSURANCE CODING SPECIALIST Unavailable + Encounter Details Date Type Department Care Team (Latest Contact Info) Description 06/23/2023 Travel Social History Tobacco Use Types Packs/Day [...] documented as of this encounter Care Teams Rehabilitation Therapy Technician Relationship Specialty Start Date End Date Kelly Sommer PCP - General Physician Cooker Cleaner 08/17/18 Helen Mancini MD [address] [facility] [address] [place] [address] Gynecologic Oncology 08/21/18 My [place] APRN MEDICAL INSURANCE CODING SPECIALIST [address] [facility] [address] [place] [address] Assigned Cancer Care Provider 06/24/21 documented as of this encounter
--- OUTSIDE RECORDS SUMMARY | 2023-06-25 10:13 | XMS_ITS | Encounter Summary ---
Author Name Unknown Organization [place] Address [address] [place] [address]. [place] [address] Care Team Providers Care Lasting Machine Operator Hand Method Name Role Phone Kelly Sommer Primary Care Provider [phone] Helen Mancini MD Unavailable My [place] APRN ECHOCARDIOGRAPHY RADIOLOGY TECHNOLOGIST Unavailable + Reason for Visit * Auth/Cert (Routine) Specialty Diagnoses / Procedures Referred By Renzo martines Referred To Contact Surgery Diagnoses Osteoarthritis of hip Hip pain, left Osteoarthritis of hip [M16.9] Hip pain, left [M25.552] Procedures [place] TOTAL HIP ARTHROPLASTY LEFT POSTERIOR TOTAL HIP ARTHROPLASTY [facility] Periop Services [address] [place] [address] Referral ID Status Reason Start Date Expiration Date Visits Re quested Visits Authorized [id number] 1 1 Encounter Details Date Type Department Care Team (Latest Contact Info) Description 06/10/2023 6:36 AM GROCERY STOCKER - 06/11/2023 12:43 PM GROCERY STOCKER Hospital Encounter [facility] 3 [facility] [address] [place] [address] Jenaro Cosby MD [facility] [address] [facility] [address] [facility] [address] [place] [address] Status post total replacement of left hip (Primary Dx) Discharge Disposition: Home or Self Care Social History Tobacco Use Types Packs/Day Years [...] Sign Reading Time Taken Comments Blood Pressure 116/69 06/11/2023 5:08 AM GROCERY STOCKER Pulse 97 06/11/2023 5:08 AM GROCERY STOCKER Temperature 36.6 ??C (97.8 ??F) 06/11/2023 5:08 AM CS T Respiratory Rate 17 06/11/2023 5:08 AM GROCERY STOCKER Oxygen Saturation 94% 06/11/2023 5:08 AM GROCERY STOCKER Inhaled Oxygen Concentration - - Weight 110.2 kg (243 lb) 06/10/2023 6:58 AM GROCERY STOCKER Height 157.5 cm (5' 2) 06/10/2023 6:58 AM GROCERY STOCKER Body Mass Index 44.45 06/10/2023 6:58 AM GROCERY STOCKER documented in this encounter Discharge Summaries * [...] (5' 2) Wt 110.2 kg (243 lb) [id number]% BMI 44.45 kg/m?? The patient is A&Ox3. [...] total hip arthroplasty Carolyn Gardner PA-C/Dr. Cosby [facility] [phone] Date: 06/11/2023 Time: 10:33 AM ERY STOCKER documented in this encounter Medications at Time [...] West MD - 06/11/2023 12:43 PM CST [facility] MEDICINE PROGRESS NOTE Securely message me with Irina (more info) Code Status: Full Code Procedure(s): LEFT POSTERIOR TOTAL HIP ARTHROPLASTY 1 Day Post-Op Identification/Summary: Yue Cardoso is a 63 year old female with past medical history of hypertension, obesity, type2 diabetes mellitus, hml-fqsyhdl-fkemvtwdp, endometrial cancer s/p hysterectomy, adjustment disorder, depression, [...] to normotension Obesity type 2 diabetes mellitus, uur-zcboirp-eiijcrmgi - correction dose prn Depression -continue venlafaxine, [...] for last 31 day(s). RADHA WEST MD [facility] Phone: #[phone] Securely message me with [employer] (more info) ERY STOCKER * Carolyn Gardner PA-Isael - 06/11/2023 8:42 AM CST Orthopedic Progress [...] (5' 2) Wt 110.2 kg (243 lb) XdQ475% BMI 44.45 kg/m?? The patient is A&Ox3. [...] strikethrough, no surrounding erythema. 5/5 TA/GSC/EHL. Pertinent Labs Lab Results: personally reviewed. No results found for: INR, PROTIME Lab Results Component Value Date WBC 13.2 (H) 06/11/2023 HGB 9.4 (L) 06/11/2023 HCT 29.1 (L) 06/11/2023 MCV 94 06/11/2023 PLT 368 06/11/2023 Lab Results Component Value Date NA 136 06/11/2023 CO2 29 06/11/2023 Report completed by: Carolyn Gardner PA-C/Dr. [facility] Date: 06/11/2023 Time: 8:43 AM ERY STOCKER * Belle Hebert OT - 06/11/2023 8:25 AM CST Occupational Therapy Discharge Summary Reason for therapy discharge: Discharged to home. Progress towards therapy goal(s). See goals on Care Plan in [facility] electronic health record for goal details. Goals met Therapy recommendation(s): No further therapy is recommended. ERY STOCKER * Belle Hebert OT - 06/11/2023 8:24 AM CST 06/11/23 0743 Appointment Info Signing Clinician's Name / Credentials (OT) PHILLY Self/Blayne, CLT Rehab Comments (OT) OT eval Quick Adds Quick Adds Certification Living Environment People in Home spouse Current Living Arrangements ([facility]) Self-Care Usual Activity Tolerance good Current Activity [...] BADL Assessment/Intervention lower body dressing;toileting;bathing Bathing Assessment/Intervention Gentry Level (Bathing) lower body;minimum assist (75% patient effort) Lower Body Dressing Assessment/Training Gentry Level (Lower Body Dressing) lower body dressing skills;maximum assist (25% patient effort) Toileting Gentry Level (Toileting) adjust/manage clothing;supervision Clinical Impression Criteria [...] Evaluation Time OT Eval, Moderate Complexity Minutes (27086) 10 Therapy Certification Medical Diagnosis EMERY Start [...] Management Self-Care/Home Mgmt/ADL, Compensatory, Meal Prep Minutes (22299) 25 Symptoms Noted During/After Treatment (Meal Preparation/Planning Training) none Treatment Detail/Skilled Intervention Pt edu on hip px - demonstrated ability to complete ADLs w/inpx. Pt edu on compensatory strategies for LE dressing using bulb assembler and sock aid - completed Mod I [...] Equipment Needed at Discharge lift device (leg cleat maker) Total Session Time Timed Code Treatment Minutes 25 Total Session Time (sum of timed and untimed services) 35 [facility] OUTPATIENT OCCUPATIONAL THERAPY EVALUATION PLAN OF TREATMENT FOR OUTPATIENT REHABILITATION (COMPLETE FOR INITIAL CLAIMS ONLY) Patient's Last Name, First Name, M.I. Date of : 1960 Yue Cardoso Provider's Name [facility] Onset Date: 06/10/23 Start of Care [...] review and certification of the therapy plan). ERY STOCKER Associated attestation - Jenaro Cosby MD - 06/17/2023 7:45 AM GROCERY STOCKER Physician Attestation I agree with the information [...] analgesics: Yes Does patient have an identified horse riding coach or instructor: Yes Has goal D/C date and time been discussed with patient: Yes Early therapies, potential early discharge ERY STOCKER * Shanita Banda, PT - 06/10/2023 5:26 PM CST 06/10/23 1540 Appointment Info Signing Clinician's Name / Credentials (PT) Shanita Banda PT, DPT Quick Adds Quick Adds Certification Living Environment People in Home spouse Current Living Arrangements other (see comments) ([facility]) Home Accessibility stairs to enter home;stairs [...] of Surgery 06/10/23 Referring Physician Rosario Whaley, PAArmin Patient/Family Therapy Goals Statement (PT) Return to [...] EMERY Bed Mobility Bed Mobility supine-sit Supine-Sit Gentry (Bed Mobility) supervision;verbal cues;minimum assist (75% patient effort) Transfers Transfers sit-stand transfer Maintains Weight-bearing Status (Transfers) able to maintain Sit-Stand Transfer Sit-Stand Gentry (Transfers) supervision;verbal cues;minimum assist (75% patient effort) Assistive Device (Sit-Stand Transfers) walker, front-wheeled Gait/Stairs (Locomotion) Gentry Level (Gait) supervision;verbal cues;contact guard Assistive Device [...] Evaluation Time PT Eval, Low Complexity Minutes (50873) 10 Therapy Certification Start of care date [...] Ther. Procedure: strength, endurance, ROM, flexibillity Minutes (34483) 12 Symptoms Noted During/After Treatment fatigue;increased pain Treatment Detail/Skilled Intervention Started HEP, limited d/t pain & faitgue: 8-10 reps, cueing for safety/technique/specific muscle activation, SBA Therapeutic Activity Therapeutic Activities: dynamic activities to improve functional performance Minutes (93824) 5 Treatment Detail/Skilled Intervention sit to/from stand: cueing for safety/hand placement on stablesurface, CGA; Education given about precautions/WB status Gait Training Gait Training Minutes (76774) 13 Symptoms Noted During/After Treatment (Gait Training) fatigue Treatment Detail/Skilled Intervention cueing for safety/FWW management/posture; one standing rest break - intermittent Min A toward end with increased fatigue Distance in Feet 110 Gentry Level (Gait Training) (CGA to Dawna) Physical [...] (sum of timed and untimed services) 40 [facility] OUTPATIENT PHYSICAL THERAPY EVALUATION PLAN OF TREATMENT FOR OUTPATIENT REHABILITATION (COMPLETE FOR INITIAL CLAIMS ONLY) Patient's Last Name, First Name, M.I. Date of : 1960 Yue Cardoso Provider's Name [facility] Onset Date: 06/10/23 Start of Care [...] review and certification of the therapy plan). ERY STOCKER Associated attestation - Rosario Whaley PA-C - 06/23/2023 10:33 PM GROCERY STOCKER Physician Attestation I have reviewed and discussed with the advanced practice provider their history, physical and plan for Yue Cardoso. I did not participate in a shared visit; this is an advanced practice provider only visit. Rosario Whaley PA-C Date of Service (when I saw the patient): I did not personally see this patient today. * Lexi Bello, RT - 06/10/2023 2:24 PM CST Setup pt home cpap with humidity for noc and prn use. RT George ERY STOCKER documented in this encounter H&P Notes * [...] of this encounter: 110.2 kg (243 lb). ERY STOCKER Source Note - Asha Arthur DO - 05/21/2023 3:50 PM GROCERY STOCKER Images from the original note were not included. [facility] Preoperative Consultation Yue Cardsoo : 1960 Gender: female Date of Encounter: 05/21/2023 Nursing Notes: Elie Iyer 05/21/2023 3:37 PM Sign at exiting of workspace Chief Complaint Patient presents with ??? Preoperative Exam L [facility] hip [facility] - Dr. Cosby - fax# [phone] BP 127/68 (Cuff Site: Left Arm, Position: [...] - [facility] Hospital[facility]Surgical Facility: [facility] Fax number: [phone] Surgery type: inpatient Primary Physician: Asha Arthur LPN ......... 05/21/2023 3:37 PM History of Present Illness Yue is a 63-year-old female who is here today for preoperative evaluation at the request of Dr. Cosby. Yue has a past medical history of hypertension, obesity, type 2 diabetes mellitus, oup-fcpyygt-darzsuveu, endometrial cancer s/p hysterectomy, adjustment disorder, depression, [...] follow-up in 6 months. She states her oil well cable tool operator provided a letter of support for her [...] unspecified whether generalized or localized, lower leg [id number] ??? Dysthymia F34.1 ??? S/P TKR (total [...] Dye [Iodinated Contrast Media] Hives CT DONE [facility] PT PREMEDICATED AND [...] (Anesthesia & Analgesia 2009;108:467-75; Anesthesiol. Clin. 2016 Jul;34(1):43-58). Stress Testing RAAS Antagonist * Hypotension during anesthesia is associated with continuing renin-angiotensin system (RAAS) antagonist. While it is unclear if holding RAAS antagonists reduces postoperative complications, in most circumstances our experts recommend holding RAAS antagonist 24 hours prior to surgery. (Postgrad MedJ 2011;87:472- 81; Anest 2017;126:16-27; BMC Anesthesiol 2018;18:26.) Session ID: [id number] Endnotes and bibliography available upon request: [email or web address]: pending ECG: yes ICD-10-CM 1. Pre-op evaluation Z01.818 [place] READING EKG - NO CHARGE, COMP ONLY EKG 12 LEAD [place] ECG ROUTINE ECG W/LEAST 12 LDS W/I&R [...] of unknown etiology I will let her oil well cable tool operator know about this as well. She will be seen in July for physical and we will continue to monitor this or sooner if needed. Electronically Signed by: Asha Arthur DO .................... 05/21/2023 4:26 PM 05/21/2023 ERY STOCKER documented in this encounter Consult Notes * [...] today with family support Thalia Cartagena RN ERY STOCKER * Radha West MD - 06/10/2023 1:11 PM CSTAssociated Order(s): HOSPITALIST IP CONSULT [facility] MEDICINE CONSULT NOTE Physician requesting consult: Jenaro Cosby MD Reason for consult: Postoperative medical management of medical co-morbidities as below Identification/Summary: Yue Cardoso is a 63 year old female with past medical history of hypertension, obesity, type2 diabetes mellitus, mzv-tkizsyv-futfwuirv, endometrial cancer s/p hysterectomy, adjustment disorder, depression, dysthymia, depression, obstructive sleep apnea. Underwent Left Total Hip Arthroplasty on 06/10/2023. 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 Deferred to surgery Code status:Full Code [facility] [place] was asked to evaluate patient for postoperative medical management as follows below. Please resume the home medications as reconciled and further noted with ordered hold parameters. Ovidio for this consult; we will continue to [...] history of hypertension, obesity, type2 diabetes mellitus, fko-cmjggul-bdqztmtap, endometrial cancer s/p hysterectomy, adjustment disorder, depression, [...] Medium Added automatically from request for surgery [id number] Surgical History Past Surgical History: Procedure Laterality [...] 3-4 LAMINECTOMY; Surgeon: Higinio Smith MD; Location: [facility] OR; Service: Spine Family History Family History [...] any questions or concerns. RADHA WEST MD [facility] Phone: #[phone] ERY STOCKER documented in this encounter Miscellaneous Notes * Plan of Care - Chung Piedra RN - 06/11/2023 12:42 PM CST Discharge AVS reviewed with patient and . Questions answered and teachings acknowledged. Belongings and ice packs sent with via transport. Orthopedic Stoplight Tool acknowledged (Yes) ERY STOCKER * Plan of Care - Lety Russo [...] at 0845. Possible early discharge pending therapies. ERY STOCKER * Plan of Care - Jackelyn Tirado [...] for patient. IV running LR at 100ml/hr. ERY STOCKER * Provider Notification - Melanie Lombardo RN - 06/10/2023 12:10 PM GROCERY STOCKER Notified Dr. Jeronimo of tachycardia. MDA at bedside assessing, okay to move out of phase 1. ERY STOCKER * Op Note - Jenaro Cosby MD [...] layers and skin. SURGEON: Jenaro Cosby MD INSTRUCTOR DECORATING: Kristal Whaley PA-C; SINDI assist was essential [...] roll placed. Pelvis was secured with DeMayo Wittenberg Hip Positioner. The operative Hip was then [...] clean. Reniforce prn. OK to shower. Disposition: Chief Compressor Station Engineer Consult Implant Name Type Inv. Item Serial No. High Voltage Electrician Lot No. LRB No. Used Action IMP SHELL ACET DEPUY PINNACLE GRIPTION 54MM [id number] - [id number] Total Joint Component/Insert IMPSHELL ACET DEPUY PINNACLE GRIPTION 54MM [id number] [employer] [facility]- [id number] Left 1 Implanted IMP STEM FEM DEPUY ACTIS COLLAR HI-OFFSET SZ 3MM - [id number] Total Joint Component/Insert IMP STEM FEM DEPUY ACTIS COLLAR HI-OFFSET SZ 3MM &deCarta [facility]- [id number] Left 1 Implanted IMP LINER HIP DEPUY PINNACLE ALTRX [id number] +4 [id number] - [id number] Total Joint Component/Insert IMP LINER HIP DEPUY PINNACLE ALTRX [id number] +4 [id number] &[employer]Cart[employer] [facility]- [id number] Left 1 Implanted IMP HEAD FEMORAL DEPUY CERAMIC 36MM +5MM [id number] - [id number] Total Joint Component/Insert IMP HEAD FEMORAL DEPUY CERAMIC 36MM +5MM [id number] &deCarta [facility]- [id number] Left 1 Wasted IMP HEAD FEMORAL DEPUY CERAMIC 36MM +1.5MM [id number] - [id number] Total Joint Component/Insert IMP HEAD FEMORAL DEPUY CERAMIC 36MM +1.5MM [id number] &deCarta [facility]- [id number] Left 1 Implanted @C(1)@ Jenaro Leon. MD Harjeet @C(2)@ Kelly Sommer ERY STOCKER * Pharmacy-Admission Medication History - Marlen Ascencio RPH - 06/10/2023 8:22 AM CST Pharmacist Admission Medication History Admission medication history is complete. The information provided in this note is only as accurateas the sources available at the time of the update. Information Source(s): Patient and CareEverywhere/SureScripts via in-person Pertinent Information: Allergies reviewed with patient and updates made in EHR: no Medication History Completed By: Marlen Ascencio RPH 06/10/2023 8:22 AM POOL HALL INSPECTOR Med List Medication Sig Last Dose amLODIPine [...] mg by mouth daily 06/10/2023 at AM ERY STOCKER * Treatment Plan - Brennne Ascencio APRN ECHOCARDIOGRAPHY RADIOLOGY TECHNOLOGIST - 06/05/2023 4:55 PM GROCERY STOCKER Orthopedic Surgery Pre-Op Plan: Yue Cardoso pre-op review. This is NOT an H&P Surgeon: Dr. Cosby [facility]: [facility] Name of Surgery: Left Posterior Total Hip Arthroplasty Date of Surgery: 06/10/23 H&P: Completed on 05/21/[address] Asha Bolden at [facility]. History of ASA, NSAIDS, vitamin and/or herbal [...] recent Hematology visit note with Dr. Benavides, [facility], from 05/01/23: Patient has history of chronically [...] Left 2017 TONSILLECTOMY TONSILLECTOMY VITRECTOMY ANTERIOR Right 2014 ZZC RODRIGUEZ W/O FACETEC FORAMOT/DSKC 05/13 VRT SEG, LUMBAR Bilateral 06/14/2019 Procedure: BILATERAL LUMBAR 3-4 LAMINECTOMY; Surgeon: Higinio Smith MD; Location: [facility] OR; Service: Spine Current Medications: Patient's Medications New [...] APRN, GURJIT Advanced Practice Nurse Navigator- Orthopedics [facility] ERY STOCKER * Provider Notification - Brnenen Ascencio APRN CNP - 06/05/2023 10:21 AM CST I am evaluating this patient for upcoming Left Posterior Total Hip Arthroplasty with Dr. Cosby at [facility] on 06/10/23: - Reviewed preop H&P, labs [...] recent Hematology visit note with Dr. Benavides, [facility], from 05/01/23: Workup consistent with diagnosis of [...] APRN, GURJIT Advanced Practice Nurse Navigator- Orthopedics [facility] ERY STOCKER documented in this encounter Plan of Treatment Not on file documented as of this encounter Goals Goal Patient Goal Type Associated Problems Recent Progress Patient-Stated? Author MYC ECC SURG ENROLL Care Plan MyC ECC SURG ENROLL No Venus Neville documented as of this encounter Procedures Procedure Name Priority Date/Time Associated Diagnosis Comments HEMOGLOBIN Routine 06/11/2023 10:17 AM GROCERY STOCKER GLUCOSE BY METER Routine 06/11/2023 6:32 AM GROCERY STOCKER BASIC METABOLIC PANEL Routine 06/11/2023 6:09 AM GROCERY STOCKER CBC WITH PLATELETS Routine 06/11/2023 6: 09 AM GROCERY STOCKER XR PELVIS AND HIP PORTABLE LEFT 1 VIEW STAT 06/10/2023 11:49 AM GROCERY STOCKER GLUCOSE BY METER Routine 06/10/2023 11:4 5 AM GROCERY STOCKER XR HIP PORT LEFT 1 VIEW Routine 06/10/2023 10:32 AM GROCERY STOCKER ARTHROPLASTY, HIP, TOTAL 06/10/2023 9:12 AM GROCERY STOCKER Osteoarthritis of hip Hip pain, left Case Notes WW DEPUY HIP SET 2 + KINLENNY MULLIGAN.Cordell Bush [phone] Navid Patel [phone] TYPE AND SCREEN, ADULT STAT 06/10/2023 7:27 AM GROCERY STOCKER ABO/RH TYPE AND SCREEN STAT 06/10/2023 7:27 AM GROCERY STOCKER GLUCOSE BY METER Routine 06/10/2023 7:22 AM GROCERY STOCKER documented in this encounter Results * (ABNORMAL) Hemoglobin (06/11/2023 10:17 AM GROCERY STOCKER) Hemoglobin 9.9(L) 11.7 - 15.7 g/dL 06/11/2023 10:25 AM [facility] Blood STRUCTURE OF RIGHT UPPER LIMB / Unknown Venipuncture / Unknown 06/11/2023 10:17 AM GROCERY STOCKER 06/11/2023 10:19 AM GROCERY STOCKER Carolyn Gardner PA-C LAB - BLOOD OR DERABLES Performing Organization Address City/[facility]/ZIP Co de Phone Number [facility] [address] [place] [place] [address], [place] [phone] * (ABNORMAL) Glucose by meter (06/11/2023 6:32 AM GROCERY STOCKER) [facility] GLUCOSE BY METER POCT 100(H) 70 - 99 mg/dL 06/11/2023 6:38 AM [facility] POCT RESULTS Blood, Capillary BLOOD SPECIMEN / Unknown 06/11/2023 6:32 AM GROCERY STOCKER 06/11/2023 6:38 AM GROCERY STOCKER Jenaro Cosby MD LAB - BEAKER POCT Performing Organization Address City/[facility]/ZIP Co de Phone Number [facility] POCT RESULTS [address] [facility] [place] [address] * (ABNORMAL) CBC with platelets (06/11/2023 6:09 AM GROCERY STOCKER) WBC Count 13.2(H) 4.0 - 11.0 10e3/uL 06/11/2023 6:48 AM [facility] RBC Count 3.10(L) 3.80 - 5.20 10e6/uL 06/11/2023 6:48 AM [facility] Hemoglobin 9.4(L) 11.7 - 15.7 g/dL 06/11/2023 6:48 AM [facility] Hematocrit 29.1(L) 35.0 - 47.0 % 06/11/2023 6:48 AM [facility] MCV 94 78 - 100 fL 06/11/2023 6:48 AM [facility] MCH 30.3 26.5 - 33.0 pg 06/11/2023 6:48 AM [facility] MCHC 32.3 31.5 - 36.5 g/dL 06/11/2023 6:48 AM [facility] RDW 14.0 10.0 - 15.0 % 06/11/2023 6:48 AM [facility] Platelet Count 368 150 - 450 10e3/uL 06/11/2023 6:48 AM [facility] Blood STRUCTURE OF RIGHT UPPER LIMB / Unknown Venipuncture / Unknown 06/11/2023 6:09 AM GROCERY STOCKER 06/11/2023 6:40 AM [facility] Radha West MD LAB - BLOOD ORDERABL ES [facility] [address] [facility] [address] [phone] * (ABNORMAL) Basic metabolic panel (06/11/2023 6:09 AM [facility]) Sodium 136 135 - 145 mmol/L 06/11/2023 7:08 AM [facility] Comment:Reference intervals for this test were updated on 02/04/2023 to more accurately reflect our healthy population. There may be differences in the flagging of prior results with similar values performed with this method. Interpretation of those prior results can be made in the context of the updated reference intervals. Potassium 4.7 3.4 - 5.3 mmol/L 06/11/2023 7:08 AM [facility] Chloride 101 98 - 107 mmol/L 06/11/2023 7:08 AM [facility] Carbon Dioxide (CO2) 29 22 - 29 mmol/L 06/11/2023 7:08 AM [facility] Anion Gap 6(L) 7 - 15 mmol/L 06/11/2023 7:08 AM [facility] Urea Nitrogen 24.8(H) 8.0 - 23.0 mg/dL 06/11/2023 7:08 AM [facility] Creatinine 0.81 0.51 - 0.95 mg/dL 06/11/2023 7:08 AM [facility] GFR Estimate 80 >60 mL/min/1. 73m2 06/11/2023 7:08 AM [facility] Calcium 9.1 8.8 - 10.2 mg/dL 06/11/2023 7:08 AM [facility] Glucose 110(H) 70 - 99 mg/dL 06/11/2023 7:08 AM [facility] Blood STRUCTURE OF RIGHT UPPER LIMB / Unknown Venipuncture / Unknown 06/11/2023 6:09 AM GROCERY STOCKER 06/11/2023 6:40 AM GROCERY STOCKER Radha West MD LAB - BLOOD ORDERABL ES [facility] [address] [facility] [address] [place], [place] [id number] [place] [address] * XR Pelvis w Hip Port Left 1 View (06/10/2023 11:49 AM GROCERY STOCKER) Anatomical Region Laterality Modality Abdomen/Pelvis Left Computed Radiogr aphy 06/10/2023 11:4 9 AM GROCERY STOCKER Impressions 06/10/2023 12:07 PM GROCERY STOCKER IMPRESSION: Postoperative changes related to recent placement of a left total hip arthroplasty. The components are in expected position without acute displaced periprosthetic fracture. Expected recent postop soft tissue and intra-articular gas about the left hip with soft tissue swelling. No displaced pelvic fracture. Degenerative change lower lumbar spine. Narrative 06/10/2023 12:07 PM GROCERY STOCKER EXAM: XR PELVIS AND HIP PORTABLE LEFT 1 VIEW LOCATION: [facility] DATE: 06/10/2023 INDICATION: Status post hip surgery. COMPARISON: None. Procedure Note Marlo Villela MD - 06/10/2023 EXAM: XR PELVIS AND HIP PORTABLE LEFT 1 VIEW LOCATION: [facility] DATE: 06/10/2023 INDICATION: Status post hip [...] (ABNORMAL) Glucose by meter (06/10/2023 11:45 AM GROCERY STOCKER) [facility] Signature GLUCOSE BY METER POCT 152(H) 70 - 99 mg/dL 06/10/2023 11:53 AM GROCERY STOCKER [facility] POCT RESULTS Blood, Capillary BLOOD SPECIMEN / Unknown 06/10/2023 11:45 AM GROCERY STOCKER 06/10/2023 11:53 AM GROCERY STOCKER Jenaro Cosby MD [facility] POCT [facility] POCT RESULTS [address] [place] [address] * XR Hip Port Left 1 View (06/10/2023 10:32 AM GROCERY STOCKER) Anatomical Region Laterality Modality Hip, Left Hip Left Computed Radiogr aphy 06/10/2023 10:3 2 AM GROCERY STOCKER Impressions 06/10/2023 1:27 PM GROCERY STOCKER IMPRESSION: The intraprocedural spot film demonstrates placement of a left total hip arthroplasty. Please reference the surgical report for further details. Narrative 06/10/2023 1:27 PM GROCERY STOCKER EXAM: XR HIP PORT LEFT 1 VIEW LOCATION: [facility] DATE: 06/10/2023 INDICATION: left total hip arthroplasty COMPARISON: None Procedure Note Jameel Cardoso MD - 06/10/2023 EXAM: XR HIP PORT LEFT 1 VIEW LOCATION: [facility] DATE: 06/10/2023 INDICATION: left total hip arthroplasty COMPARISON: None IMPRESSION: The intraprocedural spot film demonstrates placement of a lefttotal hip arthroplasty. Please reference the surgical report for furtherdetails. Jenaro [facility] NG ORDERABLES * Adult Type and Screen (06/10/2023 7:27 AM GROCERY STOCKER) ABO/RH(D) O POS 06/10/2023 6:40 AM [facility] BLOOD BANK Antibody Screen Negative Negative 06/10/2023 6:40 AM [facility] BLOOD BANK SPECIMEN EXPIRATION DATE [id number] 06/10/2023 6:40 AM [facility] BLOOD BANK Blood BLOOD SPECIMEN / Unknown Venipuncture / Unknown 06/10/2023 7:27 AM GROCERY STOCKER 06/10/2023 7:37 AM GROCERY STOCKER Rosario Whaley PA-C LAB - BLOOD BANK ROBERT T ORDER Performing Organization Address City/[facility]/ZIP Co de Phone Number [facility] BLOOD BANK [address] [place] [address], [place] * Glucose by meter (06/10/2023 7:22 AM [facility]) GLUCOSE BY METER POCT 97 70 - 99 mg/dL 06/10/2023 7:31 AM [facility] POCT RESULTS Blood, venous BLOOD SPECIMEN / Unknown 06/10/2023 7:22 AM GROCERY STOCKER 06/10/2023 7:31 AM GROCERY STOCKER Jenaro Cosby MD LAB - [facility] POCT Performing Organization Address City/[facility]/ZIP Co de Phone Number [facility] POCT RESULTS [address] [place] [address] documented in this encounter Visit Diagnoses Diagnosis S/P total hip arthroplasty- Primary Hip joint replacement by other means Status post total replacement of left hip documented in this encounter Admitting Diagnoses Diagnosis [...] exceed 4 grams/day. $Given 06/11/2023 5:04 AM GROCERY STOCKER 975 mg $Given 06/10/2023 9:17 PM GROCERY STOCKER 975 mg $Given 06/10/2023 2:08 PM GROCERY STOCKER 975 mg aspirin EC tablet 81 mg 81 mg, Oral, 2 TIMES DAILY, First dose on Fri06/10/23 at 2100, Indications: VTE Prophylaxis, DO NOT CRUSH. $Given 06/11/2023 8:33 AM GROCERY STOCKER 81 mg $Given 06/10/2023 9:17 PM GROCERY STOCKER 81 mg busPIRone (BUSPAR) tablet 10 mg 10 mg, Oral, 2 TIMES DAILY, First dose on Fri06/10/23 at 2100 $Given 06/11/2023 8:29 AM GROCERY STOCKER 10 mg $Given 06/10/2023 9:17 PM GROCERY STOCKER 10 mg ceFAZolin (ANCEF) 2 g in 100 mL D5W intermittent infusion Routine, 2 g, Intravenous, EVERY 8 HOURS, First dose on Fri06/10/23 at 1800, For 2 doses, First post-op dose due 8 hours after intra-op dose, see eMAR. , Indications: Perioperative Pharmacoprophylaxis $New Bag 06/11/2023 2:15 AM GROCERY STOCKER 2 g 200 mL/hr $New Bag 06/10/2023 6:14 PM GROCERY STOCKER 2 g 200 mL/hr celecoxib (celeBREX) capsule 100 mg 100 mg, Oral, 2 TIMES DAILY, First dose on Fri06/10/23 at 2100, For 4 doses, IF celecoxib (CELEBREX) was given pre-operatively, start celecoxib (CELEBREX) 12 hours after given $Given 06/11/2023 8:38 AM GROCERY STOCKER 100 mg $Given 06/10/2023 9:17 PM GROCERY STOCKER 100 mg celecoxib (celeBREX) capsule 200 mg 200 mg, Oral, ONCE, On Fri06/10/23 at 0700, For 1 dose, Pre-procedure $Given 06/10/2023 7:07 AM GROCERY STOCKER 200 mg fentaNYL (PF) (SUBLIMAZE) injection 25 [...] HYDROmorphone (DILAUDID)., PACU $Given 06/10/2023 12:16 PM GROCERY STOCKER 25 mcg $Given 06/10/2023 11:56 AM GROCERY STOCKER 25 mcg $Given 06/10/2023 11:44 AM GROCERY STOCKER 25 mcg gabapentin (NEURONTIN) capsule 300 mg 300 mg, Oral, AT BEDTIME, First dose on Fri06/10/23 at 2100, For post-operative pain $Given 06/10/2023 9:17 PM GROCERY STOCKER 300 mg HYDROmorphone (DILAUDID) injection 0.2 mg [...] Fri06/10/23 at 1305 $Given 06/11/2023 2:14 AM GROCERY STOCKER 10 mg lactated ringers infusion at 100 mL/hr, Intravenous, CONTINUOUS, Pre-procedure, Starting on Fri06/10/23 at 0700, Until Fri06/10/23 at 1119 $New Bag 06/10/2023 10:14 AM GROCERY STOCKER Restarted 06/10/2023 9:12 AM GROCERY STOCKER $New Bag 06/10/2023 7:23 AM GROCERY STOCKER 100 mL/hr lactated ringers infusion at 100 mL/hr, Intravenous, CONTINUOUS, Continue until IV catheter is weaned, PACU, Starting on Fri06/10/23 at 1130, Until Fri06/10/23 at 1256 Rate/Dose Verify 06/10/2023 11:20 AM GROCERY STOCKER 100 mL/hr lactated ringers infusion at 100 mL/hr, Intravenous, CONTINUOUS, IF overnight stay, continue IV fluids until 0400 POD #1, then may saline lock if tolerating oral fluids. IF Day of Surgery Discharge, continue IV Fluids until one hour before discharge., Starting on Fri06/10/23 at 1330, Until Fri06/11/23 at 1444 $New Bag 06/11/2023 2:15 AM GROCERY STOCKER 100 mL/hr Rate/Dose Verify 06/10/2023 4:41 PM GROCERY STOCKER 100 mL/ hr $New Bag 06/10/2023 2:15 PM GROCERY STOCKER 100 mL/hr metFORMIN (GLUCOPHAGE) tablet 1,000 mg 1,000 mg, Oral, 2 TIMES DAILY WITH MEALS, First dose on Fri06/11/23 at 0800, If the patient receives intravenous, iodinated contrast and patient GFR is greater than 60 mL/min/1.7m2, continue metformin. Contact provider for 'hold' or 'no hold' instructions if no GFR or if GFR is less than 60 mL/min/1.7m2. $Given 06/11/2023 8:32 AM GROCERY STOCKER 1,000 mg naloxone (NARCAN) injection 0.2 mg [...] analgesic side effects. Hold while on IV WATER PUMP ASSEMBLER or with regular IV opioid dosing. $Given 06/10/2023 2:08 PM GROCERY STOCKER 10 mg oxyCODONE (ROXICODONE) tablet 5 mg 5 mg, Oral, EVERY 4 HOURS PRN, moderate pain, Starting on Fri06/10/23 at 1305, Hold oral PRN dose for analgesic side effects. Notify provider to assess for uncontrolled pain or analgesic side effects. Hold while on IV WATER PUMP ASSEMBLER or with regular IV opioid dosing. $Given 06/11/2023 11:50 AM GROCERY STOCKER 5 mg $Given 06/11/2023 6:50 AM GROCERY STOCKER 5 mg $Given 06/11/2023 2:14 AM GROCERY STOCKER 5 mg prochlorperazine (COMPAZINE) injection 5 mg [...] not resolved in 15-30 minutes, Notify provider. simvastatin (ZOCOR) tablet 40 mg 40 mg, Oral, EVERY MORNING, First dose on Fri06/11/23 at 0730 $Given 06/11/2023 6:32 AM GROCERY STOCKER 40 mg sodium chloride (PF) 0.9% PF flush 3 mL 3 mL, Intracatheter, EVERY 8 HOURS, First dose on Fri06/10/23 at 1330, to lock peripheral IV dormant line $Given 06/11/2023 5:03 AM GROCERY STOCKER 3 mLs tranexamic acid (LYSTEDA) tablet 1,950 mg 1,950 mg, Oral, ONCE, On Fri06/10/23 at 0700, For 1 dose, Administer with a sip of water in PRE OP area 90 minutes PRIOR to leaving Pre-op area., Pre-procedure $Given 06/10/2023 7:07 AM GROCERY STOCKER 1,950 mg venlafaxine (EFFEXOR XR) 24 hr capsule 225 mg 225 mg, Oral, DAILY, First dose on Fri06/11/23 at 0900, DO NOT CRUSH. $Given 06/11/2023 8:37 AM GROCERY STOCKER 225 mg documented in this encounter Active and Recently Administered Medications Times are shown in GROCERY STOCKER. Scheduled Medication Order 06/09/2023 06/10/2023 06/11/2023 acetaminophen [...] Ordoñez RN) 0504 ($Given - Provider: Lety Russo RN)1400 (Canceled Entry - Provider: Orders Generic Provider [...] 2100, Indications: VTE Prophylaxis, DO NOT CRUSH. 211 ($Given - Provider: Pancho Ordoñez RN) 0833 ($Given - Provider: Minerva Lewis, DOMENICO) busPIRone (BUSPAR) tablet 10 mg 10 mg, [...] dose, see eMAR. , Indications: Perioperative Pharmacoprophylaxis 181 ($New Bag - Provider: Jackelyn Tirado, DOMENICO) 0215 ($New Bag - Provider: Lety Russo RN) ceFAZolin Sodium (ANCEF) injection 2 g (COMPLETED) Routine, 2 g, Intravenous, PRE-OP/PRE-PROCEDURE, Starting on Fri06/10/23 at 0639, For 1 dose, Give first dose within 1 hour PRIOR to incision. If patient weight is greater than or equal to 120 kg increase dose to 3 g., Indications: Perioperative Pharmacoprophylaxis, Pre-procedure 0923 ($Given - Provider: Madison Nesbitt APRN CRNA) celecoxib (celeBREX) capsule 100 mg 100 mg, [...] Fri06/10/23 at 0700, For 1 dose, Pre-procedure 0707 ($Given - Provider: Lilliam Barbour RN) chlorthalidone [...] bowel prep regimen or bowel clean out. 0829 (Not Given - Provider: Minerva Lewis RN - Reason: Patient/family refused - Comment: loose stools) ROPivacaine (NAROPIN) 5 MG/ML 300 mg, ketorolac (TORADOL) 15 mg, EPINEPHrine (ADRENALIN) 0.6 mg in sodium chloride 0.9 % 100 mL (ORTHO SONA CUSTOM DOSE) (COMPLETED) INTRA-ARTICULAR, CENTRIFUGAL CHILLER TECHNICIAN TO O.R., Starting on Fri06/10/23 at 0700, [...] Pancho Ordoñez RN - Reason: Patient/family refused) 0829 (Not Given - Provider: Minerva Lewis RN [...] IV Infusing) 0503 ($Given - Provider: Lety Russo, DOMENICO)1330 (Canceled Entry - Provider: Orders Generic Provider [...] area., Pre-procedure 0707 ($Given - Provider: Lilliam Barbour, DOMENICO) venlafaxine (EFFEXOR XR) 24 hr capsule 225 mg 225 mg, Oral, DAILY, First dose on Fri06/11/23 at 0900, DO NOT CRUSH. 0837 ($Given - Provider: Minerva Lewis RN) Continuous Medication Order 06/09/2023 06/10/2023 06/11/2023 lactated ringers infusion (CANCELED) at 100 mL/hr, Intravenous, CONTINUOUS, Pre-procedure, Starting on Fri06/10/23 at 0700, Until Fri06/10/23 at 1119 0723 ($New Bag - Provider: Lilliam Barbour, DOMENICO)0911 (Paused - Provider: Madison Nesbitt APRN ADMINISTRATOR [employer] W[employer]ARE - Comment: Switch to gravity)0912 (Restarted - Provider: Madison Nesbitt APRN ADMINISTRATOR [employer] WEL[employer]ARE)1014 ($New Bag - Provider: Madison Nesbitt APRN ADMINISTRATOR [employer]EL[employer]) lactated ringers infusion (CANCELED) at 100 mL/hr, Intravenous, CONTINUOUS, Continue until IV catheter is weaned, PACU, Starting on Fri06/10/23 at 1130, Until Fri06/10/23 at 1256 1120 (Rate/Dose Verify - Provider: Melanie Lombardo, RN) lactated ringers infusion at 100 mL/hr, [...] analgesic side effects. Hold while on IV WATER PUMP ASSEMBLER or with regular IV opioid dosing. 1408 ($Given - Provider: Jackelyn Tirado RN)1841 (See Alternative - Provider: Jackelyn Tirado RN) 0214 (See Alternative - Provider: Lety Russo RN)0650 (See Alternative - Provider: Lety Russo RN)1150 (See Alternative - Provider: Minerva Lewis RN) oxyCODONE (ROXICODONE) tablet 5 mg(Linked Group 4) 5 mg, Oral, EVERY 4 HOURS PRN, moderate pain, Starting on Fri06/10/23 at 1305, Hold oral PRN dose for analgesic side effects. Notify provider to assess for uncontrolled pain or analgesic side effects. Hold while on IV WATER PUMP ASSEMBLER or with regular IV opioid dosing. 1408 (See Alternative - Provider: Jackelyn Tirado RN)1841 ($Given - Provider: Jackelyn Tirado RN) 0214 ($Given - Provider: Lety Rusos RN)0650 ($Given - Provider: Lety Russo RN)1150 [...] 4 HOURS PRN, moderate pain, Starting on 06/10/23 at 1305, Hold oral PRN dose for analgesic side effects. Notify provider to assess for uncontrolled pain or analgesic side effects. Hold while on IV WATER PUMP ASSEMBLER or with regular IV opioid dosing. Or oxyCODONE (ROXICODONE) tablet 10 mgJump to med 10 mg, Oral, EVERY 4 HOURS PRN, severe pain, Starting on 06/10/23 at 1305, Hold oral PRN dose for analgesic side effects. Notify provider to assess for uncontrolled pain or analgesic side effects. Hold while on IV WATER PUMP ASSEMBLER or with regular IV opioid dosing. Group [...] documented as of this encounter Care Teams Lasting Machine Operator Hand Method Relationship Specialty Start Date End Date Kelly Sommer PCP - General Physician Weight Guesser 08/17/18 Helen Mancini MD [address] [facility] [place] [address] [place] [address] Gynecologic Oncology 08/21/18 My Carlisle APRN ECHOCARDIOGRAPHY RADIOLOGY TECHNOLOGIST [address] [facility] [address] [place] [address] Assigned Cancer Care Provider 06/24/21 documented as of this encounter
--- OUTSIDE RECORDS SUMMARY | 2023-06-25 10:13 | XMS_ITS | Encounter Summary ---
Author Name Unknown Organization [facility] Address [address] [place] [address]. [place] [address] Care Team Providers Care Wheelchair Rental Clerk Name Role Phone Kelly Sommer Primary Care Provider [phone] Helen Mancini MD Unavailable My Carlisle APRN MANAGER TRAINING AND DEVELOPMENT Unavailable + Reason for Visit * Reason Comments Fall Encounter Details Date Type Department Care Team (Late st Contact Info) Description 06/23/2023 7:04 PM FUEL CELL BINDER - 06/23/2023 8:41 PM FUEL CELL BINDER Emergency [facility] Emergency Room [address] [place] [address] Uday Fay, DO [address] [place] [address] Chest wall pain Discharge Disposition: Home or Self Care Social [...] Comments Blood Pressure 112/53 06/23/2023 7:10 PM FUEL CELL BINDER Pulse 101 06/23/2023 8:15 PM FUEL CELL BINDER Temperature 37.2 ??C (98.9 ??F) 06/23/2023 7:10 PM CS T Respiratory Rate 20 06/23/2023 7:10 PM FUEL CELL BINDER Oxygen Saturation 94% 06/23/2023 8:15 PM FUEL CELL BINDER Inhaled Oxygen Concentration - - Weight 115.7 kg (255 lb) 06/23/2023 7:10 PM FUEL CELL BINDER Height - - Body Mass Index 46.64 06/10/2023 6:58 AM FUEL CELL BINDER documented in this encounter Discharge Instructions * Discharge Instructions* Uday Fay DO - 06/23/2023 8:22 PM FUEL CELL BINDER Fortunately your CAT scan today did not show any evidence of blood clot or other serious abnormalities. Follow-up closely with your primary care doctor and return to the ER if you develop any worsening symptoms or other concerns. CELL BINDER documented in this encounter Medications at Time [...] by mouth 2 times daily 0 01/14/2023 chlorthalidone (HYGROTON) 50 MG tablet Take 50 [...] 06/10/2023 06/24/2023 documented as of this encounter ED Notes * Shanita Hardwick RN - 06/23/2023 7:11 PM CST Presents via EMS from [facility]. Reports falling yesterday. S/p left total hip on 06/10. C/o pain to right lower back. Pt 88% on room air, placed on 2L nasal canula, up to 98%.Pt has contrast allergy and received 50 mg benadryl and steroid today prior to arrival. Pt had blood work done at [facility]. CELL BINDER * Uday Fay DO - 06/23/2023 6:56 PM CST EMERGENCY DEPARTMENT ENCOUnter NAME: Yue Cardoso AGE: [age] year old female DATE OF : 1960 EVALUATION DATE & TIME: 06/23/2023 7:04 PM PCP: Kelly Sommer ED PROVIDER: Uday Fay DO Chief Complaint Patient presents with Fall FINAL IMPRESSION: 1. Chest wall pain ED COURSE & MEDICAL DECISION MAKIN:18 PM I met with the patient to gather history and perform an initial exam. 8:15 PM I rechecked on the patient and updated them on lab results. The patient presented to the emergency department today due to concerns about chest pain. She had arecent hip surgery. After a fall, she had pain in the right chest. She presented to an [facility] emergency department. They were concerned about the possibility of PE versus rib fracture. Unfortunately they were having issues obtaining a CT at their facility so she was transferred here. She has beenstable since her arrival. CT imaging today does not reveal any evidence of PE or other concerning findings. No obvious rib fractures. At this time she is doing well and I feel she can be safely discharged home. She is comfortable with this plan. Medical Decision Making Obtained supplemental history:Supplemental history obtained?: Documented in chart and EMS Reviewed external records: External records reviewed?: No Care impacted by chronic illness:N/A Care significantly affected by social determinants of health:N/A Did you consider but not order tests?: Work up considered but not performed and documented in chart, if applicable Did you interpret images independently?: Independent interpretation of ECG and images noted in documentation, when applicable. Consultation discussion with other provider:Did you involve another provider (it architecture consultant, , pharmacy, etc.)?: No Discharge. No recommendations on prescription strength medication(s). I considered admission, but discharged the patient after share decision making conversation. At the conclusion of the encounter I discussed the results of all of the tests and the disposition.The questions were answered. The patient or family acknowledged understanding and was agreeable with the care plan. MEDICATIONS GIVEN IN THE EMERGENCY: Medications iopamidol (ISOVUE-370) solution 75 mL (75 mLs Intravenous $Given 06/23/231944) NEW PRESCRIPTIONS STARTED AT TODAY'S ER VISIT Discharge Medication List as of 06/23/2023 8:25 PM HPI Yue Cardoso is a 63 year old female with a pertinent history of hypertension, hyperlipidemia, diabetes, and endometrial cancer who presents to this ED via EMS for evaluation of of a fall. She reports that she fell onto her on her left side against her bed and then hit her right side onto a nightstand yesterday. She also has a left hip replacement that was put in two weeks ago. She further has sharp pains in her right middle back. Currently, says her pain in the chest area is building back up. PAST MEDICAL HISTORY: Past Medical History: Diagnosis Date Anxiety Arthritis Depression Diabetes mellitus (H) Diabetes mellitus (H) Hearing loss History of anesthesia complications Hyperlipidemia Hyperlipidemia Hypertension Hypertension Obesity Obesity, morbid, BMI 50 or higher (H) Obstructive sleep apnea Osteoarthritis PONV (postoperative nausea and vomiting) PONV (postoperative nausea and vomiting) Rhinitis Sleep apnea CPAP Vertigo PAST SURGICAL HISTORY: Past Surgical History: Procedure Laterality Date ARTHROPLASTY HIP Left 06/10/2023 Procedure: LEFT POSTERIOR TOTAL HIP ARTHROPLASTY; Surgeon: Jenaro Cosby MD; Location: [facility] OR ARTHROSCOPY KNEE ARTHROSCOPY KNEE WITH MENISCAL REPAIR Bilateral BACK SURGERY 1997 [place] CATARACT EXTRACTION Right 2016 CHOLECYSTECTOMY CYSTOSCOPY N/A 01/12/2020 Procedure: CYSTOSCOPY; Surgeon: Helen Mancini MD; Location: [facility] OR [facility] HYSTERECTOMY TOTAL, BILATERAL SALPINGO-OOPHORECTOMY, NODE DISSECTION, COMBINED N/A 01/12/2020 Procedure: Robotic removal of uterus, cervix, both ovaries and fallopian tubes, sentinel lymph nodedissection, lysis of adhesions; Surgeon: Helen Mancini MD; Location: [facility] OR DILATION AND CURETTAGE DILATION AND CURETTAGE 2009, 2011 JOINT REPLACEMENT Right 2013 JOINT REPLACEMENT Left 2014 KNEE SURGERY Bilateral LAMINECT/DISCECTOMY, LUMBAR LAPAROSCOPIC CHOLECYSTECTOMY LASIK LASELAINA SHOULDER ARTHROSCOPY W/ ROTATOR CUFF REPAIR Left 2017 TONSILLECTOMY TONSILLECTOMY VITRECTOMY ANTERIOR Right 2015 [facility] RODRIGUEZ W/O FACETEC FORAMOT/DSKC 05/13 VRT SEG, LUMBAR Bilateral 06/14/2019 Procedure: BILATERAL LUMBAR 3-4 LAMINECTOMY; Surgeon: Higinio Smith MD; Location: [facility]; Service: Spine CURRENT MEDICATIONS: acetaminophen (TYLENOL) 325 MG tablet amLODIPine (NORVASC) 5 MG tablet aspirin 81 MG EC tablet busPIRone (BUSPAR) 5 MG tablet celecoxib (CELEBREX) 100 MG capsule chlorthalidone (HYGROTON) 50 MG tablet cholecalciferol 25 MCG (1000 UT) TABS doxycycline hyclate (VIBRAMYCIN) 100 MG capsule gabapentin (NEURONTIN) 300 MG capsule hydrOXYzine HCl (ATARAX) 10 MG tablet losartan (COZAAR) 50 MG tablet meclizine (ANTIVERT) 25 MG tablet metFORMIN (GLUCOPHAGE) 1000 MG tablet oxyCODONE (ROXICODONE) 5 MG tablet OZEMPIC, 0.25 OR 0.5 MG/DOSE, 2 MG/3ML pen potassium chloride ER (K-TAB) 20 MEQ CR tablet senna-docusate (SENOKOT-S/PERICOLACE) 8.6-50 MG tablet simvastatin (ZOCOR) 40 MG tablet spironolactone (ALDACTONE) 50 MG tablet venlafaxine (EFFEXOR-XR) 75 MG 24 hr capsule ALLERGIES: Allergies Allergen Reactions Nitrofurantoin Dizziness, Muscle Pain (Myalgia), Nausea and Vomiting and Other (See Comments) myalgias Amlodipine Other (See Comments) Edema on doses above 5mg Edema on doses above 5mg Contrast Dye Hives FAMILY HISTORY: Family History Problem Relation Age of Onset Ovarian Cancer Mother Breast Cancer Paternal Grandmother Pancreatic Cancer Maternal Half-Brother 52 Breast Cancer Paternal Aunt SOCIAL HISTORY: Social History Socioeconomic History Marital status: Spouse name: None Number of children: None Years of education: None Highest education level: None Tobacco Use Smoking status: Never Smokeless tobacco: Never Substance and Sexual Activity Alcohol use: Not Currently Drug use: Never Sexual activity: Yes Partners: Male Social Determinants of Health Interpersonal Safety: Not At Risk (02/07/2022) Humiliation, Afraid, Rape, and Kick questionnaire Fear of Current or Ex-Partner: No Emotionally Abused: No Physically Abused: No Sexually Abused: No VITALS: Patient Vitals for the past 24 hrs: BP Temp Temp src Pulse Resp SpO2 Weight 06/23/232014 -- -- -- 101 -- 94 % -- 06/23/231999 -- -- -- 99 -- 96 % -- 06/23/23 1910 112/53 98.9 ??F (37.2 ??C) Oral 103 20 (!) 88 % 115.7 kg (255 lb) PHYSICAL EXAM Constitutional: Well developed, Well nourished, HENT: Normocephalic, Atraumatic, Oropharynx moist, Nose normal. Eyes: EOMI, Conjunctiva normal, No discharge. Respiratory: Normal breath sounds, No respiratory distress, No wheezing, tenderness along the rightlateral aspect of the chest wall Cardiovascular: Normal heart rate, Normal rhythm, No murmurs GI: Soft, No tenderness, No guarding, No CVA tenderness. Musculoskeletal: No tenderness to palpation or major deformities noted. Extremities: No lower extremity edema. Neurologic: Alert & oriented x 3, No focal deficits noted. Psychiatric: Affect normal, Judgment normal, Mood normal. RADIOLOGY: I have independently reviewed and interpreted the above imaging, pending the final radiology read. CT Chest Pulmonary Embolism w Contrast Final Result IMPRESSION: 1. No acute pulmonary embolism. 2. Hepatic steatosis. I, Marta Hernandez, am serving as a scribe to document services personally performed by Dr. Fay based on my observation and the provider's statements to me. I, Uday Fay, DO attest that Marta Hernandez isacting in a scribe capacity, has observed my performance of the services and has documented them inaccordance with my direction. Uday Fay DO Emergency Medicine [facility] EMERGENCY ROOM [facility] [id number] Dept: [phone] Uday Fay DO 06/23/232325 CELL BINDER documented in this encounter Plan of Treatment [...] EMBOLISM W CONTRAST STAT 06/23/2023 7:57 PM FUEL CELL BINDER documented in this encounter Results * CT Chest Pulmonary Embolism w Contrast (06/23/2023 7:57 PM FUEL CELL BINDER) Anatomical Region Laterality Modality Chest, SUBRAD CT BODY, UMP CT CHEST Computed Tomography 06/23/2023 7:57 PM FUEL CELL BINDER Impressions 06/23/2023 8:11 PM FUEL CELL BINDER IMPRESSION: 1. ??No acute pulmonary embolism. 2. ??Hepatic steatosis. Narrative 06/23/2023 8:11 PM FUEL CELL BINDER EXAM: CT CHEST PULMONARY EMBOLISM W CONTRAST LOCATION: [facility] DATE: 06/23/2023 INDICATION: chest pain COMPARISON: None. [...] CT CHEST PULMONARY EMBOLISM W CONTRAST LOCATION: [facility] DATE: 06/23/2023 INDICATION: chest pain COMPARISON: None. [...] Uday Fay DO IMG CT ORDERABLE S documented in this encounter Visit Diagnoses Diagnosis Chest wall pain Painful respiration documented in this encounter Administered Medications Inactive Administered Medications - up to 3 most recent administrations Medication Order MAR Action Action Date Dose Rate Site iopamidol (ISOVUE-370) solution 75 mL 75 mL, Intravenous, ONCE, On 06/23/23 at 1999, For 1 dose $Given 06/23/2023 7:45 PM FUEL CELL BINDER 75 mLs documented in this encounter Active and Recently Administered Medications Times are shown in FUEL CELL BINDER. Scheduled Medication Order 06/21/2023 06/22/2023 06/23/2023 iopamidol (ISOVUE-370) solution 75 mL (COMPLETED) 75 mL, Intravenous, ONCE, On 06/23/23 at 1999, For 1 dose 1945 ($Given - Provi mary: Ashu Hernandez) documented in this encounter Additional Health Concerns Problem Noted Date Diagnosed Date MyC ECC SURG ENROLL 05/23/2023 Care pathway for general surgery 05/28/2023 documented as of this encounter Care Teams Wheelchair Rental Clerk Relationship Specialty Start Date End Date Kelly Sommer PCP - General Physician Director Of Diagnostic Imaging 08/17/18 Helen Mancini MD [address] [facility] [address] [place] [address] Gynecologic Oncology 08/21/18 My Carlisle APRN CNP [address] [facility] [address] [place], [place] [id number] Assigned Cancer Care Provider 06/24/21 documented as of this encounter
--- OUTSIDE RECORDS SUMMARY | 2023-06-25 10:14 | XMS_ITS | Encounter Summary ---
Author Name Unknown Organization [facility] Address [address] [place] [id number] Care Team Providers Care Bioinformatics Assistant Name Role Phone Kolton Sommera Karmen Primary Care Provider Helen Mancini MD Unavailable Muna Breen RN Unavailable [phone] Helen Mancini MD Unavailable My Carlisle APRN BUCKET OPERATOR Unavailable + My Carlisle APRN BUCKET OPERATOR Unavailable + Encounter Details Date Type Department Care Team (Late st Contact Info) Description 08/17/2020 [facility] [address] [place] [phone] [facility] Social History Tobacco Use Types Packs/Day Years Used Date Smoking Tobacco: Never Smokeless Tobacco: Never Alcohol Use Standard Drinks/Week Comments Yes 0 (1 standard drink = 0.6 oz pur e alcohol) Sex and Gender Information Value Date Recorded Sex Assigned at Female 12/21/2019 11:36 AM CDT Gender Identity Female 12/21/2019 11:36 AM CDT Sexual Orientation Straight 12/21/2019 11 :36 AM CDT COVID-19 Exposure Response Date Recorded In the last month, have you been in contact with someone who was confirmed or suspected to have Coronavirus / COVID-19? No / Unsure 07/27/2020 9:20 AM CDT documented as of this encounter Plan of Treatment Not on file documented as of this encounter Visit Diagnoses Not on filedocumented in this encounter Care Teams Bioinformatics Assistant Relationship Specialty Start Date End Date Kelly Sommer PCP - General Physician Value Stream Manager 08/17/18 Helen Mancini MD [address] [place] [id number] Gynecologic Oncology 08/21/18 Muna Breen, RN Specialty Assistant Clinical Director Oncology 12/30/19 06/09/23 Helen Mancini MD [address] [place] [address] Assigned Cancer Care Provider 03/03/20 06/23/21 My Carlisle APRN BUCKET OPERATOR [address] [place] [address] Assigned OBGYN Provider 08/06/20 My Carlisle APRN BUCKET OPERATOR [address] [place] [address] Assigned Cancer Care Provider 06/24/21 documented as of this encounter
--- OUTSIDE RECORDS SUMMARY | 2023-06-25 10:14 | XMS_ITS | Clinical Summary ---
Author Name Unknown Organization [facility] Address [address] [address] Phone Care Team Providers Care Blindstitch Lining Feller Name Role Phone Unavailable Primary Care Provider Unavailabl e Allergies Active Allergy Reactions Criticality Noted Date Comments Diagnostic X-Ray Materials Other 2 Nitrofurantoin Monohydrate Macrocrystals Other 08/31/2011 Medications Medication Sig Dispensed Refills Start Date End Date Status Venlafaxine HCl (EFFEXOR OR) Take 150 mg by mouth one time a day. 0 Active losartan (COZAAR) 50 MG tablet Take 50 mg by mouth two times a day. 0 Active amLODIPine (NORVASC) 5 MG tablet Take 5 mg by mouth one time a day. 0 Active hydrochlorothiazide (HYDRODIURIL) 50 MG tablet Take 50 mg by mouth one time a day. 0 Active spironolactone (ALDACTONE) 25 MG tablet Take 25 mg by mouth one time a day. 0 Active metFORMIN (GLUCOPHAGE) 1000 MG tablet Take 1,000 mg by mouth two times a day with meals. Take with food. 0 Active SIMVASTATIN OR Take 30 mg by mouth at bedtime. 0 Active potassium chloride (K-[place]) 20 MEQ packet Take 20 mEq by mouth two times a day. Dissolve in 4-5 ounces of water or other beverage prior to administration. 0 Active phenazopyridine (PYRIDIUM) 200 MG tablet Take 1 Tab by mouth three times a day as needed for Other (urinary pain). 6 Tab 0 08/31/2011 Active Social History Tobacco Use Types Packs/Day Years Used Date Smoking Tobacco: Never Assessed Sex and Gender Information Value Date Recorded Sex Assigned at Not on file Gender Identity Not on file Sexual Orientation Not on file Last Filed Vital Signs Vital Sign Reading Time Taken Comments Blood Pressure 157/108 08/31/2011 6:34 PM CDT Pulse 101 08/31/2011 6:34 PM CDT Temperature 36.7 ??C (98.1 ??F) 08/31/2011 6:34 PM CD T Respiratory Rate 18 08/31/2011 6:34 PM CDT Oxygen Saturation 97% 08/31/2011 6:34 PM CDT Inhaled Oxygen Concentration - - Weight - - Height - - Body Mass Index - - Plan of Treatment Not on file
== END 2023-06-23 17:56 | disposition home or self-care (01) ==
LOC: AMB 06-25 09:56
PROVIDERS: PCP Family Medicine; Visit Provider Emergency Medicine
DX: D64.9 Anemia, unspecified (principal); D72.829 Elevated white blood cell count, unspecified; R07.89 Other chest pain
CPT/HCPCS: A0425; A0428

== ENCOUNTER 2023-07-15 13:00 | Outpatient (RCR) | payer MEDICARE, BC, SELFPAY | END 2023-09-11 09:20 | disposition home or self-care (01) | PROVIDERS: PCP Family Medicine; Visit Provider Orthopaedic Surgery | DX: M25.552 Pain in left hip (principal); Z96.649 Presence of unspecified artificial hip joint; M25.652 Stiffness of left hip, not elsewhere classified; M62.81 Muscle weakness (generalized); R26.2 Difficulty in walking, not elsewhere classified; Z47.1 Aftercare following joint replacement surgery; Z51.89 Encounter for other specified aftercare | CPT/HCPCS: 97110; 97112; 97140; 97162 ==

== ENCOUNTER 2024-01-26 13:37 | Outpatient (CLI) | payer MEDICARE, BC, SELFPAY ==
--- OUTSIDE RECORDS SUMMARY | 2024-01-26 13:41 | XMS_ITS | Clinical Summary ---
Author Organization [employer] [facility] Address [place], [place] [address] Care Team Providers Care Cost Manager Name Role Phone Asha Arthur Primary Care Provider [phone] Kellie Benavides MD Unavailable [phone] [facility]available Allergies Active Allergy Reactions Criticality Noted Date Comments Amlodipine Other - Describe In Comment Field 06/08/2009 Edema on doses above 5mg Gadodiamide *Unknown Low 01/21/2023 Iodinated Contrast Media Hives 07/16/2006 CT DONE [facility] PREMEDICATED AND GIVEN VISIPAQUE FOR 2014 CT Nitrofurantoin Dizziness,Vomiting Medium 07/13/2011 myalgias Medications Medication Sig Dispensed Refills Start Date End Date Status cholecalciferol (VITAMIN D) 1,000 unit tablet Take 1 tablet by mouth once daily. 0 5 Active blood-glucose meterIndications:Ty pe 2 diabetes mellitus without complication (HC) Dispense meter, test strips, lancets covered by pt ins. E11.9 NIDDM type II - Test 1 time/day 1 Device 0 6 Active meclizine (ANTIVERT) 25 mg tabletIndications:T innitus of both ears Take 1 tablet by mouth 3 times daily. 40 tablet 2 1 Active Additional Information Patient taking differently:25 mg OralDAILY PRN, Reported on 11/03/2023 blood sugar diagnostic (Accu-Chek Sharonda Plus test strp) stripIndications:Ty pe 2 diabetes mellitus without complication, without long-term current use of insulin (HC) Dispense item covered by pt ins. E11.9 NIDDM type II - Test 1 time/day 100 Each 3 3 Active acetaminophen (TYLENOL ARTHRITIS PAIN ORAL) Take 2 Tablets by mouth every 6 hours if needed. Active ondansetron (ZOFRAN ODT) 4 mg disintegrating tablet DISSOLVE ONE TABLET IN MOUTH EVERY SIX HOURS NEEDED FOR NAUSEA AND VOMITING* 3 Active triamcinolone (ARISTOCORT; KENALOG) 0.1 % creamIndications:Co ntact dermatitis, unspecified contact dermatitis type, unspecified trigger Apply topically to affected area(s) two times daily. 80 g 4 Active aspirin (ECOTRIN) 81 mg enteric coated tablet Take 81 mg by mouth once daily with a meal. 4 Active hydrOXYzine HCL (ATARAX) 10 mg tablet Take 10 mg by mouth every 6 hours if needed for Anxiety or Itching. 4 Active cyclobenzaprine (FLEXERIL) 5 mg tabletIndications:M uscle spasm Take 1-2 tablets (5-10 mg) every 8 hours as needed for muscle spasm. Do not use with alcohol. 30 Tablet 4 Active CPAPIndications:DAISY (obstructive sleep apnea) CPAP machine for home use at pressure 10 cmw; nasal mask x1/3month with nasal pillows x 2/mo Heat humidifier x 1/5 year, Humidifier chamber x 1/6mo, Heated tubing x 1/3mo, Headgear x 1/6mo, Chin strap x 1/6 months, Filters: Disposable x 2pk/1mo & Reusable x 1pk/6mo Length of need#99 Use- daily 1 Each 11 4 Active gabapentin (NEURONTIN) 300 mg capsuleIndications: Right leg pain Take 1 Capsule (300 mg) by mouth at bedtime. 90 Capsule 3 4 Active Additional Information Patient taking differently:300 mg OralDAILY PRN, Reported on 11/03/2023 metFORMIN (GLUCOPHAGE) 1,000 mg tabletIndications:T ype 2 diabetes mellitus without complication, without long-term current use of insulin (HC) Take 1 Tablet (1,000 mg) by mouth two times daily with meals. 180 Tablet 4 Active busPIRone (BUSPAR) 10 mg tabletIndications:G eneralized anxiety disorder Take 1 Tablet (10 mg) by mouth two times daily. Takes 2 daily, 1 in the am and 1 in the pm 180 Tablet 4 Active potassium chloride (K-TAB) 20 mEq extended-release tabletIndications:H TN (hypertension), benign Take 1 Tablet (20 mEq) by mouth two times daily with meals. 180 Tablet 4 Active simvastatin (ZOCOR) 40 mg tabletIndications:M ixed hyperlipidemia Take 1 Tablet (40 mg) by mouth at bedtime. 90 Tablet 4 Active amLODIPine (NORVASC) 5 mg tabletIndications:H TN (hypertension), benign Take 1 Tablet (5 mg) by mouth once daily. 90 Tablet 4 Active chlorthalidone (HYGROTON) 50 mg tabletIndications:H TN (hypertension), benign Take 1 Tablet (50 mg) by mouth once daily. 90 Tablet 4 Active losartan (COZAAR) 50 mg tabletIndications:H TN (hypertension), benign Take 1 Tablet (50 mg) by mouth two times daily. 180 Tablet 4 Active venlafaxine (EFFEXOR XR) 75 mg cp24 Extended-Release capsuleIndications: Adjustment disorder with mixed anxiety and depressed mood TAKE ONE CAPSULE BY MOUTH IN THE MORNING ALONG WITH 150 MG CAPSULE FOR A TOTAL DOSE OF 225 MG 90 Capsule 4 Active venlafaxine (EFFEXOR XR) 150 mg Extended-Release capsuleIndications: Adjustment disorder with mixed anxiety and depressed mood TAKE ONE CAPSULE BY MOUTH IN THE MORNING ALONG WITH 75 MG CAPSULE FOR A TOTAL DOSE OF 225 MG 90 Capsule 4 Active spironolactone (ALDACTONE) 50 mg tabletIndications:H TN (hypertension), benign Take 1 Tablet (50 mg) by mouth once daily. 90 Tablet 4 Active methylPREDNISolone (MedroL) 32 mg tabletIndications:C ontrast media allergy Take one tablet 12 hours prior to contrast administration, take the second dose 2 hours prior to contrast administration. 2 Tablet 4 Active semaglutide (Ozempic) 2 mg/3 mL subcutaneous penIndications:Type 2 diabetes mellitus without complication, without long-term current use of insulin (HC) INJECT 0.5 MGSUBCUTANEOUSLY ONCE WEEKLY. 3 mL 11 4 Active Active Problems Problem Noted Date Diagnosed Date Obesity, morbid 03/07/2023 Colon polyp 11/05/2022 Overview (11/05/2022): Colonoscopy 10/2022 2-TA, repeat in 5 years Depression, recurrent 10/15/2022 Osteoporosis screening 08/03/2020 Overview (08/03/2020): Bone density July 2020 normal. Repeat 3-5 years. Endometrial cancer 06/23/2020 Overview (06/23/2020): Stage 1A, Grade 1 Laparoscopic hysterectomy, cervix removed, [facility] Dr. Helen Key, gynecologic oncology [place] DAISY 09/17/2006 AHI-32 12/04/2018 Sensorineural hearing loss, [...] Date Anticoagulation monitoring, special range 05/27/2013 12/17/2018 termite inspector current use of anticoagulant 05/24/2013 12/17/2018 termite inspector (current) use of anticoagulants 07/20/2012 01/22/2013 Screen for colon cancer 04/29/201203/12 Overview (04/29/2012): Colonoscopy 04/2012 normal repeat in 10 years Nonspecific abnormal results of other specified function study 09/24/2006 12/17/2018 Depressive disorder, not elsewhere classified 07/17/19 07 10/21/2008 Impaired glucose tolerance 0 12/29/2008 Encounters Date Type Department Care Team Description 11/18/[address] [facility] [address] [place] [address] Asha Arthur Liane, DO Refill Request (Ozempic) 11/07/2023 Orders Only [facility] Scanner 1 scan: (1-Ord) TAREEN DERMATOLOGY, LT ANTERIOR DISTAL UPPER ARM, RT MEDIAL UPPER BACK, RT POSTERIOR SHOULDER, SHAVE BIOPSY., 11/07/2023 11/03/2023 11:15 AM CDT Office Visit [facility] [address] [place] [phone] Minerva Anderson, INSPECTOR [employer] Follow Up 11/03/2023 Travel from Last 3 Months Immunizations Name Administration Dates Next Due COVID-19 vaccine (Hitesh-J&J) PF, MDV Influenza RIV4 (Age 18+ Year [...] History Relation Name Comments Allergies Brother 1 Cancer-pancreatic Brother 1 Heart Disease Brother 1 mi [...] PHQ-2 Answer Date Recorded PHQ-2 TOTAL SCORE 0 08/13/2023 Social Connections Answer Date Recorded Frequency of Communication with Friends and Fami ly 0 08/13/2023 Financial Resource Strain Answer Date R ecorded Difficulty of Paying Living Expenses 3 08/13/2023 Difficulty of Paying Living Expenses Not on file 08/13/2023 Food Insecurity Answer Date Recorded Worried About Running Out of Food in the Last Ye ar 1 08/13/2023 Transportation Needs Answer Date Record ed Lack of Transportation (Medical) 1 08/13/2023 Housing Stability Answer Date Recorded Unable to Pay for Housing in the Last Year 1 08/13/2023 Sex and Gender Information Value Date Recorded Sex Assigned at Not on file Gender Identity Not on file Sexual Orientation Not on file Obstetrics History Last Filed Vital Signs Vital Sign Reading Time Taken Comments Blood Pressure 135/62 11/03/2023 11:06 AM CDT Pulse 94 11/03/2023 11:06 AM CDT Temperature 36.7 ??C (98.1 ??F) 11/03/2023 11:06 AM C DT Respiratory Rate 18 11/03/2023 11:06 AM CDT Oxygen Saturation 96% 11/03/2023 11:06 AM CDT Inhaled Oxygen Concentration - - Weight 112.5 kg (248 lb) 11/03/2023 11:06 AM CDT Height 155.5 cm (5' 1.22) 08/13/2023 1:17 PM CD T Body Mass Index 46.52 08/13/2023 1:17 PM CDT Plan of Treatment Upcoming Encounters Date Type Department Care Team (Late st Contact Info) Description 04/15/2024 9:00 AM SHOE LASTER Orders Only [facility] [address] [facility] [address] [place] 04/29/2024 11:00 AM SHOE LASTER Office Visit [facility] [address] [place] [phone] Kellie Benavides MD [address] [place], [place] [id number] Health Maintenance Due Date Last Done Comments COVID-19 vaccine series ( season) 2024 04/22/2023, 01/31/2022, 05/15/2021, Additional history exists Influenza for age 65+ 01/11/2024 01/28/2023 , 01/31/2022, 03/02/2020, Additional history exists BMI (ht and wt on same day) for age 18+ 08/12/2024 08/13/2023, 05/21/2023, 03/07/2023, Additional history exists Depression screening for age 12+ 08/12/2024 08/13/2023, 12/05/2022, 10/15/2022, Additional history exists Mammogram for age 45-75 08/12/2024 08/13/19 24, 08/08/2022, 07/26/2021, Additional history exists Medicare Wellness for age 65+ 08/13/2024 08/13/2023 Lipids for age 45-75 09/09/2028 09/10/2023, 08/08/2022, 07/26/2021, Additional history exists Tetanus booster 06/23/2030 06/23/2020, 07/11, 07/17/2006, Additional history exists Colonoscopy through age 75 11/04/203211/04, 11/04/2022, 11/04/2022, Additional history exists Hepatitis C screening for ag e 18-79 Completed 05/06/2016 Zoster (shingles) series for age 50+ Completed 12/18/2018, 10/08/2018 Tdap Completed 06/23/2020, 08/07/2010 HIV for age 15-65 Completed 08/08/2022 Pneumococcal series for age 65+ Completed DEXA/DXA scan for age 65+ Completed 09/10/2023, Procedures Procedure Name Priority Date/Time Associated Diagnosis Comments SCAN-OPERATIVE/PRO CEDURE REPORT 11/07/2023 12:00 AM CDT XR DXA BONE DENSITY 2 SITES AXIAL Routine 09/10/2023 1:39 PM CDT Postmenopausal LIPID PANEL W REFLEX MEASURED LDL Routine 09/10/2023 12:45 PM CDT Mixed hyperlipidemia XR MAMMO BHASKAR BILAT SCREEN Routine 08/13/2023 12:01 PM CDT Encounter for screening mammogram for malignant neoplasm of breast SCAN-COLONOSCOPY 11/04/2022 12:0 0 AM CDT LC HIV-1/O/2, 4TH GENERATION Routine 08/08/2022 10:18 AM CDT Screening for HIV (human immunodeficiency virus) ANTI HCV Routine 05/06/2016 10:15 AM SHOE LASTER Need for hepatitis C screening test from Last 3 Months or Most Recently Relevant to Health Maintenance Results * SCAN-OPERATIVE/PROCEDURE REPORT (11/07/2023 12:00 AM CDT) Scanner OTHER * XR DXA BONE DENSITY 2 SITES AXIAL [69686.1] (09/10/2023 1:39 PM CDT) Anatomical Region Laterality Modality Spine, HIPS, HIPL, HIPR Other Impressions 09/21/2023 2:26 PM CDT Normal bone density. RECOMMENDATIONS: The National Osteoporosis Foundation recommends pharmacologic treatment for patients with T-scores of -2.5 or less, patients with prior history of fragility fractures, or patients with 10-year probability of greater than 3% at hips or greater than 20% of suffering major osteoporotic fractures. Recommend continued optimization of calcium and vitamin D intake through dietary means and/or supplementation and regular exercise. Repeat scan recommended in 3-5 years. Juliette Garvin PA-C [facility] 09/21/2023 ?? Narrative 09/21/2023 2:26 PM CDT For Patients: Results are automatically released to your [facility] ([employer]) account once available, in compliance with federal regulations. This means that you may see your results before your provider has had a chance to review them. Please allow 2-3 business days for your provider to comment on the results. XR DXA Bone Mineral Density (BMD) EXAM LOCATION: [address] [address] PATIENT NAME: Yue Conde DATE OF : 1960 EXAM DATE: 09/10/2023 REQUESTING PROVIDER: Asha Arthur, DO GENDER AT : female HEIGHT: 5' 1.22 (08/13/2023) WEIGHT: ??236 lb 11.2 oz (08/13/2023) MENOPAUSAL STATUS: Postmenopausal RACE/ETHNICITY: White RISK FACTORS: Diabetes Type 1 and White Race CURRENT MEDICATION FOR BONE LOSS: NONE INDICATION: Post-Menopause COMPARISON DATE(S): 2020 DXA scans are compared to prior studies for a patient only when the two (or more) studies were performed on the same scanner. It is not possible to compare data generated on one scanner to data from another because there are not standards in DXA equipment. This applies even if the two scanners are made by the same vacuum evaporation operator. PROCEDURE: Dual-energy x-ray absorptiometry performed with routine technique. Reporting is completed in the form of a T-score. The T-score represents the standard deviation from peak bone mass based on young healthy adult. A Z-score is used for diagnosis in premenopausal women, and for men under the age of 50. FINDINGS: RESULT LUMBAR SPINE L3-L4(L1&L2) ??BMD: 1.987 g/cm2 T-Score: + 6.1 Z-Score: + 6.5 Change from prior in 2020: ??Increase 0.1%. RESULTS FEMUR Right femoral neck BMD: 1.227 g/cm2 T-Score: + 1.4 Z-Score: + 2.1 Change from prior in 2020: ??Decrease 1.8%. Right hip BMD: 1.318 g/cm2 T-Score: + 2.5 Z-Score: + .28 Change from prior in 2020: ??Decrease 4.5%. WHO criteria: Normal: T-score at or above -1 SD Osteopenia: T-score between -1.1 and -2.4 SD Osteoporosis: T-score at or below -2.5 SD FRAX RISK CALCULATION (USED FOR OSTEOPENIA ONLY): 10-year probability of major osteoporotic fracture: 4.6%. 10-year probability of hip fracture: 0.0%. Asha Liane Angelra DO DEXA * (ABNORMAL) LIPID PANEL W REFLEX MEASURED LDL (09/10/2023 12:45 PM CDT) [facility] CHOLESTEROL,TOTAL 161 100 - 199 mg/dL 09/10/2023 10:45 PM CDT [facility] Comment: Cholesterol, Total Reference Ranges Desirable <200 mg/dL Borderline 200-239 mg/dL High >=240 mg/dL TRIGLYCERIDES 208(H) <150 mg/dL 09/10/2023 10:45 PM CDT [facility] HDL CHOLESTEROL 53 >40 mg/dL 10:45 PM CDT [facility] NON-HDL CHOLESTEROL 108 <145 mg/dl 09/10/2023 10:45 PM CDT [facility] CHOL/HDL RATIO 3.04 <4.50 09/10/2023 10:45 PM CDT [facility] LDL CHOLESTEROL 66 <=130 mg/dL 09/10/2023 10:45 PM CDT [facility] VLDL CHOLESTEROL 42(H) <=30 mg/dL 09/10/2023 10:45 PM CDT [facility] PROVIDER ORDERED STATUS RANDOM 09/10/2023 10:45 PM CDT [facility] Blood BLOOD SPECIMEN / Unknown Venipuncture / Unknown 09/10/2023 12:45 PM CDT 09/10/2023 12:47 PM CDT Asha Liane Jerson DO CHEMISTRY [facility] [address] [place] [address], [place] * XR MAMMO BHASKAR BILAT SCREEN (08/13/2023 12:01 PM CDT) Anatomical Region Laterality Modality BREASTS, Breast Left, Breast Right Bilateral Mammography Impressions 08/13/2023 3:12 PM CDT ??There is no radiographic evidence for malignancy. ??Recommend annual mammograms. MAMMOGRAM ASSESSMENT: ??ACR 1 Negative PATIENTS: You will also receive a letter with your examination results in an easy to read format. ??If you have questions about your results, please contact your referring provider. Narrative 08/13/2023 3:12 PM CDT For Patients: As a result of the Century Cures Act, medical imaging exams and procedure reports are released immediately into your electronic medical record. You may view this report before your referring provider. If you have questions, please contact your health care provider. XR MAMMO BHASKAR BILAT SCREEN [[id number]] CLINICAL HISTORY: ??This is an asymptomatic 63 y.o. patient. INDICATION FOR EXAM: Mammogram Screening. TECHNIQUE: CC & MLO views were obtained. ??This study was evaluated with the assistance of Computer-Aided Detection. Breast Tomosynthesis was used in interpretation. COMPARISON FILM: Yes [facility]22 [facility] FINDINGS: ??The breasts have scattered areas of fibroglandular density. There are no dominant masses, suspicious micro calcifications or areas of architectural distortion. Asha Arthur DO MAMMO * SCAN-COLONOSCOPY (11/04/2022 12:00 AM CDT) Scanner OTHER * LC HIV-1/O/2, 4TH GENERATION (08/08/2022 10:18 AM CDT) Pathologist [facility] HIV Scr 4th Gen Non Reactive Non Reactive 08/13/2022 12:06 AM CDT [facility] ([facility]) Comment: HIV Negative HIV-1/HIV-2 antibodies and HIV-1 p24 antigen were NOT detected. There is no laboratory evidence of HIV infection. Blood BLOOD SPECIMEN / Unknown Venipuncture / Unknown 08/08/2022 10:18 AM CDT 08/08/2022 10:23 AM CDT Narrative [facility] ([facility]) - 08/13/2022 12:06 AM CDT Performed at: ??[address] ??[id number] Environmental Tech: Blake Wilcox MD, Phone: ??[phone] [facility] ([facility]) [address] [place] [address] * ANTI HCV [[id number]] (05/06/2016 10:15 AM SHOE LASTER) Pathologist [facility] HEPATITIS C ANTIBODY Non-Reacti ve Non-Reacti ve 05/06/2016 3:00 PM SHOE LASTER [facility] Blood BLOOD SPECIMEN / Unknown Venipuncture / Unknown 05/06/2016 10:15 AM SHOE LASTER 05/06/2016 10:15 AM SHOE LASTER Narrative [facility] - 05/06/2016 3:00 PM SHOE LASTER Antibodies to HCV not detected; does not exclude the possibility of exposure to HCV. Arpita Bryson DO SEND OUTS [facility] [address] [place] [address], [place] from Last 3 Months or Most Recently Relevant to Health Maintenance Advance Directives * Full Code (Latest Code Status on File) Date Activated Date Inactivated Comments 04/08/2023 8:59 AM 04/08/2023 2:24 PM Question Answer Comments Code Status Discussion: Unable to Assess Preferences, Provider to review later * Full Code Date Activated Date Inactivated Comments 06/03/2014 6:07 AM 06/03/2014 10:30 AM Care Teams Cost Manager Relationship Specialty Start Date End Date Asha Arthur DO [address] [facility] [place] [address] PCP - General Family Practice 10/15/22 Kellie Benavides MD [address] [place] [address] Medical Oncologist Hematology and Oncology 11/06/22 Thalia Ross RN [address] [place] [address] Nurse Navigator - Oncology Registered Nurse 04/16/23
--- OUTSIDE RECORDS SUMMARY | 2024-01-26 13:42 | XMS_ITS | Clinical Summary ---
Author Organization [place] Address [address] [place] [address] Care Team Providers Care Religious Healer Name Role Phone Kelly Sommer Primary Care Provider Helen Mancini MD Unavailable [phone] Allergies Active Allergy Reactions Criticality Noted Date Comments Amlodipine Other (See Comments) 06/08/2009 Edema on doses above 5mg Edema on doses above 5mg Contrast Dye Hives 01/25/2020 Nitrofurantoin Dizziness,Muscle Giorgio n (Myalgia),Nausea and Vomiting,Other (See Comments) Medium 07/13/2011 myalgias Medications Medication Sig Dispensed Refills Start Date End Date Status amLODIPine (NORVASC) 5 MG tablet Take 5 mg by mouth daily 05/26/2018 Active chlorthalidone (HYGROTON) 50 MG tablet Take 50 mg by mouth daily 05/26/2018 Active cholecalciferol 25 MCG (1000 UT) TABS Take 1,000 Units by mouth daily 10/27/2014 Active losartan (COZAAR) 50 MG tablet Take 50 mg by mouth 2 times daily 05/26/2018 Active meclizine (ANTIVERT) 25 MG tablet Take 25 mg by mouth 3 times daily as needed 05/26/2018 Active metFORMIN (GLUCOPHAGE) 1000 MG tablet Take 1,000 mg by mouth 2 times daily (with meals) 05/26/2018 Active spironolactone (ALDACTONE) 50 MG tablet Take 50 mg by mouth every evening 05/26/2018 Active simvastatin (ZOCOR) 40 MG tablet Take 40 mg by mouth every morning 05/26/2018 Active potassium chloride ER (K-TAB) 20 MEQ CR tablet Take 20 mEq by mouth 2 times daily 05/26/2018 Active venlafaxine (EFFEXOR-XR) 75 MG 24 hr capsule Take 225 mg by mouth daily 05/26/2018 Active busPIRone (BUSPAR) 5 MG tablet Take 10 mg by mouth 2 times daily 01/14/2023 Active OZEMPIC, 0.25 OR 0.5 MG/DOSE, 2 MG/3ML pen Inject 0.25 mg Subcutaneous every 7 days Active aspirin 81 MG EC tabletIndications: Status post total replacement of left hip Take 1 tablet (81 mg) by mouth 2 times daily 60 tablet 06/10/2023 Active senna-docusate (SENOKOT-S/PERICOL GARRISON) 8.6-50 MG tabletIndications: Status post total replacement of left hip Take 1-2 tablets by mouth 2 times daily as needed for constipation Take while on oral narcotics to prevent or treat constipation. 30 tablet 06/10/2023 Active acetaminophen (TYLENOL) 325 MG tabletIndications: Status post total replacement of left hip Take 2 tablets (650 mg) by mouth every 4 hours as needed for other (mild pain) 100 tablet 06/10/2023 Active gabapentin (NEURONTIN) 300 MG capsuleIndications :Status post total replacement of left hip Take one capsules by mouth at bedtime 30 capsule 06/10/2023 Active oxyCODONE (ROXICODONE) 5 MG tabletIndications: Status post total replacement of left hip Take 1 tablet (5 mg) by mouth every 4 hours as needed for moderate to severe pain (MDD 4 tabs) 26 tablet 06/10/2023 Active hydrOXYzine HCl (ATARAX) 10 MG tabletIndications: Status post total replacement of left hip Take 1 tablet (10 mg) by mouth every 6 hours as needed for itching or anxiety (with pain, moderate pain; sleep aid) 30 tablet 06/10/2023 Active celecoxib (CELEBREX) 100 MG capsuleIndications :Status post total replacement of left hip Take 1 capsule (100 mg) by mouth daily for 7 days Do not take within 6 hours of ibuprofen (MOTRIN, ADVIL) or ketorolac (TORADOL) if prescribed. 7 capsule 06/10/2023 Active Active Problems Problem Noted Date Diagnosed Date S/P total hip arthroplasty 06/10/2023 Endometrial cancer 12/22/2019 Cancer Staging:Clinical stage from 01/19/2020:FIGO Stage IA(T1a(m), N0, M0) - Signed by Helen Mancini MD on 01/19/2020 Overview: Added automatically from request for surgery [id number] Hypertension Diabetes mellitus Immunizations Name Administration Dates [...] Comments Blood Pressure 112/53 06/23/2023 7:10 PM FINANCIAL ASSISTANCE ADVISOR Pulse 101 06/23/2023 8:15 PM FINANCIAL ASSISTANCE ADVISOR Temperature 37.2 ??C (98.9 ??F) 06/23/2023 7:10 PM CS T Respiratory Rate 20 06/23/2023 7:10 PM FINANCIAL ASSISTANCE ADVISOR Oxygen Saturation 94% 06/23/2023 8:15 PM FINANCIAL ASSISTANCE ADVISOR Inhaled Oxygen Concentration - - Weight 115.7 kg (255 lb) 06/23/2023 7:10 PM FINANCIAL ASSISTANCE ADVISOR Height 157.5 cm (5' 2) 06/10/2023 6:58 AM FINANCIAL ASSISTANCE ADVISOR Body Mass Index 46.64 06/10/2023 6:58 AM FINANCIAL ASSISTANCE ADVISOR Plan of Treatment Health Maintenance Due Date Last Done Comments ADVANCE CARE PLANNING 1960 ANNUAL REVIEW OF HM ORDERS 1960 CT COLONOGRAPHY 1960 DEXA 1960 DIABETIC FOOT EXAM 1960 FIT 1960 FLEX SIG 1960 LIPID 1960 MICROALBUMIN 1960 sDNA (Cologuard) 1960 COLONOSCOPY 1968 COLORECTAL CANCER SCREENING 1968 HIV SCREENING 1973 HEPATITIS C SCREENING 1976 RSV VACCINE (1 - Risk 60-74 years 1-dose series) 2018 A1C 09/13/2019 06/15/2019 FALL RISK ASSESSMENT 2023 PHQ-2 (once per calendar year) 2023 MEDICARE ANNUAL WELLNESS VISIT 08/09/2023 08/08/2022, 07/26/2021, 06/23/2020, Additional history exists COVID-19 Vaccine ( season) 2024 04/22/2023, 01/31/2022, 05/15/2021, Additional history exists INFLUENZA VACCINE (#1) 2024 , 01/31/2022, 03/21/2020, Additional history exists EYE EXAM 03/07/2024 03/07/2023 BMP 06/11/2024 06/11/2023, 12/2019, 01/04/2020, Additional history exists MAMMO SCREENING 08/08/2024 08/08/2022, 07/10, 07/26/2021, Additional history exists DTAP/TDAP/TD IMMUNIZATION (3 - Td or Tdap) 06/23/2030 06/23/2020, 08/07/2010, 07/17/2006, Additional history exists PAP Discontinued 07/23/2018, 07/10, 06/24/2018, Additional history exists ZOSTER IMMUNIZATION Completed 12/18/2018, 9 Pneumococcal Vaccine: 65+ Years Completed 08/08/2022 HPV IMMUNIZATION Aged Out No longer e [...] [employer] Implanted Type Area Principal Solutions Architect Device Identifier Shelf Expiration Date Model / Serial / Lot Allograft Duragen Plus 1 X 1 Dp-1011 Implanted:Qt y: 1 on 06/14/2019 Bone/Tissue Synthetic N/A: Spine Lumbar [employer] 01/09/2022 [id number] / / [id number] Imp Shell Acet Depuy [place] Gription 54mm [id number] - [id number] Implanted:Qt y: 1 on 06/10/2023 by Jenaro Cosby MD at [facility] Total Joint Component/In sert Left: Hip [employer]- [id number] 03/11/2033 [id number] / / [id number] Imp Stem Fem Depuy Actis Collar Hi-Offset Sz 3mm 1010-12-030 - [id number] Implanted:Qt y: 1 on 06/10/2023 by Jenaro Cosby MD at [facility] Total Joint Component/In sert Left: Hip [employer]- [id number] 09/08/2032 1010-12-030 / / [id number] Imp Liner Hip Depuy [place] Altrx [id number] +4 10d [id number] - [id number] Implanted:Qt y: 1 on 06/10/2023 by Jenaro Cosby MD at [facility] Total Joint Component/In sert Left: Hip [employer] [id number] 12/10/2027 [id number] / / [id number] Imp Head Femoral Depuy Ceramic 36mm +1.5mm 1365-36-310 - [id number] Implanted:Qt y: 1 on 06/10/2023 by Jenaro Cosby MD at [facility] Total Joint Component/In sert Left: Hip [employer]- [id number] 02/09/2028 [id number] / / [id number] Procedures Procedure Name Priority Date/Time Associated Diagnosis Comments BASIC METABOLIC PANEL Routine 06/11/2023 6:09 AM FINANCIAL ASSISTANCE ADVISOR HEMOGLOBIN A1C Routine 06/15/2019 5:56 AM FINANCIAL ASSISTANCE ADVISOR from Last 3 Months or Most Recently Relevant to Health Maintenance Results * (ABNORMAL) Basic metabolic panel (06/11/2023 6:09 AM FINANCIAL ASSISTANCE ADVISOR) [facility] Sodium 136 135 - 145 mmol/L 06/11/2023 7:08 AM [facility] Comment:Reference intervals for this test were updated on 02/04/2023 to more accurately reflect our healthy population. There may be differences in the flagging of prior results with similar values performed with this method. Interpretation of those prior results can be made in the context of the updated reference intervals. Potassium 4.7 3.4 - 5.3 mmol/L 06/11/2023 7:08 AM [facility] Chloride 101 98 - 107 mmol/L 06/11/2023 7:08 AM [facility] Carbon Dioxide (CO2) 29 22 - 29 mmol/L 06/11/2023 7:08 AM [facility] Anion Gap 6(L) 7 - 15 mmol/L 06/11/2023 7:08 AM [facility] Urea Nitrogen 24.8(H) 8.0 - 23.0 mg/dL 06/11/2023 7:08 AM [facility] Creatinine 0.81 0.51 - 0.95 mg/dL 06/11/2023 7:08 AM [facility] GFR Estimate 80 >60 mL/min/1. 73m2 06/11/2023 7:08 AM [facility] Calcium 9.1 8.8 - 10.2 mg/dL 06/11/2023 7:08 AM [facility] Glucose 110(H) 70 - 99 mg/dL 06/11/2023 7:08 AM [facility] Blood STRUCTURE OF RIGHT UPPER LIMB / Unknown Venipuncture / Unknown 06/11/2023 6:09 AM FINANCIAL ASSISTANCE ADVISOR 06/11/2023 6:40 AM FINANCIAL ASSISTANCE ADVISOR Radha Quintana MD LAB - BLOOD ORDERABL ES Performing Organization Address City/[facility]/ZIP Co de Phone Number [facility] [address] [place], [place] [address] [phone] * (ABNORMAL) Hemoglobin A1c (06/15/2019 5:56 AM FINANCIAL ASSISTANCE ADVISOR) Hemoglobin A1C 6.8(H) 4.2 - 6.1 % 06/15/2019 1:26 PM FINANCIAL ASSISTANCE ADVISOR [facility] Blood specimen (specimen) STRUCTURE OF RIGHT UPPER LIMB / Unknown Venipuncture / Unknown 06/15/2019 5:56 AM FINANCIAL ASSISTANCE ADVISOR 06/15/2019 8:50 AM FINANCIAL ASSISTANCE ADVISOR Rubens Calabrese MD LAB - BLOOD ORDERABL ES Performing Organization Address City/[facility]/ZIP Co de Phone Number [facility] [address] [place] [address], [facility] [address] [address] from Last 3 Months or Most Recently Relevant to Health Maintenance Additional Health Concerns Active Problems Noted Date Diagnosed Date MyC ECC SURG ENROLL 05/23/2023 Care pathway for general surgery 05/28/2023 Advance Directives For more information, please contact: [phone] * Full Code (Latest Code Status on File) Date Activated Date Inactivated Comments 06/10/2023 1:05 PM 06/11/2023 2:44 PM All basic an d advanced life-sustaining interventions are performed as appropriate Question Answer Comments Code status determined by: Unable to dis cuss and no AD/POLST on file; continue PREVIOUSLY ORDERED code status Care Teams Religious Healer Relationship Specialty Start Date End Date Kelly Sommer PCP - General Physician Family Medicine Physician 08/17/18 Helen Mancini MD [address] [place] [address] [address] [place] [address] Gynecologic Oncology 08/21/18
--- OUTSIDE RECORDS SUMMARY | 2024-01-26 13:42 | XMS_ITS | Encounter Summary ---
Author Organization [place] Address [address] [place] [address] Care Team Providers Care Technical Agronomist Name Role Phone Kolton Sommera Karmen Primary Care Provider Helen Mancini MD Unavailable Muna Breen RN Unavailable Helen Mancini MD Unavailable My [place]isle APRN SPA ATTENDANT Unavailable + My [place] APRN SPA ATTENDANT Unavailable + Encounter Details Date Type Department Care Team (Late st Contact Info) Description 08/17/2020 [facility] [address] [place] [id number] [place] Social History Tobacco Use Types Packs/Day Years [...] on filedocumented in this encounter Care Teams Technical Agronomist Relationship Specialty Start Date End Date Kelly Sommer PCP - General Physician Behavioral Instructor 08/17/18 Helen Mancini MD [address] [place] [address] Gynecologic Oncology 08/21/18 Muna Breen, RN Specialty Box Coverer Hand Oncology 12/30/19 06/09/23 Hleen Mancini MD [address] [place] [address] Assigned Cancer Care Provider 03/03/20 06/23/21 My Carlisle APRN SPA ATTENDANT [address] [place] [address] Assigned OBGYN Provider 08/06/20 My Carlisle APRN SPA ATTENDANT [address] [address] Assigned Cancer Care Provider 06/24/21 09/01/23 documented as of this encounter
--- OUTSIDE RECORDS SUMMARY | 2024-01-26 13:42 | XMS_ITS | Referral Summary ---
Author Organization [place] Address [address] [place] [address] Care Team Providers Care Operations And Maintenance Supervisor Name Role Phone Kelly Sommer Primary Care Provider Helen Mancini MD Unavailable Allergies Active Allergy Reactions Criticality Noted [...] Overview: Added automatically from request for surgery [id number] Hypertension Diabetes mellitus Immunizations Name Administration Dates [...] Comments Blood Pressure 112/53 06/23/2023 7:10 PM MANAGEMENT ACCOUNTS MANAGER Pulse 101 06/23/2023 8:15 PM MANAGEMENT ACCOUNTS MANAGER Temperature 37.2 ??C (98.9 ??F) 06/23/2023 7:10 PM CS T Respiratory Rate 20 06/23/2023 7:10 PM MANAGEMENT ACCOUNTS MANAGER Oxygen Saturation 94% 06/23/2023 8:15 PM MANAGEMENT ACCOUNTS MANAGER Inhaled Oxygen Concentration - - Weight 115.7 kg (255 lb) 06/23/2023 7:10 PM MANAGEMENT ACCOUNTS MANAGER Height 157.5 cm (5' 2) 06/10/2023 6:58 AM MANAGEMENT ACCOUNTS MANAGER Body Mass Index 46.64 06/10/2023 6:58 AM MANAGEMENT ACCOUNTS MANAGER Plan of Treatment Not on file Goals [...] [employer] Implanted Type Area Director Cpg Device Identifier Shelf Expiration Date Model / Serial / Lot Allograft Duragen Plus 1 X 1 Dp-1011 Implanted:Qt y: 1 on 06/14/2019 Bone/Tissue Synthetic N/A: Spine Lumbar [employer] 01/09/2022 [id number] / / [id number] Imp Shell Acet Depuy [place] Gription 54mm [id number] - [id number] Implanted:Qt y: 1 on 06/10/2023 by Jenaro Cosby MD at [facility] Total Joint Component/In sert Left: Hip [employer]- [id number] 03/11/2033 [id number] / / [id number] Imp Stem Fem Depuy Actis Collar Hi-Offset Sz 3mm - [id number] Implanted:Qt y: 1 on 06/10/2023 by Jenaro Cosby MD at [facility] Total Joint Component/In sert Left: Hip [employer]- [id number] 09/08/2032 / / [id number] Imp Liner Hip Depuy [place] Altrx [id number] +4 10d [id number] - [id number] Implanted:Qt y: 1 on 06/10/2023 by Jenaro Cosby MD at [facility] Total Joint Component/In sert Left: Hip [employer]- [id number] 12/10/2027 [id number] / / [id number] Imp Head Femoral Depuy Ceramic 36mm +1.5mm 1365-36-310 - [id number] Implanted:Qt y: 1 on 06/10/2023 by Jenaro Cosby MD at [facility] Total Joint Component/In sert Left: Hip [employer]- [id number] 02/09/2028 [id number] / / [id number] Procedures Procedure Name Priority Date/Time Associated Diagnosis Comments BASIC METABOLIC PANEL Routine 06/11/2023 6:09 AM MANAGEMENT ACCOUNTS MANAGER HEMOGLOBIN A1C Routine 06/15/2019 5:56 AM MANAGEMENT ACCOUNTS MANAGER from Last 3 Months or Most Recently Relevant to Health Maintenance Results * (ABNORMAL) Basic metabolic panel (06/11/2023 6:09 AM MANAGEMENT ACCOUNTS MANAGER) [facility] Sodium 136 135 - 145 mmol/L 06/11/2023 7:08 AM [facility] Comment:Reference intervals for this test were updated on 02/04/2023 to more accurately reflect our healthy population. There may be differences in the flagging of prior results with similar values performed with this method. Interpretation of those prior results can be made in the context of the updated reference intervals. Potassium 4.7 3.4 - 5.3 mmol/L 06/11/2023 7:08 AM [facility] Chloride 101 98 - 107 mmol/L 06/11/2023 7:08 AM [facility] Carbon Dioxide (CO2) 29 22 - 29 mmol/L 06/11/2023 7:08 AM [facility] Anion Gap 6(L) 7 - 15 mmol/L 06/11/2023 7:08 AM [facility] Urea Nitrogen 24.8(H) 8.0 - 23.0 mg/dL 06/11/2023 7:08 AM [facility] Creatinine 0.81 0.51 - 0.95 mg/dL 06/11/2023 7:08 AM [facility] GFR Estimate 80 >60 mL/min/1. 73m2 06/11/2023 7:08 AM [facility] Calcium 9.1 8.8 - 10.2 mg/dL 06/11/2023 7:08 AM MANAGEMENT ACCOUNTS MANAGER [facility] Glucose 110(H) 70 - 99 mg/dL 06/11/2023 7:08 AM [facility] Blood STRUCTURE OF RIGHT UPPER LIMB / Unknown Venipuncture / Unknown 06/11/2023 6:09 AM MANAGEMENT ACCOUNTS MANAGER 06/11/2023 6:40 AM MANAGEMENT ACCOUNTS MANAGER Radha Quintana MD LAB - BLOOD ORDERABL ES [facility] [address] [place], [place] [address]RUST [phone] * (ABNORMAL) Hemoglobin A1c (06/15/2019 5:56 AM MANAGEMENT ACCOUNTS MANAGER) Hemoglobin A1C 6.8(H) 4.2 - 6.1 % 06/15/2019 1:26 PM [facility] Blood specimen (specimen) STRUCTURE OF RIGHT UPPER LIMB / Unknown Venipuncture / Unknown 06/15/2019 5:56 AM MANAGEMENT ACCOUNTS MANAGER 06/15/2019 8:50 AM MANAGEMENT ACCOUNTS MANAGER Rubens Calabrese MD LAB - BLOOD ORDERABL ES Performing Organization Address [facility]/ZIP Co de Phone Number [facility] [place] [place] [facility] [address] [address], [facility] [address] [address] from Last 3 Months or Most Recently Relevant to Health Maintenance Additional Health Concerns Active Problems Noted Date Diagnosed Date MyC ECC SURG ENROLL 05/23/2023 Care pathway for general surgery 05/28/2023 Advance Directives For more information, please contact: [phone] * Full Code (Latest Code Status on File) Date Activated Date Inactivated Comments 06/10/2023 1:05 PM 06/11/2023 2:44 PM All basic an d advanced life-sustaining interventions are performed as appropriate Question Answer Comments Code status determined by: Unable to dis cuss and no AD/POLST on file; continue PREVIOUSLY ORDERED code status Care Teams Operations And Maintenance Supervisor Relationship Specialty Start Date End Date Kelly Sommer PCP - General Physician Crayon Sorting Machine Feeder 08/17/18 Helen Mancini MD [address] [place] [address] [address] [place] [address] Gynecologic Oncology 08/21/18
--- OUTSIDE RECORDS SUMMARY | 2024-01-26 13:42 | XMS_ITS | Clinical Summary ---
Author Organization [facility] Address [address] [address] Phone Care Team Providers Care Kindergartners Helper Name Role Phone Unavailable Primary Care Provider Unavailabl e Allergies Active Allergy Reactions Criticality Noted Date Comments Diagnostic X-Ray Materials Other 2 Nitrofurantoin Monohydrate Macrocrystals Other 08/31/2011 Medications Medication Sig Dispensed Refills Start Date End Date Status Venlafaxine HCl (EFFEXOR OR) Take 150 mg by mouth one time a day. Active losartan (COZAAR) 50 MG tablet Take 50 mg by mouth two times a day. Active amLODIPine (NORVASC) 5 MG tablet Take 5 mg by mouth one time a day. Active hydrochlorothiazide (HYDRODIURIL) 50 MG tablet Take 50 mg by mouth one time a day. Active spironolactone (ALDACTONE) 25 MG tablet Take 25 mg by mouth one time a day. Active metFORMIN (GLUCOPHAGE) 1000 MG tablet Take 1,000 mg by mouth two times a day with meals. Take with food. Active SIMVASTATIN OR Take 30 mg by mouth at bedtime. Active potassium chloride (K-[place]) 20 MEQ packet Take 20 mEq by mouth two times a day. Dissolve in 4-5 ounces of water or other beverage prior to administration. Active phenazopyridine (PYRIDIUM) 200 MG tablet Take [...]
--- OUTSIDE RECORDS SUMMARY | 2024-01-26 13:42 | XMS_ITS ---
Author Organization [place] Address [address] [place] [address] Care Team Providers Care Store Gift Wrap Associate Name Role Phone Kelly Sommer Primary Care Provider Helen Mancini MD Unavailable Active Problems Problem Noted Date Diagnosed Date S/P total hip arthroplasty 06/10/2023 Endometrial cancer 12/22/2019 Cancer Staging:Clinical stage from 01/19/2020:FIGO Stage IA(T1a(m), N0, M0) - Signed by Helen Mancini MD on 01/19/2020 Overview: Added automatically from request for surgery [id number] Hypertension Diabetes mellitus Current Oncology Plans No current plan information found. Past Plans No past plan information found. Radiation Treatments * No radiation treatments are documented for this patient in [facility]. Treatments may have been administered in another system. Treatment Summaries Endometrial cancer (H)* Cancer Treatment Plan and Summary - Gynecology [facility] General Information Patient Name Yue Cardoso Patient 1960 Patient phone [phone] (home) [phone] (work) Email [email or web address] Care Team Primary Care Provider Kelly Sommer [...] to maintain optimal health. Possible late and/or assisted effects that someone with this type of cancer and treatment may experience: bone effects heart effects memory and concentration pain nervous system changes If you would like to discuss specific late and/or topographic computator effects related to your treatment, please use the following website to make an appointment in the Cancer Survivor Program: [email or web address].org/c are/overarching-care/qkrzzj-soqr-ouidf/support-services OR call These symptoms should be brought [...] (loss/gain) Resources you may be interested in: [place] [employer] www.cancer.org [place] [employer] of Clinical Oncology www.asco.org/practice-guidelines/resources-patients National Cancer Cavour www.cancer.gov [employer] www.livestrong.org [facility] www.mhealth.org/care/overarching-care/elouny-mjnp-gpkmt/support-services www.cancer.net [employer] Research www.aicr.org This Survivorship Care Plan is a cancer treatment summary and follow up plan and is provided to youto keep with your health care records and to share with your primary care provider or any of your other providers.
--- NOTE | 2024-01-26 13:45 | MR_ITS ---
[address] [address] Phone:?[phone] Fax:?[phone] Referring Physician Information: Billy Ortez M.D. [address] [facility] [address] Phone:?[phone] Fax:?[phone] Patient:Charles Conde D.O.B:?1960 Sex:?Female Phone:?[phone] [facility] MRN:?[id number] Exam Date:?01/26/2024 EXAM: MRI of the RIGHT SHOULDER WITHOUT CONTRAST CLINICAL HISTORY: Ongoing right shoulder pain. Evaluate for rotator cuff tear. COMPARISONS: Plain radiographs 01/16/2024. TECHNICAL: MRI sequences of the right shoulder: Axials: PD, T2 Coronals: PD, STIR, T2 Sagittals: PD, T2 SEDATION: None CONTRAST: None FINDINGS: Bones: No fracture or suspicious bone marrow signal abnormality. Coracoacromial arch: Acromion: No os acromiale. Type I-II acromion. Acromiohumeral space: The bony distance is unremarkable. Acromioclavicular joint: Moderate degenerative changes. Coracoclavicular ligament: The coracoclavicular ligament is intact. Rotator cuff muscles/tendons: Supraspinatus: 2.0 cm in AP dimension full-thickness tear of the supraspinatus tendon insertion with maximal tendon retraction to the medial aspect of the humeral head. No muscular atrophy. Infraspinatus: Mild tendinopathy of the anterior portion of the infraspinatus tendon. No muscular atrophy. Teres minor: The teres minor tendon and muscle are intact. Subscapularis: The subscapularis tendon and muscle are intact. Labrum and glenohumeral joint: No evidence of labral tear although evaluation is suboptimal because of nonarthrogram technique. Small glenohumeral joint effusion. No discrete chondral defect or subchondral bone marrow edema/cystic change is seen. No convincing evidence of capsular edema or thickening although evaluation is suboptimal because of lack of joint distention. Proximal biceps tendon, long head and short heads: There is mild biceps tenosynovitis. The short head is intact. IMPRESSION: 1. 2.0 cm in AP dimension full-thickness tear of the supraspinatus tendon insertion with maximal tendon retraction to the medial aspect of the humeral head. 2. No rotator cuff muscular atrophy. 3. Mild biceps tenosynovitis. 4. Moderate acromioclavicular joint osteoarthritis. 5. Small glenohumeral joint effusion. RCB Electronically signed on 01/27/2024 6:15:00 AM by Ortega Mejia M.D.
== END 2024-01-26 13:38 | disposition home or self-care (01) ==
LOC: MRI 13:39
PROVIDERS: PCP Family Medicine; Visit Provider Orthopaedic Surgery Sports Medicine
DX: M25.511 Pain in right shoulder (principal); S46.011A Strain of muscle(s) and tendon(s) of the rotator cuff of right shoulder, initial encounter; M75.101 Unspecified rotator cuff tear or rupture of right shoulder, not specified as traumatic; M75.21 Bicipital tendinitis, right shoulder; M25.411 Effusion, right shoulder; M19.011 Primary osteoarthritis, right shoulder; M67.911 Unspecified disorder of synovium and tendon, right shoulder
CPT/HCPCS: 73221

== ENCOUNTER 2024-03-17 08:45 | Day surgery (SDC) | payer MEDICARE, BC, SELFPAY ==
[2024-03-17] VITALS (27 sets, daily range): BP systolic 124–168; BP diastolic 62–88; PULSE 83–102; RESP 14–18; TEMP 35.8–36.7; O2SAT 90–100; BMI 47.8
--- OUTSIDE RECORDS SUMMARY | 2024-03-17 08:49 | XMS_ITS | Referral Summary ---
Author Organization [facility] Address [address] [place] [id number] Care Team Providers Care Saw Edge Fuser Circular Name Role Phone Sommer Kelly Karmen Primary Care Provider Helen Mancini MD Unavailable [phone] Encounters Date Type Department Care Team Description 03/01/2024 MyC Medical Advice Initial Department Neda [facility]ham from Last 3 Months Allergies Active Allergy Reactions Criticality Noted Date Comments Amlodipine Other (See Comments) 06/08/2009 Edema on doses above 5mg Edema on doses above 5mg Contrast Dye Hives 01/25/2020 Nitrofurantoin Dizziness,Muscle Giorgio n (Myalgia),Nausea and Vomiting,Other (See Comments) Medium 07/13/2011 myalgias Medications amLODIPine (NORVASC) 5 MG tablet Take 5 mg by mouth daily 9 Active chlorthalidone (HYGROTON) 50 MG tablet Take 50 mg by mouth daily 9 Active cholecalciferol 25 MCG (1000 UT) TABS Take 1,000 Units by mouth daily 5 Active losartan (COZAAR) 50 MG tablet Take 50 mg by mouth 2 times daily 9 Active meclizine (ANTIVERT) 25 MG tablet Take 25 mg by mouth 3 times daily as needed 9 Active metFORMIN (GLUCOPHAGE) 1000 MG tablet Take 1,000 mg by mouth 2 times daily (with meals) 9 Active spironolactone (ALDACTONE) 50 MG tablet Take 50 mg by mouth every evening 9 Active simvastatin (ZOCOR) 40 MG tablet Take 40 mg by mouth every morning 9 Active potassium chloride ER (K-TAB) 20 MEQ CR tablet Take 20 mEq by mouth 2 times daily 9 Active venlafaxine (EFFEXOR-XR) 75 MG 24 hr capsule Take 225 mg by mouth daily 9 Active busPIRone (BUSPAR) 5 MG tablet Take 10 mg by mouth 2 times daily 3 Active OZEMPIC, 0.25 OR 0.5 MG/DOSE, 2 MG/3ML pen Inject 0.25 mg Subcutaneous every 7 days Active aspirin 81 MG EC tabletIndicatio ns:Status post total replacement of left hip Take 1 tablet (81 mg) by mouth 2 times daily 60 tablet 4 Active senna-docusate (SENOKOT-S/RICHARDSON COLACE) 8.6-50 MG tabletIndicatio ns:Status post total replacement of left hip Take 1-2 tablets by mouth 2 times daily as needed for constipation Take while on oral narcotics to prevent or treat constipation. 30 tablet 4 Active acetaminophen (TYLENOL) 325 MG tabletIndicatio ns:Status post total replacement of left hip Take 2 tablets (650 mg) by mouth every 4 hours as needed for other (mild pain) 100 tablet 4 Active gabapentin (NEURONTIN) 300 MG capsuleIndicati ons:Status post total replacement of left hip Take one capsules by mouth at bedtime 30 capsule 4 Active oxyCODONE (ROXICODONE) 5 MG tabletIndicatio ns:Status post total replacement of left hip Take 1 tablet (5 mg) by mouth every 4 hours as needed for moderate to severe pain (MDD 4 tabs) 26 tablet 4 Active hydrOXYzine HCl (ATARAX) 10 MG tabletIndicatio ns:Status post total replacement of left hip Take 1 tablet (10 mg) by mouth every 6 hours as needed for itching or anxiety (with pain, moderate pain; sleep aid) 30 tablet 4 Active celecoxib (CELEBREX) 100 MG capsuleIndicati ons:Status post total replacement of left hip Take 1 capsule (100 mg) by mouth daily for 7 days Do not take within 6 hours of ibuprofen (MOTRIN, ADVIL) or ketorolac (TORADOL) if prescribed. 7 capsule 4 Active Active Problems Problem Noted Date Diagnosed Date S/P total hip arthroplasty 06/10/2023 Endometrial cancer 12/22/2019 Cancer Staging:Clinical stage from 01/19/2020:FIGO Stage IA(T1a(m), N0, M0) - Signed by Helen Mancini MD on 01/19/2020 Overview (12/22/2019): Added automatically from request for surgery [id number] Hypertension Diabetes mellitus Immunizations Name Administration Dates [...] School Help Needed Not on file 02/23 Comments No Sex and Gender Information Value Date Recorded Sex Assigned at Female 12/21/2019 11:36 AM CDT Legal Sex Female 3:28 AM 2ND GRADE TEACHER Gender Identity Female 12/21/2019 11:36 AM CDT Sexual Orientation Straight 12/21/2019 11 :36 AM CDT Last Filed Vital Signs Vital Sign Reading Time Taken Comments Blood Pressure 112/53 06/23/2023 7:10 PM 2ND GRADE TEACHER Pulse 101 06/23/2023 8:15 PM 2ND GRADE TEACHER Temperature 37.2 ??C (98.9 ??F) 06/23/2023 7:10 PM CS T Respiratory Rate 20 06/23/2023 7:10 PM 2ND GRADE TEACHER Oxygen Saturation 94% 06/23/2023 8:15 PM 2ND GRADE TEACHER Inhaled Oxygen Concentration - - Weight 115.7 kg (255 lb) 06/23/2023 7:10 PM 2ND GRADE TEACHER Height 157.5 cm (5' 2) 06/10/2023 6:58 AM 2ND GRADE TEACHER Body Mass Index 46.64 06/10/2023 6:58 AM 2ND GRADE TEACHER Plan of Treatment Not on file Goals [...] Neda [facility] Medical Devices Implanted Type Area Faith Healer Device Identifier Shelf Expiration Date Model / Serial / Lot Allograft Duragen Plus 1 X 1 Dp-1011 Implanted:Qt y: 1 on 06/14/2019 Bone/Tissue Synthetic N/A: Spine Lumbar [employer] 01/09/2022 [id number] / / [id number] Imp Shell Acet Depuy [employer] Gription 54mm [id number] - [id number] Implanted:Qt y: 1 on 06/10/2023 by Jenaro Cosby MD at [facility] Total Joint Component/In sert Left: Hip [employer] [id number] 03/11/2033 [id number] / / [id number] Imp Stem Fem Depuy Actis Collar Hi-Offset Sz 3mm 1010-12-030 - [id number] Implanted:Qt y: 1 on 06/10/2023 by Jenaro Cosby MD at [facility] Total Joint Component/In sert Left: Hip [employer] [id number] 09/08/2032 1010-12-030 / / [id number] Imp Liner Hip Depuy [employer] Altrx [id number] +4 10d [id number] - [id number] Implanted:Qt y: 1 on 06/10/2023 by Jenaro Cosby MD at [facility] Total Joint Component/In sert Left: Hip [employer] [id number] 12/10/2027 [id number] / / [id number] Imp Head Femoral Depuy Ceramic 36mm +1.5mm 1365-36-310 - [id number] Implanted:Qt y: 1 on 06/10/2023 by Jenaro Cosby MD at [facility] Total Joint Component/In sert Left: Hip [employer] [id number] 02/09/2028 [id number] / / [id number] Procedures Procedure Name Priority Date/Time Associated Diagnosis Comments BASIC METABOLIC PANEL Routine 06/11/2023 6:09 AM 2ND GRADE TEACHER HEMOGLOBIN A1C Routine 06/15/2019 5:56 AM 2ND GRADE TEACHER from Last 3 Months or Most Recently Relevant to Health Maintenance Results * (ABNORMAL) Basic metabolic panel (06/11/2023 6:09 AM 2ND GRADE TEACHER) [facility] Signature Sodium 136 135 - 145 mmol/L 06/11/2023 7:08 AM [facility] Comment:Reference intervals for this test were updated on 02/04/2023 to more accurately reflect our healthy population. There may be differences in the flagging of prior results with similar values performed with this method. Interpretation of those prior results can be made in the context of the updated reference intervals. Potassium 4.7 3.4 - 5.3 mmol/L 06/11/2023 7:08 AM [facility] Chloride 101 98 - 107 mmol/L 06/11/2023 7:08 AM [facility] Carbon Dioxide (CO2) 29 22 - 29 mmol/L 06/11/2023 7:08 AM [facility] Anion Gap 6(L) 7 - 15 mmol/L 06/11/2023 7:08 AM [facility] Urea Nitrogen 24.8(H) 8.0 - 23.0 mg/dL 06/11/2023 7:08 AM [facility] Creatinine 0.81 0.51 - 0.95 mg/dL 06/11/2023 7:08 AM [facility] GFR Estimate 80 >60 mL/min/1. 73m2 06/11/2023 7:08 AM [facility] Calcium 9.1 8.8 - 10.2 mg/dL 06/11/2023 7:08 AM [facility] Glucose 110(H) 70 - 99 mg/dL 06/11/2023 7:08 AM [facility] Blood STRUCTURE OF RIGHT UPPER LIMB / Unknown Venipuncture / Unknown 06/11/2023 6:09 AM 2ND GRADE TEACHER 06/11/2023 6:40 AM 2ND GRADE TEACHER us Radha Quintana MD LAB - BLOOD ORDERABLES Final Res ult Performing Organization Address City/[facility]/ZIP Co de Phone Number [facility] [address] [facility] [place], [place] [address] [phone] * (ABNORMAL) Hemoglobin A1c (06/15/2019 5:56 AM 2ND GRADE TEACHER) Hemoglobin A1C 6.8(H) 4.2 - 6.1 % 06/15/2019 1:26 PM 2ND GRADE TEACHER [facility] Blood specimen (specimen) STRUCTURE OF RIGHT UPPER LIMB / Unknown Venipuncture / Unknown 06/15/2019 5:56 AM 2ND GRADE TEACHER 06/15/2019 8:50 AM 2ND GRADE TEACHER us Rubens Calabrese MD LAB - BLOOD ORDERABLES Final R esult Performing Organization Address City/[facility]/ZIP Co de Phone Number [facility] [address] [address], [place] [facility] [address] [address] from Last 3 Months or Most Recently Relevant to Health Maintenance Additional Health Concerns Active Problems Noted Date Diagnosed Date MyC ECC SURG ENROLL 05/23/2023 Care pathway for general surgery 05/28/2023 Insurance [facility] [place] [place] BLUE MEDICARE [facility] MEDIC[facility] Advance Directives For more information, please contact: [phone] * Full Code (Latest Code Status on File) Date Activated Date Inactivated Comments 06/10/2023 1:05 PM 06/11/2023 2:44 PM All basic an d advanced life-sustaining interventions are performed as appropriate Question Answer Comments Code status determined by: Unable to dis cuss and no AD/POLST on file; continue PREVIOUSLY ORDERED code status Care Teams Saw Edge Fuser Circular Relationship Specialty Start Date End Date Kelly Sommer PCP - General Physician Representative Personal Service 08/17/18 Helen Mancini MD [address] [place] [address] Gynecologic Oncology 08/21/18
--- OUTSIDE RECORDS SUMMARY | 2024-03-17 08:49 | XMS_ITS | Encounter Summary ---
Author Organization [facility] Address [address] [place] [address] Care Team Providers Care Cinder Crew Worker Name Role Phone Kolton Sommera Karmen Primary Care Provider Helen Mancini MD Unavailable Muna Breen RN Unavailable [phone] Helen Mancini MD Unavailable My [place]isle APRN POULTRY FEED SUPERVISOR Unavailable + My [place] APRN POULTRY FEED SUPERVISOR Unavailable + Encounter Details Date Type Department Care Team (Late st Contact Info) Description 08/17/2020 [facility] [address] [place] [id number] [place] Social History Tobacco Use Types Packs/Day Years Used Date Smoking Tobacco: Never Smokeless Tobacco: Never Alcohol Use Standard Drinks/Week Comments Yes 0 (1 standard drink = 0.6 oz pur e alcohol) Comments No Sex and Gender Information Value Date Recorded Sex Assigned at Female 12/21/2019 11:36 AM CDT Legal Sex Female 3:28 AM HEARINGS REPORTER Gender Identity Female 12/21/2019 11:36 AM CDT [...] on filedocumented in this encounter Care Teams Cinder Crew Worker Relationship Specialty Start Date End Date Kelly Sommer PCP - General Physician Felt Hat Flanging Operator 08/17/18 Helen Mancini MD [address] [place] [address] Gynecologic Oncology 08/21/18 Muna Breen, RN Specialty Educational Coordinator Oncology 12/30/19 06/09/23 Helen Mancini MD [address] [place] [address] Assigned Cancer Care Provider 03/03/20 06/23/21 My Carlisle APRN POULTRY FEED SUPERVISOR [address] [place] [address] [address] [place], [place] [address] Assigned OBGYN Provider 08/06/20 My [place]isle APRN POULTRY FEED SUPERVISOR [address] [facility] [address] [place], [place] [id number] Assigned Cancer Care Provider 06/24/21 09/01/23 documented as of this encounter
--- OUTSIDE RECORDS SUMMARY | 2024-03-17 08:49 | XMS_ITS | Encounter Summary ---
Author Organization [facility] Address [address] [place] [address]. [place] [address] Care Team Providers Care Lastex Thread Winder Name Role Phone Kelly Sommer Primary Care Provider [phone] Helen Mancini MD Unavailable Encounter Details Date Type Department Care Team (Late st Contact Info) Description 03/01/2024 MyC Medical Advice Initial Department Neda [facility]ham Social History Tobacco Use Types Packs/Day Years [...] AM CDT Legal Sex Female 3:28 AM BASKET ASSEMBLER Gender Identity Female 12/21/2019 11:36 AM CDT [...] filedocumented in this encounter Additional Health Concerns Active Problems Noted Date Diagnosed Date MyC ECC SURG ENROLL 05/23/2023 Care pathway for general surgery 05/28/2023 documented as of this encounter Care Teams Lastex Thread Winder Relationship Specialty Start Date End Date Kelly Sommer PCP - General Physician Manager Background 08/17/18 Helen Mancini MD [address] [address] Gynecologic Oncology 08/21/18 documented as of this encounter
--- OUTSIDE RECORDS SUMMARY | 2024-03-17 08:49 | XMS_ITS | Clinical Summary ---
Author Organization [facility] Address [address] [place] [address] Care Team Providers Care Relief Charge Nurse Name Role Phone Kelly Sommer Primary Care [...] (12/22/2019): Added automatically from request for surgery [id number] Hypertension Diabetes mellitus Encounters Date Type Department Care Team Description 03/01/2024 MyC Medical Advice Initial Department Neda Markham from Last 3 Months Immunizations Name Administration [...] AM CDT Legal Sex Female 3:28 AM FINANCIAL DIRECTOR Gender Identity Female 12/21/2019 11:36 AM CDT Sexual Orientation Straight 12/21/2019 11 :36 AM CDT Last Filed Vital Signs Vital Sign Reading Time Taken Comments Blood Pressure 112/53 06/23/2023 7:10 PM FINANCIAL DIRECTOR Pulse 101 06/23/2023 8:15 PM FINANCIAL DIRECTOR Temperature 37.2 ??C (98.9 ??F) 06/23/2023 7:10 PM CS T Respiratory Rate 20 06/23/2023 7:10 PM FINANCIAL DIRECTOR Oxygen Saturation 94% 06/23/2023 8:15 PM FINANCIAL DIRECTOR Inhaled Oxygen Concentration - - Weight 115.7 kg (255 lb) 06/23/2023 7:10 PM FINANCIAL DIRECTOR Height 157.5 cm (5' 2) 06/10/2023 6:58 AM FINANCIAL DIRECTOR Body Mass Index 46.64 06/10/2023 6:58 AM FINANCIAL DIRECTOR Plan of Treatment Health Maintenance Due Date [...] pathway for general surgery No Neda Markham [facility] DAY 10 MED Care Plan Care pathway for general surgery No Neda Markham Medical Devices Implanted Type Area Developmental Therapist Device Identifier Shelf Expiration Date Model / Serial / Lot Allograft Duragen Plus 1 X 1 Dp-1011 Implanted:Qt y: 1 on 06/14/2019 Bone/Tissue Synthetic N/A: Spine Lumbar [employer] 01/09/2022 [id number] / / [id number] Imp Shell Acet Depuy [place] Gription 54mm [id number] - [id number] Implanted:Qt y: 1 on 06/10/2023 by Jenaro Cosby MD at [facility] Total Joint Component/In sert Left: Hip [employer]- [id number] 03/11/2033 [id number] / / [id number] Imp Stem Fem Depuy Actis Collar Hi-Offset Sz 3mm 1010-12 - [id number] Implanted:Qt y: 1 on 06/10/2023 by Jenaro Cosby MD at [facility] Total Joint Component/In sert Left: Hip [employer]- [id number] 09/08/2032 1010-030 / / [id number] Imp Liner Hip Depuy [place] Altrx [id number] +4 10d [id number] - [id number] Implanted:Qt y: 1 on 06/10/2023 by Jenaro Cosby MD at [facility] Total Joint Component/In sert Left: Hip [employer]- [id number] 12/10/2027 [id number] / / [id number] Imp Head Femoral Depuy Ceramic 36mm +1.5mm 1365-36-310 - [id number] Implanted:Qt y: 1 on 06/10/2023 by Jenaro Cosby MD at [facility] Total Joint Component/In sert Left: Hip [employer]- [id number] 02/09/2028 [id number] / / [id number] Procedures Procedure Name Priority Date/Time Associated Diagnosis Comments BASIC METABOLIC PANEL Routine 06/11/2023 6:09 AM FINANCIAL DIRECTOR HEMOGLOBIN A1C Routine 06/15/2019 5:56 AM FINANCIAL DIRECTOR from Last 3 Months or Most Recently Relevant to Health Maintenance Results * (ABNORMAL) Basic metabolic panel (06/11/2023 6:09 AM FINANCIAL DIRECTOR) [facility] Sodium 136 135 - 145 mmol/L 06/11/2023 7:[address] [facility] Comment:Reference intervals for this test were updated on 02/04/2023 to more accurately reflect our healthy population. There may be differences in the flagging of prior results with similar values performed with this method. Interpretation of those prior results can be made in the context of the updated reference intervals. Potassium 4.7 3.4 - 5.3 mmol/L 06/11/2023 7:08 AM [facility] Chloride 101 98 - 107 mmol/L 06/11/2023 7:08 AM [facility] Carbon Dioxide (CO2) 29 22 - 29 mmol/L 06/11/2023 7:08 AM [facility] Anion Gap 6(L) 7 - 15 mmol/L 06/11/2023 7:08 AM [facility] Urea Nitrogen 24.8(H) 8.0 - 23.0 mg/dL 06/11/2023 7:08 AM [facility] Creatinine 0.81 0.51 - 0.95 mg/dL 06/11/2023 7:08 AM [facility] GFR Estimate 80 >60 mL/min/1. 73m2 06/11/2023 7:08 AM [facility] Calcium 9.1 8.8 - 10.2 mg/dL 06/11/2023 7:08 AM [facility] Glucose 110(H) 70 - 99 mg/dL 06/11/2023 7:08 AM [facility] Blood STRUCTURE OF RIGHT UPPER LIMB / Unknown Venipuncture / Unknown 06/11/2023 6:09 AM FINANCIAL DIRECTOR 06/11/2023 6:40 AM FINANCIAL DIRECTOR us Radha Quintana MD LAB - BLOOD ORDERABLES Final Res ult [facility] [address] [facility] [place] [address], [facility] [phone] * (ABNORMAL) Hemoglobin A1c (06/15/2019 5:56 AM FINANCIAL DIRECTOR) Hemoglobin A1C 6.8(H) 4.2 - 6.1 % 06/15/2019 1:26 PM FINANCIAL DIRECTOR [facility] Blood specimen (specimen) STRUCTURE OF RIGHT UPPER LIMB / Unknown Venipuncture / Unknown 06/15/2019 5:56 AM FINANCIAL DIRECTOR 06/15/2019 8:50 AM FINANCIAL DIRECTOR us Rubens Calabrese MD LAB - BLOOD ORDERABLES Final R esult [facility] [address] [place] [address], [facility] [address] [place] [address] from Last 3 Months or Most Recently Relevant to Health Maintenance Additional Health Concerns Active Problems Noted Date Diagnosed Date MyC ECC SURG ENROLL 05/23/2023 Care pathway for general surgery 05/28/2023 Insurance [facility] BLUE MEDICARE [facility] [place] BLUE MEDICARE Advance Directives For more information, please contact: [phone] * Full Code (Latest Code Status on File) Date Activated Date Inactivated Comments 06/10/2023 1:05 PM 06/11/2023 2:44 PM All basic an d advanced life-sustaining interventions are performed as appropriate Question Answer Comments Code status determined by: Unable to dis cuss and no AD/POLST on file; continue PREVIOUSLY ORDERED code status Care Teams Relief Charge Nurse Relationship Specialty Start Date End Date Kelly Sommer PCP - General Physician Pantograph Watcher 08/17/18 Helen Mancini MD [address] [place] [address] Gynecologic Oncology 08/21/18
--- OUTSIDE RECORDS SUMMARY | 2024-03-17 08:49 | XMS_ITS | Clinical Summary ---
Author Organization [facility] Address [place], [place] [address] Care Team Providers Care Social Service Director Name Role Phone Asha Arthur Primary Care Provider Kellie Benavides MD Unavailable [phone] [facility] Unavailable Allergies Active Allergy [...] mouth once daily. 0 5 Active blood-glucose meterIndications:T ype 2 diabetes mellitus without complication (HC) Dispense meter, test strips, lancets covered by pt ins. E11.9 NIDDM type II - Test 1 time/day 1 Device 0 6 Active meclizine (ANTIVERT) 25 mg tabletIndications: Tinnitus of both ears Take 1 tablet by mouth 3 times daily. 40 tablet 2 1 Active Additional Information Patient taking differently:25 mg OralDAILY PRN, Reported on 11/03/2023 blood sugar diagnostic (Accu-Chek Sharonda Plus test strp) stripIndications:T ype 2 diabetes mellitus without complication, without [...] 3 Active triamcinolone (ARISTOCORT; KENALOG) 0.1 % creamIndications:C ontact dermatitis, unspecified contact dermatitis type, unspecified trigger Apply topically to affected area(s) two times daily. 80 g 4 Active cyclobenzaprine (FLEXERIL) 5 mg tabletIndications: Muscle spasm Take 1-2 tablets (5-10 mg) every 8 hours as needed for muscle spasm. Do not use with alcohol. 30 Tablet 4 Active CPAPIndications:OS A (obstructive sleep apnea) CPAP machine for home use at pressure 10 cmw; nasal mask x1/3month with nasal pillows x 2/mo Heat humidifier x 1/5 year, Humidifier chamber x 1/6mo, Heated tubing x 1/3mo, Headgear x 1/6mo, Chin strap x 1/6 months, Filters: Disposable x 2pk/1mo & Reusable x 1pk/6mo Length of need#99 Use- daily 1 Each 11 4 Active gabapentin (NEURONTIN) 300 mg capsuleIndications :Right leg pain Take 1 Capsule (300 mg) by mouth at bedtime. 90 Capsule 3 4 Active Additional Information Patient taking differently:300 mg OralDAILY PRN, Reported on 11/03/2023 metFORMIN (GLUCOPHAGE) 1,000 mg tabletIndications: Type 2 diabetes mellitus without complication, without long-term current use of insulin (HC) Take 1 Tablet (1,000 mg) by mouth two times daily with meals. 180 Tablet 3 4 Active busPIRone (BUSPAR) 10 mg tabletIndications: Generalized anxiety disorder Take 1 Tablet (10 mg) by mouth two times daily. Takes 2 daily, 1 in the am and 1 in the pm 180 Tablet 3 4 Active potassium chloride (K-TAB) 20 mEq extended-release tabletIndications: HTN (hypertension), benign Take 1 Tablet (20 mEq) by mouth two times daily with meals. 180 Tablet 3 4 Active simvastatin (ZOCOR) 40 mg tabletIndications: Mixed hyperlipidemia Take 1 Tablet (40 mg) by mouth at bedtime. 90 Tablet 3 4 Active amLODIPine (NORVASC) 5 mg tabletIndications: HTN (hypertension), benign Take 1 Tablet (5 mg) by mouth once daily. 90 Tablet 3 4 Active chlorthalidone (HYGROTON) 50 mg tabletIndications: HTN (hypertension), benign Take 1 Tablet (50 mg) by mouth once daily. 90 Tablet 3 4 Active losartan (COZAAR) 50 mg tabletIndications: HTN (hypertension), benign Take 1 Tablet (50 mg) by mouth two times daily. 180 Tablet 3 4 Active venlafaxine (EFFEXOR XR) 75 mg cp24 Extended-Release capsuleIndications :Adjustment disorder with mixed anxiety and depressed mood TAKE ONE CAPSULE BY MOUTH IN THE MORNING ALONG WITH 150 MG CAPSULE FOR A TOTAL DOSE OF 225 MG 90 Capsule 4 Active venlafaxine (EFFEXOR XR) 150 mg Extended-Release capsuleIndications :Adjustment disorder with mixed anxiety and depressed mood TAKE ONE CAPSULE BY MOUTH IN THE MORNING ALONG WITH 75 MG CAPSULE FOR A TOTAL DOSE OF 225 MG 90 Capsule 4 Active spironolactone (ALDACTONE) 50 mg tabletIndications: HTN (hypertension), benign Take 1 Tablet (50 mg) by mouth once daily. 90 Tablet 3 4 Active methylPREDNISolone (MedroL) 32 mg tabletIndications: Contrast media allergy Take one tablet 12 hours prior to contrast administration, take the second dose 2 hours prior to contrast administration. 2 Tablet 4 Active semaglutide (Ozempic) 2 mg/3 mL subcutaneous penIndications:Typ e 2 diabetes mellitus without complication, without long-term current use of insulin (HC) INJECT 0.5 MGSUBCUTANEOUSLY ONCE WEEKLY. 3 mL 4 Active aspirin (ECOTRIN) 81 mg enteric coated tablet Take 81 mg by mouth once daily with a meal. 4 03/02/20 24 Discontin ued(*Med complete/ Regimen complete/ Level of care change) hydrOXYzine HCL (ATARAX) 10 mg tablet Take 10 mg by mouth every 6 hours if needed for Anxiety or Itching. 4 03/02/20 24 Discontin ued(*Med complete/ Regimen complete/ Level of care change) Active Problems Problem Noted Date Diagnosed Date Obesity, morbid 03/07/2023 Colon polyp 11/05/2022 Overview (11/05/2022): Colonoscopy 10/2022 2-TA, repeat in 5 years Depression, recurrent 10/15/2022 Osteoporosis screening 08/03/2020 Overview (08/03/2020): Bone density July 2020 normal. Repeat 3-5 years. Endometrial cancer 06/23/2020 Overview (06/23/2020): Stage 1A, Grade 1 Laparoscopic hysterectomy, cervix removed, [facility] Dr. 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 05/24/2013 12/17/2018 [facility] (current) use of anticoagulants 07/20/2012 01/22/2013 Screen for colon cancer 04/29/201203/12 Overview (04/29/2012): Colonoscopy 04/2012 normal repeat in 10 years Nonspecific abnormal results of other specified function study 09/24/2006 12/17/2018 Depressive disorder, not elsewhere classified 07/17/19 07 10/21/2008 Impaired glucose tolerance 0 12/29/2008 Encounters Date Type Department Care Team Description 03/02/2024 11:25 AM CDT Preop Visit [facility] [address] [place] [address] Asha Arthur Liane, DO Preoperative Exam (03/17/24 R shoulder scope RCR, SAD, DCE, LGHD - Dr. Gutiérrez [facility]) 03/01/2024 Travel from Last 3 Months Immunizations Name Administration Dates Next Due COVID-19 vaccine (Hitesh-J&J) PF, MDDarryl Influenza RIV4 (Age 18+ Year s) PRESERV [...] 0 08/13/2023 Social Connections Answer Date Recorded Do you often feel lonely or isolated from those around you? 0 08/13/2023 Financial Resource Strain Answer Date R ecorded Difficulty of Paying Living Expenses 3 08/13/2023 Difficulty of Paying Living Expenses Not on file 08/13/2023 Food Insecurity Answer Date Recorded Do you worry your food will run out before you are able to buy more? 1 08/13/2023 Transportation Needs Answer Date Record ed Does lack of transportation keep you from medica l appointments? 1 08/13/2023 Does lack of transportation keep you from work, meetings or getting things that you need? 1 08/13/2023 Housing Stability Answer Date Recorded What is your housing situation today? 1 08/13/2023 Sex and Gender Information Value Date Recorded Sex Assigned at Not on file Gender Identity Not on file Sexual Orientation Not on file Obstetrics History Last Filed Vital Signs Vital Sign Reading Time Taken Comments Blood Pressure 137/80 03/02/2024 11:40 AM CDT Pulse 98 03/02/2024 11:40 AM CDT Temperature 36.7 ??C (98.1 ??F) 11/03/2023 1 1:06 AM CDT Respiratory Rate 18 11/03/2023 11:0 6 AM CDT Oxygen Saturation 96% 03/02/2024 11: 40 AM CDT Inhaled Oxygen Concentration - - Weight 118.7 kg (261 lb 9.6 oz) 024 11:40 AM CDT Height 155.5 cm (5' 1.22) 08/13/2023 1:17 PM CD T Body Mass Index 49.07 08/13/2023 1:17 PM CDT Plan of Treatment Upcoming Encounters Date Type Department Care Team (Late st Contact Info) Description 04/15/2024 9:00 AM LITIGATION SERVICES MANAGER Orders Only [facility] [address] [place] [address] [place], [place] 04/29/2024 11:00 AM LITIGATION SERVICES MANAGER Office Visit [facility] [place] [address] [facility] [place] [address] Kellie Benavides MD [address] [place] [address] Health Maintenance Due Date Last Done Comments Influenza for age 65+ 01/11/2024 01/28/2023 , [...] DEXA/DXA scan for age 65+ Completed 09/10/2023, COVID-19 vaccine series Completed 02/05/20 24, 04/22/2023, 01/31/2022, Additional history exists Procedures Procedure Name Priority Date/Time Associated Diagnosis Comments HEMOGLOBIN A1C Routine 03/02/2024 12:21 PM CDT Type 2 diabetes mellitus without complication, without long-term current use of insulin (HC) POTASSIUM Routine 03/02/2024 12:21 PM CDT Pre-op evaluation XR DXA BONE DENSITY 2 SITES AXIAL [...] virus) ANTI HCV Routine 05/06/2016 10:15 AM LITIGATION SERVICES MANAGER Need for hepatitis C screening test from Last 3 Months or Most Recently Relevant to Health Maintenance Results * (ABNORMAL) HEMOGLOBIN A1C (03/02/2024 12:21 PM CDT) HEMOGLOBIN A1C 6.3(H) <5.7 % of total Hgb [facility] Comment: For someone without known diabetes, a hemoglobin A1c value between 5.7% and 6.4% is consistent with prediabetes and should be confirmed with a follow-up test. For someone with known diabetes, a value <7% indicates that their diabetes is well controlled. A1c targets should be individualized based on duration of diabetes, age, comorbid conditions, and other considerations. This assay result is consistent with an increased risk of diabetes. Currently, no consensus exists regarding use of hemoglobin A1c for diagnosis of diabetes for children. Blood BLOOD SPECIMEN / Unknown 03/02/2024 12:21 PM CDT 03/02/2024 12:22 PM CDT Asha Arthur DO CHEMISTRY Performing Organization Address City/[facility]/ZIP Co de Phone Number [employer] [facility] [address] [place] [phone], [facility] [address] [place] [address] * POTASSIUM (03/02/2024 12:21 PM CDT) POTASSIUM 4.9 3.5 - 5.3 mmol/L [facility] Blood BLOOD SPECIMEN / Unknown 03/02/2024 12:21 PM CDT 03/02/2024 12:22 PM CDT Asha Arthur DO CHEMISTRY Performing Organization Address [facility] Co de Phone Number [employer] [facility] [address] [place] [phone], [place] [phone] [employer] [address] [place] [phone] * XR DXA BONE DENSITY 2 SITES AXIAL [44372.1] (09/10/2023 1:39 PM CDT) Anatomical Region Laterality [...] recommended in 3-5 years. Juliette Garvin PA-C [facility] 09/21/2023 ?? Narrative 09/21/2023 2:26 PM CDT For Patients: Results are automatically released to your [facility] account once available, in compliance with federal regulations. This means that you may see your results before your provider has had a chance to review them. Please allow 2-3 business days for your provider to comment on the results. XR DXA Bone Mineral Density (BMD) EXAM LOCATION: [facility] [address] [facility] [address] PATIENT NAME: Yue Cardoso DATE OF : 1960 EXAM DATE: 09/10/2023 REQUESTING PROVIDER: Asha Arthur, GENDER AT : female HEIGHT: 5' 1.22 [...] two scanners are made by the same assembler bonding. PROCEDURE: Dual-energy x-ray absorptiometry performed with routine [...] probability of hip fracture: 0.0%. Asha Liane Dimitriosqra DO DEXA * (ABNORMAL) LIPID PANEL W REFLEX MEASURED LDL (09/10/2023 12:45 PM CDT) [facility] CHOLESTEROL,TOTAL 161 100 - 199 mg/dL 09/10/2023 10:45 PM CDT [facility] Comment: Cholesterol, Total Reference Ranges Desirable <200 mg/dL Borderline 200-239 mg/dL High >=240 mg/dL TRIGLYCERIDES 208(H) <150 mg/dL 09/10/2023 10:45 PM CDT [facility] HDL CHOLESTEROL 53 >40 mg/dL 10:45 PM CDT [facility] NON-HDL CHOLESTEROL 108 <145 mg/dl 09/10/2023 10:45 PM CDT [facility] CHOL/HDL RATIO 3.04 <4.50 09/10/2023 10:45 PM CDT [facility] LDL CHOLESTEROL 66 <=130 mg/dL 09/10/2023 10:45 PM CDT [facility] VLDL CHOLESTEROL 42(H) <=30 mg/dL 09/10/2023 10:45 PM CDT [facility] PROVIDER ORDERED STATUS RANDOM 09/10/2023 10:45 PM CDT [facility] Blood BLOOD SPECIMEN / Unknown Venipuncture / Unknown 09/10/2023 12:45 PM CDT 09/10/2023 12:47 PM CDT Asha Arthur DO CHEMISTRY [facility] [address] [place] [address], * XR MAMMO BHASKAR BILAT SCREEN (08/13/2023 [...] a result of the Cures Act, medical imaging exams and procedure reports are released immediately into your electronic medical record. You may view this report before your referring provider. If you have questions, please contact your health care provider. XR MAMMO BHASKAR BILAT SCREEN [[id number]] CLINICAL HISTORY: ??This is an asymptomatic 63 y.o. patient. INDICATION FOR EXAM: Mammogram Screening. TECHNIQUE: CC & MLO views were obtained. ??This study was evaluated with the assistance of Computer-Aided Detection. Breast Tomosynthesis was used in interpretation. COMPARISON FILM: Yes 08/08/22 [facility] 07/26/21 [facility] FINDINGS: ??The breasts have scattered areas of fibroglandular density. There are no dominant masses, suspicious micro calcifications or areas of architectural distortion. Asha Plunkettjose DO MAMMO * SCAN-COLONOSCOPY (11/04/2022 12:00 AM CDT) Scanner OTHER * LC HIV-1/O/2, 4TH GENERATION (08/08/2022 10:18 AM CDT) HIV Scr 4th Gen Non Reactive Non Reactive 08/13/2022 12:06 AM CDT [facility] Comment: HIV Negative HIV-1/HIV-2 antibodies and HIV-1 p24 antigen were NOT detected. There is no laboratory evidence of HIV infection. Blood BLOOD SPECIMEN / Unknown Venipuncture / Unknown 08/08/2022 10:18 AM CDT 08/08/2022 10:23 AM CDT Narrative [facility] - 08/13/2022 12:06 AM CDT Performed at: ??[address] ??[id number] Filling Separator: Blake Wilcox MD, Phone: ??[phone] [facility] Performing Organization Address City/State/[facility] Co de Phone Number [facility] [address] [place] [address] * ANTI HCV [[id number]] (05/06/2016 10:15 AM LITIGATION SERVICES MANAGER) Pathologist [facility] HEPATITIS C ANTIBODY Non-Reacti ve Non-Reacti ve 05/06/2016 3:00 PM LITIGATION SERVICES MANAGER [facility] Blood BLOOD SPECIMEN / Unknown Venipuncture / Unknown 05/06/2016 10:15 AM LITIGATION SERVICES MANAGER 05/06/2016 10:15 AM LITIGATION SERVICES MANAGER Narrative [facility] - 05/06/2016 3:00 PM LITIGATION SERVICES MANAGER Antibodies to HCV not detected; does not exclude the possibility of exposure to HCV. Arpita Bryson DO SEND OUTS [facility] [address] [place] [address], [place] from Last 3 Months or Most Recently Relevant to Health Maintenance Advance Directives * Full Code (Latest Code Status on File) Date Activated Date Inactivated Comments 04/08/2023 8:59 AM 04/08/2023 2:24 PM Question Answer Comments Code Status Discussion: Unable to Assess Preferences, Provider to review later * Full Code Date Activated Date Inactivated Comments 06/03/2014 6:07 AM 06/03/2014 10:30 AM Care Teams Social Service Director Relationship Specialty Start Date End [place] [address] PCP - General Family Practice 10/15/22 Kellie Benavides MD [address] [place] [address] Medical Oncologist Hematology and Oncology 11/06/22 Thalia Ross, RN [address] [place] [address] Nurse Navigator - Oncology Registered Nurse 04/16/23
--- OUTSIDE RECORDS SUMMARY | 2024-03-17 08:49 | XMS_ITS | Clinical Summary ---
Author Organization [facility] Address [address] [address] Phone Care Team Providers Care Marketing Research Intern Name Role Phone Unavailable Primary Care Provider Unavailabl e Allergies Active Allergy Reactions Criticality Noted Date Comments Diagnostic X-Ray Materials Other 2 Nitrofurantoin Monohydrate Macrocrystals Other 08/31/2011 Medications Venlafaxine HCl (EFFEXOR OR) Take 150 mg by mouth one time a day. Active losartan (COZAAR) 50 MG tablet Take 50 mg by mouth two times a day. Active amLODIPine (NORVASC) 5 MG tablet Take 5 mg by mouth one time a day. Active hydrochlorothia zide (HYDRODIURIL) 50 MG tablet Take 50 mg [...] of water or other beverage prior to administratio n. Active phenazopyridine (PYRIDIUM) 200 MG tablet Take 1 Tab by mouth three times a day as needed for Other (urinary pain). 6 Tab 0 08/31/2011 Active Social History Tobacco Use Types Packs/Day Years Used Date Smoking Tobacco: Never Assessed Comments Unknown Sex and Gender Information Value Date Recorded Sex Assigned at Not on file Legal Sex Female 10:39 PM TRANSPORTATION PROJECT MANAGER Gender Identity Not on file Sexual Orientation [...] - Plan of Treatment Not on file Insurance [facility] [place] [address]
--- OUTSIDE RECORDS SUMMARY | 2024-03-17 08:49 | XMS_ITS ---
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 Past Plans No past plan information found. Radiation Treatments * No radiation treatments are documented for this patient in [facility]. Treatments may have been administered in another system. Treatment Summaries Endometrial cancer (H)* Cancer Treatment Plan and Summary - Gynecology [facility] General Information Patient Name Yue Cardoso Patient 1960 Patient phone [phone] (home) [phone] (work) Email [email or web address] Care Team Primary Care Provider Kelly Sommer [...] to maintain optimal health. Possible late and/or terminal operator effects that someone with this type of cancer and treatment may experience: bone effects heart effects memory and concentration pain nervous system changes If you would like to discuss specific late and/or residential effects related to your treatment, please use the following website to make an appointment in the Cancer Survivor Program: [email or web address]/c are/[email or web address]-care/[email or web address]-etcj-[email or web address]/support-services OR call These symptoms should be brought [...] (loss/gain) Resources you may be interested in: [place] [employer] www.cancer.org [place] [employer] Clinical Oncology www.asco.org/practice-guidelines/resources-patients National Cancer [place] www.cancer.gov [employer] www.livestrong.org [facility] www.mhealth.org/care/overarching-care/kimiem-czog-whtcg/support-services www.cancer.net [place] [employer] Research www.aicr.org This Survivorship Care Plan is a cancer treatment summary and follow up plan and is provided to youto keep with your health care records and to share with your primary care provider or any of your other providers.
--- NOTE | 2024-03-17 09:07 | W.PM.H&PU ---
History & Physical Update History & Physical Update H&P Reviewed and patient assessed: No changes noted
[2024-03-17] MEDS: SODIUM CHLORIDE 0.9 % (FLUSH) 10 ML SYRINGE IVF (10:00)
[2024-03-17] MEDS: fentaNYL 100 MCG/2 ML inj IVP (10:12)
[2024-03-17] MEDS: MIDAZOLAM HCL 1 MG/ML inj IVP (10:13)
--- NOTE | 2024-03-17 10:15 | SUR.PREOP ---
TIME?OUT:?1010 PT/RN/MDA?VERIFICATION?OF?SURGICAL?SITE,?PROCEDURE,?AND?CONSENT OBTAINED?PRIOR?TO?INVASIVE?PROCEDURE.
[2024-03-17] MEDS: SCOPOLAMINE 1 MG/3 DAY PATCH 1 PATCH TRANSDERMA (10:19)
[2024-03-17] MEDS: 0.9 % SODIUM CHLORIDE 500 ML 500 ML 100 ML IV (10:20)
--- NOTE | 2024-03-17 10:36 | P.NB_ITS ---
Nerve Block Nerve Block Time Seen by Provider: 10: Date Seen: 03/17/24 Type of block requested by surgeon for post-operative analgesia: supraclavicular Side: right Time out performed: Yes Verification of patient name: Yes Verification of date of : Yes Site marking: site marked Name of person performing procedure: Nicolás Ryan Assistants, if any: David Vu Continuous monitoring Was continuous monitoring of O2 sat, B/P, alarm security or surveillance monitor, recorded every 15 minutes?: Yes Procedure Checklist: sterile prep, needles and gloves Ultrasound guided. Images saved: Yes Medications given in 5ml increments after negative aspiration: Marcaine and Ropivicaine %: 0.5 mL: 20 Needle gauge: 22 Decadron (mg): 10 Precedex (mcg): 20 Patient tolerated procedure well: Yes Block Charges Block Charge (with Pro Fee): Brachial Plexus Use of Ultrasound Machine for Block: Yes- US Guidance/pain block
[2024-03-17] MEDS: CEFAZOLIN 2 GM in 0.9 % SODIUM CHLORIDE Mini-bag 100 ML IVPB (11:00)
[2024-03-17] MEDS: EPINEPHrine 1 MG in SODIUM CHLORIDE IRRIG SOLUTION 3,000 ML 3001 MG IRRIGATION ×2 (11:20→12:00)
[2024-03-17] MEDS: ACETAMINOPHEN 325 MG TABLET PO ×2 (12:15→20:19)
--- NOTE | 2024-03-17 12:22 | PM.ORPRC ---
Procedure Note Date of procedure: 03/17/24 Procedure: PREOPERATIVE DIAGNOSES: 1. Right shoulder rotator cuff tear - full-thickness supraspinatus 2. Right shoulder AC degenerative joint disease, primary, moderate-severe 3. Right shoulder anterior and superior labral tearing 4. Right shoulder subacromial impingement syndrome. POSTOPERATIVE DIAGNOSES: 1. Right shoulder rotator cuff tear - full-thickness supraspinatus 2. Right shoulder AC degenerative joint disease, primary, moderate-severe 3. Right shoulder anterior and superior labral tearing 4. 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 Right shoulder subacromial impingement syndrome. NAME OF OPERATION: 1. Right shoulder arthroscopic rotator cuff repair. 2. Right shoulder arthroscopic bursectomy, subacromial decompression/partial acromioplasty. SURGEON: Billy Ortez MD [employer]DEL [employer]ES [employer]ETER: Marlo Perez PA-C. Of note, a skilled assistant operations manager was critical for this case to aide in patient positioning, suture manipulation, arm positioning, instrument positioning, and closure. ANESTHESIA: General plus preoperative supraclavicular block. EBL: 25 mL IMPLANTS: Arthrex 4.75 mm BioComposite SwiveLock suture anchor (x1); Arthrex 5.5 mm BioComposite SwiveLock suture anchor (x2); Arthrex 2.6 mm knotless FiberTak RC (x1) COMPLICATIONS: None evident INDICATIONS: The patient is a pleasant, 63-year-old female who has experienced right shoulder pain that has been increasing in recent time. Physical exam and imaging were consistent with a rotator cuff tear. Given their findings, as well as the weakness and pain, and inadequate response to nonoperative management, recommendation was made for surgery. FINDINGS: Exam under anesthesia revealed stable shoulder with excellent range of motion. The diagnostic arthroscopy revealed grade 2-3 chondromalacia anterior humeral head. Crystals seen scattered throughout the articular cartilage of the glenoid and near the biceps origin possibly related to previous cortisone injection. The Subscapularis tendon was intact and with a relatively healthy attachment (only mild deep superior border low-grade partial tearing). The long head of the biceps tendon was intact. There were some crystal deposits at the origin as previously noted. The superior rotator cuff tendon was found to be torn full-thickness throughout the entire supraspinatus and retracted medially to the mid humeral head. The labrum was degeneratively frayed in the anterior and superior aspects. No loose bodies were identified within the pouch or subscapularis recess. PROCEDURE: Following a thorough discussion of risks, benefits, and alternatives, consent was obtained and the right shoulder was marked. The patient was brought to the operating room and placed supine on the operating table. Induction of anesthesia was completed after preoperative supraclavicular block was administered in preop holding. Appropriate time out was performed identifying proper patient, site, and procedure. 2 g IV Ancef was administered within 1 hour of incision preoperatively. The right upper extremity was prepped and draped in the appropriate sterile fashion using ChloraPrep prep. This was after the patient was positioned in the beach chair with their head in neutral alignment and all bony prominences well padded. The shoulder was insufflated with 20mL of normal saline via an 18g spinal needle from a posterior approach. An 11 blade skin incision allowed a blunt trochar to be inserted and diagnostic arthroscopy to be performed with the findings as noted above. An anterior portal was established with an outside in technique. This allowed the probe to be inserted and confirm the diagnostic arthroscopic findings. The shaver was then inserted and allowed debridement of the anterior and superior labrum as well as the anterior humeral head loose chondral flaps. Following this, the upper border subscapularis was probed and found be stable along with the biceps tendon. Thereafter, the subacromial space was entered. Here, a complete bursectomy and partial acromioplasty/subacromial decompression was performed with a combination of radiofrequency ablator, the shaver, and a 5.5 mm bur. Additionally, distal clavicle excision was performed with the bur. 8 mm of distal clavicle was resected based on the with of our bur. Further inspection of the supraspinatus and infraspinatus rotator cuff was performed. This identified the tear as noted above. The margins of the tear were debrided, and the greater tuberosity was debrided with a combination of the apollo cautery, shaver, and bur on reverse setting. After gentle decortication, a speed bridge configuration with a medial [place] was planned. 2 medial anchors were placed and the sutures were passed through the rotator cuff with a fiber link. A 2.6 mm knotless FiberTak RC and a 4.75 mm knotless SwiveLock suture anchor reach use. Initially 2 FiberTak for plan but 1 continue to pull-out after repeated attempts.. The knotless suture tails were then retrieved, crossed, and cinched down for the medial [place] purpose. A tail from each of the medial row anchor FiberTapes were then retrieved and brought to a lateral row anchor. Excellent reapproximation of the tissue to the greater tuberosity was achieved with broad footprint compression. The rotator cuff showed excellent reapproximation of the greater tuberosity with good security upon probing. Prior to anchor hi low truck driver removal, the eyelet sutures were tugged on for each anchor and found that the anchor had excellent stability within the bone. The shoulder was placed through range of motion and found to be stable. The rotator cuff was re-probed and found to be stable. Instruments were removed. Excess fluid was drained, closure performed with 4-0 Monocryl and Steri-Strips. Dressings were applied. Sling was applied. The patient was awoken from anesthesia and transferred to the PACU in stable condition. A skilled assistant operations manager was critical for this case to aid in patient positioning, limb positioning, skill to manipulate arthroscopic instruments and camera, suture management, patient safety, and closure. PLAN: 1. Elbow, forearm, wrist and digit range of motion as tolerated. 2. Encouraged ice. 3. Oxycodone for pain as needed. 4. Sling at all times except for ROM and showering. 5. Follow up with PA visit in 1-2 weeks for wound check. Initiate physical therapy following that visit for passive range of motion. Initiate active assisted range of motion at 4 weeks. May do pendulums now.
[2024-03-17] MEDS: 0.9 % SODIUM CHLORIDE 500 ML 500 ML 35 ML IV (12:42)
--- NOTE | 2024-03-17 12:45 | W.ANESCHARGE ---
Anesthesia Charges Start Date/Time Anesthesia Start Date: 03/17/24 Anesthesia Start Time: 10:42 Stop Date/Time Anesthesia Stop Date: 03/17/24 Anesthesia Stop Time: 12:42
--- NOTE | 2024-03-17 15:17 | SUR.PHASEII ---
PAtient dressed and up to recliner independently. O2 sats 87% on RA initially. O2 sats increased to 90-92% RA. O2 dips to 89%. Patient has history of sleep apnea and per patient uses CPAP religiously. Patient provided incentive spirometer and instructed on use. Patient verbalizes understanding. KARAN Walter aware.
--- NOTE | 2024-03-17 15:45 | CRLHL7_ITS ---
For Patients: As a result of the Century Cures Act, medical imaging exams and procedure reports are released immediately into your electronic medical record. You may view this report before your referring provider. If you have questions, please contact your health care provider. Indication: Finished lung sounds on the right side Comparison: Single-view chest June 23, 2023 Technique: Single AP view chest Findings: There is an elevated right hemidiaphragm. There is right basilar atelectasis versus infiltrates. The left hemithorax is grossly clear. There is no pneumothorax. The cardiomediastinal silhouette is within normal limits. The bony thorax is grossly intact. Impression: Somewhat elevated right hemidiaphragm with basilar atelectasis versus infiltrates. Dictated by Ish Rdz MD @ 03/17/2024 4:19:00 PM (Electronically Signed)
--- NOTE | 2024-03-17 15:46 | SUR.PHASEII ---
1530: KARAN David in to see patient. Lungs diminished on right side. Patient on continuous pulse ox monitoring O2 sats 89-93%. Patient using incentive spirometer. Alberto Lao given heads up. Marlo SERRANO to speak with Hospitalist.
--- NOTE | 2024-03-17 16:20 | SUR.PHASEII ---
Patient to restroom via wheelchair. Patient voided. On return to patient room, O2 sats 95%. Awaitng room on Med/Surg. Patient aware.
--- NOTE | 2024-03-17 16:44 | SUR.PHASEII ---
Patient to med surg via wheelchair with belongings. Report given to Nahomy ACUÑA.
--- NOTE | 2024-03-17 18:49 | PM.IMCN1 ---
Date of Consult Patient: [facility] Patient Consult date: 03/17/24 Requesting Physician: Orthopedics Primary Care Provider: Asha Arthur DO Consult Narrative Reason for consult: Medical management postoperatively Narrative: Yue Cardoso is a 63 year old female past medical history significant for diabetes mellitus, hyperlipidemia, hypertension, osteoarthritis, obesity, DAISY on CPAP is POD#0 s/p right rotator cuff repair. Patient was planning to discharge to home from same-day surgery, however developed dyspnea postoperatively. Suspected in setting of comorbidities and operative nerve block. During recovery, patient was reported to developed mild dyspnea, noted to be mildly hypoxic without oxygen, and decreased breath sounds on the right side. Currently, patient reports feeling quite well. Denies chest pain or shortness of breath. Is not currently on supplemental oxygen. Denies headache or dizziness. No nausea, tolerating orals. Pain is adequately managed. Review of Systems Narrative: REVIEW OF SYSTEMS: Complete review of systems performed and negative unless otherwise stated in HPI or below. [facility] Medical History (Updated 03/17/24 @ 18:58 by Samira Pichardo PA-C) DAISY (obstructive sleep apnea) ?G47.33 - Obstructive sleep apnea (adult) (pediatric) (ICD-10) Sensorineural hearing loss, bilateral ?H90.3 - Sensorineural hearing loss, bilateral (ICD-10) Recurrent UTI (urinary tract infection) ?N39.0 - Urinary tract infection, site not specified (ICD-10) Endometrial cancer (~01/2020) ?C54.1 - Malignant neoplasm of endometrium (ICD-10) Traumatic hematuria ?R31.9 - Hematuria, unspecified (ICD-10) Postural vertigo Obstructive sleep apnea treated with continuous positive airway pressure (CPAP) ?G47.33 - Obstructive sleep apnea (adult) (pediatric) (ICD-10) Cervical radiculopathy ?M54.12 - Radiculopathy, cervical region (ICD-10) Cataract ?H26.9 - Unspecified cataract (ICD-10) Drug-induced nausea and vomiting ?R11.2 - Nausea with vomiting, unspecified (ICD-10) ?T50.905A - Adverse effect of unspecified drugs, medicaments and biological substances, initial encounter (ICD-10) Surgical History History of left hip replacement (~07/2023) ?Z96.642 - Presence of left artificial hip joint (ICD-10) History of tonsillectomy ?Z90.89 - Acquired absence of other organs (ICD-10) History of lumbar discectomy ?Z98.890 - Other specified postprocedural states (ICD-10) S/P right knee arthroscopy (08/20/04) ?Z98.890 - Other specified postprocedural states (ICD-10) S/P right knee arthroscopy (02/05/12) ?Z98.890 - Other specified postprocedural states (ICD-10) S/P left knee arthroscopy (07/23/06) ?Z98.890 - Other specified postprocedural states (ICD-10) History of arthroscopy of left shoulder (03/13/17) ?Z98.890 - Other specified postprocedural states (ICD-10) H/O laminectomy ?Z98.890 - Other specified postprocedural states (ICD-10) Hx of cholecystectomy ?Z90.49 - Acquired absence of other specified parts of digestive tract (ICD-10) 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) ?Z96.651 - Presence of right artificial knee joint (ICD-10) Status post total left knee replacement (05/19/13) ?Z96.652 - Presence of left artificial knee joint (ICD-10) Social History Smoking Status: Former smoker Do you use any of these nicotine containing products: None Second hand tobacco smoke exposure: No How often do you have a drink containing alcohol: monthly or less How often do you have six or more drinks on one occasion: Never AUDIT-C Alcohol total score: 1 Non-prescribed substance use: denies use Caffeine: No service: No Meds Home Medications and Allergies Home Medications ?Medication ?Instructions ?Recorded ?Confirmed ?Type amlodipine 5 mg tablet 5 mg PO DAILY 09/28/22 03/17/24 History chlorthalidone 50 mg tablet 50 mg PO DAILY 09/28/22 03/17/24 History gabapentin 300 mg capsule 300 - 900 mg PO Q12H PRN 09/28/22 03/17/24 History losartan 50 mg tablet 50 mg PO BID 09/28/22 03/17/24 History metformin 1,000 mg tablet 1,000 mg PO BID 09/28/22 03/17/24 History potassium chloride 20 mEq 20 meq PO BID 09/28/22 03/17/24 History tablet,extended release simvastatin 40 mg tablet 40 mg PO QPM 09/28/22 03/17/24 History spironolactone 50 mg tablet 50 mg PO DAILY 09/28/22 03/17/24 History buspirone 10 mg tablet 20 mg PO BID 01/14/23 03/17/24 History venlafaxine 150 mg 150 mg PO QAM 01/14/23 03/17/24 History capsule,extended release 24 hr venlafaxine 75 mg capsule,extended 75 mg PO QAM 01/14/23 03/17/24 History release 24 hr cyclobenzaprine 5 mg tablet 5 - 10 mg PO Q8H PRN muscle spasm 03/15/24 03/17/24 History simvastatin 40 mg tablet 40 mg PO QHS 03/15/24 03/17/24 History Allergies Allergy/AdvReac Type Severity Reaction Status Date / Time Iodinated Contrast Media Allergy Intermediate rash Verified 01/30/24 08:26 nitrofurantoin Allergy Intermediate swelling Verified 01/30/24 08:26 amlodipine Allergy Mild feet Verified 01/30/24 08:26 swelling gadodiamide Allergy Mild high for Verified 01/30/24 08:26 3 days Exam Narrative: Exam Narrative: PHYSICAL EXAM General: Pleasant, conversant, NAD HEENT: Normocephalic, atraumatic, sclera white, EOMI, oral mucosa moist Cardiovascular: RRR, S1S2. No pitting edema Pulmonary: Decreased breath sounds right side. No rhonchi, rales, expiratory wheezes. No dyspnea on room air Neurological: Alert, answering questions appropriately, cranial nerves intact, no focal findings Extremities: No gross joint deformity or swelling. Postoperative dressing in place, dry. Neurovascularly intact Skin: Warm, dry. Const: Vital Signs, click to edit/add: Vital Signs - 24 hr 03/17/24 09:58 03/17/24 10:10 03/17/24 10:15 Temperature Pulse Rate 88 83 87 Respiratory Rate 16 16 16 Blood Pressure 139/77 133/70 159/74 H Pulse Oximetry 99 99 100 Oxygen Delivery Me thod Room Air Nasal Cannula Nasal Cannula Oxygen Flow Rate 3 3 03/17/24 10:20 03/17/24 10:25 03/17/24 10:30 Temperature Pulse Rate 86 90 94 Respiratory Rate 16 16 16 Blood Pressure 155/63 H 158/88 H 166/74 H Pulse Oximetry 99 100 97 Oxygen Delivery Me thod Nasal Cannula Nasal Cannula Nasal Cannula Oxygen Flow Rate 3 3 3 03/17/24 10:35 03/17/24 12:39 03/17/24 12:45 Temperature 97.2 F L Pulse Rate 94 102 H 100 Respiratory Rate 16 14 14 Blood Pressure 147/78 H 157/87 H 165/86 H Pulse Oximetry 99 93 94 Oxygen Delivery Me thod Nasal Cannula Nasal Cannula Nasal Cannula Oxygen Flow Rate 3 5 5 03/17/24 12:50 03/17/24 12:55 03/17/24 13:00 Temperature Pulse Rate 102 H 99 102 H Respiratory Rate 14 16 18 Blood Pressure 168/74 H 168/74 H 160/73 H Pulse Oximetry 93 93 94 Oxygen Delivery Me thod Nasal Cannula Nasal Cannula Nasal Cannula Oxygen Flow Rate 3 3 1 03/17/24 13:05 03/17/24 13:10 03/17/24 13:18 Temperature 96.5 F L Pulse Rate 96 97 95 Respiratory Rate 18 18 16 Blood Pressure 157/65 H 157/66 H 149/65 H Pulse Oximetry 91 95 94 Oxygen Delivery Me thod Nasal Cannula Nasal Cannula Room Air Oxygen Flow Rate 0 0 03/17/24 13:30 03/17/24 13:45 03/17/24 14:00 Temperature Pulse Rate 90 90 89 Respiratory Rate 16 16 14 Blood Pressure 132/66 131/63 137/67 Pulse Oximetry 92 92 93 Oxygen Delivery Me thod Room Air Room Air Nasal Cannula Oxygen Flow Rate 2 03/17/24 14:15 03/17/24 14:30 03/17/24 15:56 Temperature Pulse Rate 91 100 102 H Respiratory Rate 14 16 16 Blood Pressure 132/62 147/68 H 150/64 H Pulse Oximetry 93 92 90 Oxygen Delivery Me thod Nasal Cannula Nasal Cannula Room Air Oxygen Flow Rate 2 2 03/17/24 16:15 03/17/24 16:39 03/17/24 17:00 Temperature 97.8 F Pulse Rate 102 H 102 H 94 Respiratory Rate 16 16 16 Blood Pressure 141/74 H 156/77 H 137/76 Pulse Oximetry 95 94 95 Oxygen Delivery Me thod Room Air Room Air Oxygen Flow Rate 03/17/24 18:00 Temperature Pulse Rate 102 H Respiratory Rate 16 Blood Pressure 128/67 Pulse Oximetry 94 Oxygen Delivery Me thod Room Air Oxygen Flow Rate Assessment and Plan Assessment and plan (1) Rotator cuff tear, right: Problem comment: -POD#0 s/p right rotator cuff repair -perioperative management including pain management and anticoagulation per Orthopedic surgery -encourage postoperative pulmonary hygiene -PT OT consults -plan to discharge home with spouse tomorrow Status: Acute (2) Elevated hemidiaphragm: Problem comment: -in setting of perioperative block for right shoulder -mild dyspnea with mild hypoxia postoperatively -CXR confirms somewhat elevated right hemidiaphragm with basilar atelectasis versus infiltrates (clinically, likely atelectasis) -monitoring with oxygen support overnight. CPAP Status: Acute (3) DAISY (obstructive sleep apnea): Problem comment: -use CPAP Status: Acute (4) Morbid obesity: Problem comment: -complicating above BMI 49.8 -- recent 55lbs weight loss 08/19/2023: BMI 45.9 Status: Acute (5) Type 2 diabetes mellitus: Problem comment: -continue metformin Status: Acute (6) Hypertension: Problem comment: -continue home meds Status: Acute (7) Hyperlipidemia: Problem comment: -continue statin Status: Acute Total Time Spent Total Time Spent: Total time spent caring for the patient today was 45 minutes. This includes time spent for the visit reviewing the chart, time spent during the visit, time spent after the visit and documentation and planning in coordination of care.
[2024-03-17] MEDS: POTASSIUM CHLORIDE 10 MEQ CAPSULE ER 20 MEQ PO (20:17)
[2024-03-17] MEDS: SPIRONOLACTONE 25 MG TABLET 50 MG PO (20:17)
[2024-03-17] MEDS: LOSARTAN POTASSIUM 50 MG TABLET PO (20:17)
[2024-03-17] MEDS: SIMVASTATIN 40 MG TABLET PO (20:17)
[2024-03-17] MEDS: BUSPIRONE 10 MG TABLET 20 MG PO (20:18)
[2024-03-17] MEDS: METFORMIN 1,000 MG TABLET 1000 MG PO (20:18)
--- OUTSIDE RECORDS SUMMARY | 2024-03-17 22:24 | XMS_ITS | Clinical Summary ---
Author Organization [facility] Address [place], [place] [address] Care Team Providers Care Railway Equipment Operator Name Role Phone Asha Arthur Primary Care Provider [phone] Kellie Benavides MD Unavailable [phone] [facility] Unavailable Allergies Active Allergy Reactions [...] removed, BSO Dr. Helen Key, gynecologic oncology [place] DAISY 09/17/2006 AHI-32 12/04/2018 Sensorineural hearing loss, [...] Date Anticoagulation monitoring, special range 05/27/2013 12/17/2018 middle or intermediate school principal current use of anticoagulant 05/24/2013 12/17/2018 correction (current) use of anticoagulants 07/20/2012 01/22/2013 Screen for colon cancer 04/29/201203/12 Overview (04/29/2012): Colonoscopy 04/2012 normal repeat in 10 years Nonspecific abnormal results of other specified function study 09/24/2006 12/17/2018 Depressive disorder, not elsewhere classified 07/17/19 07 10/21/2008 Impaired glucose tolerance 0 12/29/2008 Encounters Date Type Department Care Team Description 03/02/2024 11:25 AM CDT Preop Visit [facility] [address] [place] [address] Asha Arthur Liane, DO Preoperative Exam (03/17/24 R shoulder scope RCR, SAD, DCE, LGHD - Dr. Gutiérrez [facility]) 03/01/2024 Travel from Last 3 Months Immunizations [...] st Contact Info) Description 04/15/2024 9:00 AM LIME HIDE INSPECTOR Orders Only [facility] [address] [place] [address] [place] 04/29/2024 11:00 AM LIME HIDE INSPECTOR Office Visit [facility] [address] [facility] [address] Kellie Benavides MD [address] [place] [address] Health Maintenance Due Date Last Done Comments [...] virus) ANTI HCV Routine 05/06/2016 10:15 AM LIME HIDE INSPECTOR Need for hepatitis C screening test from [...] Asha Arthur DO CHEMISTRY Performing Organization Address City/[facility]/ZIP Co de Phone Number [facility] [address] [place] [phone], [facility] [address] [place] [address] * POTASSIUM (03/02/2024 12:21 PM CDT) POTASSIUM 4.9 3.5 - 5.3 mmol/L [facility] Blood BLOOD SPECIMEN / Unknown 03/02/2024 12:21 PM CDT 03/02/2024 12:22 PM CDT Asha Arthur DO CHEMISTRY Performing Organization Address [facility] Co de Phone Number [facility] [address] [place] [phone], [place] [phone] [facility] [address] [place] [phone] * XR DXA BONE DENSITY 2 SITES AXIAL [14985.1] (09/10/2023 1:39 PM CDT) Anatomical Region Laterality [...] recommended in 3-5 years. Juliette Garvin PA-C [facility] 09/21/2023 ?? Narrative 09/21/2023 2:26 PM CDT For Patients: Results are automatically released to your [facility]) account once available, in compliance with federal regulations. This means that you may see your results before your provider has had a chance to review them. Please allow 2-3 business days for your provider to comment on the results. XR DXA Bone Mineral Density (BMD) EXAM LOCATION: [facility] [address] [facility] [address] PATIENT NAME: Yue Cardoso DATE OF : [...] two scanners are made by the same rougher for cement. PROCEDURE: Dual-energy x-ray absorptiometry performed with routine [...] REFLEX MEASURED LDL (09/10/2023 12:45 PM CDT) [facility] CHOLESTEROL,TOTAL 161 100 - 199 mg/dL 09/10/2023 10:45 PM CDT [facility] Comment: Cholesterol, Total Reference Ranges Desirable <200 mg/dL Borderline 200-239 mg/dL High >=240 mg/dL TRIGLYCERIDES 208(H) <150 mg/dL 09/10/2023 10:45 PM CDT [facility] HDL CHOLESTEROL 53 >40 mg/dL 10:45 PM CDT [facility] NON-HDL CHOLESTEROL 108 <145 mg/dl 09/10/2023 10:45 PM CDT [facility] CHOL/HDL RATIO 3.04 <4.50 09/10/2023 10:45 PM CDT [facility] LDL CHOLESTEROL 66 <=130 mg/dL 09/10/2023 10:45 PM CDT [facility] VLDL CHOLESTEROL 42(H) <=30 mg/dL 09/10/2023 10:45 PM CDT [facility] PROVIDER ORDERED STATUS RANDOM 09/10/2023 10:45 PM CDT [facility] Blood BLOOD SPECIMEN / Unknown Venipuncture / Unknown 09/10/2023 12:45 PM CDT 09/10/2023 12:47 PM CDT Asha Arthur DO CHEMISTRY [facility] [address] [place] [address], * XR MAMMO BHASKAR BILAT SCREEN (08/13/2023 [...] care provider. XR MAMMO BHASKAR BILAT SCREEN [[id number]] CLINICAL HISTORY: ??This is an asymptomatic 63 y.o. patient. INDICATION FOR EXAM: Mammogram Screening. TECHNIQUE: CC & MLO views were obtained. ??This study was evaluated with the assistance of Computer-Aided Detection. Breast Tomosynthesis was used in interpretation. COMPARISON FILM: Yes 08/08/22 [facility] 07/26/21 [facility] FINDINGS: ??The breasts have scattered areas of fibroglandular density. There are no dominant masses, suspicious micro calcifications or areas of architectural distortion. Asha Plunkettjose DO MAMMO * SCAN-COLONOSCOPY (11/04/2022 12:00 AM CDT) Scanner OTHER * LC HIV-1/O/2, 4TH GENERATION (08/08/2022 10:18 AM CDT) HIV Scr 4th Gen Non Reactive Non Reactive 08/13/2022 12:06 AM CDT [facility] Comment: HIV Negative HIV-1/HIV-2 antibodies and HIV-1 p24 antigen were NOT detected. There is no laboratory evidence of HIV infection. Blood BLOOD SPECIMEN / Unknown Venipuncture / Unknown 08/08/2022 10:18 AM CDT 08/08/2022 10:23 AM CDT Narrative [facility] ([facility]) - 08/13/2022 12:06 AM CDT Performed at: ??[address] ??[id number] Interviewing Clerk: Blake Wilcox MD, Phone: ??[phone] [facility] Performing Organization Address City/State/[facility] Co de Phone Number [facility] [address] [place] [address] * ANTI HCV [90595.2] (05/06/2016 10:15 AM LIME HIDE INSPECTOR) Pathologist [facility] HEPATITIS C ANTIBODY Non-Reacti ve Non-Reacti ve 05/06/2016 3:00 PM LIME HIDE INSPECTOR [facility] Blood BLOOD SPECIMEN / Unknown Venipuncture / Unknown 05/06/2016 10:15 AM LIME HIDE INSPECTOR 05/06/2016 10:15 AM LIME HIDE INSPECTOR Narrative [facility] - 05/06/2016 3:00 PM LIME HIDE INSPECTOR Antibodies to HCV not detected; does not exclude the possibility of exposure to HCV. Arpita Bryson DO SEND OUTS [facility] [address] [place] [address], [place] from Last 3 Months or Most Recently Relevant to Health Maintenance Advance Directives * Full Code (Latest Code Status on File) Date Activated Date Inactivated Comments 04/08/2023 8:59 AM 04/08/2023 2:24 PM Question Answer Comments Code Status Discussion: Unable to Assess Preferences, Provider to review later * Full Code Date Activated Date Inactivated Comments 06/03/2014 6:07 AM 06/03/2014 10:30 AM Care Teams Railway Equipment Operator Relationship Specialty Start Date End Date [place] [address] PCP - General Family Practice 10/15/22 Kellie Benavides MD [address] [place] [address] Medical Oncologist Hematology and Oncology 11/06/22 Thalia Ross, RN [address] [place] [address] Nurse Navigator - Oncology Registered Nurse 04/16/23
--- OUTSIDE RECORDS SUMMARY | 2024-03-17 22:25 | XMS_ITS | Encounter Summary ---
Author Organization [facility] Address [address] [place] [address] Care Team Providers Care Intermission Coordinator Name Role Phone Kolton Sommera Karmen Primary Care Provider Helen Mancini MD Unavailable Muna Breen RN Unavailable Helen Mancini MD Unavailable My [place] APRN SPINNING FRAME CHANGER Unavailable + My [place] APRN SPINNING FRAME CHANGER Unavailable + Encounter Details Date Type Department Care Team (Late st Contact Info) Description 08/17/2020 [facility] [address] [place] [phone] [place] Social History Tobacco Use Types Packs/Day Years Used Date Smoking Tobacco: Never Smokeless Tobacco: Never Alcohol Use Standard Drinks/Week Comments Yes 0 (1 standard drink = 0.6 oz pur e alcohol) Comments No Sex and Gender Information Value Date Recorded Sex Assigned at Female 12/21/2019 11:36 AM CDT Legal Sex Female 3:28 AM RISK MANAGEMENT SPECIALIST Gender Identity Female 12/21/2019 11:36 AM CDT [...] on filedocumented in this encounter Care Teams Intermission Coordinator Relationship Specialty Start Date End Date Kelly Sommer PCP - General Physician Truck Trailer Final Inspector 08/17/18 Helen Mancini MD [address] [place] [id number] Gynecologic Oncology 08/21/18 Muna Breen, RN Specialty House Manager Oncology 12/30/19 06/09/23 Helen Mancini MD [address] [place] [address] Assigned Cancer Care Provider 03/03/20 06/23/21 My Carlisle APRN SPINNING FRAME CHANGER [address] [place] [address] [address] [place], [place] [id number] Assigned OBGYN Provider 08/06/20 My [place] APRN SPINNING FRAME CHANGER [address] [facility] [address] [place], [place] [address] Assigned Cancer Care Provider 06/24/21 09/01/23 documented as of this encounter
--- OUTSIDE RECORDS SUMMARY | 2024-03-17 22:25 | XMS_ITS ---
Author Organization [facility] Address [address] [place] [address] Care Team Providers Care Mail Examiner Name Role Phone Kelly Sommer Primary Care Provider [phone] Helen Mancini MD Unavailable [phone] Active Problems Problem Noted Date Diagnosed Date S/P total hip arthroplasty 06/10/2023 Endometrial cancer 12/22/2019 Cancer Staging:Clinical stage from 01/19/2020:FIGO Stage IA(T1a(m), N0, M0) - Signed by Helen Mancini MD on 01/19/2020 Overview (12/22/2019): Added automatically from request for surgery [id number] Hypertension Diabetes mellitus Current Oncology Plans No current plan information found. Past Plans No past plan information found. Radiation Treatments * No radiation treatments are documented for this patient in [facility]. Treatments may have been administered in another system. Treatment Summaries Endometrial cancer (H)* Cancer Treatment Plan and Summary - Gynecology [facility] General Information Patient Name Yue Cardoso Patient 1960 Patient phone [phone] (home) [phone] (work) Email [email or web address] Care Team Primary Care Provider Kelly Sommer [...] to maintain optimal health. Possible late and/or bed bug exterminator effects that someone with this type of cancer and treatment may experience: bone effects heart effects memory and concentration pain nervous system changes If you would like to discuss specific late and/or custodial effects related to your treatment, please use the following website to make an appointment in the Cancer Survivor Program: www.[facility].org/c are/overarching-care/wevsif-fizw-cbumg/support-services OR call These symptoms should be brought [...] (loss/gain) Resources you may be interested in: [place] [employer] www.cancer.org [place] [employer] of Clinical Oncology www.asco.org/practice-guidelines/resources-patients National Cancer Gladys www.cancer.gov [employer] www.livestrong.org [facility] www.mhealth.org/care/overarching-care/ktsvkz-avqy-kalpt/support-services www.cancer.net [place] Gladys for Cancer Research www.aicr.org This Survivorship Care Plan is a cancer treatment summary and follow up plan and is provided to youto keep with your health care records and to share with your primary care provider or any of your other providers.
--- OUTSIDE RECORDS SUMMARY | 2024-03-17 22:25 | XMS_ITS | Clinical Summary ---
Author Organization [facility] Address [address] [place] [address] Care Team Providers Care Syrup Maker Cook Name Role Phone Kelly Sommer Primary Care [...] (12/22/2019): Added automatically from request for surgery [id number] Hypertension Diabetes mellitus Encounters Date Type Department [...] AM CDT Legal Sex Female 3:28 AM WOOD MECHANIST Gender Identity Female 12/21/2019 11:36 AM CDT Sexual Orientation Straight 12/21/2019 11 :36 AM CDT Last Filed Vital Signs Vital Sign Reading Time Taken Comments Blood Pressure 112/53 06/23/2023 7:10 PM WOOD MECHANIST Pulse 101 06/23/2023 8:15 PM WOOD MECHANIST Temperature 37.2 ??C (98.9 ??F) 06/23/2023 7:10 PM CS T Respiratory Rate 20 06/23/2023 7:10 PM WOOD MECHANIST Oxygen Saturation 94% 06/23/2023 8:15 PM WOOD MECHANIST Inhaled Oxygen Concentration - - Weight 115.7 kg (255 lb) 06/23/2023 7:10 PM WOOD MECHANIST Height 157.5 cm (5' 2) 06/10/2023 6:58 AM WOOD MECHANIST Body Mass Index 46.64 06/10/2023 6:58 AM WOOD MECHANIST Plan of Treatment Health Maintenance Due Date [...] pathway for general surgery No Neda Markham [facility] SURG DAY 10 MED Care Plan Care pathway for general surgery No Neda Markham Medical Devices Implanted Type Area Manager Multicultural Device Identifier Shelf Expiration Date Model / Serial / Lot Allograft Duragen Plus 1 X 1 [id number] Implanted:Qt y: 1 on 06/14/2019 Bone/Tissue Synthetic N/A: Spine Lumbar [employer] 01/09/2022 [id number] / / [id number] Imp Shell Acet Depuy [place] Gription 54mm [id number] - [id number] Implanted:Qt y: 1 on 06/10/2023 by Jenaro Cosby MD at [facility] Total Joint Component/In sert Left: Hip [employer] [id number] 03/11/2033 [id number] / / [id number] Imp Stem Fem Depuy Actis Collar Hi-Offset Sz 3mm 1010-12 - [id number] Implanted:Qt y: 1 on 06/10/2023 by Jenaro Cosby MD at [facility] Total Joint Component/In sert Left: Hip [employer] [id number] 09/08/2032 1010-030 / / [id number] Imp Liner Hip Depuy [place] Altrx [id number] +4 10d [id number] - [id number] Implanted:Qt y: 1 on 06/10/2023 by Jenaro Cosby MD at [facility] Total Joint Component/In sert Left: Hip [employer] [id number] 12/10/2027 [id number] / / [id number] Imp Head Femoral Depuy Ceramic 36mm +1.5mm 1365-36-310 - [id number] Implanted:Qt y: 1 on 06/10/2023 by Jenaro Cosby MD at [facility] Total Joint Component/In sert Left: Hip [employer] [id number] 02/09/2028 [id number] / / [id number] Procedures Procedure Name Priority Date/Time Associated Diagnosis Comments BASIC METABOLIC PANEL Routine 06/11/2023 6:09 AM WOOD MECHANIST HEMOGLOBIN A1C Routine 06/15/2019 5:56 AM WOOD MECHANIST from Last 3 Months or Most Recently Relevant to Health Maintenance Results * (ABNORMAL) Basic metabolic panel (06/11/2023 6:09 AM WOOD MECHANIST) [facility] Sodium 136 135 - 145 mmol/L 06/11/2023 7:08 AM WOOD MECHANIST [facility] Comment:Reference intervals for this test were updated on 02/04/2023 to more accurately reflect our healthy population. There may be differences in the flagging of prior results with similar values performed with this method. Interpretation of those prior results can be made in the context of the updated reference intervals. Potassium 4.7 3.4 - 5.3 mmol/L 06/11/2023 7:08 AM [facility] Chloride 101 98 - 107 mmol/L 06/11/2023 7:08 AM [facility] Carbon Dioxide (CO2) 29 22 - 29 mmol/L 06/11/2023 7:08 AM [facility] Anion Gap 6(L) 7 - 15 mmol/L 06/11/2023 7:08 AM [facility] Urea Nitrogen 24.8(H) 8.0 - 23.0 mg/dL 06/11/2023 7:08 AM [facility] Creatinine 0.81 0.51 - 0.95 mg/dL 06/11/2023 7:08 AM [facility] GFR Estimate 80 >60 mL/min/1. 73m2 06/11/2023 7:08 AM [facility] Calcium 9.1 8.8 - 10.2 mg/dL 06/11/2023 7:08 AM [facility] Glucose 110(H) 70 - 99 mg/dL 06/11/2023 7:08 AM [facility] Blood STRUCTURE OF RIGHT UPPER LIMB / Unknown Venipuncture / Unknown 06/11/2023 6:09 AM WOOD MECHANIST 06/11/2023 6:40 AM WOOD MECHANIST us Radha Quintana MD LAB - BLOOD ORDERABLES Final Res ult [facility] [address] [facility] [place] [address], [facility] [phone] * (ABNORMAL) Hemoglobin A1c (06/15/2019 5:56 AM WOOD MECHANIST) Hemoglobin A1C 6.8(H) 4.2 - 6.1 % 06/15/2019 1:26 PM WOOD MECHANIST [facility] Blood specimen (specimen) STRUCTURE OF RIGHT UPPER LIMB / Unknown Venipuncture / Unknown 06/15/2019 5:56 AM WOOD MECHANIST 06/15/2019 8:50 AM WOOD MECHANIST us Rubens Calabrese MD LAB - BLOOD ORDERABLES Final R esult [facility] [address] [place] [address], [facility] [address] [place] [address] from Last 3 Months or Most Recently Relevant to Health Maintenance Additional Health Concerns Active Problems Noted Date Diagnosed Date MyC ECC SURG ENROLL 05/23/2023 Care pathway for general surgery 05/28/2023 Insurance [facility] BL[facility] MEDICARE [facility] MEDIC[facility] Advance Directives For more information, please contact: [phone] * Full Code (Latest Code Status on File) Date Activated Date Inactivated Comments 06/10/2023 1:05 PM 06/11/2023 2:44 PM All basic an d advanced life-sustaining interventions are performed as appropriate Question Answer Comments Code status determined by: Unable to dis cuss and no AD/POLST on file; continue PREVIOUSLY ORDERED code status Care Teams Syrup Maker Cook Relationship Specialty Start Date End Date Kelly Sommer PCP - General Physician Costuming Supervisor 08/17/18 Helen Mancini MD [address] [place] [address] Gynecologic Oncology 08/21/18
--- OUTSIDE RECORDS SUMMARY | 2024-03-17 22:25 | XMS_ITS | Clinical Summary ---
Author Organization [facility] Address [address] [address] Phone Care Team Providers Care [employer] Officer Name Role Phone Unavailable Primary Care Provider [...] on file Legal Sex Female 10:39 PM SURGICAL SUPERVISOR Gender Identity Not on file Sexual Orientation [...] Plan of Treatment Not on file Insurance [facility] Commercial Address: [facility] [address] [place] [address]
--- OUTSIDE RECORDS SUMMARY | 2024-03-17 22:25 | XMS_ITS | Encounter Summary ---
Author Organization [facility] Address [address] [place] [address]. [place] [address] Care Team Providers Care Occupational Health Rn Name Role Phone Kelly Sommer Primary Care Provider Helen Mancini MD Unavailable Encounter Details Date [...] AM CDT Legal Sex Female 3:28 AM DERRICK BUILDER Gender Identity Female 12/21/2019 11:36 AM CDT [...] documented as of this encounter Care Teams Occupational Health Rn Relationship Specialty Start Date End Date Kelly Sommer PCP - General Physician Round Cutter Operator 08/17/18 Helen Mancini MD [address] [address] Gynecologic Oncology 08/21/18 documented as of this encounter
--- OUTSIDE RECORDS SUMMARY | 2024-03-17 22:25 | XMS_ITS | Referral Summary ---
Author Organization [place] Address [address] [place] [id number] Care Team Providers Care Clinical Engineer Name Role Phone Sommer Kelly Karmen Primary Care Provider [phone] Helen Mancini MD Unavailable Encounters Date Type Department Care Team Description [...] (12/22/2019): Added automatically from request for surgery [id number] Hypertension Diabetes mellitus Immunizations Name Administration Dates [...] AM CDT Legal Sex Female 3:28 AM SENIOR SOLUTIONS WORKFLOW CONSULTANT Gender Identity Female 12/21/2019 11:36 AM CDT Sexual Orientation Straight 12/21/2019 11 :36 AM CDT Last Filed Vital Signs Vital Sign Reading Time Taken Comments Blood Pressure 112/53 06/23/2023 7:10 PM SENIOR SOLUTIONS WORKFLOW CONSULTANT Pulse 101 06/23/2023 8:15 PM SENIOR SOLUTIONS WORKFLOW CONSULTANT Temperature 37.2 ??C (98.9 ??F) 06/23/2023 7:10 PM CS T Respiratory Rate 20 06/23/2023 7:10 PM SENIOR SOLUTIONS WORKFLOW CONSULTANT Oxygen Saturation 94% 06/23/2023 8:15 PM SENIOR SOLUTIONS WORKFLOW CONSULTANT Inhaled Oxygen Concentration - - Weight 115.7 kg (255 lb) 06/23/2023 7:10 PM SENIOR SOLUTIONS WORKFLOW CONSULTANT Height 157.5 cm (5' 2) 06/10/2023 6:58 AM SENIOR SOLUTIONS WORKFLOW CONSULTANT Body Mass Index 46.64 06/10/2023 6:58 AM SENIOR SOLUTIONS WORKFLOW CONSULTANT Plan of Treatment Not on file Goals [...] Neda [employer] Implanted Type Area Leather Patcher Device Identifier Shelf Expiration Date Model / Serial / Lot Allograft Duragen Plus 1 X 1 [id number] Implanted:Qt y: 1 on 06/14/2019 Bone/Tissue Synthetic N/A: Spine Lumbar [employer] 01/09/2022 [id number] / / [id number] Imp Shell Acet Depuy Snook Gription 54mm [id number] - [id number] Implanted:Qt y: 1 on 06/10/2023 by Jenaro Cosby MD at [facility] Total Joint Component/In sert Left: Hip [employer] [id number] 03/11/2033 [id number] / / [id number] Imp Stem Fem Depuy Actis Collar Hi-Offset Sz 3mm 1010-12-030 - [id number] Implanted:Qt y: 1 on 06/10/2023 by Jenaro Cosby MD at [facility] Total Joint Component/In sert Left: Hip [employer] [id number] 09/08/2032 1010-12-030 / / [id number] Imp Liner Hip Depuy Snook Altrx [id number] +4 10d [id number] - [id number] Implanted:Qt y: 1 on 06/10/2023 by Jenaro Cosby MD at [facility] Total Joint Component/In sert Left: Hip [employer] [id number] 12/10/2027 [id number] / / [id number] Imp Head Femoral Depuy Ceramic 36mm +1.5mm 1365-36-310 - [id number] Implanted:Qt y: 1 on 06/10/2023 by Jenaro Cosby MD at [facility] Total Joint Component/In sert Left: Hip [employer] [id number] 02/09/2028 [id number] / / [id number] Procedures Procedure Name Priority Date/Time Associated Diagnosis Comments BASIC METABOLIC PANEL Routine 06/11/2023 6:09 AM SENIOR SOLUTIONS WORKFLOW CONSULTANT HEMOGLOBIN A1C Routine 06/15/2019 5:56 AM SENIOR SOLUTIONS WORKFLOW CONSULTANT from Last 3 Months or Most Recently Relevant to Health Maintenance Results * (ABNORMAL) Basic metabolic panel (06/11/2023 6:09 AM SENIOR SOLUTIONS WORKFLOW CONSULTANT) [facility] Signature Sodium 136 135 - 145 mmol/L 06/11/2023 7:08 AM [facility] Comment:Reference intervals for this test were updated on 02/04/2023 to more accurately reflect our healthy population. There may be differences in the flagging of prior results with similar values performed with this method. Interpretation of those prior results can be made in the context of the updated reference intervals. Potassium 4.7 3.4 - 5.3 mmol/L 06/11/2023 7:08 AM [facility] Chloride 101 98 - 107 mmol/L 06/11/2023 7:08 AM [facility] Carbon Dioxide (CO2) 29 22 - 29 mmol/L 06/11/2023 7:08 AM [facility] Anion Gap 6(L) 7 - 15 mmol/L 06/11/2023 7:08 AM [facility] Urea Nitrogen 24.8(H) 8.0 - 23.0 mg/dL 06/11/2023 7:08 AM [facility] Creatinine 0.81 0.51 - 0.95 mg/dL 06/11/2023 7:08 AM [facility] GFR Estimate 80 >60 mL/min/1. 73m2 06/11/2023 7:08 AM [facility] Calcium 9.1 8.8 - 10.2 mg/dL 06/11/2023 7:08 AM [facility] Glucose 110(H) 70 - 99 mg/dL 06/11/2023 7:08 AM [facility] Blood STRUCTURE OF RIGHT UPPER LIMB / Unknown Venipuncture / Unknown 06/11/2023 6:09 AM SENIOR SOLUTIONS WORKFLOW CONSULTANT 06/11/2023 6:40 AM SENIOR SOLUTIONS WORKFLOW CONSULTANT us Radha Quintana MD LAB - BLOOD ORDERABLES Final Res ult Performing Organization Address City/[facility]/ZIP Co de Phone Number [facility] [address] [facility] [place], [place] [address] [phone] * (ABNORMAL) Hemoglobin A1c (06/15/2019 5:56 AM SENIOR SOLUTIONS WORKFLOW CONSULTANT) Hemoglobin A1C 6.8(H) 4.2 - 6.1 % 06/15/2019 1:26 PM SENIOR SOLUTIONS WORKFLOW CONSULTANT [facility] Blood specimen (specimen) STRUCTURE OF RIGHT UPPER LIMB / Unknown Venipuncture / Unknown 06/15/2019 5:56 AM SENIOR SOLUTIONS WORKFLOW CONSULTANT 06/15/2019 8:50 AM SENIOR SOLUTIONS WORKFLOW CONSULTANT us Rubens Calabrese MD LAB - BLOOD ORDERABLES Final R esult Performing Organization Address City/[facility]/ZIP Co de Phone Number [facility] [address] [address], [place] [facility] [address] [address] from Last 3 Months or Most Recently Relevant to Health Maintenance Additional Health Concerns Active Problems Noted Date Diagnosed Date MyC ECC SURG ENROLL 05/23/2023 Care pathway for general surgery 05/28/2023 Insurance [facility] [place] BL[employer] MEDICARE [facility] [place] [employer] MEDICARE Advance Directives For more information, please contact: [phone] * Full Code (Latest Code Status on File) Date Activated Date Inactivated Comments 06/10/2023 1:05 PM 06/11/2023 2:44 PM All basic an d advanced life-sustaining interventions are performed as appropriate Question Answer Comments Code status determined by: Unable to dis cuss and no AD/POLST on file; continue PREVIOUSLY ORDERED code status Care Teams Clinical Engineer Relationship Specialty Start Date End Date Kelly Sommer PCP - General Physician Abrasive Grader Helper 08/17/18 Helen Mancini MD [address] [place] [address] Gynecologic Oncology 08/21/18
[2024-03-18 03:00] VITALS: BP 144/72; PULSE 94; RESP 18; TEMP 36.6; O2SAT 94
[2024-03-18] MEDS: OXYCODONE 5 MG TABLET PO ×2 (03:13→07:59)
[2024-03-18] MEDS: ACETAMINOPHEN 325 MG TABLET PO (03:13)
--- NOTE | 2024-03-18 06:13 | PC.NURSE ---
[id number] Pt slept well during the night, able to maintain O2 sats >90% while using pt own cpap while sleeping. dressing to R shoulder C/D/I, ice to surgical site, arm in sling during shift. ambulating and voiding without difficulty. prn oxycodone and tylenol administered for pain controled, pt rated 4/10
[2024-03-18 07:00] VITALS: BP 145/65; PULSE 85; RESP 16; O2SAT 100
[2024-03-18] MEDS: IBUPROFEN 200 MG TABLET 400 MG PO (08:00)
--- NOTE | 2024-03-18 08:31 | PM.ORPN ---
Subjective Subjective Date Seen: 03/18/24 Principal diagnosis: POD 1 right RCR, SAD, DCE, limited glenohumeral debridement Interval history: Patient reports doing well. Feels good this morning. Notes that she is doing better with incentive spirometer. No dyspnea. No acute events over night. For CPAP overnight. Reports not sleeping that well however. Pain managed with scheduled and PRN medications, ice. DVT prophylaxis: Walking. Denies fevers, chills, aches, N/V, CP, SOB/BASURTO, or lightheadedness. Ortho Exam Narrative Exam Narrative: -Patient appears comfortable in bed; no apparent acute distress -Alert and oriented times 3 -Operative shoulder swollen; soft, supple tissues; no obvious erythema. No significant ecchymosis. Warmth appropriate -Surgical dressings clean, dry, intact; no obvious drainage, no erythematous streaking peripheral to the bandage -2+ radial pulse, pink warm digits with brisk cap refill; intact dermatomes and myotomes distally including the radial, ulnar, and median nerve distributions -No obvious retractions, no trachea midline shift, no obvious increased work of breathing or tachypnea Const Vital Signs, click to edit/add: Vital Signs - 24 hr 03/17/24 09:58 03/17/24 10:10 03/17/24 10:15 Temperature Pulse Rate 88 83 87 Pulse Rate [Left Pulse Oximeter] Respiratory Rate 16 16 16 Blood Pressure 139/77 133/70 159/74 H Blood Pressure [Left Arm] Pulse Oximetry 99 99 100 Oxygen Delivery Method Room Air Nasal Cannula Nasal Cannula Oxygen Flow Rate 3 3 03/17/24 10:20 03/17/24 10:25 03/17/24 10:30 Temperature Pulse Rate 86 90 94 Pulse Rate [Left Pulse Oximeter] Respiratory Rate 16 16 16 Blood Pressure 155/63 H 158/88 H 166/74 H Blood Pressure [Left Arm] Pulse Oximetry 99 100 97 Oxygen Delivery Method Nasal Cannula Nasal Cannula Nasal Cannula Oxygen Flow Rate 3 3 3 03/17/24 10:35 03/17/24 12:39 03/17/24 12:45 Temperature 97.2 F L Pulse Rate 94 102 H 100 Pulse Rate [Left Pulse Oximeter] Respiratory Rate 16 14 14 Blood Pressure 147/78 H 157/87 H 165/86 H Blood Pressure [Left Arm] Pulse Oximetry 99 93 94 Oxygen Delivery Method Nasal Cannula Nasal Cannula Nasal Cannula Oxygen Flow Rate 3 5 5 03/17/24 12:50 03/17/24 12:55 03/17/24 13:00 Temperature Pulse Rate 102 H 99 102 H Pulse Rate [Left Pulse Oximeter] Respiratory Rate 14 16 18 Blood Pressure 168/74 H 168/74 H 160/73 H Blood Pressure [Left Arm] Pulse Oximetry 93 93 94 Oxygen Delivery Method Nasal Cannula Nasal Cannula Nasal Cannula Oxygen Flow Rate 3 3 1 03/17/24 13:05 03/17/24 13:10 03/17/24 13:18 Temperature 96.5 F L Pulse Rate 96 97 95 Pulse Rate [Left Pulse Oximeter] Respiratory Rate 18 18 16 Blood Pressure 157/65 H 157/66 H 149/65 H Blood Pressure [Left Arm] Pulse Oximetry 91 95 94 Oxygen Delivery Method Nasal Cannula Nasal Cannula Room Air Oxygen Flow Rate 0 0 03/17/24 13:30 03/17/24 13:45 03/17/24 14:00 Temperature Pulse Rate 90 90 89 Pulse Rate [Left Pulse Oximeter] Respiratory Rate 16 16 14 Blood Pressure 132/66 131/63 137/67 Blood Pressure [Left Arm] Pulse Oximetry 92 92 93 Oxygen Delivery Method Room Air Room Air Nasal Cannula Oxygen Flow Rate 2 03/17/24 14:15 03/17/24 14:30 03/17/24 15:56 Temperature Pulse Rate 91 100 102 H Pulse Rate [Left Pulse Oximeter] Respiratory Rate 14 16 16 Blood Pressure 132/62 147/68 H 150/64 H Blood Pressure [Left Arm] Pulse Oximetry 93 92 90 Oxygen Delivery Method Nasal Cannula Nasal Cannula Room Air Oxygen Flow Rate 2 2 03/17/24 16:15 03/17/24 16:39 03/17/24 17:00 Temperature 97.8 F Pulse Rate 102 H 102 H 94 Pulse Rate [Left Pulse Oximeter] Respiratory Rate 16 16 16 Blood Pressure 141/74 H 156/77 H 137/76 Blood Pressure [Left Arm] Pulse Oximetry 95 94 95 Oxygen Delivery Method Room Air Room Air Oxygen Flow Rate 03/17/24 18:00 03/17/24 19:15 03/17/24 22:29 Temperature 98.1 F 98.1 F Pulse Rate 102 H 102 H Pulse Rate [Left Pulse Oximeter] 98 Respiratory Rate 16 18 18 Blood Pressure 128/67 124/62 Blood Pressure [Left Arm] 128/64 Pulse Oximetry 94 95 94 Oxygen Delivery Method Room Air Room Air CPAP Oxygen Flow Rate 03/18/24 03:00 03/18/24 07:00 Temperature 97.8 F Pulse Rate Pulse Rate [Left Pulse Oximeter] 94 85 Respiratory Rate 18 16 Blood Pressure Blood Pressure [Left Arm] 144/72 H 145/65 H Pulse Oximetry 94 100 Oxygen Delivery Method CPAP Room Air Oxygen Flow Rate Assessment and Plan Assessment and plan (1) Rotator cuff tear, right: Problem details: -POD#1 s/p right rotator cuff repair -perioperative management including pain management and anticoagulation per Orthopedic surgery -encourage postoperative pulmonary hygiene -PT OT consults -plan to discharge home with spouse tomorrow Status: Acute (2) Elevated hemidiaphragm: Problem details: -in setting of perioperative block for right shoulder -mild dyspnea with mild hypoxia postoperatively -CXR confirms somewhat elevated right hemidiaphragm with basilar atelectasis versus infiltrates (clinically, likely atelectasis) -monitoring with oxygen support overnight. CPAP Status: Acute (3) DAISY (obstructive sleep apnea): Problem details: -use CPAP Status: Acute (4) Morbid obesity: Problem details: -complicating above BMI 49.8 -- recent 55lbs weight loss 08/19/2023: BMI 45.9 Status: Acute (5) Type 2 diabetes mellitus: Problem details: -continue metformin Status: Acute (6) Hypertension: Problem details: -continue home meds Status: Acute (7) Hyperlipidemia: Problem details: -continue statin Status: Acute Plan Patient appears to be doing well, improving with her incentive spirometer, not feeling lightheaded dizzy, and no reports of dyspnea or shortness of breath. There is no obvious work of breathing. Anticipation is that she discharges to home with family today, 03/18/2024. We will see how she does with activities this morning, in particular her oxygenation. If she does well, then she will most likely go home. She will have her at home with her; encouraged to have her CPAP with her even when taking naps. Her physical therapy is scheduled to be approximately 1 month from surgery. We will have to move this up.
[2024-03-18] MEDS: BUSPIRONE 10 MG TABLET 20 MG PO (09:35)
[2024-03-18] MEDS: POTASSIUM CHLORIDE 10 MEQ CAPSULE ER 20 MEQ PO (09:35)
[2024-03-18] MEDS: LOSARTAN POTASSIUM 50 MG TABLET PO (09:35)
[2024-03-18] MEDS: METFORMIN 1,000 MG TABLET 1000 MG PO (09:35)
--- NOTE | 2024-03-18 13:34 | PC.NURSE ---
Discharge: The patient discharged with her this AM. R shouldere in immobilizer sling. Shoulder has 3 small Mepilex dressings CDI, that I instructed the patient to remove on post op 2-3. Pain is well managed with scheduled Tylenol and PRN oxycodone. Educated regarding S/S to call ortho about or go to the ER for. No longer having oxygenation issues from the block. All belongings were sent home with the patient. All questions and concerns were addressed. Bailee ACUÑA BSN
== END 2024-03-18 11:06 | disposition home or self-care (01) ==
LOC: OR 08:46 → MEDSURG 18:49
PROVIDERS: PCP Family Medicine; Visit Provider Orthopaedic Surgery Sports Medicine
PROC: (CPT 29805; principal; 2024-03-17 10:30)
DX: M75.121 Complete rotator cuff tear or rupture of right shoulder, not specified as traumatic (principal); M19.011 Primary osteoarthritis, right shoulder; S43.431A Superior glenoid labrum lesion of right shoulder, initial encounter; M75.41 Impingement syndrome of right shoulder; M94.211 Chondromalacia, right shoulder; G89.18 Other acute postprocedural pain; J95.89 Other postprocedural complications and disorders of respiratory system, not elsewhere classified; J98.11 Atelectasis; J98.6 Disorders of diaphragm; R09.02 Hypoxemia; G47.33 Obstructive sleep apnea (adult) (pediatric); E66.01 Morbid (severe) obesity due to excess calories; Z68.42 Body mass index [BMI] 45.0-49.9, adult; E11.9 Type 2 diabetes mellitus without complications; Z79.84 Long term (current) use of oral hypoglycemic drugs; I10 Essential (primary) hypertension; E78.5 Hyperlipidemia, unspecified
CPT/HCPCS: 29827; 29826; 29824; 29822; 01630; 64415; 71045; 76942; 82962; A9270; C1713; J0171; J0330; J0690; J1100; J2250; J2405; J2704; J2795; J3010; J3490; J7030; L3670

== ENCOUNTER 2024-09-15 15:10 | Outpatient (CLI) | payer MEDICARE, BC, SELFPAY ==
[2024-09-15 15:55] LABS: Basophils Absolute Auto 0.08 K/uL (0.00-0.30); Basophils Percent Auto 0.7 % (0.0-3.0); Eosinophils Absolute Auto 0.31 K/uL (0.00-0.50); Eosinophils Percent Auto 2.8 % (0.0-7.0); Hematocrit 39.5 % (33.0-51.0); Hemoglobin* 12.8 gm/dL (12.0-16.0); Immature Granulocytes Abs Auto 0.01 K/uL (0.00-0.30); Immature Granulocytes Pct Auto 0.1 %; Lymphocytes Absolute Auto 4.55 K/uL (0.90-2.90); Lymphocytes Percent Auto 41.5 % (20-44); Mean Corpuscular HGB Conc 32 gm/dL (32-36); Mean Corpuscular Hemoglobin 30 pg (26-34); Mean Corpuscular Volume 94 fL (80-100); Monocytes Percent Auto 6.2 % (0.0-11.0); Neutrophils Absolute Auto 5.34 K/uL (1.7-7.0); Neutrophils Percent Auto 48.7 % (42.0-72.0); Platelet Count* 478 K/uL (140-440); RDW Coefficient of Variation % 13.4 % (11.5-15.5); Red Blood Count 4.21 m/uL (4.00-5.20); White Blood Count* 10.97 K/uL (4.50-11.00)
[2024-09-15 16:00] LABS: Slide Review Reflex No
[2024-09-15 16:01] LABS: C Reactive Protein* 0.8 mg/dL (0.5-1.0)
[2024-09-15 16:15] LABS: Procalcitonin* 0.05 ng/mL (<0.50)
[2024-09-15 16:25] LABS: Hemoglobin A1C* 5.9 % (0-5.6)
[2024-09-15 17:04] LABS: Erythrocyte SedimentationRate* 31 mm/hr (2-20)
== END 2024-09-15 15:11 | disposition home or self-care (01) ==
LOC: LAB 15:11
PROVIDERS: PCP Family Medicine; Visit Provider Orthopaedic Surgery Sports Medicine
DX: E11.9 Type 2 diabetes mellitus without complications (principal); E66.01 Morbid (severe) obesity due to excess calories; T84.032A Mechanical loosening of internal right knee prosthetic joint, initial encounter
CPT/HCPCS: 36415; 83036; 84145; 85025; 85651; 86140

== ENCOUNTER 2024-10-06 09:27 | Inpatient (IN) | payer MEDICARE, BC, SELFPAY ==
[2024-10-06] VITALS (21 sets, daily range): BP systolic 109–155; BP diastolic 56–101; PULSE 80–100; RESP 15–22; TEMP 36.2–36.9; O2SAT 93–100; BMI 48.7
--- NOTE | 2024-10-06 10:12 | W.PM.H&PU ---
History & Physical Update History & Physical Update H&P Reviewed and patient assessed: No changes noted
[2024-10-06] MEDS: LACTATED RINGERS 500 ML 500 ML 30 ML IV ×2 (10:20→12:41)
[2024-10-06] MEDS: SODIUM CHLORIDE 0.9 % (FLUSH) 10 ML SYRINGE IVF (10:28)
[2024-10-06] MEDS: ACETAMINOPHEN 500 MG TABLET 1000 MG PO ×3 (10:57→23:02)
[2024-10-06] MEDS: OXYCODONE (CR) 10 MG TAB.ER.12H PO (10:57)
[2024-10-06] MEDS: fentaNYL 100 MCG/2 ML inj IVP (11:00)
[2024-10-06] MEDS: MIDAZOLAM HCL 1 MG/ML inj IVP (11:00)
--- NOTE | 2024-10-06 11:03 | SUR.PREOP ---
TIME?OUT:?1057 PT/RN/MDA?VERIFICATION?OF?SURGICAL?SITE,?PROCEDURE,?AND?CONSENT OBTAINED?PRIOR?TO?INVASIVE?PROCEDURE.
--- NOTE | 2024-10-06 11:14 | P.NB_ITS ---
Nerve Block Nerve Block Time Seen by Provider: 11:02 Date Seen: 10/06/24 Type of block requested by surgeon for post-operative analgesia: adductor canal Side: right Time out performed: Yes Verification of patient name: Yes Verification of date of : Yes Site marking: site marked Name of person performing procedure: López Continuous monitoring Was continuous monitoring of O2 sat, B/P, youth nutritional monitor, recorded every 15 minutes?: Yes Procedure Checklist: sterile prep, needles and gloves Ultrasound guided. Images saved: Yes Medications given in 5ml increments after negative aspiration: Marcaine %: 0.25 mL: 15 Needle gauge: 20 Precedex (mcg): 25 Patient tolerated procedure well: Yes Block Charges Block Charge (with Pro Fee): Femoral Nerve Use of Ultrasound Machine for Block: Yes- US Guidance/pain block
--- NOTE | 2024-10-06 11:15 | P.ANES_ITS ---
Anesthesia Charges Start Date/Time Anesthesia Start Date: 10/06/24 Anesthesia Start Time: 11:59 Stop Date/Time Anesthesia Stop Date: 10/06/24 Anesthesia Stop Time: 15:35 Coding CPT Codes CPT Codes: ANESTH KNEE ARTHROPLASTY - 81947 ([id number]) P3 - PATIENT W/SEVERE SYS DISEASE, QK - BROADCAST TECHNICIAN 2-4 CNCRNT ANES PROC, QX - BLOCK SEALER SVC W/ MD MED DIRECTION
--- NOTE | 2024-10-06 11:15 | P.NB_ITS ---
Nerve Block Nerve Block Time Seen by Provider: 11:02 Date Seen: 10/06/24 Type of block requested by surgeon for post-operative analgesia: geniculars Side: right Time out performed: Yes Verification of patient name: Yes Verification of date of : Yes Site marking: site marked Name of person performing procedure: López Continuous monitoring Was continuous monitoring of O2 sat, B/P, alarm security or surveillance monitor, recorded every 15 minutes?: Yes Procedure Checklist: sterile prep, needles and gloves Ultrasound guided. Images saved: Yes Medications given in 5ml increments after negative aspiration: Marcaine %: 0.25 mL: 9 Needle gauge: 25 Patient tolerated procedure well: Yes Block Charges Block Charge (with Pro Fee): Genicular Nerve Block
--- NOTE | 2024-10-06 11:15 | W.ANESCHARGE ---
Anesthesia Charges Start Date/Time Anesthesia Start Date: 10/06/24 Anesthesia Start Time: 11:59 Stop Date/Time Anesthesia Stop Date: 10/06/24 Anesthesia Stop Time: 15:35 Coding CPT Codes CPT Codes: ANESTH KNEE ARTHROPLASTY - 13504 ([id number]) P3 - PATIENT W/SEVERE SYS DISEASE, QK - ETCHER AIRCRAFT 2-4 CNCRNT ANES PROC, QX - MARBLE CEILING INSTALLER SVC W/ MD MED DIRECTION
--- NOTE | 2024-10-06 12:11 | CRLHL7_ITS ---
For Patients: As a result of the Century Cures Act, medical imaging exams and procedure reports are released immediately into your electronic medical record. You may view this report before your referring provider. If you have questions, please contact your health care provider. Indication: POST OP Technique: Two views right knee Findings/Impression: Hardware from a long-stemmed revised right total knee arthroplasty is in satisfactory position. Bone alignment is normal. No sign of acute fracture. Postop changes are within normal limits. Dictated by Eliu Browne MD @ 10/06/2024 3:58:31 PM (Electronically Signed)
[2024-10-06] MEDS: CEFAZOLIN 1 GM inj IVP (12:24)
[2024-10-06] MEDS: TRANEXAMIC ACID 100 MG/ML INJ 1000 MG IV (12:25)
[2024-10-06] MEDS: LACTATED RINGERS 1000 ML 1,000 ML 75 ML IV (12:41)
[2024-10-06] MEDS: methylPREDNISolone acetate 80 MG/ML INJ INTRA-ARTI (14:51)
[2024-10-06] MEDS: LIDOCAINE 1% MDV 20 ML INJECTION (14:53)
--- NOTE | 2024-10-06 14:57 | PM.ORPRC ---
Procedure Note Date of procedure: 10/06/24 Procedure: PREOPERATIVE DIAGNOSIS: 1. 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 Morbid obesity-BMI 48.7 POSTOPERATIVE DIAGNOSIS: 1. 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 Right knee extensive synovitis 3. Morbid obesity-BMI 48.7 PROCEDURE: 1. Revision right total knee arthroplasty ... of note, 50% added time and difficulty for this case due to patient's body mass. This BMI 48.7 made access to the knee including the tibia and posterior femur very difficult. This required increased number of assistants and retractors and sized the retractors and also increased our time for the case. 2. Right knee extensive synovectomy, open SURGEON: Billy Ortez MD. [employer] SALESPERSON: YUNIER James - Of note, a skilled pharmacy sales assistant was critical for this case to aid in patient positioning, tissue retraction, limb manipulation/positioning, and closure. ANESTHESIA: Spinal anesthetic IMPLANTS: DePuy J&J all cemented TKA - Attune revision system with stem and sleeve augmentations as follows: Femur: PS revision CRS femur size 6 (12 x 60 mm stem); 30mm sleeve augmentation; 4mm posteromedial augment Tibia: Size 4 tibia ([id number] stem); 9mm sleeve augmentation; 6 CRS RP poly spacer Maintained the previous patellar component TOURNIQUET: 120 minutes at 300 torr initially. It was deflated for 19 minutes. Then reinflated for 8 minutes again at 300 torr. Then deflated for the remainder of the case. EBL: 200ml COMPLICATIONS: None evident INDICATIONS: The patient is a pleasant 64-year-old female who has experienced severe right knee pain and difficulty bearing weight. Workup included x-rays which revealed change in position of her previous TKA components (specifically tibial component) after a remote injury/fall. This suggested loosening of the tibial component. Given the deformity and dysfunction, surgery was indicated. This would be for a revision TKA. FINDINGS: Abundant scar tissue was encountered throughout the intra-articular portion of the knee. This included on the synovial surfaces throughout including along the bone, along the synovium, in the suprapatellar pouch, posterior recesses of the knee, etc.. The femoral and tibial components were both grossly loose. Both of them easily simply pulled out from their position once the knee was exposed surgically. It did not require any disimpaction from the cement interface. The cement was still well secured to the bone in the tibia, but not greatly secured on the femoral side. There was abundant fibrous/scar tissue seen deep to the implants as if the body was trying to stabilize the implants to the bone again. There was a moderate effusion upon entering the joint as well. After mobilizing the scar tissue sequentially throughout the knee via an extensive synovectomy, we were able to improve our visualization and access to the knee to complete the case safely. The patellar component was well fixed and in pristine condition. It did have abundant scar tissue surrounding it, but showed no signs of loosening. DESCRIPTION OF PROCEDURE: Following a thorough discussion of risks, benefits, and alternatives consent was obtained and the right knee was marked. The patient was brought to the operating room and placed supine on the operating table. Induction of anesthesia was undertaken. 3 g IV Ancef and 1 g tranexamic acid was administered within 1 hr of incision preoperatively. Proper time-out was performed identifying proper patient, site, procedure. The operative extremity was prepped and draped in the appropriate sterile fashion using ChloraPrep after the patient was positioned supine with all bony prominences well padded. The previous scar was reopened with a scalpel. This was a longitudinal, anterior, midline skin incision made starting approximately 3cm proximal to the superior pole of the patella and advanced distal to the tibial tubercle. While naturally there was some scar tissue at the previous medial parapatellar arthrotomy, we utilized a subvastus approach, which did not have abundant scar tissue along the vastus medialis. A medial subperiosteal sleeve was created with knife, pettit elevator and curved osteotome. The retropatellar fatpad was resected and the synovium in the suprapatellar pouch excised to visualize the anterior femoral cortex. The abundant synovitis and scar tissue was encountered immediately. We began resecting some the scar tissue that was readily accessible 1st in the anterior portion of the knee including the retropatellar region. We worked into the suprapatellar pouch, medial gutter and lateral gutter eventually. We worked along the distal femur and proximal tibia. Caution was taken around the patellar component as this appeared to be pristine and stable. After excising the retropatellar scar tissue we were able to improve the lateral translation of the patella and the extensor mechanism and a half to access the femur. We were able to remove the femoral component with our fingers as it was grossly loose from the femur itself. The cement still had some connection to the femoral bone, but not strong. Some of it had a fibrous scar tissue deep to the cement between it and the bone. We continue to find more scar tissue in the posterior portion of the knee as well as within the notch. Ongoing synovectomy was performed primarily with rongeur but also Bovie cautery. The scar tissue readily from the more normal/healthy tissue. We were able to remove the tibial component in a similar simple fashion by simply using our fingers. After all this removal, attention was turned to cement removal. The femoral cement was removed simply with rongeur and a ventral saw. The tibial cement required osteotome, reaming, rongeur, and curettes. We pursued tibial preparation by accessing the femoral canal and dilating the reamers up until we had good cortical fit. A sleeve was then utilized to enlarge the metaphyseal bone defect, which was worse on the medial and posterior medial aspects were the previous tibial component had depressed the bone. In addition, where the abundant scar tissue was removed, it had formed a pseudo cyst in the proximal tibia with a very hard sclerotic edge to the intact bone where it met the pseudocyst. Tibial preparation was completed and a trial initially placed in found to have good fit. We then turned our attention to the femoral preparation. Again the femoral canal was accessed, various enlarging reamers were utilized, various sleeves were utilized until preparation was appropriate and the cuts were freshened. We found that there was some bone loss in the posterior medial femur that would necessitate a 4 mm augment for the final implant. The trial implants were inserted after thorough irrigation with normal saline and a trial polyethylene in place. The knee was placed range of motion found have excellent range of motion, stability, and balance. At this stage, trial implants were removed, the knee was thoroughly irrigated with normal saline, and the cement was mixed. After irrigation, the knee was thoroughly dried, and cement placed on the surface of the proximal tibial cut and distal femoral cut. Thereafter, the implants had already been prepared including the stem and sling her each component. These were placed, cement was allowed to cure with the proper trial RP spacer. After the cement was hardened, the trial polyethylene was removed andthe real RP poly spacer opened and inserted. A 3 min Betadine soak performed. Finally, a final irrigation round with normal saline was performed. Closure performed with 0 Vicryl and #0 Stratafix for the quad tendon/retinaculum repair. 2-0 Stratafix for the subcutaneous and 4-0 Stratafix for subcuticular closure. Dressings were applied and the patient was awoken from anesthesia after the tourniquet deflated and transferred the PACU in stable condition. Multiple skilled assistants were critical for this case to aid in patient positioning, tissue retraction, bone exposure, limb manipulation/positioning, patient safety, and closure. Again, 50% added time and difficulty for this case due to patient's body mass beyond the extensive synovectomy and revision TKA scenario. Her BMI greatly increased the difficulty of this case. This BMI 48.7 made access to the knee, including the tibia and posterior femur very difficult. This required increased number of assistants and retractors and sized the retractors and also increased our time for the case. PLAN: 1. Weight bear as tolerated operative extremity. 2. 23 hr perioperative antibiotics. 3. Ice. 4. PT/OT consults for ambulation assistance/mobility education. 5. Social work consult for discharge planning. 6. DVT prophylaxis with at SCDs and aspirin twice daily.]
--- NOTE | 2024-10-06 15:37 | PM.IMCN1 ---
Date of Consult Patient: Chio Patient Consult date: 10/06/24 Requesting Physician: Orthopedics Primary Care Provider: Asha Arthur DO Consult Narrative Reason for consult: Medical management Narrative: Yue Cardoso is a 64 year old female past medical history significant for type 2 diabetes mellitus, hyperlipidemia, hypertension, obesity, depression, osteoarthritis, history of endometrial cancer is POD#0 s/p revision right total knee arthroplasty, Dr. Ortez. There have been no perioperative complications or nursing concerns reported. Estimated total blood loss documented as 200ml. Updated and reviewed the active medical problems, past medical history, past surgical history, social history, allergies and medications in our electronic EMR. Postoperatively, patient is doing well. Is having some burning pain and discomfort behind the knee as the block is wearing off. Plans to eat and then take oral pain medication. Tolerating orals without nausea or vomiting. Review of Systems Narrative: REVIEW OF SYSTEMS: Complete review of systems performed and negative unless otherwise stated in HPI or below. PFSH PFSH Medical History Osteoarthritis of carpometacarpal (CMC) joint of left thumb ?M18.12 - Unilateral primary osteoarthritis of first carpometacarpal joint, left hand (ICD-10) Osteoarthritis of carpometacarpal (CMC) joint of right thumb ?M18.11 - Unilateral primary osteoarthritis of first carpometacarpal joint, right hand (ICD-10) Osteoarthritis of distal interphalangeal (DIP) joint of right index finger ?M15.1 - Heberden's nodes (with arthropathy) (ICD-10) Osteoarthritis of distal interphalangeal (DIP) joint of left index finger ?M15.1 - Heberden's nodes (with arthropathy) (ICD-10) Osteoarthritis of left hip ?M16.12 - Unilateral primary osteoarthritis, left hip (ICD-10) Depression ?F32.A - Depression, unspecified (ICD-10) Hyperlipidemia ?E78.5 - Hyperlipidemia, unspecified (ICD-10) Hypertension ?I10 - Essential (primary) hypertension (ICD-10) Morbid obesity ?E66.01 - Morbid (severe) obesity due to excess calories (ICD-10) Type 2 diabetes mellitus ?E11.9 - Type 2 diabetes mellitus without complications (ICD-10) Right bicipital tenosynovitis ?M75.21 - Bicipital tendinitis, right shoulder (ICD-10) Elevated hemidiaphragm ?J98.6 - Disorders of diaphragm (ICD-10) Trigger thumb, left thumb ?M65.312 - Trigger thumb, left thumb (ICD-10) Loosening of prosthesis of right total knee replacement ?T84.032A - Mechanical loosening of internal right knee prosthetic joint, initial encounter (ICD-10) DAISY (obstructive sleep apnea) ?G47.33 - Obstructive sleep apnea (adult) (pediatric) (ICD-10) Sensorineural hearing loss, bilateral ?H90.3 - Sensorineural hearing loss, bilateral (ICD-10) Recurrent UTI (urinary tract infection) ?N39.0 - Urinary tract infection, site not specified (ICD-10) Endometrial cancer (~01/2020) ?C54.1 - Malignant neoplasm of endometrium (ICD-10) Traumatic hematuria ?R31.9 - Hematuria, unspecified (ICD-10) Postural vertigo Obstructive sleep apnea treated with continuous positive airway pressure (CPAP) ?G47.33 - Obstructive sleep apnea (adult) (pediatric) (ICD-10) Cervical radiculopathy ?M54.12 - Radiculopathy, cervical region (ICD-10) Cataract ?H26.9 - Unspecified cataract (ICD-10) Drug-induced nausea and vomiting ?R11.2 - Nausea with vomiting, unspecified (ICD-10) ?T50.905A - Adverse effect of unspecified drugs, medicaments and biological substances, initial encounter (ICD-10) Surgical History History of arthroscopy of right shoulder (03/17/24) ?Z98.890 - Other specified postprocedural states (ICD-10) History of left hip replacement (~07/2023) ?Z96.642 - Presence of left artificial hip joint (ICD-10) History of tonsillectomy ?Z90.89 - Acquired absence of other organs (ICD-10) History of lumbar discectomy ?Z98.890 - Other specified postprocedural states (ICD-10) S/P right knee arthroscopy (08/20/04) ?Z98.890 - Other specified postprocedural states (ICD-10) S/P right knee arthroscopy (02/05/12) ?Z98.890 - Other specified postprocedural states (ICD-10) S/P left knee arthroscopy (07/23/06) ?Z98.890 - Other specified postprocedural states (ICD-10) History of arthroscopy of left shoulder (03/13/17) ?Z98.890 - Other specified postprocedural states (ICD-10) H/O laminectomy ?Z98.890 - Other specified postprocedural states (ICD-10) Hx of cholecystectomy ?Z90.49 - Acquired absence of other specified parts of digestive tract (ICD-10) 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) ?Z96.651 - Presence of right artificial knee joint (ICD-10) Status post total left knee replacement (05/19/13) ?Z96.652 - Presence of left artificial knee joint (ICD-10) Social History What is your current living situation?: I presently have a place to live Problems where you live: no known problems Problems where you live details: na In the past 12 months, utilities in danger of being shut off: no In past 12 months, lack of transportation kept you from medical appts, meetings, work, or getting things needed for daily living: no In the past 12 mos, have been you worried that your food would run out before you had money to buy more?: never true In the past 12 mos, the food you bought just didn't last and you didn't have money to buy more?: never true Smoking Status: Never smoker Do you use any of these nicotine containing products: None Second hand tobacco smoke exposure: No How often do you have a drink containing alcohol: monthly or less How many standard drinks containing alcohol do you have on a typical day: 1 or 2 How often do you have six or more drinks on one occasion: Never AUDIT-C Alcohol total score: 1 Non-prescribed substance use: denies use Caffeine: No How often does anyone, including family, friends and others, physically hurt you: never How often does anyone, including family, friends and others, insult or talk down to you: never How often does anyone, including family, friends and others, threaten you with harm: never How often does anyone, including family, friends and others, scream or curse at you: never service: No Meds Home Medications and Allergies Home Medications ?Medication ?Instructions ?Recorded ?Confirmed ?Type amlodipine 5 mg tablet 5 mg PO DAILY 09/28/22 10/06/24 History chlorthalidone 50 mg tablet 50 mg PO DAILY 09/28/22 10/06/24 History gabapentin 300 mg capsule 300 mg PO HS PRN 09/28/22 10/06/24 History losartan 50 mg tablet 50 mg PO BID 09/28/22 10/06/24 History metformin 1,000 mg tablet 1,000 mg PO BID 09/28/22 10/06/24 History potassium chloride 20 mEq 20 meq PO BID 09/28/22 10/06/24 History tablet,extended release spironolactone 50 mg tablet 50 mg PO DAILY 09/28/22 10/06/24 History buspirone 10 mg tablet 10 mg PO BID 01/14/23 10/06/24 History venlafaxine 150 mg 150 mg PO QAM 01/14/23 10/06/24 History capsule,extended release 24 hr venlafaxine 75 mg capsule,extended 75 mg PO QAM 01/14/23 10/06/24 History release 24 hr amoxicillin 500 mg capsule 2,000 mg (4 x 500 mg) PO ONCE #4 04/22/23 10/06/24 Rx caps simvastatin 40 mg tablet 40 mg PO QHS 03/15/24 10/06/24 History amoxicillin 875 mg tablet 875 mg PO BID 10/06/24 10/06/24 History buspirone 5 mg tablet 5 mg PO QDAY 10/06/24 10/06/24 History semaglutide 0.25 mg or 0.5 mg (2 0.5 mg subcut 10/06/24 History mg/3 mL) subcutaneous pen injector (Ozempic) Allergies Allergy/AdvReac Type Severity Reaction Status Date / Time Iodinated Contrast Media Allergy Intermediate rash Verified 10/06/24 10:13 nitrofurantoin Allergy Intermediate swelling Verified 10/06/24 10:13 amlodipine Allergy Mild feet Verified 10/06/24 10:13 swelling gadodiamide Allergy Mild high for Verified 10/06/24 10:13 3 days Exam Narrative: Exam Narrative: PHYSICAL EXAM General: Pleasant, conversant, NAD HEENT: Normocephalic, atraumatic, sclera white, EOMI, oral mucosa moist Cardiovascular: RRR, S1S2. No pitting edema Pulmonary: CTA bilaterally without rhonchi, rales, expiratory wheezes. No dyspnea Neurological: Alert, answering questions appropriately, cranial nerves intact, no focal findings Extremities: No gross joint deformity or swelling. Postoperative dressing in place, dry. Neurovascularly intact Skin: Warm, dry. Const: Vital Signs, click to edit/add: Vital Signs - 24 hr 10/06/24 10:15 10/06/24 11:00 10/06/24 11:15 Temperature 98.1 F Pulse Rate 99 90 93 Respiratory Rate 16 16 16 Blood Pressure 124/62 122/64 118/69 Pulse Oximetry 99 99 99 Oxygen Delivery Me thod Room Air Nasal Cannula Nasal Cannula Oxygen Flow Rate 2 2 10/06/24 11:30 10/06/24 11:45 Temperature Pulse Rate 90 88 Respiratory Rate 16 16 Blood Pressure 124/78 120/84 Pulse Oximetry 100 100 Oxygen Delivery Me thod Nasal Cannula Nasal Cannula Oxygen Flow Rate 2 2 Assessment and Plan Assessment and plan (1) Loosening of prosthesis of right total knee replacement: Problem comment: -POD#0 s/p revision R TKA, Dr. Ortez 10/06/24 -perioperative management including pain management and anticoagulation per Orthopedic surgery -encourage postoperative pulmonary hygiene -PT OT consults -plan to discharge home with spouse tomorrow Status: Acute (2) DAISY (obstructive sleep apnea): Problem comment: -use CPAP Status: Acute (3) Hypertension: Problem comment: -continue home meds Status: Acute (4) Hyperlipidemia: Problem comment: -continue statin Status: Acute (5) Type 2 diabetes mellitus: Problem comment: -most recent A1c 5.8 -resume metformin and ozempic post operatively Status: Acute Total Time Spent Total Time Spent: Today I spent 55 minutes seeing the patient, reviewing Expanse and EPIC notes/diagnostics, discussing the care plan with our care time that includes social work, PT/OT, pharmacy, RT, alf and documenting my impressions and plan in the medical record.
--- NOTE | 2024-10-06 15:39 | P.ANES_ITS ---
Anesthesia Charges Start Date/Time Anesthesia Start Date: 10/06/24 Anesthesia Start Time: 11:59 Stop Date/Time Anesthesia Stop Date: 10/06/24 Anesthesia Stop Time: 15:35 Coding CPT Codes CPT Codes: ANESTH KNEE ARTHROPLASTY - 76571 ([id number]) P3 - PATIENT W/SEVERE SYS DISEASE, QK - HEAVY MOBILE EQUIPMENT OPERATOR 2-4 CNCRNT ANES PROC, QX - HOSPITAL INTERNSHIP SVC W/ MD MED DIRECTION
--- NOTE | 2024-10-06 15:39 | W.ANESCHARGE ---
Anesthesia Charges Start Date/Time Anesthesia Start Date: 10/06/24 Anesthesia Start Time: 11:59 Stop Date/Time Anesthesia Stop Date: 10/06/24 Anesthesia Stop Time: 15:35 Coding CPT Codes CPT Codes: ANESTH KNEE ARTHROPLASTY - 21320 ([id number]) P3 - PATIENT W/SEVERE SYS DISEASE, QK - PRESENTATION DESIGNER 2-4 CNCRNT ANES PROC, QX - SENIOR SOFTWARE TESTER SVC W/ MD MED DIRECTION
[2024-10-06] MEDS: CEFAZOLIN 2 GM in 0.9 % SODIUM CHLORIDE Mini-bag 100 ML IVPB (17:44)
[2024-10-06] MEDS: HYDROmorphone 0.5 mg/0.5 ml inj IVP (17:45)
[2024-10-06] MEDS: OXYCODONE 5 MG TABLET PO ×2 (21:09→23:02)
[2024-10-06] MEDS: SIMVASTATIN 40 MG TABLET PO (21:09)
[2024-10-06] MEDS: ASPIRIN 81 MG TABLET EC PO (21:09)
[2024-10-06] MEDS: POTASSIUM CHLORIDE 10 MEQ CAPSULE ER 20 MEQ PO (21:09)
[2024-10-06] MEDS: BUSPIRONE 10 MG TABLET PO (21:09)
[2024-10-06] MEDS: LORazepam 0.5 MG TABLET PO (23:02)
[2024-10-07] MEDS: CEFAZOLIN 2 GM in 0.9 % SODIUM CHLORIDE Mini-bag 100 ML IVPB ×2 (02:20→10:29)
[2024-10-07] MEDS: OXYCODONE 5 MG TABLET PO ×4 (02:21→14:16)
[2024-10-07 02:26] VITALS: BP 114/60; PULSE 99; RESP 20; TEMP 36.5; O2SAT 93
--- NOTE | 2024-10-07 05:20 | PC.NURSE ---
[id number]: Patient talkative and cooperative with cares. Dressing to R.knee C/D/I. Pain managed w/Tylenol, Oxycodone, and active ice. Denies N/V. Denies CP. Afebrile. Eating and voiding.
[2024-10-07] MEDS: ACETAMINOPHEN 500 MG TABLET 1000 MG PO ×2 (05:54→12:58)
[2024-10-07 06:28] LABS: Basophils Percent Auto 0.1 % (0.0-3.0); Hematocrit 31.5 % (33.0-51.0); Hemoglobin* 10.5 gm/dL (12.0-16.0); Immature Granulocytes Pct Auto 0.1 %; Lymphocytes Percent Auto 13.4 % (20-44); Mean Corpuscular HGB Conc 33 gm/dL (32-36); Mean Corpuscular Hemoglobin 31 pg (26-34); Mean Corpuscular Volume 93 fL (80-100); Monocytes Percent Auto 6.5 % (0.0-11.0); Neutrophils Percent Auto 79.9 % (42.0-72.0); Platelet Count* 452 K/uL (140-440); RDW Coefficient of Variation % 13.2 % (11.5-15.5); Red Blood Count 3.38 m/uL (4.00-5.20); White Blood Count* 14.82 K/uL (4.50-11.00)
[2024-10-07 06:34] LABS: Slide Review Reflex No
[2024-10-07 06:44] LABS: Potassium* 3.9 mmol/L (3.6-5.1); Sodium* 135 mmol/L (135-149)
[2024-10-07 06:47] LABS: Blood Urea Nitrogen* 21 mg/dL (7-30); Creatinine* 0.7 mg/dL (0.5-1.5); Est. Creatinine Clearance* 41.76; Estimated Glomerular Filt Rate 95 ml/min
[2024-10-07 07:00] VITALS: PULSE 87; RESP 16; O2SAT 98
[2024-10-07 07:39] VITALS: BP 150/77; PULSE 87; RESP 16; TEMP 36.7; O2SAT 98
[2024-10-07] MEDS: AMLODIPINE 5 MG TABLET PO (08:33)
[2024-10-07] MEDS: BUSPIRONE 10 MG TABLET PO (08:33)
[2024-10-07] MEDS: LOSARTAN POTASSIUM 50 MG TABLET PO (08:33)
[2024-10-07] MEDS: ASPIRIN 81 MG TABLET EC PO (08:33)
[2024-10-07] MEDS: METFORMIN 1,000 MG TABLET 1000 MG PO (08:33)
[2024-10-07] MEDS: POTASSIUM CHLORIDE 10 MEQ CAPSULE ER 20 MEQ PO (08:34)
[2024-10-07] MEDS: VENLAFAXINE ER 75 MG CAPSULE 225 MG PO (08:34)
[2024-10-07 11:00] VITALS: BP 137/59; PULSE 94; O2SAT 97
--- NOTE | 2024-10-07 11:10 | REH.OT ---
OT screen completed. Pt is moving mod I in room with 2ww. Pt completes dressing with min A for socks; pt does not wear socks at home. Pt has walk in shower with grab bars and shower chair. Pt has comfort height toilet with vanity next to at home. Pt declines toilet transfer and walk in shower transfer. Pt has to assist as needed at home. OT recommends assist for first few showers and taxing ADLs/IADLs. Pt and have no further concerns or OT needs.
--- NOTE | 2024-10-07 13:43 | PM.ORPN ---
Subjective Subjective Date Seen: 10/07/24 Principal diagnosis: Status postop day 1 right revision total knee arthroplasty Interval history: Patient reports doing okay. No acute events over night. Mild lightheadedness/dizziness when getting up. However, she did well with PT. Pain managed with scheduled and PRN medications, ice. DVT prophylaxis: 81 mg aspirin by mouth twice daily, SCDs, walking. Denies fevers, chills, aches, N/V, CP, SOB/BASURTO. Ortho Exam Narrative Exam Narrative: -Patient appears comfortable; no apparent acute distress -Alert and oriented times 3 -Operative knee moderately swollen; soft tissues supple; ecchymosis noted probably over the medial knee, and medial distal leg. No erythematous streaking. Warmth appropriate -Surgical dressing clean, dry, no drainage. Dressing adhesive is coming off. -Bilateral calfs soft; no significant swelling, edema, tenderness, erythema, discoloration, warmth, or palpable cords -2+ DP/PT pulses, intact dermatomes and myotomes distally (5/5 strength) Const Vital Signs, click to edit/add: Vital Signs - 24 hr 10/06/24 15:32 10/06/24 15:35 10/06/24 15:40 Temperature 97.8 F Pulse Rate 87 85 83 Pulse Rate [Left Pulse Oximeter] Respiratory Rate 16 15 16 Blood Pressure 141/78 H 155/84 H 149/78 H Blood Pressure [Left Arm] Pulse Oximetry 96 96 97 Oxygen Delivery Method Room Air 10/06/24 15:45 10/06/24 15:50 10/06/24 15:55 Temperature 98.2 F Pulse Rate 82 82 80 Pulse Rate [Left Pulse Oximeter] Respiratory Rate 16 20 18 Blood Pressure 145/77 H 139/72 133/74 Blood Pressure [Left Arm] Pulse Oximetry 96 96 98 Oxygen Delivery Method Room Air 10/06/24 17:00 10/06/24 17:15 10/06/24 18:00 Temperature 97.2 F L 97.3 F L 97.3 F L Pulse Rate 90 85 85 Pulse Rate [Left Pulse Oximeter] Respiratory Rate 18 18 16 Blood Pressure 152/101 H 124/65 137/71 Blood Pressure [Left Arm] Pulse Oximetry 96 97 96 Oxygen Delivery Method Room Air 10/06/24 18:30 10/06/24 19:00 10/06/24 19:56 Temperature 97.6 F 98.1 F 98.1 F Pulse Rate 92 100 Pulse Rate [Left Pulse Oximeter] 100 Respiratory Rate 18 20 20 Blood Pressure 133/83 109/57 L Blood Pressure [Left Arm] 109/57 L Pulse Oximetry 97 96 96 Oxygen Delivery Method Room Air Room Air Room Air 10/06/24 20:00 10/06/24 21:00 10/06/24 22:00 Temperature 98.2 F 98.3 F 98.4 F Pulse Rate 97 98 96 Pulse Rate [Left Pulse Oximeter] Respiratory Rate 20 18 22 Blood Pressure 131/60 143/71 H 124/56 L Blood Pressure [Left Arm] Pulse Oximetry 97 96 93 Oxygen Delivery Method Room Air Room Air Room Air 10/06/24 22:00 10/06/24 23:00 10/06/24 23:00 Temperature 98.5 F Pulse Rate Pulse Rate [Left Pulse Oximeter] 96 Respiratory Rate 20 20 Blood Pressure Blood Pressure [Left Arm] 124/56 L Pulse Oximetry 93 93 93 Oxygen Delivery Method Room Air Room Air 10/07/24 02:26 10/07/24 07:00 10/07/24 07:00 Temperature 97.7 F Pulse Rate Pulse Rate [Left Pulse Oximeter] 99 87 Respiratory Rate 20 16 Blood Pressure Blood Pressure [Left Arm] 114/60 Pulse Oximetry 93 98 Oxygen Delivery Method Room Air 10/07/24 07:00 10/07/24 07:39 10/07/24 11:00 Temperature 98.0 F Pulse Rate Pulse Rate [Left Pulse Oximeter] 87 94 Respiratory Rate 16 16 Blood Pressure Blood Pressure [Left Arm] 150/77 H 137/59 L Pulse Oximetry 98 98 97 Oxygen Delivery Method Room Air Room Air Room Air Assessment and Plan Assessment and plan (1) Loosening of prosthesis of right total knee replacement: Problem details: -POD#1 s/p revision R TKA, Dr. Ortez 10/06/24 -perioperative management including pain management and anticoagulation per Orthopedic surgery -encourage postoperative pulmonary hygiene -PT OT consults -plan to discharge home with spouse tomorrow Status: Acute (2) DAISY (obstructive sleep apnea): Problem details: -use CPAP Status: Acute (3) Hypertension: Problem details: -continue home meds Status: Acute (4) Hyperlipidemia: Problem details: -continue statin Status: Acute (5) Type 2 diabetes mellitus: Problem details: -most recent A1c 5.8 -resume metformin and ozempic post operatively Status: Acute Plan - Complete 23 hour perioperative antibiotics. - PT/OT consult for education and assistance. - Social work consult for discharge planning - Prescribed analgesics as needed - DVT prophylaxis: 81 mg aspirin by mouth twice daily, walking, and SCDs - encouraged patient to tack down the adhesive around the bandage before she showers. - Anticipation is for discharge to home with today 10/07/2024 if the patient remains medically stable, pain is controlled, and they are safe with mobilization.
--- NOTE | 2024-10-07 14:43 | PC.NURSE ---
Pt doing well today. VSS. Pain controlled with PRN medications, ice and elevation. Tolerating ambulation with walker. Pt discharged home at 1425 via . Pt belongings and discharge information signed. Education reviewed, no questions or concerns at this time.
== END 2024-10-07 14:25 | disposition home or self-care (01) | DRG 467 ==
PROVIDERS: Admitting Provider Orthopaedic Surgery Sports Medicine; PCP Family Medicine; Visit Provider Orthopaedic Surgery Sports Medicine
PROC: 0SPC0JZ Removal of Synthetic Substitute from Right Knee Joint, Open Approach (ICD-10-PCS; CPT 27447; principal; 2024-10-06 11:45)
PROC: 0SPC0JZ Removal of Synthetic Substitute from Right Knee Joint, Open Approach (ICD-10-PCS; 2024-10-06 11:45)
DX: T84.032A Mechanical loosening of internal right knee prosthetic joint, initial encounter (principal); Z68.42 Body mass index [BMI] 45.0-49.9, adult; G89.18 Other acute postprocedural pain; M65.851 Other synovitis and tenosynovitis, right thigh; E11.9 Type 2 diabetes mellitus without complications; Z79.85 Long-term (current) use of injectable non-insulin antidiabetic drugs; Z91.81 History of falling; G47.33 Obstructive sleep apnea (adult) (pediatric); I10 Essential (primary) hypertension; E66.01 Morbid (severe) obesity due to excess calories; F32.A Depression, unspecified; Z96.642 Presence of left artificial hip joint; Z85.42 Personal history of malignant neoplasm of other parts of uterus; E78.5 Hyperlipidemia, unspecified; Z79.84 Long term (current) use of oral hypoglycemic drugs; Z79.82 Long term (current) use of aspirin
CPT/HCPCS: 01402; 36415; 64447; 64454; 73560; 76942; 82565; 82962; 84132; 84295; 84520; 85025; 97110; 97161; 97530; J2003; A9270; C1776; J0171; J0665; J0690; J1010; J1100; J1171; J2250; J2704; J3010; J3490; J7120